=== PATIENT | female | born 1950 | race Caucasian/White ===

== ENCOUNTER 2019-08-20 01:13 | Emergency (ER) | payer BC, OTHER ==
--- OUTSIDE RECORDS SUMMARY | 2019-08-20 01:16 | XMS REPORT | Summary of Care ---
:1950 Author Organization [facility] [place] [address] Care Team Providers Name Role Phone Husam Taylor MD, ANTHONY Primary Care Provider Itzel Hancock MD Unavailable Chance Tabares MD Unavailable Filipe Huertas Unavailable Reason for Referral Radiology Services (Routine) Status Reason Specialty Diagnoses / Referred By Contact Referred To Contact Procedures Pending Radiology Diagnoses Cholangiocarcinoma Eliezer Long, Radiology Procedures CT CHEST ABDOMEN PELVIS W CONTRAST MD Steven [address] 1[address] Floor 7th Floor, [address] [place], [place] [id number] [place] [address] Reason for Visit Reason Comments Follow Up Encounter Details Date Type Department Care Team Description 01/08/2019 Office Visit [facility] Hematology Eliezer Long, Follow Up and Oncology [address] [place] [address] 7th Floor, [address] 7th Floor, [address] [place] [address] [place] [address] [phone] Allergies Active Allergy Reactions Severity Noted Date Comments Sulfa Antibiotics 12/10/2008 documented as of this encounter (statuses as of 01/08/2019) Medications Medication Sig Dispensed Refills Start Date End Date Status TYLENOL 325 MG TABS Take 650 mg by 0 Active mouth every 4 hours as needed for Pain. Cyanocobalamin (B-12) Take 2,500 mcg by 0 Active 2000 MCG TABS mouth daily. Cholecalciferol Take by mouth. 0 Active (VITAMIN D3) 2000 UNIT TABS Multiple Take by mouth. 0 Active Vitamins-Calcium (ONE-A-DAY WOMENS FORMULA OR) tramadol (ULTRAM) 50 Take 1 Tab by 30 Tab 1 10/18/2017 Active MG tabletIndications: mouth every 6 Cholangiocarcinoma, hours as needed Pain for Pain. ondansetron (ZOFRAN) 8 Take 1 Tab by 30 Tab 5 10/18/2017 Active mg tabletIndications: mouth every 8 Chemotherapy induced hours as needed. nausea and vomiting Take as needed for nausea Pancrelipase, Take 2 Caps by 240 Cap 6 11/01/2017 Active Vqg-Bnfj-Mvku, 37833 mouth 3 times units CPEPIndications: daily (with Cholangiocarcinoma, meals). And 1 cap Abdominal cramping, with snacks Bloating lidocaine-prilocaine Apply 1 30 g 5 11/15/2017 Active (EMLA) application creamIndications: topically every 7 Cholangiocarcinoma, days. Apply to Portacath in place port site with A Q tip 1 hour pre chemo Cover with elidia espana escitalopram (LEXAPRO) Take 1 Tab by 90 Tab 1 07/26/2018 Active 20 MG tablet mouth daily. lisinopril (PRINIVIL, TAKE 1 TABLET BY 90 Tab 1 08/09/2018 Active ZESTRIL) 10 MG MOUTH EVERY DAY tabletIndications: Essential hypertension documented as of this encounter (statuses as of 01/08/2019) Active Problems Problem Noted Date Neuropathy 10/11/2018 Thrombocytopenia 10/11/2018 Liver metastases 06/06/[address] 11/08/2017 Chemotherapy induced nausea and vomiting 10/18/2017 Hyperbilirubinemia 09/20/2017 Cholangiocarcinoma 09/20/2017 Cancer Staging: Clinical stage from 09/14/2017: Stage IV (cTX, cN0, pM1) - Signed by Eliezer Long MD on 12/12/2018 Liver mass 08/30/2017 Last Assessment & Plan: Most likely cholangiocarcinoma. Awaiting path results from Bx. - Recent reviewed results with patient. Discussed Colonoscopy findings. Answered all patients questions. - Doing well-post biopsy. - Letter written that ok to return to work, but should not lift >5 lbs for 2 weeks (per IR instructions) - Discussed possible etiologies, including fact that findings thus far are most consistent with a cholangiocarcinoma - Discussed continued work up of this, including waiting for biopsy results, visit with Onc, likely need for surgery and chemo. - Regarding mood, she is tolerating well at this point. - Recheck liver enzymes. Suspect bili elevated due to obstruction from mass. - Reports she was told that her gall bladder was prolapsed or inverted? I could not finding records to clarify this. Suspect abnormalities related to liver/biliary mass. Vision changes 08/28/2015 Last Assessment & Plan: BPs well within normal range. No bruits on exam. Recent echo without obvious cause. - Carotid ultrasound ordered. - Monitor BP - Increase water intake Muscle spasms of neck 08/28/2015 Last Assessment & Plan: Intermittent - Increase water intake - Stretching Hypertension 06/03/2015 Last Assessment & Plan: Now well-controlled. - Continue lisinopril 10 Ear itching 02/06/2015 Last Assessment & Plan: Mild. Intermittent. Only of left. Exam showed dry, flaking skin on entrance to ear canal. - Recommend either no intervention, or small amount of moisturizing cream on external ear. Advised not to put in ear. Cardiac murmur 2013 Last Assessment & Plan: Turbulent LVOT flow, and tri-leaflet, but normal aortic valve on echo. Goals of care, counseling/discussion 10/17/2013 Overview: Last Annual Physical: 08/2018 - Colonoscopy: completed 09/2017, 1 TA. Repeat 2022 - Breast Cancer Screening: - CBE: Normal 08/2018 - Mammogram: Normal 08/2017; discussed repeating. Ordered - Skin Cancer Prevention; - Pap Smear: Normal 05/2015 (normal) with Dr. Mcwilliams - Osteoporosis Screening: Bone Density ordered - Skin Cancer Prevention: Avoids sun. Declined TBSE. - Vaccines: - Flu: received 04/05/2018 - Pneumovax: discuss at age 66 - Prevnar: received 08/2017 - Tetanus: received 02/2016 - Zoster: received 10/2013 Chemotherapy management, encounter for 10/25/2007 Dysthymic disorder 03/03/2006 Last Assessment & Plan: Pt reports improvement with increase of Lexapro to 10 mg. Reports still a level of anxiety remaining that she would like to address. History of depression. - Discussed potentially increasing to 20mg. She will continue as is and follow up with Dr. Castaneda ([place], [place]; [phone]) Depression Last Assessment & Plan: - D/C lexapro - Advised to contact me if depression recurs documented as of this encounter (statuses as of 01/08/2019) Resolved Problems Problem Noted Date Resolved Date INGUINAL PAIN, RIGHT 03/27/2008 10/18/2013 SCREENING FOR MALIGNANT NEOPLASM, CERVIX 10/25/2007 08/22/2013 SCREENING MAMMOGRAM NEC 10/25/2007 08/22/2013 Neck pain 09/28/2007 10/18/2013 SYMPTOMS INVOLVING DIGESTIVE SYSTEM NEC 09/28/2007 10/18/2013 Headache(784.0) 02/16/2007 10/18/2013 Chest pain 09/22/2006 10/18/2013 Fatigue 09/22/2006 08/22/2013 Urinary frequency 09/22/2006 10/18/2013 Menopausal disorder 09/22/2006 10/18/2013 History of cerebral aneurysm repair after rupture 09/22/2006 04/11/2018 Hypothyroidism 03/03/2006 04/13/2015 Last Assessment & Plan: - D/C levothyroxine today - Check TSH today for baseline, and again in 6-8 weeks. If remains controlled, no need to restart. documented as of this encounter (statuses as of 01/08/2019) Immunizations Name Administration Dates Next Due PPD Test 02/16/2011 Pneumococcal 13-valent Conjugate Vaccine 08/09/2017 Pneumococcal Polysaccharide 08/22/2018 Tdap 02/17/2016 Zoster Live 10/18/2013 documented as of this encounter Social History Tobacco Use Types Packs/Day Years Used Date Never Smoker Smokeless Tobacco: Never Used Alcohol Use Drinks/Week oz/Week Comments No Alcoholic Drinks/day: Never Sex Assigned at Date Recorded Not on file Job Start Date Occupation Industry Not on file Not on file Not on file Travel History Travel Start Travel End No recent travel history available. documented as of this encounter Last Filed Vital Signs Vital Sign Reading Time Taken Comments Blood Pressure 150/83 01/08/2019 8:20 AM CDT Pulse 84 01/08/2019 8:20 AM CDT Temperature 36.9 C (98.4 F) 01/08/2019 8:20 AM CDT Respiratory Rate - - Oxygen Saturation - - Inhaled Oxygen Concentration - - Weight 80.4 kg (177 lb 3.2 oz) 01/08/2019 8:20 AM CDT Height 167.6 cm (5' 6") 01/08/2019 8:20 AM CDT Body Mass Index 28.6 01/08/2019 8:20 AM CDT documented in this encounter Patient Instructions Patient InstructionsEliezer Long MD - 01/08/2019 8:30 AM CDT [facility] SECTION OF ONCOLOGY/HEMATOLOGY [phone] FAX [phone] Please note that all labs and or imaging results will be discussed at the next office visit unless told otherwise. If a problem occurs after normal business hours, over the weekend, or on a holiday, please contact our office at [phone] and have the physician configuration consultant paged. Patient Instructions: (to be completed before next visit) - schedule CT scan for week of Feb 04 Please don't hesitate to call or to send a [employer] message if you have any questions or concerns before your next visit. [employer] messaging should only be used for non-urgent questions. MyChart is notchecked after normal business hours, nor on weekends or holidays. 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 This tumor was tested and found to be OLI phenotype. As a part of her workup she underwent completion staging scans, which revealed tumor as described, and some small, indeterminate lung nodules. Lab work up also was noted for elevated T-bilirubin. She underwent ERCP and developed pancreatitis, for which she was hospitalized. As an outpatient, she subsequently began chemotherapy with gemcitabine/ cisplatin. Stent was revised by Dr Arechiga during off week from therapy. CT imaging assessed 01/09/18 indicated partial response of hepatic metastases. Several regional nodes had developed however. The next assessment on 03/09/18 suggested effective therapy, butexcept thata liver lesion had discordantly grown.She continued with same therapy and next imaging was repeated on 04/23/18. This nowshowed control of hepatic disease, but that a node had grown. Unclear if this is due to cancer or reactive.She continued with same regimen but with modification for better subjective tolerance.Imaging repeated 07/02/18and was good for ongoing response.This was again true of scans from 10/05/18. Over the course of the latter six months of therapy, dose modifications were needed due to chemotherapy-associated cytopenias. Despite modifications, cytopenias, notably thrombocytopenia, persist as a toxicity.Treatment break was recommended. She had CT imaging 12/04/18 that revealed minimal progression of one lesion (less then 1/2 cm but in 3-directions all). Continued with hiatus. 01/08/19:Again she feels better off of therapy. Improving neuropathy. She has improvement with her cognition, energy. No pain. No itching, skin changes. Review of Systems: Gen: No fevers, chills, sweats, fatigue, weakness. HENT: No sore throat or mouth sores. No runny nose, sinus congestion, or earache. Eyes: No blurring of vision or visual changes. Neck: No new lumps or masses. Resp: No shortness of breath or wheezing. No cough or sputum. Cardio: No chest pain. No palpitations. No leg swelling. GI: See HPI : No dysuria or problems with urination. MS: No bone pain or joint stiffness. No arm swelling or edema. Skin: No new rashes, lumps or bumps. Neuro: See HPI Heme: No bleeding or easy bruisability. No adenopathy. Psych: No symptoms of depression or anxiety. All other systems reported as negative on ROS. Past Medical History: Past Medical History: Diagnosis Date Brain aneurysm 2005 s/p clipping Depression Disorder, dysthymic 03/03/2006 Hypertension 06/03/2015 Hypothyroidism 03/03/2006 Osteoporosis Past Surgical History: Past Surgical History: Procedure Laterality Date HX BRAIN SURGERY Jun 2005 aneurysm HX BREAST SURGERY 1974 HX CERVICAL CONIZATION HX FRACTURE REPAIR HX TONSILLECTOMY Social history: Social History Socioeconomic History Marital status: Spouse name: Not on file Number of children: Not on file Years of education: Not on file Highest education level: Not on file Occupational History Not on file Social Needs Financial resource strain: Not on file Food insecurity: Worry: Not on file Inability: Not on file Transportation needs: Medical: Not on file Non-medical: Not on file Tobacco Use Smoking status: Never Smoker Smokeless tobacco: Never Used Substance and Sexual Activity Alcohol use: No Comment: Alcoholic Drinks/day: Never Drug use: No Comment: Drug use: Never Sexual activity: Not Currently Partners: Male Lifestyle Physical activity: Days per week: Not on file Minutes per session: Not on file Stress: Not on file Relationships Social connections: Talks on phone: Not on file Gets together: Not on file Attends hindu service: Not on file Active member of club or organization: Not on file Attends meetings of clubs or organizations: Not on file Relationship status: Not on file Intimate partner violence: Fear of current or ex partner: Not on file Emotionally abused: Not on file Physically abused: Not on file Forced sexual activity: Not on file Other Topics Concerns: Do you wear a seatbelt: Yes Do you have a tattoo: No Have you ever had a blood transfusion: Yes Do you feel safe at home: Yes Social History Narrative Not on file Family history: Family History Problem Relation Name Age of Onset Diabetes Maternal Grandfather Nelson Piña Diabetes Maternal Aunt Corinna Becerril Other (Fibroids) Daughter Allergies Allergen Reactions Sulfa Antibiotics Current Outpatient Medications Medication Sig Dispense Refill Cholecalciferol (VITAMIN D3) 2000 UNIT TABS Take by mouth. Cyanocobalamin (B-12) 2000 MCG TABS Take 2,500 mcg by mouth daily. escitalopram (LEXAPRO) 20 MG tablet Take 1 Tab by mouth daily. 90 Tab 1 lidocaine-prilocaine (EMLA) cream Apply 1 application topically every 7 days. Apply to port sitewith A Q tip 1 hour pre chemo Cover with sarlam warp 30 g 5 lisinopril (PRINIVIL, ZESTRIL) 10 MG tablet TAKE 1 TABLET BY MOUTH EVERY DAY 90 Tab 1 Multiple Vitamins-Calcium (ONE-A-DAY WOMENS FORMULA OR) Take by mouth. ondansetron (ZOFRAN) 8 mg tablet Take 1 Tab by mouth every 8 hours as needed. Take as needed fornausea 30 Tab 5 Pancrelipase, Oyk-Avct-Kneq, 71988 units CPEP Take 2 Caps by mouth 3 times daily (with meals). And 1 cap with snacks (Patient not taking: Reported on 2018) 240 Cap 6 tramadol (ULTRAM) 50 MG tablet Take 1 Tab by mouth every 6 hours as needed for Pain. 30 Tab 1 TYLENOL 325 MG TABS Take 650 mg by mouth every 4 hours as needed for Pain. No current facility-administered medications for this visit. Physical Exam: Vital Signs Height: 5' 6" (167.6 cm) Weight - Scale: 177 lb 3.2 oz (80.4 kg) Temp: 98.4 F (36.9 C) Temp Source: Oral Pulse: 84 Resting Heart Rate: 84 BP: 150/83 Patient Position: Sitting Cuff Size: regular BP Location: left arm Oxygen Therapy O2 Sat: 99 % Height and Weight BSA (Calculated - sq m): 1.93 sq meters BMI (Calculated): 28.7 Predicted Body Weight: 130.73 Body surface area is 1.93 meters squared. Wt Readings from Last 3 Encounters: 01/08/19 177 lb 3.2 oz (80.4 kg) 12/12/18 172 lb 9.6 oz (78.3 kg) 11/07/18 169 lb 12.8 oz (77 kg) ECO General: Alert, well appearing, no acute distress. Head: alopecia that is improving Eyes: Conjunctivae and lids normal. The sclera is clear and anicteric ENT: No oral lesions. Oropharynx shows no mucositis, erythema or exudate Neck: Supple, no JVD. Thyroid not enlarged. No cervical adenopathy. Heart: Regular rate and rhythm, normal S1 and S2. No murmurs, gallops, rubs, or extra sounds. Lungs: Normal respiratory effort. There is normal air entry with normal breath sounds. No rales, rhonchi, rubs or wheezes. Nodes: No axillary, supraclavicular, or cervical lymphadenopathy. Abdomen: Hyperactive bowel sounds. Soft. Nontender. Some distension. There is no palpable hepatosplenomegaly. No hernias noted. Extremities: No varicosities or ulceration. No clubbing, cyanosis, or edema. Skin: Warm and dry No rashes, lesions or ulcerations. Port C/D/I Neurologic: The patient is oriented to time, place, and person. Muscle tone is normal.The gait was normal and there were no difficulty in coordination. Psych: Mood is stable Labs:All laboratory, radiology, and pathology studies have been reviewed. Assessment 68y.o.year old woman has been diagnosed with an upperGI trackcarcinoma with hepatic metastasis. Role for therapy to contain or control this cancer with systemic therapy has been offered. Because this is spread, surgery is not indicated but other local options such as radiation could be a consideration. For medical therapy, shehas proven to francia good candidate to benefit from chemotherapy. Specifically, a combination of gemcitabine/cisplatinused indicated in the first line, for nearly one year. She is not a candidate for immune therapy due to OLI phenotype of the tumor. Given controlled disease, but also emphasizing progressive toxicity ( thrombocytopenia and neuropathy), recommendedthat she maintain the treatment hiatus. She is clinically better for the break and counts are improved. Plan Carcinoma - First line chemotherapy with gemcitabine/cisplatin,now held on hiatus - Discussed in context of GOC - Plan to defer further therapy at this time but reassess after only interval of 2 months as ordered This diagnosis and rationale for treatment were discussed with the patient and her daughterto theirapparent understanding and agreement.[id number], encouraged to call with questions or concerns. Eliezer Long MD, FACP [facility] #[id number] Set Up Mechanic Heading Machinesquarter section ironer Leoncio Montero [facility] documented in this encounter Plan of Treatment Date Type Specialty Care Team Description 02/13/2019 Office Visit Hematology and Oncology Chema Reardon, TERRENCE [address] [facility] 7th Floor, [address] [place] [address] Name Type Priority Associated Diagnoses Order Schedule CT CHEST ABDOMEN PELVIS W Imaging Routine Cholangiocarcinoma 1 Occurrences starting CONTRAST 01/08/2019 until 01/09/2020 CBC W/AUTO DIFF WITH Lab STAT Cholangiocarcinoma Ordered: 01/08/2019 PLATELETS COMPREHENSIVE METABOLIC Lab STAT Cholangiocarcinoma Ordered: 01/08/2019 PANEL CANCER ANTIGEN 19-9 Lab Routine Cholangiocarcinoma Ordered: 01/08/2019 Health Maintenance Due Date Last Done Comments BMI FOLLOW UP PLAN 10[birth year]19/1968 FLU VACCINE > 6 MONTHS 01/03/2019 04/02/2018, 02/17/2016 (Declined), 02/06/2015 (Declined) FALL SCREEN 08/23/2019 08/22/2018 MAMMOGRAM ANNUAL 09/29/2019 09/28/2018, 08/24/2017, 08/19/2016, Additional history exists COLON CANCER SCREENIN09/05/2022 09/05/2017, 09/05/2017, COLONOSCOPY 06/05/2005 TETANUS SHOT (ADULT) 02/16/2026 02/17/2016, 06/05/2012 PREVNAR >=65 (PCV13) Completed 08/09/2017, 08/09/2017 HEPATITIS C SCREENING Completed 08/24/2017 OSTEOPOROSIS SCREENING Completed 08/24/2017, 10/18/2013, 10/18/2013, Additional history exists PNEUMOVAX >=65 (PPSV23) Completed 08/22/2018 documented as of this encounter Results Not on filedocumented in this encounter Visit Diagnoses Diagnosis Cholangiocarcinoma - Primary Malignant neoplasm of intrahepatic bile ducts documented in this encounter Insurance Payer Benefit Plan / Subscriber ID Effective Dates Phone Address Type Group [facility] xxxxxxxxx 2015-Present [address] PPO [facility] [phone] [facility] MATT Castano (Home) [phone] [place] [address] (Work) documented as of this encounter Advance Directives Type Date Recorded Patient Press Set Up Explanation Advance Directives and Living Will Power of Meat Selector
--- OUTSIDE RECORDS SUMMARY | 2019-08-20 01:16 | XMS REPORT | Summary of Care ---
:1950 Author Organization [facility] - Health Address [address] [place] [address] Care Team Providers Name Role Phone Pcp, Patient Does Not Have A Primary Care Provider Reason for Visit Reason Comments New Patient Ankle Pain right 06/14 x 5 days Encounter Details Date Type Department Care Team Description 02/13/2019 Office Visit [facility] Orthopaedic Bhanu Adkins Closed fracture of Surgery- Ellie Marinelli MD proximal lateral [address], [address] malleolus of right [address] fibula, [place] [address] [place], [place] encounter (Primary Dx) [phone] Allergies No Known Allergiesdocumented as of this encounter (statuses as of 02/13/2019) Medications No known medicationsdocumented as of this encounter (statuses as of 02/13/2019) Active Problems Not on filedocumented as of this encounter (statuses as of 02/13/2019) Social History Tobacco Use Types Packs/Day Years Used Date Never Assessed Sex Assigned at Date Recorded Not on file Job Start Date Occupation Industry Not on file Not on file Not on file Travel History Travel Start Travel End No recent travel history available. documented as of this encounter Last Filed Vital Signs Vital Sign Reading Time Taken Comments Blood Pressure 118/79 02/13/2019 3:05 PM CDT Pulse 93 02/13/2019 3:05 PM CDT Temperature - - Respiratory Rate 18 02/13/2019 3:05 PM CDT Oxygen Saturation 95% 02/13/2019 3:05 PM CDT Inhaled Oxygen Concentration - - Weight - - Height - - Body Mass Index - - documented in this encounter Progress Notes Bhanu Adkins MD - 02/13/2019 2:45 PM CDT Cc: Chief Complaint Patient presents with New Patient Ankle Pain right 06/14 x 5 days Danny Babcock is a 68 year old female. Ankle Pain The incident occurred 5 to 7 days ago. The incident occurred at home. The injury mechanism was a fall. The pain is present in the right ankle. The quality of the pain is described as aching, burning and stabbing. The pain is at a severity of 6/10. The pain is moderate. The pain has been worsening since onset. Associated symptoms include an inability to bear weight. The symptoms are aggravated by movement and weight bearing. She has tried NSAIDs, non-weight bearing and rest for the symptoms. The treatment provided mild relief. Allergies Danny has No Known Allergies. Medications No outpatient medications prior to visit. No facility-administered medications prior to visit. Histories No past medical history on file. No past surgical history on file. Social History Socioeconomic History Marital status: Spouse [...] Not on file Tobacco Use Smoking status: Not on file Substance and Sexual Activity Alcohol use: Not on file Drug use: Not on file Sexual activity: Not on file Lifestyle Physical activity: Days per week: Not on file Minutes per session: Not on file Stress: Not on file Relationships Social connections: Talks on phone: Not on file Gets together: Not on file Attends mandaen service: Not on file Active member of club or organization: Not on file Attends meetings of clubs or organizations: Not on file Relationship status: Not on file Intimate partner violence: Fear of current or ex partner: Not on file Emotionally abused: Not on file Physically abused: Not on file Forced sexual activity: Not on file Other Topics Concern Not on file Social History Narrative Not on file No family history on file. Review of Systems Constitutional: Negative. HENT: Negative. Eyes: Negative. Respiratory: Negative. Breasts: Negative. Cardiovascular: Negative. Gastrointestinal: Negative. Genitourinary: Negative. Musculoskeletal: Negative. Negative for myalgias. Skin: Negative. Neurological: Negative. Psychiatric/Behavioral: Negative. Endocrine: Endocrine negative Vital Signs BP 118/79 (BP Location: Left arm, Patient Position: Sitting, BP CUFF SIZE: Adult Large) | Pulse 93| Resp 18 | SpO2 95% Physical Exam Musculoskeletal: General: Well-developed well-nourished oriented to person place and time HEENT normocephalic atraumatic atraumatic pupils equal round reactive to light extraocular muscles intact Cervical thoracic and lumbar spine without focal deficit normal kyphosis and lordosis Chest clear to auscultation and percussion Cardiovascular regular rate and rhythm without gallop rub or murmur soft without organomegaly Normal bowel sounds Neurologic: Focal myotome or dermatomal deficits Vascular: Intact symmetrical bilateral upper and lower extremities Skin without stasis varicosities or breakdown Extremities without cyanosis clubbing or edema Lymphatics no peripheral lymphedema Psych normal mood and affect. Neurovascular function is intact. To include brisk capillary refill warm pink skin active motor function and sensory function intact. Nursing note and vitals reviewed. Assessment/Plan Right ankle nondisplaced lateral malleolus Patient placed into a cast book. Follow up 1 week for xray. documented in this encounter Plan of Treatment Date Type Specialty Care Team Description 03/15/2019 Office Visit Orthopedic Surgery Bhanu Adkins MD [address] [place] [phone] Health Maintenance Due Date Last Done Comments HEPATITIS C (HCV) SCREEN 1950 DTaP,Tdap,and Td Vaccines (1 - Tdap) 10/19/1970 MAMMOGRAM 1991 COLONOSCOPY 10/19/2001 Zoster Recombinant Vaccine (SHINGRIX) (1 of 2) 10/19/2001 Medicare Wellness Visit 10/19/2016 Osteoporosis Screening 10/19/2016 PNEUMOCOCCAL VACCINES 65+ (1 of 2 - PCV13) 10/19/2016 INFLUENZA VACCINE (#1) 2019 documented as of this encounter Results Not on filedocumented in this encounter Visit Diagnoses Diagnosis Closed fracture of proximal lateral malleolus of right fibula, initial encounter - Primary documented in this encounter Insurance Payer Benefit Plan Subscriber ID Effective Dates Phone Address Type / Group BCBS OF [employer] FED [id number] 2015-Zandra [phone] [address] PPO/POS [place] [address] t [id number] [place] [address] documented as of this encounter"
--- OUTSIDE RECORDS SUMMARY | 2019-08-20 01:16 | XMS REPORT | Summary of Care ---
:1950 Author Organization [facility] - Health Address [address] [place] [address] Care Team Providers Name Role Phone Pcp, Patient Does Not Have A Primary Care Provider Reason for Visit Reason Comments New Patient Ankle Pain right 06/14 x 5 days Encounter Details Date Type Department Care Team Description 02/13/2019 Office Visit [facility] Orthopaedic Bhanu Adkins Closed fracture of Surgery- Ellie Marinelli MD proximal lateral [address], [address] malleolus of right [address] fib[address], [place] [address] [place], [place] encounter (Primary Dx) [phone] Allergies No Known Allergiesdocumented as of [...] file Gets together: Not on file Attends restorationism service: Not on file Active member of [...] Office Visit Orthopedic Surgery Bhanu Adkins MD [address] [place] [phone] Health Maintenance Due Date Last Done [...] Type / Group BCBS OF BCBS FED [id number] 2015-Zandra [phone] [address] PPO/POS [place] [employer] t 7 [id number] [place] [address] documented as of this encounter"
--- OUTSIDE RECORDS SUMMARY | 2019-08-20 01:16 | XMS REPORT | Summary of Care ---
:1950 Author Organization [facility] [place] [address] Care Team Providers Name Role Phone Husam Taylor MD, ANTHONY Primary Care Provider Itzel Hancock MD Unavailable Chance Tabares MD Unavailable Filipe Huertas Unavailable Reason for Visit Reason Comments Follow Up 4 week f/u Encounter Details Date Type Department Care Team Description 02/06/2019 Office Visit [facility] Eliezer Oliveira Follow Up (4 week [facility] Leoncio Harris MD f/u) [facility] [address] [facility] 7th Floor, [address] [facility] [address] 7th Floor, [address] [place] [address] [place] [address] Allergies Active Allergy Reactions Severity Noted Date Comments Sulfa Antibiotics 12/10/2008 documented as of this encounter (statuses as of 02/06/2019) Medications Medication Sig Dispensed Refills Start Date [...] Caps by 240 Cap 6 11/01/2017 Active Ytm-Hbrz-Auml, 39153 mouth 3 times units CPEPIndications: daily (with Cholangiocarcinoma, meals). And 1 cap Abdominal cramping, with snacks Bloating lidocaine-prilocaine Apply 1 30 g 5 11/15/2017 Active (EMLA) application creamIndications: topically every 7 Cholangiocarcinoma, days. Apply to Portacath in place port site with A Q tip 1 hour pre chemo Cover with elidia espana escitalopram (LEXAPRO) TAKE 1 TABLET BY 90 Tab 1 01/18/2019 Active 20 MG tablet MOUTH EVERY DAY lisinopril (PRINIVIL, TAKE 1 TABLET BY 90 Tab 3 01/21/2019 Active ZESTRIL) 10 MG MOUTH EVERY DAY tabletIndications: Essential hypertension documented as of this encounter (statuses as of 02/06/2019) Active Problems Problem Noted Date Neuropathy 10/11/2018 [...] is and follow up with Dr. Castaneda ([place], [place]; [phone]) Depression Last Assessment & Plan: - D/C lexapro - Advised to contact me if depression recurs documented as of this encounter (statuses as of 02/06/2019) Resolved Problems Problem Noted Date Resolved Date [...] as of this encounter (statuses as of 02/06/2019) Immunizations Name Administration Dates Next Due PPD [...] Sign Reading Time Taken Comments Blood Pressure 118/78 02/06/2019 10:36 AM CDT Pulse 78 02/06/2019 10:36 AM CDT Temperature 36.9 C (98.5 F) 02/06/2019 10:36 AM CDT Respiratory Rate - - Oxygen Saturation - - Inhaled Oxygen Concentration - - Weight 82.1 kg (181 lb) 02/06/2019 10:36 AM CDT Height 167.6 cm (5' 6") 02/06/2019 10:36 AM CDT Body Mass Index 29.21 02/06/2019 10:36 AM CDT documented in this encounter Patient Instructions Patient InstructionsEliezer Logn MD - 02/06/2019 11:30 AM CDT [facility] SECTION OF ONCOLOGY/HEMATOLOGY [phone] FAX [phone] Please note that all labs and or imaging results will be discussed at the next office visit unless told otherwise. If a problem occurs after normal business hours, over the weekend, or on a holiday, please contact our office at [phone] and have the physician salesperson women's hats paged. Patient Instructions: (to be completed before next visit) - Will reassess in clinic in one month, with plans for scan in another 2months Please don't hesitate to call or to send a Get [employer] message if you have any questions or concerns before your next visit. [employer] messaging should only be used for non-urgent questions. MyChart is notchecked after normal business hours, nor on weekends or holidays. Thank you, Eliezer Long MD documented in this encounter Progress Notes Eliezer Long MD - 02/06/2019 11:30 AM CDT Oncology Consult Reason for Consultation:Management of a cancer of upper GI origin [...] but in 3-directions all). Continued with hiatus. Next imaging showed stable disease in that two monthinterval. 02/06/19:Imaging was reviewed in detail. She of course feels better off of therapy. Minimal residualneuropathy. She has improvement with hercognition, energy. No pain. No itching, skin changes. 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 escitalopram (LEXAPRO) 20 MG tablet TAKE 1 TABLET BY MOUTH EVERY DAY 90 Tab 1 lidocaine-prilocaine (EMLA) cream Apply 1 application topically every 7 days. Apply to port sitewith A Q tip 1 hour pre chemo Cover with elidia espana 30 g 5 lisinopril (PRINIVIL, ZESTRIL) 10 MG tablet TAKE 1 TABLET BY MOUTH EVERY DAY 90 Tab 3 Multiple Vitamins-Calcium (ONE-A-DAY WOMENS FORMULA OR) Take by mouth. ondansetron (ZOFRAN) 8 mg tablet Take 1 Tab by mouth every 8 hours as needed. Take as needed fornausea 30 Tab 5 Pancrelipase, Npj-Gqro-Lfdr, 30758 units CPEP Take 2 Caps by mouth 3 times daily (with meals). And 1 cap with snacks 240 Cap 6 tramadol (ULTRAM) 50 MG tablet Take 1 Tab by mouth every 6 hours as needed for Pain. 30 Tab 1 TYLENOL 325 MG TABS Take 650 mg by mouth every 4 hours as needed for Pain. No current facility-administered medications for this visit. Physical Exam: Vital Signs Height: 5' 6" (167.6 cm) Weight - Scale: 181 lb (82.1 kg) Temp: 98.5 F (36.9 C) Temp Source: Oral Pulse: 78 Resting Heart Rate: 78 BP: 118/78 Patient Position: Sitting Cuff Size: regular BP Location: left arm Oxygen Therapy O2 Sat: 100 % Height and Weight BSA (Calculated - sq m): 1.96 sq meters BMI (Calculated): 29.3 Predicted Body Weight: 130.73 Body surface area is 1.96 meters squared. Wt Readings from Last 3 Encounters: 02/06/19 181 lb (82.1 kg) 01/08/19 177 lb 3.2 oz (80.4 kg) 12/12/18 172 lb 9.6 oz (78.3 kg) ECO General: Alert, well appearing, no [...] emphasizing progressive toxicity ( thrombocytopenia and neuropathy), plan discussed is tomaintain thetreatment hiatus. She is clinically better for the break and counts are improved. Plan Carcinoma - First line chemotherapy with gemcitabine/cisplatin,now held on hiatus - Discussed in context of GOC - Plan to defer further therapy at this time but reassess her imaging after another interval of 2 months This diagnosis and rationale for treatment were discussed with the patient and her daughterto theirapparent understanding and agreement.[id number], encouraged to call with questions or concerns. Eliezer Long MD, FACP [facility] #[id number] Clipper Operatorjourneyman plumber Leoncio Montero [facility] documented in this encounter Plan of Treatment Date Type Specialty Care Team Description 03/06/2019 Office Visit Hematology and Oncology Eliezer Long MD [address] [facility] 7th Floor, [address] [place] [address] Health Maintenance Due Date Last Done Comments [...] Primary Malignant neoplasm of intrahepatic bile ducts Goals of care, counseling/discussion Other specified counseling documented in this encounter Insurance Payer Benefit Plan / Subscriber ID Effective Dates Phone Address Type Group [facility] OUT OF [facility] xxxxxxxxx 2015-Present [address] [facility] [id number] Counts include 234 beds at the [facility] MATT RANDHAWA [facility] (Home) [facility] [phone] [place] [address] (Work) documented as of this encounter Advance Directives Type Date Recorded Patient Director Mobile Explanation Advance Directives and Living Will Power of Kiln Feeder
--- OUTSIDE RECORDS SUMMARY | 2019-08-20 01:19 | XMS REPORT ---
:1950 [facility] [address] [place] [address] Care Team Providers Name Role Phone ROMAN LIN Unavailable Unavailable SUMA BUTCHER Unavailable Unavailable ROSE ARECHIGA Unavailable Unavailable GOPI VALDOVINOS Unavailable Unavailable Problems This patient has no known problems. Allergies, Adverse Reactions, Alerts This patient has no known allergies or adverse reactions. Medications This patient has no known medications. Results Test Description Test Time Test Comments Text Results Atomic Results Result Comments CT, CHEST, WITH IV 2019-07-05 16:53:[address] of the chest, abdomen and pelvis, with contrast Clinical History: Cholangiocarcinoma Technique: CT of the chest, abdomen and pelvis is performed with intravenous contrast administration. This exam was performed according to our departmental dose optimization program which includes automated exposure control, adjustment of the mA and/or kV according to patient's size and/or use of iterative reconstructive technique. Comparison Film: April 05, 2019 and January 31, 2019, October 05, 2018, March 09, 2018 Discussion: There is a right-sided Port-A-Cath. Visualized thyroid gland is normal. No supraclavicular, axillary, mediastinal or hilar adenopathy. Heart and pericardium are unremarkable. There is no mass or consolidation, no pleural effusion. Several small pulmonary nodules are unchanged. No new nodule is seen. Central airways are patent. Heterogeneously enhancing mass in the right hepatic lobe measures approximately 6.1 x 6.3 x 5 cm. While there is no significant change compared to the most recent prior exam, gradual enlargement is noted when compared to more remote studies. Additionally, an area of heterogeneous enhancement and infiltrative change in segment 4 of liver has also become gradually larger, measuring approximately 8 x 4.9 cm on the coronal plane. Mild ductal dilatation in the right lobe distal to the mass is unchanged. There are a few tiny stable hypodensities in liver, some are in the left lobe. Multiple small stones are seen in the gallbladder. Hepatic vasculature is patent. Spleen is mildly enlarged. Pancreas, and adrenal glands are also unremarkable. Kidneys demonstrate no hydronephrosis, radiopaque stone, or mass. There is a small cyst at the left upper pole. There is a small hiatal hernia. No evidence of bowel obstruction, or abnormal bowel wall thickening. There is colonic diverticulosis. Appendix is normal. In the pelvis, bladder, uterus and adnexa are unremarkable. There are enlarged herlinda hepatis lymph nodes, without interval change. A slightly prominent right common iliac lymph node is also unchanged. No new adenopathy is identified. No ascites. Osseous structures demonstrate degenerative changes. No suspicious bony lesion is identified. 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 Impression: Slowly enlarging right hepatic mass, and infiltrative appearance in segment 4 of liver. Grossly stable herlinda hepatis lymph nodes. No new disease identified in the thorax. Cholelithiasis. Colonic diverticulosis. Signed: Travis Robles Verified Date/Time: 07/05/2019 16:53:41 Reading Location: [facility] B1 C013X Ortho Consult Reading Room , ABDOMEN 2019-07-05 16:53:[address] of the chest, abdomen and pelvis, with contrast Clinical History: Cholangiocarcinoma Technique: CT of the chest, abdomen and pelvis is performed with intravenous contrast administration. This exam was performed according to our departmental dose optimization program which includes automated exposure control, adjustment of the mA and/or kV according to patient's size and/or use of iterative reconstructive technique. Comparison Film: April 05, 2019 and January 31, 2019, October 05, 2018, March 09, 2018 Discussion: There is a right-sided Port-A-Cath. Visualized thyroid gland is normal. No supraclavicular, axillary, mediastinal or hilar adenopathy. Heart and pericardium are unremarkable. There is no mass or consolidation, no pleural effusion. Several small pulmonary nodules are unchanged. No new nodule is seen. Central airways are patent. Heterogeneously enhancing mass in the right hepatic lobe measures approximately 6.1 x 6.3 x 5 cm. While there is no significant change compared to the most recent prior exam, gradual enlargement is noted when compared to more remote studies. Additionally, an area of heterogeneous enhancement and infiltrative change in segment 4 of liver has also become gradually larger, measuring approximately 8 x 4.9 cm on the coronal plane. Mild ductal dilatation in the right lobe distal to the mass is unchanged. There are a few tiny stable hypodensities in liver, some are in the left lobe. Multiple small stones are seen in the gallbladder. Hepatic vasculature is patent. Spleen is mildly enlarged. Pancreas, and adrenal glands are also unremarkable. Kidneys demonstrate no hydronephrosis, radiopaque stone, or mass. There is a small cyst at the left upper pole. There is a small hiatal hernia. No evidence of bowel obstruction, or abnormal bowel wall thickening. There is colonic diverticulosis. Appendix is normal. In the pelvis, bladder, uterus and adnexa are unremarkable. There are enlarged herlinda hepatis lymph nodes, without interval change. A slightly prominent right common iliac lymph node is also unchanged. No new adenopathy is identified. No ascites. Osseous structures demonstrate degenerative changes. No suspicious bony lesion is identified. 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 Impression: Slowly enlarging right hepatic mass, and infiltrative appearance in segment 4 of liver. Grossly stable herlinda hepatis lymph nodes. No new disease identified in the thorax. Cholelithiasis. Colonic diverticulosis. Signed: Travis Robles MDReport Verified Date/Time: 07/05/2019 16:53:41 Reading Location: [facility] C013X Ortho Consult Reading Room -CREATININE 2019-07-05 11:08:00 Test Item Value Reference Range Comments POC-CREATININE (BEAKER) (test 1.2 mg/dL 0.6-1.3 TESTED AT [facility] 7200 dstp=1889) [facility] [address] POC-EGFR (BEAKER) (test 45 mL/min/1.73M2 gqxl=5536) CT, [id number] 16:05:00Reassess cholangiocarcinomaReason for Exam:-> CholangiocarcinomaFINAL REPORT CT of the chest, abdomen and pelvis, with contrast Clinical History: Cholangiocarcinoma Technique: CT of the chest, abdomen and pelvis is performed with intravenous contrast administration. This exam was performed according to our departmental dose optimization program which includes automated exposure control, adjustment of the mA and/or kV according to patient's size and/or use of iterative reconstructive technique. Comparison Film: January 31, 2019 and October 05, 2018 Discussion: There is a right-sided Port-A-Cath. Visualized thyroid gland is normal. No supraclavicular, axillary, internal mammary, mediastinal or hilar lymphadenopathy. Heart and pericardium areunremarkable. A 3 mm subpleural nodule in the right upper lobe (image 58) is stable. A 4 mm nodule in the right middle lobe is also stable. No new nodules or mass. Central airways are patent, no bronchiectasis, or bronchial wall thickening. A few small cysts in liver are stable. In the right lobe, a lobulated and heterogeneously enhancing mass measuring 5.8 x 4.4 x 5.3 cm is grossly unchanged. There is mild ductal dilatation in the right lobe. Multiple stones are present in the gallbladder. Spleen, pancreas and adrenal glands are unremarkable. Kidneys demonstrate no hydronephrosis, radiopaque stone, or mass. There is a small cyst at the left upper pole. No evidence of bowel obstruction, or abnormal bowel wall thickening. In the pelvis, bladder, uterus and adnexa are unremarkable. A few mildly enlarged herlinda hepatis lymph nodes are without interval change. A 1 x 1.2 cm right common iliac chain node is also unchanged. No new adenopathy. No ascites. Osseous structures demonstrate degenerative changes. 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 No suspicious bony lesion is identified. Impression : Grossly stable mass in the right hepatic lobe. Stable prominent herlinda hepatis and right common iliac lymphnodes. No new disease identified in the chest, abdomen or pelvis. Cholelithiasis. Signed: Travis Robles MDReport Verified Date/Time : 04/05/2019 16:05:11 Reading Location: [place] 147[address]X [facility] Consult Reading Room CT, CHEST, WITH IV [id number] 16:05:00Reason for Exam:->c22.1, c78.7FINAL REPORT CT of the chest, abdomen and pelvis, with contrast Clinical History: Cholangiocarcinoma Technique: CT of the chest, abdomen and pelvis is performed with intravenous contrast administration. This exam was performed according to our departmental dose optimization program which includes automated exposure control, adjustment of the mA and/or kV according to patient's size and/or use of iterative reconstructive technique. Comparison Film: January 31, 2019 and October 05, 2018 Discussion: There is a right- sided Port-A-Cath. Visualized thyroid gland is normal. No supraclavicular, axillary, internal mammary, mediastinal or hilar lymphadenopathy. Heart and pericardium areunremarkable. A 3 mm subpleural nodule in the right upper lobe ( image 58) is stable. A 4 mm nodule in the right middle lobe is also stable. No new nodules or mass. Central airways are patent, no bronchiectasis, or bronchial wall thickening. A few small cysts in liver are stable. In the right lobe, a lobulated and heterogeneously enhancing mass measuring 5.8 x 4.4 x 5.3 cm is grossly unchanged. There is mild ductal dilatation in the right lobe. Multiple stones are present in the gallbladder. Spleen, pancreas and adrenal glands are unremarkable. Kidneys demonstrate no hydronephrosis, radiopaque stone , or mass. There is a small cyst at the left upper pole. No evidence of bowel obstruction, or abnormal bowel wall thickening. In the pelvis, bladder, uterus and adnexa are unremarkable. A few mildly enlarged herlinda hepatis lymph nodes are without interval change. A 1 x 1.2 cm right common iliac chain node is also unchanged. No new adenopathy. No ascites. Osseous structures demonstrate degenerative changes. 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 No suspicious bony lesion is identified. Impression: Grossly stable mass in the right hepatic lobe. Stable prominent herlinda hepatis and right common iliac lymphnodes. No new disease identified in the chest, abdomen or pelvis. Cholelithiasis. Signed: Travis Robles MDReport Verified Date/Time: 04/05/2019 16:05:11 Reading Location: [facility] C0X [facility] Consult Reading Room [id number] 11:08:00 Test Item Value Reference Range Comments POC-CREATININE (BEAKER) 1.0 mg/dL 0.6-1.3 TESTED AT [facility] 4256 (test mctp=8955) [facility] [address] POC-EGFR (SULMA) (test 55 mL/min/1.73M2 jotn=5486) CT, [id number] 13:55:00FINAL REPORT CT of the abdomen with and without contrast, CT of chest and pelvis with contrast Clinical History: cholangiocarcinoma Technique: CT of the abdomen is performed without IV contrast, followed by CT of chest, abdomen and pelvis performed with intravenous contrast administration and without oral contrast administration. This exam was performed according to our departmental dose optimization program which includes automated exposure control, adjustment of the mA and/or kV according to patient's size and/or use of iterative reconstructive technique. Comparison Film: December 04, 2018, October 05, 2018, July 02, 2018 Discussion: Visualized thyroid gland is unremarkable. There is a right-sided Port-A-Cath. No supraclavicular, axillary, mediastinal, or hilar lymphadenopathy. Heart is normal in size, no pericardial effusion. There is a small hiatal hernia. A few tiny pulmonary nodules are unchanged. No new mass or consolidation, no pleural effusion. Central airways are patent. In the inferior right lobe, again seen is a heterogeneously enhancing mass, that measures approximately 6 x 4.7 cm axially , without significant interval change. There is mild degree of biliary ductal dilatation in the peripheral right lung, as before. A few scattered hepatic hypodensities are also stable. No new mass lesion is seen. Gallbladder contains small stones. CBD is normal in caliber. Hepatic vasculature is patent. Spleen, pancreas, adrenal glands are unremarkable. Kidneys demonstrate no mass, hydronephrosis or radiopaque stone. There is a tiny cyst in the left kidney. No evidence of bowel obstruction, or abnormal bowel wall thickening. In the pelvis , bladder is unremarkable, uterus and adnexa are also unremarkable. There is no ascites. A right common iliac lymph node measuring 1.1 cm also unchanged. Osseous structures demonstrate degenerative changes. Impression: Stable appearanceof right hepatic mass in keeping with cholangiocarcinoma. Stable small hepatic hypodensities. Unchanged mildly enlarged right common iliac lymph node. No new disease identified in the chest abdomen or pelvis. Signed: Travis Robleseport Verified Date/Time: 01/31/2019 13:55:28 Reading Location: [address] Consult Reading Room CT, CHEST, WITH IV [id number] 13:55:00FINAL REPORT CT of the abdomen with and without contrast, CT of chest and pelvis with contrast Clinical History: cholangiocarcinoma Technique: CT of the abdomen is performed without IV contrast, followed by CT of chest, abdomen and pelvis performed with intravenous contrast administration and without oral contrast administration. This exam was performed according to our departmental dose optimization program which includes automated exposure control, adjustment of the mA and/or kV according to patient's size and/or use of iterative reconstructive technique. Comparison Film: December 04, 2018, October 05, 2018, July 02, 2018 Discussion: Visualized thyroid gland is unremarkable. There is a right-sided Port-A-Cath. No supraclavicular, axillary, mediastinal, or hilar lymphadenopathy. Heart is normal in size, no pericardial effusion. There is a small hiatal hernia. A few tiny pulmonary nodules are unchanged. No new mass or consolidation, no pleural effusion. Central airways are patent. In the inferior right lobe, again seen is a heterogeneously enhancing mass, that measures approximately 6 x 4.7 cm axially, without significant interval change. There is mild degree of biliary ductal dilatation in the peripheral right lung, as before. A few scattered hepatic hypodensities are also stable. No new mass lesion is seen. Gallbladder contains small stones. CBD is normal in caliber. Hepatic vasculature is patent. Spleen, pancreas, adrenal glands are unremarkable. Kidneys demonstrate no mass, hydronephrosis or radiopaque stone. There is a tiny cyst in the left kidney. No evidence of bowel obstruction, or abnormal bowel wall thickening. In the pelvis, bladder is unremarkable, uterus and adnexa are also unremarkable. There is no ascites. A right common iliac lymph node measuring 1.1 cm also unchanged. Osseous structures demonstrate degenerative changes. Impression: Stable appearanceof right hepatic mass in keeping with cholangiocarcinoma. Stable small hepatic hypodensities. Unchanged mildly enlarged right common iliac lymph node. No new disease identified in the chest abdomen or pelvis. Signed: Travis Robles MDReport Verified Date/Time: 2018 13:55:28 Reading Location: [facility] C0X [facility] Consult Reading Room POCT- [id number] 10:51:00 Test Item Value Reference Range Comments POC-CREATININE (SULMA) 1.1 mg/dL 0.6-1.3 TESTED AT [facility] 7200 (test fxzn=1757) [facility] [address] POC-EGFR (SULMA) (test 50 mL/min/1.73M2 elux=6274) CT, ABDOMEN, WITH IV [id number] 18:22:00Reason for Exam:-> cholangiocarcinomaFINAL REPORT EXAMINATION: CT of the chest, abdomen and pelvis with contrast. TECHNIQUE: Spiral CT images of the chest, abdomen and pelvis were performed from the lung apices to the lesser trochanters after the intravenous administration of 100 cc of Isovue 300 and the oral administration of water. Coronal and sagittal reformatted images were obtained. COMPARISON: CT chest, abdomen and pelvis October 05, 2018 and July 02, 2018 CLINICAL HISTORY: Cholangiocarcinoma DISCUSSION: CHEST: LINES/TUBES: Stable right upper chest Port-A-Cath, with distal tip in the distal SVC LUNGS AND AIRWAYS: Stable mild apical pleural parenchymal scarring.Stable subpleural rectangular densityin the anterior right upper lobe (lung image 54) likely representing focal atelectasis or scarring.Stable 3-4 mm nodular densities in the posteromedial left lower lobe (lung image 63).No new pulmonary nodules, masses or consolidation.Airways are clear, without endobronchial lesions. PLEURA : No effusion or pneumothorax. HEART AND MEDIASTINUM: The thyroid gland is normal. The heart and pericardium are within normal limits. Aorta is nonaneurysmal. Main pulmonary artery is normal in caliber, measuring 2.9 cm. LYMPH NODES: No mediastinal, hilar or axillary lymphadenopathy. BONES AND SOFT TISSUES: No aggressive lytic lesions. Soft tissues are grossly unremarkable. ABDOMEN/PELVIS: HEPATOBILIARY: Normal hepatic contour. *Stable 1.3 cm fluid density lesion in hepatic segment II (venous image 50), likely representing a simple cyst. There are stable additional subcentimeter hypodensities in the left hepatic lobe (venous images 48 and 49), which are too small to characterize but likely represent small cysts.*Stable 1.2 x 0.9 cm low attenuating lesion in hepatic segment IVB (venous image 65), which does not measure simple fluid density.*Stable ill-defined 1.2 cm hypodensity with associated capsular retraction in segment BERNARDA (venous image 55).*Slight interval increase in size of previously visualized heterogeneously enhancing solid partially exophytic mass in the inferior aspect of hepatic segment , which measures approximately 6.0 x 4.4 x 5.7 cm (venous image 73) and previously measured 5.8 x 4.0x 5.[address] dated October 05, 2018 and 5.7 x 3.9 x [address] dated July 02, 2018. Stable associated biliary ductal dilation superior to this mass in hepatic segment V.*No new focal lesions. Common bile duct is normal in caliber. GALLBLADDER: No radio-opaque stones or sludge. No wall thickening. SPLEEN: No splenomegaly. Interval decrease in size of 0.7 cm hypodense lesion in the anterior spleen (venous image 47), which measured approximately 1.[address] dated July 02, 2018 PANCREAS: No focalmasses or ductal dilatation. ADRENALS: No adrenal nodules. KIDNEYS/URETERS: No hydronephrosis, stones, or solid mass lesions. PELVIC ORGANS/BLADDER: Bladder is unremarkable. No focal lesions or wall thickening. PERITONEUM/RETROPERITONEUM : No free air or fluid. LYMPH NODES: Stable mildly enlarged rightcommon iliac artery lymph node which measures 1.2 cm in short axis (venous image 83). No intra-abdominal, retroperitoneal, other pelvic or inguinal adenopathy VESSELS: The celiac trunk,superior and inferior mesenteric and bilateral renal arteries are patent The portal, superior mesenteric and splenic veins are patent. Portal vein is dilated, measuring 1.6 cm in diameter. GI TRACT: No bowel dilationor evidence of obstruction. No pericolonic inflammatory changes. Stomach is unremarkable. BONES AND SOFT TISSUES: No aggressive lytic lesions. Degenerative disc changes in the lumbosacral spine, predominantly at L4-L5 with mild levoscoliosis. Soft tissues are unremarkable. IMPRESSION: 1. Slight interval increase in size of previously visualized cholangiocarcinoma in hepatic segment . No change in associated biliary ductal dilation or mass effect on the gallbladder. Other hypoattenuating lesions inthe liver suggestive of treated metastases are stable. No new focal lesions or evidence of distant metastatic disease. 2. Stable mildly enlarged right common iliac lymph node. No other adenopathy. 3. Stable pulmonary nodular densities, unlikely to represent metastatic disease. Signed: Raudel Calix MDReport Verified Date/Time: 2018 18:22:25 Reading Location: [facility] Reading Room [address] [place] [address] CT, PELVIS , WITH IV [id number] 18:22:00FINAL REPORT EXAMINATION: CT of the chest, abdomen and pelvis with contrast. TECHNIQUE: Spiral CT images of the chest, abdomen and pelvis were performed from the lung apices to the lesser trochanters after the intravenous administration of 100 cc of Isovue 300 and the oral administration of water. Coronal and sagittal reformatted images were obtained. COMPARISON: CT chest, abdomen and pelvis October 05, 2018 and July 02, 2018 CLINICAL HISTORY: Cholangiocarcinoma DISCUSSION : CHEST: LINES/TUBES: Stable right upper chest Port-A-Cath, with distal tip in the distal SVC LUNGS AND AIRWAYS: Stable mild apical pleural parenchymal scarring.Stable subpleural rectangular densityin the anterior right upper lobe ( lung image 54) likely representing focal atelectasis or scarring.Stable 3-4 mm nodular densities in the posteromedial left lower lobe (lung image 63).No new pulmonary nodules, masses or consolidation.Airways are clear, without endobronchial lesions. PLEURA: No effusion or pneumothorax. HEART AND MEDIASTINUM: The thyroid gland is normal. The heart and pericardium are within normal limits. Aorta is nonaneurysmal. Main pulmonary artery is normal in caliber, measuring 2.9 cm. LYMPH NODES: No mediastinal, hilar or axillary lymphadenopathy. BONES AND SOFT TISSUES: No aggressive lytic lesions. Soft tissues are grossly unremarkable. ABDOMEN/PELVIS: HEPATOBILIARY: Normal hepatic contour. *Stable 1.3 cm fluid density lesion in hepatic segment II ( venous image 50), likely representing a simple cyst. There are stable additional subcentimeter hypodensities in the left hepatic lobe (venous images 48 and 49), which are too small to characterize but likely represent small cysts.*Stable 1.2 x 0.9 cm low attenuating lesion in hepatic segment IVB ( venous image 65), which does not measure simple fluid density.*Stable ill- defined 1.2 cm hypodensity with associated capsular retraction in segment BERNARDA ( venous image 55).*Slight interval increase in size of previously visualized heterogeneously enhancing solid partially exophytic mass in the inferior aspect of hepatic segment , which measures approximately 6.0 x 4.4 x 5.7 cm (venous image 73) and previously measured 5.8 x 4.0x 5.[address] dated October 05, 2018 and 5.7 x 3.9 x 4.[address] dated July 02, 2018. Stable associated biliary ductal dilation superior to this mass in hepatic segment V.*No new focal lesions. Common bile duct is normal in caliber. GALLBLADDER: No radio-opaque stones or sludge. No wall thickening. SPLEEN: No splenomegaly. Interval decrease in size of 0.7 cm hypodense lesion in the anterior spleen (venous image 47), which measured approximately 1.[address] dated July 02, 2018 PANCREAS: No focalmasses or ductal dilatation. ADRENALS: No adrenal nodules. KIDNEYS/URETERS: No hydronephrosis, stones, or solid mass lesions. PELVIC ORGANS /BLADDER: Bladder is unremarkable. No focal lesions or wall thickening. PERITONEUM/RETROPERITONEUM: No free air or fluid. LYMPH NODES: Stable mildly enlarged rightcommon iliac artery lymph node which measures 1.2 cm in short axis (venous image 83). No intra-abdominal, retroperitoneal, other pelvic or inguinal adenopathy VESSELS: The celiac trunk,superior and inferior mesenteric and bilateral renal arteries are patent The portal, superior mesenteric and splenic veins are patent. Portal vein is dilated, measuring 1.6 cm in diameter. GI TRACT: No bowel dilationor evidence of obstruction. No pericolonic inflammatory changes. Stomach is unremarkable. BONES AND SOFT TISSUES: No aggressive lytic lesions. Degenerative disc changes in the lumbosacral spine, predominantly at L4-L5 with mild levoscoliosis. Soft tissues are unremarkable. IMPRESSION: 1. Slight interval increase in size of previously visualized cholangiocarcinoma in hepatic segment . No change in associated biliary ductal dilation or mass effect on the gallbladder. Other hypoattenuating lesions inthe liver suggestive of treated metastases are stable. No new focal lesions or evidence of distant metastatic disease. 2. Stable mildly enlarged right common iliac lymph node. No other adenopathy. 3. Stable pulmonary nodular densities, unlikely to represent metastatic disease. Signed: Raudel Calix MDReport Verified Date/Time: 12/04/2018 18:22:25 Reading Location: [facility] Reading Room 1 - B01.627 CT, CHEST, WITH IV [id number] 18:22:00FINAL REPORT EXAMINATION: CT of the chest, abdomen and pelvis with contrast. TECHNIQUE: Spiral CT images of the chest, abdomen and pelvis were performed from the lung apices to the lesser trochanters after the intravenous administration of 100 cc of Isovue 300 and the oral administration of water. Coronal and sagittal reformatted images were obtained. COMPARISON: CT chest, abdomen and pelvis October 05, 2018 and July 02, 2018 CLINICAL HISTORY: Cholangiocarcinoma DISCUSSION: CHEST: LINES/TUBES: Stable right upper chest Port-A-Cath, with distal tip in the distal SVC LUNGS AND AIRWAYS: Stable mild apical pleural parenchymal scarring.Stable subpleural rectangular densityin the anterior right upper lobe (lung image 54) likely representing focal atelectasis or scarring.Stable 3-4 mm nodular densities in the posteromedial left lower lobe (lung image 63).No new pulmonary nodules, masses or consolidation.Airways are clear, without endobronchial lesions. PLEURA: No effusion or pneumothorax. HEART AND MEDIASTINUM: The thyroid gland is normal. The heart and pericardium are within normal limits. Aorta is nonaneurysmal. Main pulmonary artery is normal in caliber, measuring 2.9 cm. LYMPH NODES: No mediastinal, hilar or axillary lymphadenopathy. BONES AND SOFT TISSUES: No aggressive lytic lesions. Soft tissues are grossly unremarkable. ABDOMEN/ PELVIS: HEPATOBILIARY: Normal hepatic contour. *Stable 1.3 cm fluid density lesion in hepatic segment II (venous image 50), likely representing a simple cyst. There are stable additional subcentimeter hypodensities in the left hepatic lobe (venous images 48 and 49), which are too small to characterize but likely represent small cysts.*Stable 1.2 x 0.9 cm low attenuating lesion in hepatic segment IVB (venous image 65), which does not measure simple fluid density.*Stable ill-defined 1.2 cm hypodensity with associated capsular retraction in segment BERNARDA (venous image 55).*Slight interval increase in size of previously visualized heterogeneously enhancing solid partially exophytic mass in the inferior aspect of hepatic segment , which measures approximately 6.0 x 4.4 x 5.7 cm (venous image 73) and previously measured 5.8 x 4.0x 5.[address] dated October 05, 2018 and 5.7 x 3.9 x [address] dated July 02, 2018. Stable associated biliary ductal dilation superior to this mass in hepatic segment V.*No new focal lesions. Common bile duct is normal in caliber. GALLBLADDER: No radio-opaque stones or sludge. No wall thickening. SPLEEN: No splenomegaly. Interval decrease in size of 0.7 cm hypodense lesion in the anterior spleen (venous image 47), which measured approximately 1.[address] dated July 02, 2018 PANCREAS: No focalmasses or ductal dilatation. ADRENALS: No adrenal nodules. KIDNEYS/URETERS: No hydronephrosis, stones, or solid mass lesions. PELVIC ORGANS/BLADDER: Bladder is unremarkable. No focal lesions or wall thickening. PERITONEUM/RETROPERITONEUM: No free air or fluid. LYMPH NODES: Stable mildly enlarged rightcommon iliac artery lymph node which measures 1.2 cm in short axis (venous image 83). No intra-abdominal, retroperitoneal, other pelvic or inguinal adenopathy VESSELS: The celiac trunk,superior and inferior mesenteric and bilateral renal arteries are patent The portal, superior mesenteric and splenic veins are patent. Portal vein is dilated, measuring 1.6 cm in diameter. GI TRACT: No bowel dilationor evidence of obstruction. No pericolonic inflammatory changes. Stomach is unremarkable. BONES AND SOFT TISSUES: No aggressive lytic lesions. Degenerative disc changes in the lumbosacral spine, predominantly at L4-L5 with mild levoscoliosis. Soft tissues are unremarkable. IMPRESSION: 1. Slight interval increase in size of previously visualized cholangiocarcinoma in hepatic segment . No change in associated biliary ductal dilation or mass effect on the gallbladder. Other hypoattenuating lesions inthe liver suggestive of treated metastases are stable. No new focal lesions or evidence of distant metastatic disease. 2. Stable mildly enlarged right common iliac lymph node. No other adenopathy. 3. Stable pulmonary nodular densities, unlikely to represent metastatic disease. Signed: Raudel Calix MDReport Verified Date/Time: 12/04/2018 18:22:25 Reading Location: [facility] Room [address] [place] [address] [id number] 12:59: 00 Test Item Value Reference Range Comments POC-CREATININE (SULMA) 1.3 mg/dL 0.6-1.3 TESTED AT [facility] 7200 (test qsgi=6647) [facility] [id number] POC-EGFR (SULMA) (test 41 mL/min/1.73M2 jhtv=0547) CT, [id number] 16:38:00FINAL REPORT CT chest, abdomen and pelvis with intravenous contrast Indication: Upper GI origin cancer c22.1 Technique: Thin collimation axial images obtained from the thoracic inlet to the level of the pubic symphysis following the uneventful administration of 100 cc of low osmolar, nonionic intravenous contrast. 15 minute delayed images of the abdomen were also obtained. RADIATION DOSE: Total DLP: 990.7 mGy* cm Estimated effective dose: (DLP x 0.015 x size factor) mSv CTDIvol has been reviewed. It is below the limits set by the Radiation Protocol Committee (RPC). Dose reduction techniques used: Automated exposure control, adjustment of the mAs and/or kVp according to patient size, standardized low- dose protocol, and/or iterative reconstruction technique. Comparison: CT chest, abdomen, pelvis 07/02/2018. CHEST FINDINGS: Lymph nodes: No enlarged axillary, supraclavicular, mediastinal, or hilar lymph nodes.. Thyroid: Visualized portions are normal. Mediastinum: MediPort catheter terminates in the SVC without surrounding filling defect. The heart is normal in size. Trace fluid in the superior pericardial recess. No filling defects in the great vessels. Small hiatal hernia is stable.. Lungs: Right Lung: Stable apical pleural-parenchymal thickening. A rectangle-shaped noncalcified nodule in the anterior upper lobe measures 3 mm and is stable. There is mild scarring in the posterior costophrenic angle. Left Lung: Stable apical pleural-parenchymal thickening. Pleural-based nodules in the lateral lower lobe are stable, measuring 3 mm. There is mild basilarscarring. Pleura: No pleural effusion or pleural based mass ABDOMEN FINDINGS: Liver: The low attenuating lesions in the left lobe measure up to 1.1 x 1.3 cm and are stable. Focal capsular retraction in segment IVb associated with a parenchymal nodule measures 7 x 10 mm (previously, 9 x 12 mm). The low attenuating lesion in the inferior most aspect of segment IVb middle falciform ligament measures 1.2 x 1.0 cm and is stable. Heterogeneously enhancing solid mass in the inferior aspect of segment 6 measures 4.0 x 5.8 x 5.8 cm (AP, transverse, craniocaudal) (previously, 4.0 x 5.8 x cm). Biliary ductal dilatation superior to this mass is stable. Delayed images show minimal enhancement similar to previous exam. Portal vein: Widely patent and measures 16.6 cm in diameter.Hepatic veins: Patent. Gallbladder: Present. The hepatic tumor deviates the wall of the gallbladder at the body, similar to previous exam. No gallstones. The common bile duct is normal in diameter. Pancreas: Normal attenuation without mass or ductal dilatation. Spleen: Normal in size without mass. Adrenal Glands: No evidence for mass. Kidneys: Right: Normal enhancement. No cortical mass. No hydronephrosis. Left: Normal enhancement. Upper pole cyst is stable. No hydronephrosis. Aorta: Normal in diameter. PELVIS FINDINGS: Bowel: Stomach: Normal in caliber with normal wall thickness. Small Bowel: The focal wall thickening in the jejunum on previous exam is no longer visualized. Small bowel loops are normal in diameter with normal wall thickness. Large Bowel: Normal in caliber with normal wall thickness. There are a few scattered diverticula.Appendix: Normal appendix. Bladder: Underdistended but otherwise normal.Prostate: Present and atrophic. No adnexal mass.. Lymph Nodes: Right common iliac artery lymph node measures1.2 x 1.8 cm ( series 1, image 84). Previously, this measured 1.3 x 1.8 cm. No enlarged lymph nodes in the pelvis. Peritoneum/retroperitoneum: No free fluid or fluid collection. Bones: Stable degenerative changes of the spine. Levoscoliosis of the lumbar spine is stable. No focal osseous lesions. Soft tissues: Unremarkable. IMPRESSION: 1. Intrahepatic cholangiocarcinoma in the right lobe is stable insize. No change in associated biliary ductal dilatation or mass effect on the gallbladder. The largest low attenuating lesions in segment IV are either stable or smaller. One lesion exhibits capsular retraction suggestive of treated metastasis. No new findings to suggest disease progression in the liver or elsewhere in the abdomen/pelvis. 2. Stable enlarged right common iliac artery lymph node. 3. Jejunal thickening is no longer visualized. 4. Stable pulmonary nodules. No new findings to suggest intrathoracic metastases. Signed: Quan Fontana MDReport Verified Date/Time: 10/10/2018 16:38:32 CT, CHEST, WITH IV [id number] 16:38: 00FINAL REPORT CT chest, abdomen and pelvis with intravenous contrast Indication: Upper GI origin cancer c22.1 Technique: Thin collimation axial images obtained from the thoracic inlet to the level of the pubic symphysis following the uneventful administration of 100 cc of low osmolar , nonionic intravenous contrast. 15 minute delayed images of the abdomen were also obtained. RADIATION DOSE: Total DLP: 990.7 mGy*cm Estimated effective dose: (DLP x 0.015 x size factor) mSv CTDIvol has been reviewed. It is below the limits set by the Radiation Protocol Committee (RPC). Dose reduction techniques used: Automated exposure control, adjustment of the mAs and /or kVp according to patient size, standardized low-dose protocol, and/or iterative reconstruction technique. Comparison: CT chest, abdomen, pelvis 2018. CHEST FINDINGS: Lymph nodes: No enlarged axillary, supraclavicular, mediastinal, or hilar lymph nodes.. Thyroid: Visualized portions are normal. Mediastinum: MediPort catheter terminates in the SVC without surrounding filling defect. The heart is normal in size. Trace fluid in the superior pericardial recess. No filling defects in the great vessels. Small hiatal hernia is stable.. Lungs: Right Lung: Stable apical pleural-parenchymal thickening. A rectangle-shaped noncalcified nodule in the anterior upper lobe measures 3 mm and is stable. There is mild scarring in the posterior costophrenic angle. Left Lung: Stable apical pleural-parenchymal thickening. Pleural-based nodules in the lateral lower lobe are stable, measuring 3 mm. There is mild basilarscarring. Pleura: No pleural effusion or pleural based mass ABDOMEN FINDINGS: Liver: The low attenuating lesions in the left lobe measure up to 1.1 x 1.3 cm and are stable. Focal capsular retraction in segment IVb associated with a parenchymal nodule measures 7 x 10 mm (previously, 9 x 12 mm). The low attenuating lesion in the inferior most aspect of segment IVb middle falciform ligament measures 1.2 x 1.0 cm and is stable. Heterogeneously enhancing solid mass in the inferior aspect of segment 6 measures 4.0 x 5.8 x 5.8 cm (AP, transverse, craniocaudal) (previously, 4.0 x 5.8 x cm). Biliary ductal dilatation superior to this mass is stable. Delayed images show minimal enhancement similar to previous exam. Portal vein: Widely patent and measures 16.6 cm in diameter.Hepatic veins: Patent. Gallbladder: Present. The hepatic tumor deviates the wall of the gallbladder at the body, similar to previous exam. No gallstones. The common bile duct is normal in diameter. Pancreas: Normal attenuation without mass or ductal dilatation. Spleen: Normal in size without mass. Adrenal Glands: No evidence for mass. Kidneys: Right: Normal enhancement. No cortical mass. No hydronephrosis. Left: Normal enhancement. Upper pole cyst is stable. No hydronephrosis. Aorta: Normal in diameter. PELVIS FINDINGS: Bowel: Stomach: Normal in caliber with normal wall thickness. Small Bowel: The focal wall thickening in the jejunum on previous exam is no longer visualized. Small bowel loops are normal in diameter with normal wall thickness. Large Bowel: Normal in caliber with normal wall thickness. There are a few scattered diverticula.Appendix: Normal appendix. Bladder: Underdistended but otherwise normal.Prostate: Present and atrophic. No adnexal mass.. Lymph Nodes: Right common iliac artery lymph node measures1.2 x 1.8 cm ( series 1, image 84). Previously, this measured 1.3 x 1.8 cm. No enlarged lymph nodes in the pelvis. Peritoneum/retroperitoneum: No free fluid or fluid collection. Bones: Stable degenerative changes of the spine. Levoscoliosis of the lumbar spine is stable. No focal osseous lesions. Soft tissues: Unremarkable. IMPRESSION: 1. Intrahepatic cholangiocarcinoma in the right lobe is stable insize. No change in associated biliary ductal dilatation or mass effect on the gallbladder. The largest low attenuating lesions in segment IV are either stable or smaller. One lesion exhibits capsular retraction suggestive of treated metastasis. No new findings to suggest disease progression in the liver or elsewhere in the abdomen/pelvis. 2. Stable enlarged right common iliac artery lymph node. 3. Jejunal thickening is no longer visualized. 4. Stable pulmonary nodules. No new findings to suggest intrathoracic metastases. Signed: Quan Fontana MDReport Verified Date/Time: 10/10/2018 16:38:32 [id number] 11:29:00 Test Item Value Reference Range Comments POC-CREATININE (SULMA) 1.2 mg/dL 0.6-1.3 TESTED AT [facility] 7200 (test avnr=7496) [facility] [id number] POC-EGFR (SULMA) (test 45 mL/min/1.73M2 usod=6057) CT, CHEST, WITH IV [id number] 18:26:00FINAL REPORT INDICATION:Cancer of upper GI origin, on treatment. COMPARISON: May 03, 2018 [facility] chest abdomen pelvis CT (report not available) .October 08, 2017 [facility] abdomen pelvis CT. TECHNIQUE: CT of the Chest WITH intravenous contrast.CT of the Abdomen WITHOUT and WITH intravenous contrast. CT of the Pelvis WITH intravenous contrast.Enteric contrast wasused. The exam was performed according to our department dose-optimization protocol, which includes automated exposure control, adjustments of mA and kV according to patient size. Iterative reconstructions are also sometimes employed. FINDINGS : THORAX: There is no supraclavicular, mediastinal, or hilar lymphadenopathy. Right middle lobe subpleural 3 mm nodule is again noted. Central airways are clear. No pleural effusion or suspicious pleural nodularity is demonstrated. Heart, pericardium, thyroid gland, and esophagus are unremarkable. Right chest port terminates in the low SVC. ABDOMEN and PELVIS:Again demonstrated at the tip of the liver is a partially exophytic mass with delayed central enhancement. The mass bulges the liver capsule and abuts the gallbladder and hepatic flexure but does not invade either organ. At the superior margin the mass extends fingerlike towards segment VII/VIII. The main part of the mass measures approximately 6 x 5 x 3.5 cm and is not significantly changed in size dating back to October 2017. Several liver cysts are noted. No evidence of intrahepatic metastasis. Rightcommon iliac lymph node measures 1.8 x 1.3 cm and has decreased in size from 2.0 x 1.7 cm. A few nonenlarged enhancing paraduodenal lymph nodes are again noted. No pelvic lymphadenopathy is demonstrated. No peritoneal free fluid or peritoneal nodularity is demonstrated. In the left upper quadrant there is a short segment of the jejunum that demonstrates focal wall thickening (axial image 126). Bowel loops otherwise are unremarkable. There is no peritoneal free fluid or suspicious peritoneal nodularity. Pancreas, spleen, adrenal glands, kidneys, bladder, uterus are unremarkable. BONES: No suspiciousosseous lesion is demonstrated. IMPRESSION: No significant change in size of right hepatic cholangiocarcinoma. Interval decrease in size of right common iliac lymph node suggesting response to treatment. Nonenlarged enhancing paraduodenal lymph nodes are unchanged. Suggestion of focal wall thickening of the jejunum, such a finding may represent drug reaction or possibly metastatic disease. No evidence of thoracic metastatic disease. Signed: Rashad Lo MDReport Verified Date/Time: 07/04 18:26:12 Reading Location: [facility] C013Y CT Body Reading Room CT , ABDOMEN, WITHOUT / WITH IV [id number] 18:26:00FINAL REPORT INDICATION:Cancer of upper GI origin, on treatment. COMPARISON: May 03, 2018 [facility] chest abdomen pelvis CT (report not available) .October 08, 2017 [facility] abdomen pelvis CT. TECHNIQUE: CT of the Chest WITH intravenous contrast.CT of the Abdomen WITHOUT and WITH intravenous contrast. CT of the Pelvis WITH intravenous contrast.Enteric contrast wasused. The exam was performed according to our department dose-optimization protocol, which includes automated exposure control, adjustments of mA and kV according to patient size. Iterative reconstructions are also sometimes employed. FINDINGS : THORAX: There is no supraclavicular, mediastinal, or hilar lymphadenopathy. Right middle lobe subpleural 3 mm nodule is again noted. Central airways are clear. No pleural effusion or suspicious pleural nodularity is demonstrated. Heart, pericardium, thyroid gland, and esophagus are unremarkable. Right chest port terminates in the low SVC. ABDOMEN and PELVIS:Again demonstrated at the tip of the liver is a partially exophytic mass with delayed central enhancement. The mass bulges the liver capsule and abuts the gallbladder and hepatic flexure but does not invade either organ. At the superior margin the mass extends fingerlike towards segment VII/VIII. The main part of the mass measures approximately 6 x 5 x 3.5 cm and is not significantly changed in size dating back to October 2017. Several liver cysts are noted. No evidence of intrahepatic metastasis. Rightcommon iliac lymph node measures 1.8 x 1.3 cm and has decreased in size from 2.0 x 1.7 cm. A few nonenlarged enhancing paraduodenal lymph nodes are again noted. No pelvic lymphadenopathy is demonstrated. No peritoneal free fluid or peritoneal nodularity is demonstrated. In the left upper quadrant there is a short segment of the jejunum that demonstrates focal wall thickening (axial image 126). Bowel loops otherwise are unremarkable. There is no peritoneal free fluid or suspicious peritoneal nodularity. Pancreas, spleen, adrenal glands, kidneys, bladder, uterus are unremarkable. BONES: No suspiciousosseous lesion is demonstrated. IMPRESSION: No significant change in size of right hepatic cholangiocarcinoma. Interval decrease in size of right common iliac lymph node suggesting response to treatment. Nonenlarged enhancing paraduodenal lymph nodes are unchanged. Suggestion of focal wall thickening of the jejunum, such a finding may represent drug reaction or possibly metastatic disease. No evidence of thoracic metastatic disease. Signed: Rashad Lo MDReport Verified Date/Time: 07/04 18:26:12 Reading Location: [address] CT Body Reading Room CT , PELVIS, WITH IV [id number] 18:26:00FINAL REPORT INDICATION:Cancer of upper GI origin, on treatment. COMPARISON: May 03, 2018 [facility] chest abdomen pelvis CT (report not available) .October 08, 2017 [facility] abdomen pelvis CT. TECHNIQUE: CT of the Chest WITH intravenous contrast.CT of the Abdomen WITHOUT and WITH intravenous contrast. CT of the Pelvis WITH intravenous contrast.Enteric contrast wasused. The exam was performed according to our department dose-optimization protocol, which includes automated exposure control, adjustments of mA and kV according to patient size. Iterative reconstructions are also sometimes employed. FINDINGS : THORAX: There is no supraclavicular, mediastinal, or hilar lymphadenopathy. Right middle lobe subpleural 3 mm nodule is again noted. Central airways are clear. No pleural effusion or suspicious pleural nodularity is demonstrated. Heart, pericardium, thyroid gland, and esophagus are unremarkable. Right chest port terminates in the low SVC. ABDOMEN and PELVIS:Again demonstrated at the tip of the liver is a partially exophytic mass with delayed central enhancement. The mass bulges the liver capsule and abuts the gallbladder and hepatic flexure but does not invade either organ. At the superior margin the mass extends fingerlike towards segment VII/VIII. The main part of the mass measures approximately 6 x 5 x 3.5 cm and is not significantly changed in size dating back to October 2017. Several liver cysts are noted. No evidence of intrahepatic metastasis. Rightcommon iliac lymph node measures 1.8 x 1.3 cm and has decreased in size from 2.0 x 1.7 cm. A few nonenlarged enhancing paraduodenal lymph nodes are again noted. No pelvic lymphadenopathy is demonstrated. No peritoneal free fluid or peritoneal nodularity is demonstrated. In the left upper quadrant there is a short segment of the jejunum that demonstrates focal wall thickening (axial image 126). Bowel loops otherwise are unremarkable. There is no peritoneal free fluid or suspicious peritoneal nodularity. Pancreas, spleen, adrenal glands, kidneys, bladder, uterus are unremarkable. BONES: No suspiciousosseous lesion is demonstrated. IMPRESSION: No significant change in size of right hepatic cholangiocarcinoma. Interval decrease in size of right common iliac lymph node suggesting response to treatment. Nonenlarged enhancing paraduodenal lymph nodes are unchanged. Suggestion of focal wall thickening of the jejunum, such a finding may represent drug reaction or possibly metastatic disease. No evidence of thoracic metastatic disease. Signed: Rahsad Lo MDReport Verified Date/Time: 07/04 18:26:12 Reading Location: [address] Body Reading Room [id number] 11:29:00 Test Item Value Reference Range Comments POC-CREATININE (BEAKER) 1.0 mg/dL 0.6-1.3 TESTED AT [facility] 7200 (test aknv=9159) [facility] [id number] POC-EGFR (BEAKER) (test 55 mL/min/1.73M2 vxnx=0775) SD, [id number] 15:09:00INTRA OP IMAGINGReason for exam:-> cholangiocarcinomaFINAL REPORT ERCP 24 views 12/18/2017 3: 09 PM CLINICAL HISTORY: Instrument localization COMPARISON: None available IMPRESSION: Please correlate imaging report findings with the procedure note prepared by Dr. Arechiga, as an intra-procedure imaging consultation was not requested. Reported fluoroscopy time: 4 minutes, 35 seconds. Signed: Kb Nina Verified Date/Time: 12/18/2017 15:09:38 Reading Location: [address] Neuro Reading Room ANG, CV ACCESS, [id number] 15:16:00Reason for Exam:- >c22.1FINAL REPORT Chest herlinda cath insertion: Pertinent clinical information: C 22.1 Modality: Sonography and fluoroscopy Conscious Sedation: Versed 2 mg and fentanyl 100 mcg intravenouslyDuring the procedure with conscious sedation, the patient was monitored continuously with pulseoximetry and electrocardiography by the attending physician and registered nurse. Patient Physicianface to face intraservice time: 40 minutes Antibiotics : Vancomycin 1 g intravenously Fluoro time in minutes and number of images: 0.3 minutes. Six images. 3.6 mGy Anesthesia: Two percent Lidocaine injected subcutaneously at the insertion site and tunnel. Approach: Right internal jugular veinFor maximum sterile barrier protection a mask, cap, sterile gloves, sterile drape, sterile gown, and a cutaneous antiseptic was utilized. Technique : After informed written consent was obtained, the patient was prepped and draped in the usual sterile manner. Access was obtained using sonographic guidance. Hardcopy images of the vein were submitted for interpretation. Ultrasound was used to document patency,compressibility and decrease unnecessary punctures. The jugular vein was catheterized. A guide wire was advanced centrally. A 20 cm 7 [place] [employer] catheter was advanced with its distal tip terminating at the cavoatrial junction. The catheter was flushed and aspirated easily following placement. A subcutaneous pocket was created in the right anterior chest wall by blunt dissection. The pocket was lavaged with an antimicrobial solution.The pocket was then closed using a running subcuticular 3.0 Vicryl suture. The port was then accessed following closure and flushed with a saline solution.Vital signs were monitored throughout the procedure by a nurse and the radiologist, and remained stable. The patient tolerated the procedure well and left the department in the same condition. Results: Spot radiographs of the chest and upper arm demonstrate the new chest port catheter to lie in the expected position with its tip overlying the cavoatrial junction. Impression:Successful, uncomplicated placement of a right chest herlinda cath. This catheter is a power port which is rated for power injections if needed. Signed: Mandy Rosales MDReport Verified Date/Time: 11/08 15:16:03 Reading Location: [place] [id number] [facility] Body Reading Room [id number] 06:55:00 Test Item Value Reference Range Comments PROTIME (BEAKER) (test ldgt=052) 13.7 seconds 11.7-14.7 INR (BEAKER) (test iozv=967) 1.1 <=5.9 PARTIAL THROMBOPLASTIN TIME (BEAKER) (test 26.3 seconds 22.5-36.0 rzva=494) RECOMMENDED COUMADIN/WARFARIN INR THERAPY RANGESSTANDARD DOSE: 2.0 - 3.0 Includes: PROPHYLAXIS forvenous thrombosis, systemic embolization; TREATMENT for venous thrombosis and/or pulmonary embolus.HIGH RISK: Target INR is 2.5-3.5 for patients with mechanical heart valves.PLATELET [id number] 06:49:00 Test Item Value Reference Range Comments PLATELET COUNT (BEAKER) (test bkmj=503) 149 K/CU MM 150-450 CBC W/PLT COUNT & AUTO [id number] 07:22:00 Test Item Value Reference Range Comments WHITE BLOOD CELL COUNT (BEAKER) (test fqhu=030) 21.2 K/ L 3.5-10.5 RED BLOOD CELL COUNT (BEAKER) (test qyew=958) 3.71 M/ L 3.93-5.22 HEMOGLOBIN (BEAKER) (test rtxr=532) 10.9 GM/DL 11.2-15.7 HEMATOCRIT (BEAKER) (test eymu=808) 33.2 % 34.1-44.9 MEAN CORPUSCULAR VOLUME (BEAKER) (test sbrs=242) 89.5 fL 79.4-94.8 MEAN CORPUSCULAR HEMOGLOBIN (BEAKER) (test 29.4 pg 25.6-32.2 kzrm=937) MEAN CORPUSCULAR HEMOGLOBIN CONC (BEAKER) (test 32.8 GM/DL 32.2-35.5 yrob=422) RED CELL DISTRIBUTION WIDTH (BEAKER) (test 14.4 % 11.7-14.4 rwbm=686) PLATELET COUNT (BEAKER) (test nlwp=787) 271 K/CU MM 150-450 MEAN PLATELET VOLUME (BEAKER) (test ymbu=903) 11.2 fL 9.4-12.3 NUCLEATED RED BLOOD CELLS (BEAKER) (test 0 /100 WBC 0-0 ctah=908) COMPREHENSIVE METABOLIC [id number] 06:35:00 Test Item Value Reference Range Comments TOTAL PROTEIN (BEAKER) 4.9 gm/dL 6.0-8.3 (test tvvw=503) ALBUMIN (BEAKER) (test 2.6 g/dL 3.5-5.0 evri=5634) ALKALINE PHOSPHATASE 207 U/L 40-150 (BEAKER) (test nmfj=683) BILIRUBIN TOTAL (BEAKER) 1.7 mg/dL 0.2-1.2 (test ojbj=716) SODIUM (BEAKER) (test 132 meq/L 136-145 noli=013) POTASSIUM (BEAKER) (test 3.4 meq/L 3.5-5.1 rebn=857) CHLORIDE (BEAKER) (test 96 meq/L 98-107 kgla=095) CO2 (BEAKER) (test 28 meq/L 22-29 yhvp=157) BLOOD UREA NITROGEN 8 mg/dL 7-21 (BEAKER) (test vrkf=409) CREATININE (BEAKER) (test 0.65 mg/dL 0.57-1.25 mtbl=991) GLUCOSE RANDOM (BEAKER) 239 mg/dL 70-105 (test pjfy=304) CALCIUM (BEAKER) (test 8.1 mg/dL 8.4-10.2 nxnj=775) AST (SGOT) (BEAKER) (test 40 U/L 5-34 zebj=072) ALT (SGPT) (BEAKER) (test 59 U/L 6-55 plki=426) EGFR (BEAKER) (test 91 mL/min/1.73 sq m ESTIMATED GFR IS NOT sdgu=5583) ACCURATE CREATININE CLEARANCE IN PREDICTING GLOMERULAR FILTRATION RATE. ESTIMATED GFR IS NOT APPLICABLE FOR DIALYSIS PATIENTS. BLOOD [id number] 18:00:00 Test Item Value Reference Range Comments CULTURE (BEAKER) (test vjwy=4333) No growth in 5 days CBC W/PLT COUNT & AUTO [id number] 13:50:00 Test Item Value Reference Range Comments WHITE BLOOD CELL COUNT (BEAKER) (test gcbb=912) 17.8 K/ L 3.5-10.5 RED BLOOD CELL COUNT (BEAKER) (test vegt=763) 3.87 M/ L 3.93-5.22 HEMOGLOBIN (BEAKER) (test jiqn=109) 11.1 GM/DL 11.2-15.7 HEMATOCRIT (BEAKER) (test xrnd=338) 34.6 % 34.1-44.9 MEAN CORPUSCULAR VOLUME (BEAKER) (test zunn=708) 89.4 fL 79.4-94.8 MEAN CORPUSCULAR HEMOGLOBIN (BEAKER) (test 28.7 pg 25.6-32.2 ralp=481) MEAN CORPUSCULAR HEMOGLOBIN CONC (BEAKER) (test 32.1 GM/DL 32.2-35.5 nknp=550) RED CELL DISTRIBUTION WIDTH (BEAKER) (test 14.3 % 11.7-14.4 pvbs=674) PLATELET COUNT (BEAKER) (test ebzg=117) 297 K/CU MM 150-450 MEAN PLATELET VOLUME (BEAKER) (test ftgd=269) 11.2 fL 9.4-12.3 NUCLEATED RED BLOOD CELLS (BEAKER) (test 0 /100 WBC 0-0 upsu=246) COMPREHENSIVE METABOLIC [id number] 13:07:00 Test Item Value Reference Range Comments TOTAL PROTEIN (BEAKER) 5.3 gm/dL 6.0-8.3 (test arwe=654) ALBUMIN (BEAKER) (test 2.7 g/dL 3.5-5.0 vtjf=5588) ALKALINE PHOSPHATASE 221 U/L 40-150 (BEAKER) (test jpnq=818) BILIRUBIN TOTAL (BEAKER) 2.0 mg/dL 0.2-1.2 (test gjcv=988) SODIUM (BEAKER) (test 130 meq/L 136-145 wcth=610) POTASSIUM (BEAKER) (test 3.3 meq/L 3.5-5.1 hirl=202) CHLORIDE (BEAKER) (test 94 meq/L 98-107 caju=587) CO2 (BEAKER) (test 27 meq/L 22-29 pupj=025) BLOOD UREA NITROGEN 8 mg/dL 7-21 (BEAKER) (test ivcm=548) CREATININE (BEAKER) (test 0.72 mg/dL 0.57-1.25 rece=296) GLUCOSE RANDOM (BEAKER) 292 mg/dL 70-105 (test fmlj=905) CALCIUM (BEAKER) (test 8.2 mg/dL 8.4-10.2 upel=039) AST (SGOT) (BEAKER) (test 45 U/L 5-34 jnlg=724) ALT (SGPT) (BEAKER) (test 62 U/L 6-55 qfwv=014) EGFR (BEAKER) (test 81 mL/min/1.73 sq m ESTIMATED GFR IS NOT arcq=6397) ACCURATE CREATININE CLEARANCE IN PREDICTING GLOMERULAR FILTRATION RATE. ESTIMATED GFR IS NOT APPLICABLE FOR DIALYSIS PATIENTS. COMPREHENSIVE METABOLIC [id number] 06:14:00 Test Item Value Reference Range Comments TOTAL PROTEIN (BEAKER) 5.3 gm/dL 6.0-8.3 (test fuvw=087) ALBUMIN (BEAKER) (test 2.7 g/dL 3.5-5.0 rees=1156) ALKALINE PHOSPHATASE 213 U/L 40-150 (BEAKER) (test xkql=093) BILIRUBIN TOTAL (BEAKER) 2.1 mg/dL 0.2-1.2 (test pfal=737) SODIUM (BEAKER) (test 134 meq/L 136-145 rlrx=901) POTASSIUM (BEAKER) (test 3.1 meq/L 3.5-5.1 yjvx=187) CHLORIDE (BEAKER) (test 94 meq/L 98-107 fljn=927) CO2 (BEAKER) (test 28 meq/L 22-29 admo=063) BLOOD UREA NITROGEN 7 mg/dL 7-21 (BEAKER) (test cwet=256) CREATININE (BEAKER) (test 0.58 mg/dL 0.57-1.25 tdvn=230) GLUCOSE RANDOM (BEAKER) 185 mg/dL 70-105 (test flvm=914) CALCIUM (BEAKER) (test 8.4 mg/dL 8.4-10.2 jcji=086) AST (SGOT) (BEAKER) (test 51 U/L 5-34 abmg=194) ALT (SGPT) (BEAKER) (test 70 U/L 6-55 zdte=429) EGFR (BEAKER) (test 104 mL/min/1.73 sq ESTIMATED GFR IS NOT fzhm=4766) m ACCURATE CREATININE CLEARANCE IN PREDICTING GLOMERULAR FILTRATION RATE. ESTIMATED GFR IS NOT APPLICABLE FOR DIALYSIS PATIENTS. CBC (HEMOGRAM ONLY)2017-10-09 05:57:00 Test Item Value Reference Range Comments WHITE BLOOD CELL COUNT (BEAKER) (test btqy=077) 19.3 K/ L 3.5-10.5 RED BLOOD CELL COUNT (BEAKER) (test rnmd=170) 4.03 M/ L 3.93-5.22 HEMOGLOBIN (BEAKER) (test jwds=376) 11.4 GM/DL 11.2-15.7 HEMATOCRIT (BEAKER) (test pygh=149) 35.8 % 34.1-44.9 MEAN CORPUSCULAR VOLUME (BEAKER) (test pwzx=037) 88.8 fL 79.4-94.8 MEAN CORPUSCULAR HEMOGLOBIN (BEAKER) (test 28.3 pg 25.6-32.2 dzmf=730) MEAN CORPUSCULAR HEMOGLOBIN CONC (BEAKER) (test 31.8 GM/DL 32.2-35.5 coyc=077) RED CELL DISTRIBUTION WIDTH (BEAKER) (test 14.1 % 11.7-14.4 ymoj=009) PLATELET COUNT (BEAKER) (test nxhx=033) 330 K/CU MM 150-450 MEAN PLATELET VOLUME (BEAKER) (test kifx=158) 11.7 fL 9.4-12.3 NUCLEATED RED BLOOD CELLS (BEAKER) (test 0 /100 WBC 0-0 fprl=384) CT, [id number] 15:26:00FINAL REPORT TECHNIQUE: CT of the abdomen and pelvis WITH intravenous contrast and WITHOUT oral contrast. Dose modulation, iterative reconstruction, and/or weight-based adjustment of the mA/kV was utilized to reduce the radiation dose to as low as reasonably achievable. INDICATION: 66-year-old woman with abdominal pain. COMPARISON: None. FINDINGS: LOWER THORAX: Small bilateralpleural effusions with atelectasis in the left lung base. HEPATOBILIARY: 5.5 x 3.4 cm hypodense lesion in segment V/ of the liver associated with overlying capsular retraction. Scattered hypodensities in the liver measuring up to 1.7 cm, most of which are consistent with cysts. 1.1 cm hypodensity insegment IVB with density greater than simple fluid (axial series image 32). Small stones in the gallbladder. No gallbladder wall thickening or pericholecystic inflammatory change. Moderate intrahepaticbiliary ductal dilatation in segment . Mild intrahepatic biliary ductal dilatation elsewhere throughout the liver. Plastic bile duct stent extends from the right intrahepatic bile ducts to the duodenum.SPLEEN: 2.4 x 2.3 cm benign cystic lesion in the anterior spleen.PANCREAS: No focal masses or ductal dilatation. No evidence of pancreatic necrosis. ADRENALS: No adrenal nodules.KIDNEYS/URETERS: No hydronephrosis, stones, or solid mass lesions.PELVIC ORGANS/BLADDER: Unremarkable. PERITONEUM/RETROPERITONEUM: 1.7 x 9.3 cm area of nonencapsulated fluid posterior to the pancreatic head. Small amount ofnonencapsulated fluid in the mesentery and along the mesenteric root. Small amount of fluid in the presacral soft tissues. Trace perihepatic ascites.LYMPH NODES: No lymphadenopathy.VESSELS: Unremarkable. GI TRACT: No distention or wall thickening. Colonic diverticula. BONES AND SOFT TISSUES: Degenerative changes of the visualized spine. Soft tissues are unremarkable. IMPRESSION:Sequela of acute interstitial edematous pancreatitis with nonencapsulated acute peripancreatic fluid in the abdomen and pelvis. Dominant right hepatic mass, consistent with known cholangiocarcinoma. Hypodense lesion in segment IVB is indeterminate; metastases cannot be excluded. Moderate intrahepatic biliary ductal dilatation in segment . Otherwise, mild intrahepatic biliary ductal dilatation elsewhere in the liver. Signed: Jarrod Bowling MDReport Verified Date/Time: 10/08/2017 15:26:34 Reading Location: [facility] [id number] Body Reading Room HEMOGLOBIN [id number] 14:08:00 Test Item Value Reference Range Comments HEMOGLOBIN A1C (BEAKER) (test pqpo=643) 5.1 % 4.3-6.1 COMPREHENSIVE METABOLIC [id number] 05:11:00 Test Item Value Reference Range Comments TOTAL PROTEIN (BEAKER) 5.2 gm/dL 6.0-8.3 (test vghj=180) ALBUMIN (BEAKER) (test 2.6 g/dL 3.5-5.0 hpos=6590) ALKALINE PHOSPHATASE 208 U/L 40-150 (BEAKER) (test xnlr=997) BILIRUBIN TOTAL (BEAKER) 2.4 mg/dL 0.2-1.2 (test qqel=836) SODIUM (BEAKER) (test 133 meq/L 136-145 pkrk=495) POTASSIUM (BEAKER) (test 3.6 meq/L 3.5-5.1 lgbi=723) CHLORIDE (BEAKER) (test 97 meq/L 98-107 rnwx=316) CO2 (BEAKER) (test 24 meq/L 22-29 ydkc=656) BLOOD UREA NITROGEN 7 mg/dL 7-21 (BEAKER) (test hedp=785) CREATININE (BEAKER) (test 0.62 mg/dL 0.57-1.25 zmsn=442) GLUCOSE RANDOM (BEAKER) 174 mg/dL 70-105 (test xkha=006) CALCIUM (BEAKER) (test 8.1 mg/dL 8.4-10.2 agog=946) AST (SGOT) (BEAKER) (test 37 U/L 5-34 ltlr=803) ALT (SGPT) (BEAKER) (test 66 U/L 6-55 lukw=304) EGFR (BEAKER) (test 97 mL/min/1.73 sq m ESTIMATED GFR IS NOT yggx=0612) ACCURATE CREATININE CLEARANCE IN PREDICTING GLOMERULAR FILTRATION RATE. ESTIMATED GFR IS NOT APPLICABLE FOR DIALYSIS PATIENTS. Specimen slightly [id number] 05:11:00 Test Item Value Reference Range Comments LIPASE (BEAKER) (test ffwn=181) 26 U/L 8-78 Specimen slightly ictericCBC (HEMOGRAM ONLY)2017-10-08 05:10:00 Test Item Value Reference Range Comments WHITE BLOOD CELL COUNT (BEAKER) (test ljmv=706) 17.3 K/ L 3.5-10.5 RED BLOOD CELL COUNT (BEAKER) (test eefx=136) 4.09 M/ L 3.93-5.22 HEMOGLOBIN (BEAKER) (test hhtq=905) 11.9 GM/DL 11.2-15.7 HEMATOCRIT (BEAKER) (test rqfp=976) 39.2 % 34.1-44.9 MEAN CORPUSCULAR VOLUME (BEAKER) (test rvow=217) 95.8 fL 79.4-94.8 MEAN CORPUSCULAR HEMOGLOBIN (BEAKER) (test 29.1 pg 25.6-32.2 uygv=629) MEAN CORPUSCULAR HEMOGLOBIN CONC (BEAKER) (test 30.4 GM/DL 32.2-35.5 yvam=399) RED CELL DISTRIBUTION WIDTH (BEAKER) (test 14.2 % 11.7-14.4 npcm=314) PLATELET COUNT (BEAKER) (test xvkv=531) 212 K/CU MM 150-450 MEAN PLATELET VOLUME (BEAKER) (test wfiu=540) 11.8 fL 9.4-12.3 NUCLEATED RED BLOOD CELLS (BEAKER) (test 0 /100 WBC 0-0 zyuz=042) COMPREHENSIVE METABOLIC [id number] 06:49:00 Test Item Value Reference Range Comments TOTAL PROTEIN (BEAKER) 5.2 gm/dL 6.0-8.3 (test wwxq=592) ALBUMIN (BEAKER) (test 2.6 g/dL 3.5-5.0 smkh=4807) ALKALINE PHOSPHATASE 236 U/L 40-150 (BEAKER) (test oure=481) BILIRUBIN TOTAL (BEAKER) 2.8 mg/dL 0.2-1.2 (test pmkn=686) SODIUM (BEAKER) (test 131 meq/L 136-145 dpvo=897) POTASSIUM (BEAKER) (test 3.3 meq/L 3.5-5.1 wejf=562) CHLORIDE (BEAKER) (test 95 meq/L 98-107 qbly=696) CO2 (BEAKER) (test 25 meq/L 22-29 rcma=960) BLOOD UREA NITROGEN 7 mg/dL 7-21 (BEAKER) (test bamg=102) CREATININE (BEAKER) (test 0.64 mg/dL 0.57-1.25 jeaf=400) GLUCOSE RANDOM (BEAKER) 177 mg/dL 70-105 (test imtl=043) CALCIUM (BEAKER) (test 8.1 mg/dL 8.4-10.2 eijo=311) AST (SGOT) (BEAKER) (test 34 U/L 5-34 vcxy=183) ALT (SGPT) (BEAKER) (test 77 U/L 6-55 mbeg=631) EGFR (BEAKER) (test 93 mL/min/1.73 sq m ESTIMATED GFR IS NOT eedt=6808) ACCURATE CREATININE CLEARANCE IN PREDICTING GLOMERULAR FILTRATION RATE. ESTIMATED GFR IS NOT APPLICABLE FOR DIALYSIS PATIENTS. Specimen slightly ictericCBC (HEMOGRAM ONLY)2017-10-07 06:16:00 Test Item Value Reference Range Comments WHITE BLOOD CELL COUNT (BEAKER) (test mibk=882) 17.9 K/ L 3.5-10.5 RED BLOOD CELL COUNT (BEAKER) (test qxnb=633) 4.16 M/ L 3.93-5.22 HEMOGLOBIN (BEAKER) (test vvlc=719) 11.9 GM/DL 11.2-15.7 HEMATOCRIT (BEAKER) (test dwya=984) 37.9 % 34.1-44.9 MEAN CORPUSCULAR VOLUME (BEAKER) (test ioky=356) 91.1 fL 79.4-94.8 MEAN CORPUSCULAR HEMOGLOBIN (BEAKER) (test 28.6 pg 25.6-32.2 nbvj=621) MEAN CORPUSCULAR HEMOGLOBIN CONC (BEAKER) (test 31.4 GM/DL 32.2-35.5 edgy=150) RED CELL DISTRIBUTION WIDTH (BEAKER) (test 14.4 % 11.7-14.4 prnr=406) PLATELET COUNT (BEAKER) (test azae=648) 271 K/CU MM 150-450 MEAN PLATELET VOLUME (BEAKER) (test ynaz=558) 12.4 fL 9.4-12.3 NUCLEATED RED BLOOD CELLS (BEAKER) (test 0 /100 WBC 0-0 kmyh=709) [id number] 07:13:00 Test Item Value Reference Range Comments LIPASE (BEAKER) (test msya=917) 104 U/L 8-78 Specimen slightly ictericCOMPREHENSIVE METABOLIC [id number] 07:13:00 Test Item Value Reference Range Comments TOTAL PROTEIN (BEAKER) 4.9 gm/dL 6.0-8.3 (test tncl=540) ALBUMIN (BEAKER) (test 2.5 g/dL 3.5-5.0 rguu=5070) ALKALINE PHOSPHATASE 257 U/L 40-150 (BEAKER) (test wxlq=607) BILIRUBIN TOTAL (BEAKER) 3.5 mg/dL 0.2-1.2 (test idsa=104) SODIUM (BEAKER) (test 131 meq/L 136-145 jbdz=911) POTASSIUM (BEAKER) (test 3.7 meq/L 3.5-5.1 nqwf=936) CHLORIDE (BEAKER) (test 98 meq/L 98-107 iohk=685) CO2 (BEAKER) (test 26 meq/L 22-29 jyfl=878) BLOOD UREA NITROGEN 8 mg/dL 7-21 (BEAKER) (test ubme=605) CREATININE (BEAKER) (test 0.56 mg/dL 0.57-1.25 ndfl=911) GLUCOSE RANDOM (BEAKER) 182 mg/dL 70-105 (test qeoq=630) CALCIUM (BEAKER) (test 7.8 mg/dL 8.4-10.2 heok=472) AST (SGOT) (BEAKER) (test 44 U/L 5-34 cbwr=892) ALT (SGPT) (BEAKER) (test 99 U/L 6-55 kvjq=972) EGFR (BEAKER) (test 109 mL/min/1.73 sq ESTIMATED GFR IS NOT ifsn=9457) m ACCURATE CREATININE CLEARANCE IN PREDICTING GLOMERULAR FILTRATION RATE. ESTIMATED GFR IS NOT APPLICABLE FOR DIALYSIS PATIENTS. Specimen slightly ictericCBC (HEMOGRAM ONLY)2017-10-06 05:25:00 Test Item Value Reference Range Comments WHITE BLOOD CELL COUNT (BEAKER) (test ymsl=208) 15.6 K/ L 3.5-10.5 RED BLOOD CELL COUNT (BEAKER) (test tkah=503) 3.95 M/ L 3.93-5.22 HEMOGLOBIN (BEAKER) (test rjvm=598) 11.5 GM/DL 11.2-15.7 HEMATOCRIT (BEAKER) (test dbts=516) 36.0 % 34.1-44.9 MEAN CORPUSCULAR VOLUME (BEAKER) (test hrvs=645) 91.1 fL 79.4-94.8 MEAN CORPUSCULAR HEMOGLOBIN (BEAKER) (test 29.1 pg 25.6-32.2 vtrz=785) MEAN CORPUSCULAR HEMOGLOBIN CONC (BEAKER) (test 31.9 GM/DL 32.2-35.5 lfby=224) RED CELL DISTRIBUTION WIDTH (BEAKER) (test 14.5 % 11.7-14.4 ndbd=190) PLATELET COUNT (BEAKER) (test lphj=204) 204 K/CU MM 150-450 MEAN PLATELET VOLUME (BEAKER) (test apkl=834) 13.2 fL 9.4-12.3 NUCLEATED RED BLOOD CELLS (BEAKER) (test 0 /100 WBC 0-0 alja=624) URINALYSIS W/ [id number] 14:03:00 Test Item Value Reference Range Comments COLOR (BEAKER) (test sdeg=435) Dark Yellow CLARITY (BEAKER) (test nkzf=315) Clear SPECIFIC GRAVITY UA (BEAKER) (test iujh=126) 1.019 1.001-1.035 PH UA (BEAKER) (test dywf=346) 6.0 5.0-8.0 PROTEIN UA (BEAKER) (test ecow=441) 70 mg/dL Negative GLUCOSE UA (BEAKER) (test syho=369) 300 mg/dL Negative KETONES UA (BEAKER) (test bdew=582) Negative Negative BILIRUBIN UA (BEAKER) (test iybo=763) Positive Negative BLOOD UA (BEAKER) (test rrtr=526) Small Negative NITRITE UA (BEAKER) (test qddq=959) Negative Negative LEUKOCYTE ESTERASE UA (BEAKER) (test ydtm=760) Negative Negative UROBILINOGEN UA (BEAKER) (test zrvr=566) > mg/dL 0.2-1.0 RBC UA (BEAKER) (test jmcl=786) 4 /HPF WBC UA (BEAKER) (test zvxo=839) 3 /HPF MUCUS (BEAKER) (test gbcn=9617) Occasional SQUAMOUS EPITHELIAL (BEAKER) (test nykz=004) < /HPF HYALINE CASTS (BEAKER) (test ehhq=271) 2 /LPF SOURCE(BEAKER) (test iuqk=6060) Urine, Voided COMPREHENSIVE METABOLIC [id number] 06:46:00 Test Item Value Reference Range Comments TOTAL PROTEIN (BEAKER) 5.0 gm/dL 6.0-8.3 (test bmew=200) ALBUMIN (BEAKER) (test 2.6 g/dL 3.5-5.0 cnln=7094) ALKALINE PHOSPHATASE 319 U/L 40-150 (BEAKER) (test jxlk=494) BILIRUBIN TOTAL (BEAKER) 4.6 mg/dL 0.2-1.2 (test puez=459) SODIUM (BEAKER) (test 134 meq/L 136-145 tkpt=840) POTASSIUM (BEAKER) (test 3.6 meq/L 3.5-5.1 fhtz=473) CHLORIDE (BEAKER) (test 99 meq/L 98-107 cfwa=955) CO2 (BEAKER) (test 27 meq/L 22-29 jxbp=074) BLOOD UREA NITROGEN 9 mg/dL 7-21 (BEAKER) (test jowk=969) CREATININE (BEAKER) (test 0.59 mg/dL 0.57-1.25 ogzu=294) GLUCOSE RANDOM (BEAKER) 147 mg/dL 70-105 (test srcz=816) CALCIUM (BEAKER) (test 7.8 mg/dL 8.4-10.2 zdtf=585) AST (SGOT) (BEAKER) (test 54 U/L 5-34 ujgh=901) ALT (SGPT) (BEAKER) (test 140 U/L 6-55 gnic=527) EGFR (BEAKER) (test 102 mL/min/1.73 sq ESTIMATED GFR IS NOT ejbh=0426) m ACCURATE CREATININE CLEARANCE IN PREDICTING GLOMERULAR FILTRATION RATE. ESTIMATED GFR IS NOT APPLICABLE FOR DIALYSIS PATIENTS. Specimen slightly [id number] 06:41:00 Test Item Value Reference Range Comments LIPASE (BEAKER) (test qjjg=682) 657 U/L 8-78 Specimen slightly ictericCBC (HEMOGRAM ONLY)2017-10-05 06:20:00 Test Item Value Reference Range Comments WHITE BLOOD CELL COUNT (BEAKER) (test vxmi=028) 16.6 K/ L 3.5-10.5 RED BLOOD CELL COUNT (BEAKER) (test bogz=057) 4.07 M/ L 3.93-5.22 HEMOGLOBIN (BEAKER) (test gdjh=917) 12.1 GM/DL 11.2-15.7 HEMATOCRIT (BEAKER) (test yrcz=688) 37.2 % 34.1-44.9 MEAN CORPUSCULAR VOLUME (BEAKER) (test qiaz=777) 91.4 fL 79.4-94.8 MEAN CORPUSCULAR HEMOGLOBIN (BEAKER) (test 29.7 pg 25.6-32.2 zxts=171) MEAN CORPUSCULAR HEMOGLOBIN CONC (BEAKER) (test 32.5 GM/DL 32.2-35.5 qdsj=041) RED CELL DISTRIBUTION WIDTH (BEAKER) (test 14.7 % 11.7-14.4 jnot=082) PLATELET COUNT (BEAKER) (test clpy=282) 201 K/CU MM 150-450 MEAN PLATELET VOLUME (BEAKER) (test ljfa=289) 13.1 fL 9.4-12.3 NUCLEATED RED BLOOD CELLS (BEAKER) (test 0 /100 WBC 0-0 vuaz=383) [id number] 07:26:00 Test Item Value Reference Range Comments LIPASE (BEAKER) (test xcxt=770) > U/L 8-78 Specimen moderately ictericCOMPREHENSIVE METABOLIC [id number] 06:34:00 Test Item Value Reference Range Comments TOTAL PROTEIN (BEAKER) 5.3 gm/dL 6.0-8.3 (test ztmf=330) ALBUMIN (BEAKER) (test 2.9 g/dL 3.5-5.0 gnvd=9819) ALKALINE PHOSPHATASE 422 U/L 40-150 (BEAKER) (test kgve=262) BILIRUBIN TOTAL (BEAKER) 5.2 mg/dL 0.2-1.2 (test mnfa=028) SODIUM (BEAKER) (test 134 meq/L 136-145 kagf=111) POTASSIUM (BEAKER) (test 3.9 meq/L 3.5-5.1 kcxk=282) CHLORIDE (BEAKER) (test 98 meq/L 98-107 evcd=219) CO2 (BEAKER) (test 26 meq/L 22-29 gyge=092) BLOOD UREA NITROGEN 9 mg/dL 7-21 (BEAKER) (test deiu=241) CREATININE (BEAKER) (test 0.60 mg/dL 0.57-1.25 lnga=576) GLUCOSE RANDOM (BEAKER) 161 mg/dL 70-105 (test jgds=395) CALCIUM (BEAKER) (test 8.4 mg/dL 8.4-10.2 ldyj=220) AST (SGOT) (BEAKER) (test 110 U/L 5-34 vhii=851) ALT (SGPT) (BEAKER) (test 231 U/L 6-55 jenp=095) EGFR (BEAKER) (test 100 mL/min/1.73 sq ESTIMATED GFR IS NOT bewm=8942) m ACCURATE CREATININE CLEARANCE IN PREDICTING GLOMERULAR FILTRATION RATE. ESTIMATED GFR IS NOT APPLICABLE FOR DIALYSIS PATIENTS. Specimen moderately ictericCBC (HEMOGRAM ONLY)2017-10-04 06:04:00 Test Item Value Reference Range Comments WHITE BLOOD CELL COUNT (BEAKER) (test ydbl=655) 13.3 K/ L 3.5-10.5 RED BLOOD CELL COUNT (BEAKER) (test zhki=359) 4.15 M/ L 3.93-5.22 HEMOGLOBIN (BEAKER) (test pgsa=090) 12.2 GM/DL 11.2-15.7 HEMATOCRIT (BEAKER) (test qkog=437) 37.9 % 34.1-44.9 MEAN CORPUSCULAR VOLUME (BEAKER) (test yaxp=338) 91.3 fL 79.4-94.8 MEAN CORPUSCULAR HEMOGLOBIN (BEAKER) (test 29.4 pg 25.6-32.2 djhu=429) MEAN CORPUSCULAR HEMOGLOBIN CONC (BEAKER) (test 32.2 GM/DL 32.2-35.5 vrpy=155) RED CELL DISTRIBUTION WIDTH (BEAKER) (test 14.8 % 11.7-14.4 nlrl=531) PLATELET COUNT (BEAKER) (test ssmx=415) 203 K/CU MM 150-450 MEAN PLATELET VOLUME (BEAKER) (test njev=002) 13.0 fL 9.4-12.3 NUCLEATED RED BLOOD CELLS (BEAKER) (test 0 /100 WBC 0-0 syot=817) COMPREHENSIVE METABOLIC [id number] 12:54:00 Test Item Value Reference Range Comments TOTAL PROTEIN (BEAKER) 6.0 gm/dL 6.0-8.3 (test lmzb=242) ALBUMIN (BEAKER) (test 3.3 g/dL 3.5-5.0 zuom=8413) ALKALINE PHOSPHATASE 529 U/L 40-150 (BEAKER) (test ezwf=327) BILIRUBIN TOTAL (BEAKER) 6.4 mg/dL 0.2-1.2 (test idda=791) SODIUM (BEAKER) (test 134 meq/L 136-145 hayl=067) POTASSIUM (BEAKER) (test 4.3 meq/L 3.5-5.1 nnvy=610) CHLORIDE (BEAKER) (test 100 meq/L 98-107 sfwh=660) CO2 (BEAKER) (test 25 meq/L 22-29 tdqu=937) BLOOD UREA NITROGEN 16 mg/dL 7-21 (BEAKER) (test qdrc=169) CREATININE (BEAKER) (test 0.78 mg/dL 0.57-1.25 thsk=961) GLUCOSE RANDOM (BEAKER) 262 mg/dL 70-105 (test uaat=743) CALCIUM (BEAKER) (test 9.3 mg/dL 8.4-10.2 rhft=640) AST (SGOT) (BEAKER) (test 162 U/L 5-34 ncgm=170) ALT (SGPT) (BEAKER) (test 302 U/L 6-55 idua=375) EGFR (BEAKER) (test 74 mL/min/1.73 sq m ESTIMATED GFR IS NOT uxpy=2046) ACCURATE CREATININE CLEARANCE IN PREDICTING GLOMERULAR FILTRATION RATE. ESTIMATED GFR IS NOT APPLICABLE FOR DIALYSIS PATIENTS. Specimen moderately ictericFL, [id number] 16:19:00INTRA OP IMAGINGReason for exam:->CHOLANGIOCARCINOMAFINAL REPORT History: Cholangiocarcinoma. FINDINGS: Intraprocedural fluoroscopy was provided for a total of 11 minutes and 52 seconds during an ERCP. No radiologist was present. A total of 10 and intraprocedural images are submitted showing selective cannulization and injection of contrast the common bile duct. Both left and right intrahepatic ducts are identified. Absence of contrast in the central left and right hepatic ducts suggest strictures consistent with patient's history of cholangiocarcinoma. Endoscopic stent is seen on the final image extending into the intrahepatic ducts. Signed: Jaron Cary Verified Date/Time: 10/02/2017 16:19:35 Reading Location: [address] Radiology Reading Room TISSUE [id number] 18:58:00Surgical Pathology Report Case: [id number] Authorizing Provider: Soha Blank MD Collected: 09/14/20175 Ordering Location: [facility] 6 OP Received: 2017 Pathologist: Evan Ho MD Specimen: Biopsy, Liver, Mass The addendum is being issued to report the results of immunohistochemistry (IHC) testing for Mismatch Repair (MMR) Proteins. The diagnosis remains unchanged. IHC testing for all four MMR proteins was performed with appropriate controls. 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)48451, 03643 x3 Addendum electronically signed by Evan Ho MD on 09/22/2017 at 6:58 PMThe addendum is being issued to report the results of immunostains for ER, mammoglobin and WT 1 The diagnosis is unchanged.RESULTSImmunostains for ER, mammoglobin and WT 1 are negative in [id number] electronically signed by Evan Ho MD on 09/20/2017 at 7:12 PMLIVER, ULTRASOUND GUIDED NEEDLE CORE BIOPSY:- ADENOCARCINOMA, MODERATELY DIFFERENTIATED- BACKGROUND LIVER WITH MINIMAL STEATOSIS AND FEATURES OF MASS EFFECT- SEE COMMENT Signing Pathologist Direct Phone Line: [phone] signed by Evan Ho MD on 09/18/2017 at 2:01 PMThe liver biopsy shows a moderately differentiated adenocarcinoma with an immunoprofile of CK7+/CK19+. The immunoprofile is nonspecific. The possibilities include intrahepatic cholangiocarcinoma, pancreato-biliary primary or upper gastrointestinal primary. Clinical correlation is suggested. 77435, 13540, 70654 q2Clrqq liver massLiver lesionReceived in formalin labeled with patient's name and MRN are three tissue cores measuring 1.4 to 1.5 cm in length respectively with an average diameter of 0.1 cm. Entirely submitted in A1.Section shows three cores of tumor tissue composed of atypical epithelial cells disposed in glands forming complex cribriform architecture and associated desmoplastic stromal response. Multiple foci of tumor necrosis is present. Focal presence of luminal mucin is noted. Small amount of peritumoral liver parenchyma is sampled and shows minimal steatosis and features of mass effect. Immunostains were performed with appropriate controls. The tumor is positive for CK7 and CK19. The tumor is negative for CK20, CDX2, TTF1, and GATA3. (Appropriate controls were used).U/S, BIOPSY, [id number] 16:51:00Reason for Exam:->LIVER MASS [R16.0][facility]EDURE: Ultrasound-guided core biopsy of right liver mass. INDICATION: 66-year-old woman with liver mass. COMPARISON: None. SEDATION: Intravenous moderate sedation was administered by radiology nursing and monitored under the direction of the undersigned radiologist. The patient's vital signs were monitored throughout the procedure and recorded in the patient' s medical record by radiology nursing. Total intraservice time of sedation was 15 minutes. MEDICATIONS:1 mg Versed, 50 mcg fentanyl FINDINGS:After obtaining informed written consent, the patient was placed in the supine position, and ultrasound scan of the right upper quadrant identified an accessible window to the 3.9 x 3.2 x 3.7 cm isoechoic mass in the right hepatic lobe adjacent to the gallbladder.The overlying skin was prepped and draped in the usual, sterile fashion and local 1% lidocaine anesthesia was administered. Three core biopsies of the liver were obtained using 18-gauge Biopince biopsyneedle under ultrasound guidance. Post procedure scans revealed no immediate complications. IMPRESSION: Uncomplicated ultrasound-guided biopsy of right liver mass. Signed: Jarrod Bowling MDReport Verified Date/Time: 09/14/2017 16:51:22 Reading Location: [address] Ultrasound Reading Room COMPREHENSIVE METABOLIC [id number] 13:24:00 Test Item Value Reference Range Comments TOTAL PROTEIN (BEAKER) 7.5 gm/dL 6.0-8.3 (test gesh=531) ALBUMIN (BEAKER) (test 4.2 g/dL 3.5-5.0 ktmw=9494) ALKALINE PHOSPHATASE 556 U/L 40-150 (BEAKER) (test ndgm=438) BILIRUBIN TOTAL (BEAKER) 3.7 mg/dL 0.2-1.2 (test tdpz=578) SODIUM (BEAKER) (test 138 meq/L 136-145 xbtw=250) POTASSIUM (BEAKER) (test 4.4 meq/L 3.5-5.1 qkse=248) CHLORIDE (BEAKER) (test 102 meq/L 98-107 toxx=697) CO2 (BEAKER) (test 25 meq/L 22-29 ykiq=563) BLOOD UREA NITROGEN 19 mg/dL 7-21 (BEAKER) (test yaik=904) CREATININE (BEAKER) (test 0.81 mg/dL 0.57-1.25 fmqi=010) GLUCOSE RANDOM (BEAKER) 125 mg/dL 70-105 (test tlpa=412) CALCIUM (BEAKER) (test 10.0 mg/dL 8.4-10.2 rxti=430) AST (SGOT) (BEAKER) (test 393 U/L 5-34 anym=352) ALT (SGPT) (BEAKER) (test 632 U/L 6-55 sqyg=289) EGFR (BEAKER) (test 71 mL/min/1.73 sq m ESTIMATED GFR IS NOT jhnp=6548) ACCURATE CREATININE CLEARANCE IN PREDICTING GLOMERULAR FILTRATION RATE. ESTIMATED GFR IS NOT APPLICABLE FOR DIALYSIS PATIENTS. Specimen slightly ictericPROTHROMBIN [id number] 13:03:00 Test Item Value Reference Range Comments PROTIME (BEAKER) (test zszx=022) 13.0 seconds 11.7-14.7 INR (BEAKER) (test tagy=984) 1.0 <=5.9 RECOMMENDED COUMADIN/WARFARIN INR THERAPY RANGESSTANDARD DOSE: 2.0 - 3.0 Includes: PROPHYLAXIS forvenous thrombosis, systemic embolization; TREATMENT for venous thrombosis and/or pulmonary embolus.HIGH RISK: Target INR is 2.5-3.5 for patients with mechanical heart valves.CBC W/PLT COUNT & AUTO [id number] 12:57:00 Test Item Value Reference Range Comments WHITE BLOOD CELL COUNT (BEAKER) (test jxec=742) 6.9 K/ L 3.5-10.5 RED BLOOD CELL COUNT (BEAKER) (test hpln=701) 4.60 M/ L 3.93-5.22 HEMOGLOBIN (BEAKER) (test zqvr=785) 12.9 GM/DL 11.2-15.7 HEMATOCRIT (BEAKER) (test kqsy=416) 41.7 % 34.1-44.9 MEAN CORPUSCULAR VOLUME (BEAKER) (test thmy=743) 90.7 fL 79.4-94.8 MEAN CORPUSCULAR HEMOGLOBIN (BEAKER) (test 28.0 pg 25.6-32.2 lhoz=564) MEAN CORPUSCULAR HEMOGLOBIN CONC (BEAKER) (test 30.9 GM/DL 32.2-35.5 esgw=055) RED CELL DISTRIBUTION WIDTH (BEAKER) (test 13.8 % 11.7-14.4 spux=467) PLATELET COUNT (BEAKER) (test muox=884) 258 K/CU MM 150-450 MEAN PLATELET VOLUME (BEAKER) (test sggb=554) 11.8 fL 9.4-12.3 NUCLEATED RED BLOOD CELLS (BEAKER) (test 0 /100 WBC 0-0 bvxh=130) NEUTROPHILS RELATIVE PERCENT (BEAKER) (test 67 % hllf=461) LYMPHOCYTES RELATIVE PERCENT (BEAKER) (test 20 % rzuc=918) MONOCYTES RELATIVE PERCENT (BEAKER) (test 9 % gedi=141) EOSINOPHILS RELATIVE PERCENT (BEAKER) (test 3 % rore=858) BASOPHILS RELATIVE PERCENT (BEAKER) (test 1 % ojfg=461) NEUTROPHILS ABSOLUTE COUNT (BEAKER) (test 4.57 K/ L 1.56-6.13 cqnz=940) LYMPHOCYTES ABSOLUTE COUNT (BEAKER) (test 1.37 K/ L 1.18-3.74 okkc=776) MONOCYTES ABSOLUTE COUNT (BEAKER) (test 0.60 K/ L 0.24-0.36 knhn=945) EOSINOPHILS ABSOLUTE COUNT (BEAKER) (test 0.22 K/ L 0.04-0.36 znmz=214) BASOPHILS ABSOLUTE COUNT (BEAKER) (test 0.06 K/ L 0.01-0.08 bcem=173) IMMATURE GRANULOCYTES-RELATIVE PERCENT (BEAKER) 0 % 0-1 (test urid=2661)
--- OUTSIDE RECORDS SUMMARY | 2019-08-20 01:20 | XMS REPORT | Summary of Care ---
:1950 Author Organization [facility] [place] [address] Care Team Providers Name Role Phone Husam Taylor MD, ANTHONY Primary Care Provider Itzel Hancock MD Unavailable Chance Tabares MD Unavailable Filipe Huertas Unavailable Reason for Referral Radiology Services (Routine) Status Reason Specialty Diagnoses / Referred By Contact Referred To Contact Procedures Pending Radiology Diagnoses Cholangiocarcinoma (HCCode) Liver metastases (HCCode) Eliezer Long, Radiology Procedures CT CHEST ABDOMEN PELVIS W CONTRAST MD Steven [facility] [address] [facility] 1st Floor 7th Floor, [address] [place], [place] [id number] [place] [address] Reason for Visit Reason Comments Follow Up Encounter Details Date Type Department Care Team Description 03/06/2019 Office Visit [facility] Eliezer Long [facility] Leoncio Harris MD [facility] [address] [facility] 7th Floor, [address] [place] [address] 7th Floor, [address] [phone] [place] [address] [phone] Allergies Active Allergy Reactions Severity Noted Date Comments Sulfa Antibiotics 12/10/2008 documented as of this encounter (statuses as of 03/07/2019) Medications Medication Sig Dispensed Refills Start Date End Date Status TYLENOL 325 MG TABS Take 650 mg by 0 Active mouth every 4 hours as needed for Pain. Cyanocobalamin (B-12) Take 2,500 mcg by 0 Active 2000 MCG TABS mouth daily. Cholecalciferol (VITAMIN Take by mouth. 0 Active D3) 2000 UNIT TABS Multiple Take by mouth. 0 Active Vitamins-Calcium (ONE-A-DAY WOMENS FORMULA OR) tramadol (ULTRAM) 50 MG Take 1 Tab by 30 Tab 1 10/18/2017 Active tabletIndications: mouth every 6 Cholangiocarcinoma hours as needed (HCCode), Pain for Pain. ondansetron (ZOFRAN) 8 Take 1 Tab by 30 Tab 5 10/18/2017 Active mg tabletIndications: mouth every 8 Chemotherapy induced hours as needed. nausea and vomiting Take as needed for nausea Pancrelipase, Take 2 Caps by 240 Cap 6 11/01/2017 Active Qka-Nxyx-Ldyt, 08381 mouth 3 times units CPEPIndications: daily (with Cholangiocarcinoma meals). And 1 cap (HCCode), Abdominal with snacks cramping, Bloating lidocaine-prilocaine Apply 1 30 g 5 11/15/2017 Active (EMLA) creamIndications: application Cholangiocarcinoma topically every 7 (HCCode), Portacath in days. Apply to place port site with A Q tip 1 hour pre chemo Cover with elidia espana escitalopram (LEXAPRO) TAKE 1 TABLET BY 90 Tab 1 01/18/2019 Active 20 MG tablet MOUTH EVERY DAY lisinopril (PRINIVIL, TAKE 1 TABLET BY 90 Tab 3 01/21/2019 Active ZESTRIL) 10 MG MOUTH EVERY DAY tabletIndications: Essential hypertension documented as of this encounter (statuses as of 03/07/2019) Active Problems Problem Noted Date Neuropathy 10/11/2018 Thrombocytopenia (HCCode) 10/11/2018 Liver metastases (HCCode) 06/06/[address] 11/08/2017 Chemotherapy induced nausea and vomiting 10/18/2017 Hyperbilirubinemia 09/20/2017 Cholangiocarcinoma (HCCode) 09/20/2017 Cancer Staging: Clinical stage from 09/14/2017: [...] is and follow up with Dr. Castaneda ([place], [place]; [phone]) Depression Last Assessment & Plan: - D/C lexapro - Advised to contact me if depression recurs documented as of this encounter (statuses as of 03/07/2019) Resolved Problems Problem Noted Date Resolved Date [...] as of this encounter (statuses as of 03/07/2019) Immunizations Name Administration Dates Next Due PPD [...] Sign Reading Time Taken Comments Blood Pressure 125/73 03/06/2019 1:45 PM CDT Pulse 85 03/06/2019 1:45 PM CDT Temperature 36.7 C (98.1 F) 03/06/2019 1:45 PM CDT Respiratory Rate - - Oxygen Saturation - - Inhaled Oxygen Concentration - - Weight 83 kg (183 lb) 03/06/2019 1:45 PM CDT Height 167.6 cm (5' 6") 03/06/2019 1:45 PM CDT Body Mass Index 29.54 03/06/2019 1:45 PM CDT documented in this encounter Patient Instructions Patient InstructionsEliezer Long MD - 03/06/2019 2:00 PM CDT [facility] SECTION OF ONCOLOGY/HEMATOLOGY [phone] FAX [phone] Please note that all labs and or imaging results will be discussed at the next office visit unless told otherwise. If a problem occurs after normal business hours, over the weekend, or on a holiday, please contact our office at [phone] and have the physician position classifier paged. Patient Instructions: (to be completed before next visit) - Please schedule CT before next visit - computer help desk representative will schedule the appt Please don't hesitate to call or to send a V[employer] Central message if you have any questions or concerns before your next visit. Teaboxhart messaging should only be used for non-urgent questions. MyChart is notchecked after normal business hours, nor on weekends or holidays. Thank you, Eliezer Long MD documented in this encounter Progress Notes Eliezer Long MD - 03/06/2019 2:00 PM CDT Oncology Consult Reason for Consultation:Management of [...] (less then 1/2 cm but in 3-directions all).Continued with hiatus. Next imaging showed stable disease in that two month interval. 03/07/19:No relevant changes. She feels fine off of therapy. Minimal residual neuropathy. No pain. No itching, skin changes. Review [...] No dysuria or problems with urination. MS: Recent hairline fracture Skin: No new rashes, lumps or bumps. [...] file Gets together: Not on file Attends yarsani service: Not on file Active member of [...] as needed fornausea 30 Tab 5 Pancrelipase, Tcj-Naga-Yhyu, 13605 units CPEP Take 2 Caps by mouth [...] 5' 6" (167.6 cm) Weight - Scale: 183 lb (83 kg) Temp: 98.1 F (36.7 C) Temp Source: Oral Pulse: 85 Resting Heart Rate: 85 BP: 125/73 Patient Position: Sitting Cuff Size: regular BP Location: left arm Oxygen Therapy O2 Sat: 99 % O2 Flow Rate: Room Air Height and Weight BSA (Calculated - sq m): 1.97 sq meters BMI (Calculated): 29.6 Predicted Body Weight: 130.73 Pain Assessment Pain Scale: 0 Body surface area is 1.97 meters squared. Wt Readings from Last 3 Encounters: 03/06/19 183 lb (83 kg) 02/06/19 181 lb (82.1 kg) 01/08/19 177 lb 3.2 oz (80.4 kg) ECO General: Alert, well appearing, no [...] and neuropathy), plan discussed is tomaintain thetreatment hiatus until or unless there is tumor progression re-demonstrated. She is clinically better for the break and counts are improved. Plan Carcinoma - First line chemotherapy with gemcitabine/cisplatin,now held on hiatus - Discussed in context of GOC - Plan to defer further therapy at this time but reassess her imagingafter another interval of2 months. Discussed increasing to 3 months in subsequent interval. This diagnosis and rationale for treatment were discussed with the patient and her friend to theirapparent understanding and agreement.[email or web address], encouraged to call with questions or concerns. Eliezer Long MD, FACP [facility] #[id number] Gutter Hangerheater operator Leoncio Marinelli [facility] documented in this encounter Plan of Treatment Date Type Specialty Care Team Description 04/10/2019 Office Visit Hematology and Oncology Eliezer Long MD [address] [facility] 7th Floor, [address] [place] [address] Name Type Priority Associated Diagnoses Order Schedule CT CHEST ABDOMEN Imaging Routine Cholangiocarcinoma (HCCode) 1 Occurrences PELVIS W CONTRAST Liver metastases (HCCode) starting 03/06/2019 until 03/06/2020 Health Maintenance Due Date Last Done Comments [...] in this encounter Visit Diagnoses Diagnosis Cholangiocarcinoma (HCCode) - Primary Malignant neoplasm of intrahepatic bile ducts Liver metastases (HCCode) Secondary malignant neoplasm of liver documented in this encounter Insurance Payer Benefit Plan / Subscriber ID Effective Dates Phone Address Type Group [facility] xxxxxxxxx 2015-Present [address] [facility] [phone] (Work) documented as of this encounter Advance Directives Type Date Recorded 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
--- OUTSIDE RECORDS SUMMARY | 2019-08-20 01:20 | XMS REPORT | Summary of Care ---
:1950 Author Organization [facility] [place] [address] Care Team Providers Name Role Phone Husam Taylor MD, ANTHONY Primary Care Provider Itzel Hancock MD Unavailable Chance Tabares MD Unavailable Filipe Huertas Unavailable Reason for Visit Reason Comments Cancer Encounter Details Date Type Department Care Team Description 04/10/[address] [facility] Leoncio Harris MD [facility] [address] [facility] [address] [place] [address] 7th Floor, [address] [phone] [place] [address] [phone] Allergies Active Allergy Reactions Severity Noted Date Comments Sulfa Antibiotics 12/10/2008 documented as of this encounter (statuses as of 04/10/2019) Medications Medication Sig Dispensed Refills Start Date [...] Caps by 240 Cap 6 11/01/2017 Active Jtl-Oeih-Wyup, 54017 mouth 3 times units CPEPIndications: daily (with [...] as of this encounter (statuses as of 04/10/2019) Active Problems Problem Noted Date Neuropathy 10/11/2018 [...] is and follow up with Dr. Castaneda ([place], [place]; [phone]) Depression Last Assessment & Plan: - D/C lexapro - Advised to contact me if depression recurs documented as of this encounter (statuses as of 04/10/2019) Resolved Problems Problem Noted Date Resolved Date [...] as of this encounter (statuses as of 04/10/2019) Immunizations Name Administration Dates Next Due PPD [...] Sign Reading Time Taken Comments Blood Pressure 132/81 04/10/2019 12:55 PM ANESTHESIOLOGY PHYSICIAN Pulse 93 04/10/2019 12:55 PM ANESTHESIOLOGY PHYSICIAN Temperature 36.8 C (98.3 F) 04/10/2019 12:55 PM ANESTHESIOLOGY PHYSICIAN Respiratory Rate - - Oxygen Saturation - - Inhaled Oxygen Concentration - - Weight 86.2 kg (190 lb) 04/10/2019 12:55 PM ANESTHESIOLOGY PHYSICIAN Height 167.6 cm (5' 6") 04/10/2019 12:55 PM ANESTHESIOLOGY PHYSICIAN Body Mass Index 30.67 04/10/2019 12:55 PM ANESTHESIOLOGY PHYSICIAN documented in this encounter Patient Instructions Patient InstructionsEliezer Long MD - 04/10/2019 1:30 PM ANESTHESIOLOGY PHYSICIAN [facility] SECTION OF ONCOLOGY/HEMATOLOGY [phone] FAX [phone] Please note that all labs and or imaging results will be discussed at the next office visit unless told otherwise. If a problem occurs after normal business hours, over the weekend, or on a holiday, please contact our office at [phone] and have the physician bell person paged. Patient Instructions: (to be completed before next visit) - will plan for imaging in another 3 months Please don't hesitate to call or to send a Ippieshart message if you have any questions or concerns before your next visit. Ippieshart messaging should only be used for non-urgent questions. MyChart is notchecked after normal business hours, nor on weekends or holidays. Thank you, Eliezer Long MD THESIOLOGY PHYSICIAN documented in this encounter Progress Notes Eliezer Long MD - 04/10/2019 1:30 PM CST Oncology Consult Reason for Consultation:Management of a [...] 1/2 cm but in 3-directions all).Continued with hiatus.Next imaging 01/31 showed stable disease in that two month interval. Same thing again, CT on , still stable. 04/10/19:No relevant changes. She feels fine off of therapy.Minimal residual neuropathy. No pain.No itching, skin changes. Notes ongoing but stable peripheral edema. Review of Systems: Gen: No fevers, chills, sweats, fatigue, weakness. HENT: No sore throat or mouth sores. No runny nose, sinus congestion, or earache. Eyes: No blurring of vision or visual changes. Neck: No new lumps or masses. Resp: No shortness of breath or wheezing. No cough or sputum. Cardio: See HPI GI: See HPI : No dysuria or [...] file Gets together: Not on file Attends hoahaoism service: Not on file Active member of [...] tip 1 hour pre chemo Cover with saran warp 30 g 5 lisinopril (PRINIVIL, ZESTRIL) 10 MG tablet TAKE 1 TABLET BY MOUTH EVERY DAY 90 Tab 3 Multiple Vitamins-Calcium (ONE-A-DAY WOMENS FORMULA OR) Take by mouth. ondansetron (ZOFRAN) 8 mg tablet Take 1 Tab by mouth every 8 hours as needed. Take as needed fornausea 30 Tab 5 Pancrelipase, Pux-Skff-Ftur, 70285 units CPEP Take 2 Caps by mouth [...] 5' 6" (167.6 cm) Weight - Scale: 190 lb (86.2 kg) Temp: 98.3 F (36.8 C) Temp Source: Oral Pulse: 93 Resting Heart Rate: 93 BP: 132/81 Patient Position: Sitting Cuff Size: large BP Location: left arm Oxygen Therapy O2 Sat: 100 % O2 Flow Rate: Room Air Height and Weight BSA (Calculated - sq m): 2 sq meters BMI (Calculated): 30.7 Predicted Body Weight: 130.73 Body surface area is 2 meters squared. Wt Readings from Last 3 Encounters: 04/10/19 190 lb (86.2 kg) 03/06/19 183 lb (83 kg) 02/06/19 181 lb (82.1 kg) ECO General: Alert, well appearing, no [...] could be a consideration. For medical therapy, pedro proven to francia good candidate to benefit from chemotherapy. Specifically, a combination of gemcitabine/cisplatinused indicated in the first line, for nearly one year. She is not a candidate for immune therapy due to OLI phenotype of the tumor. Given controlled disease, but also emphasizing progressive toxicity ( thrombocytopenia and neuropathy),plan discussed is tomaintain the treatment hiatus until or unless there is tumor progression re-demonstrated. She is clinically better for the break and counts are improved. Plan Carcinoma - First line chemotherapy with gemcitabine/cisplatin,now held on hiatus - Discussed in context of GOC - Plan to defer further therapy at this time but reassessher imagingafter anotherinterval of3 months. This diagnosis and rationale for treatment were discussed with the patient and her friend to theirapparent understanding and agreement.[id number], encouraged to call with questions or concerns. Eliezer Long MD, FACP [facility] #[id number] Supervisor Frontsenior it auditor Leoncio Marinelli [facility] documented in this encounter Plan of Treatment Date Type Specialty Care Team Description 05/15/2019 Office Visit Hematology and Oncology Eliezer Long MD [address] [place] [address] [phone] Health Maintenance Due Date Last Done Comments [...] metastases (HCCode) Secondary malignant neoplasm of liver Goals of care, counseling/discussion Other specified counseling documented in this encounter Insurance Payer Benefit Plan / Subscriber ID Effective Dates Phone Address Type Group [facility] xxxxxxxxx 2015-Present [address] [facility] [id number] (Home) [facility] [phone] [place] [address] (Work) documented as of this encounter Advance Directives Type Date Recorded Patient Fingerprint Technician Explanation Advance Directives and Living Will Power of Saw Straightener
--- OUTSIDE RECORDS SUMMARY | 2019-08-20 01:21 | XMS REPORT | Summary of Care ---
:[address] [facility] [place] [address] Care Team Providers Name Role Phone Husam Taylor MD, ANTHONY Primary Care Provider Itzel Hancock MD Unavailable Chance Tabares MD Unavailable Filipe Huertas Unavailable Reason for Visit Reason Comments Follow Up Encounter Details Date Type Department Care Team Description 07/10/2019 Office Visit [facility] Eliezer Long [facility] Leoncio Harris MD [id number] [place] [address] 7th Floor, [address] [phone] [place] [address] [phone] Allergies Active Allergy Reactions Severity Noted Date Comments Sulfa Antibiotics 12/10/2008 documented as of this encounter (statuses as of 07/10/2019) Medications Medication Sig Dispensed Refills Start Date [...] Caps by 240 Cap 6 11/01/2017 Active Seo-Ytqs-Pbvg, [id number] mouth 3 times units CPEPIndications: daily (with [...] as of this encounter (statuses as of 07/10/2019) Active Problems Problem Noted Date Port-A-Cath in place 06/12/2019 Neuropathy 10/11/2018 Thrombocytopenia (HCCode) 10/11/2018 Liver metastases [...] is and follow up with Dr. Castaneda ([place], [place]; [phone]) Depression Last Assessment & Plan: - D/C lexapro - Advised to contact me if depression recurs documented as of this encounter (statuses as of 07/10/2019) Resolved Problems Problem Noted Date Resolved Date [...] as of this encounter (statuses as of 07/10/2019) Immunizations Name Administration Dates Next Due PPD [...] Sign Reading Time Taken Comments Blood Pressure 115/73 07/10/2019 1:16 PM COMPUTERIZED TABLE CUTTER Pulse 88 07/10/2019 1:16 PM COMPUTERIZED TABLE CUTTER Temperature 36.9 C (98.5 F) 07/10/2019 1:16 PM COMPUTERIZED TABLE CUTTER Respiratory Rate - - Oxygen Saturation - - Inhaled Oxygen Concentration - - Weight 87.5 kg (193 lb) 07/10/2019 1:16 PM COMPUTERIZED TABLE CUTTER Height 167.6 cm (5' 6") 07/10/2019 1:16 PM COMPUTERIZED TABLE CUTTER Body Mass Index 31.15 07/10/2019 1:16 PM COMPUTERIZED TABLE CUTTER documented in this encounter Patient Instructions Patient InstructionsEliezer Long MD - 07/10/2019 1:30 PM COMPUTERIZED TABLE CUTTER [facility] SECTION OF ONCOLOGY/HEMATOLOGY [phone] FAX [phone] Please note that all labs and or imaging results will be discussed at the next office visit unless told otherwise. If a problem occurs after normal business hours, over the weekend, or on a holiday, please contact our office at [phone] and have the physician acetone recovery worker paged. Patient Instructions: (to be completed before next visit) - Please reach out to Dr Emanuel or Chema Reardon if you need anything at [facility] after July Please don't hesitate to call or to send a [employer] message if you have any questions or concerns before your next visit. Jump Ramp Gamest messaging should only be used for non-urgent questions. MyChart is notchecked after normal business hours, nor on weekends or holidays. Thank you, Eliezer Long MD UTERIZED TABLE CUTTER documented in this encounter Progress Notes Eliezer Long MD - 07/10/2019 1:30 PM CST Oncology Consult Reason for [...] showed stable disease in that two month interval.Same thing again, CT on 04/05/19, still stable. Most recently on 07/05/2019, same good result was noted; however on this CT, comparison was done back over several and while mainly the same, there has been slow but sure mild progression. 07/10/2019: Physically fine. She feels fine off of therapy.Minimal residual neuropathy but it is worse when she is exposed to cold. No pain. No itching, skin changes.Notes ongoing but stable peripheral edema. 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 Hypertension 06/03/2015 Hypothyroidism 03/03/2006 Osteoporosis Port-A-Cath in place 06/12/2019 Past Surgical History: Past Surgical History: Procedure [...] file Gets together: Not on file Attends scientology service: Not on file Active member of [...] as needed fornausea 30 Tab 5 Pancrelipase, Vkx-Ogoy-Ddbm, 73757 units CPEP Take 2 Caps by mouth [...] 5' 6" (167.6 cm) Weight - Scale: 193 lb (87.5 kg) Temp: 98.5 F (36.9 C) Temp Source: Oral Pulse: 88 Resting Heart Rate: 88 BP: 115/73 Patient Position: Sitting Cuff Size: large BP Location: left arm Oxygen Therapy O2 Sat: 98 % O2 Flow Rate: Room Air Height and Weight BSA (Calculated - sq m): 2.02 sq meters BMI (Calculated): 31.2 Predicted Body Weight: 130.73 Body surface area is 2.02 meters squared. Wt Readings from Last 3 Encounters: 07/10/19 193 lb (87.5 kg) 06/12/19 191 lb 3.2 oz (86.7 kg) 05/15/19 191 lb 12.8 oz (87 kg) ECO General: Alert, well appearing, no [...] and neuropathy),plan discussed is tomaintain the treatment hiatusuntil or unless there is tumor progression re-demonstrated. She is clinically better for the break and counts are improved. No evidence of progressive disease that would warrant resumption of therapy at this time. Plan Carcinoma - First line chemotherapy with gemcitabine/cisplatin,now held on hiatus - Discussed in context of GOC - Plan to defer further therapy at this time but reassessher imagingafter anotherinterval [id number]. This diagnosis and rationale for treatment were discussed with the patient to her apparent understanding and agreement.RTC4-6 weeks, encouraged to call with questions or concerns. Eliezer Long MD, FACP [facility] #[id number] Enterprise Mobility Architectmedical assistant Leoncio Montero [facility] documented in this encounter Plan of Treatment Date Type Specialty Care Team Description 08/28/2019 Appointment Infusion Center 5, [facility] Chair [address]th [address], [address] [place] [address] Health Maintenance Due Date Last Done Comments BMI FOLLOW UP PLAN 10/19/1969 FLU VACCINE > 6 MONTHS 01/03/2019 04/02/2018, 02/17/2016 (Declined), 02/06/2015 (Declined) FALL SCREEN 08/23/2019 08/22/2018 MAMMOGRAM ANNUAL 09/29/2019 09/28/2018, 08/24/2017, 08/19/2016, Additional history exists COLON CANCER SCREENIN09/05/2022 09/05/2017, 06/05/2005 COLONOSCOPY TETANUS SHOT (ADULT) 02/16/2026 02/17/2016, 06/05/2012 PREVNAR [...] ID Effective Dates Phone Address Type Group [facility] OUT OF [facility] xxxxxxxxx 2015-Present [address] [facility] [id number] (Home) [facility] [phone] [place] [address] (Work) documented as of this encounter Advance Directives For more information, please contact: [phone] Type Date Recorded 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
[2019-08-20] MEDS ORDERED: NA CHLORIDE 0.9% 1,000 ML ONE (01:48)
[2019-08-20 02:10] LABS: Absolute Lymphocytes (CBC) 0.2 K/uL (0.7-4.9); Basophils % 0.2 % (0-1.3); Hematocrit 34.2 % (36.0-45.0); Lymphocytes % 3.1 % (15.3-44.8); MPV 8.3 fL (7.6-11.3); RBC Red Blood Cell Count 3.94 M/uL (3.86-4.86)
[2019-08-20 02:22] LABS: Albumin 3.2 g/dL (3.4-5.0); Bilirubin Direct 0.2 mg/dL (0-0.2); Bilirubin Total 0.7 mg/dL (0.2-1.0); Potassium 4.3 mmol/L (3.5-5.1); Protein, Total 7.2 g/dL (6.4-8.2)
[2019-08-20 03:13] LABS: Urine Blood 2+ (NEG); Urine Glucose TRACE (NEG); Urine Protein 2+ (NEG); Urine Specific Gravity 1.015 (1.005-1.030); Urine pH 5.5 (5.0-7.0)
[2019-08-20 03:45] LABS: Blood Morphology Comment NOT SEEN (NOT SEEN); Platelet Estimate ADEQ
[2019-08-20 04:31] LABS: Urine Bacteria <20 /HPF (<20)
--- NOTE | 2019-08-20 04:43 | ER ---
Nurse's Notes [facility] Name: Danny Babcock Age: 68 yrs Sex: Female : 1950 Arrival Date: 08/20/2019 Time: 01:16 Bed 20 Private MD: Diagnosis: RIGORS;Weakness;Myalgia Presentation: 08/19 01:25 Chief complaint: Patient states: she has had chills, dizziness, and weakness off and on ah for a few days. Coronavirus screen: The patient has NOT traveled to a country currently being monitored by the [facility][NOTE 3] within the last 14 days. The patient has NOT had contact with any known and/or suspected case of coronavirus. Ebola Screen: No symptoms or risks identified at this time. Initial Sepsis Screen: Does the patient meet any 2 criteria?. Risk Assessment: Do you want to hurt yourself or someone else? Patient reports no desire to harm self or others. 01:25 Method Of Arrival: Ambulatory 01:25 Acuity: MARISSA 3 02:17 Initial Sepsis Screen: Does the patient have a suspected source of infection? No. Patient's initial sepsis screen is negative. 03:00 Onset of symptoms is unknown. Triage Assessment: 01:35 General: Appears uncomfortable, Behavior is calm, cooperative. Pain: Denies pain. Respiratory: Airway is patent Respiratory effort is even, unlabored, Respiratory pattern is regular, symmetrical, Breath sounds are clear bilaterally. Historical: - Allergies: 01:33 Sulfa (Sulfonamide Antibiotics); - Home Meds: 01:33 multivitamin oral oral [Active]; Vitamin D Oral [Active]; lisinopril 10 mg oral tab [Active]; Vitamin B-12 Oral [Active]; Lexapro 20 mg Oral tab [Active]; - PMHx: 01:33 Cancer; Hypertension; - PSHx: 01:33 None; - Immunization history:: Adult Immunizations up to date, Flu vaccine is not up to date. - Social history:: Smoking status: Patient denies any tobacco usage or history of. Patient/guardian denies using alcohol. Screenin:16 Abuse screen: Denies threats or abuse. Nutritional screening: No deficits noted. Tuberculosis screening: No symptoms or risk factors identified. Fall Risk None identified. Assessment: 01:45 General: Appears uncomfortable, ill, Behavior is cooperative. Pain: Denies pain. Neuro: Level of Consciousness is awake, alert, Oriented to person, place, time, situation, Automobile Service Station Mechanic are equal bilaterally Reports that she just "feels weak". Cardiovascular: Heart tones S1 S2 present Capillary refill < 3 seconds Patient's skin is warm and dry. Pulses are palpable in right radial artery and left radial artery Rhythm is sinus tachycardia. Respiratory: Airway is patent Respiratory effort is even, unlabored, Respiratory pattern is regular, symmetrical, Breath sounds are clear bilaterally. GI: Abdomen is non-distended, Bowel sounds present X 4 quads. Reports nausea. : Reports unable to give urine specimen at this time. EENT: No signs and/or symptoms were reported regarding the EENT system. 02:45 Reassessment: Patient appears in no apparent distress at this time. Patient and/or 5 family updated on plan of care and expected duration. Pain level reassessed. Patient is alert, oriented x 3, equal unlabored respirations, skin warm/dry/pink. Urine collected and sent to lab at this time. Awaiting results. 03:45 Reassessment: Patient appears in no apparent distress at this time. Patient and/or family updated on plan of care and expected duration. Pain level reassessed. Patient is alert, oriented x 3, equal unlabored respirations, skin warm/dry/pink. 05:00 Reassessment: Patient appears in no apparent distress at this time. No changes from previously documented assessment. Patient and/or family updated on plan of care and expected duration. Pain level reassessed. Patient is alert, oriented x 3, equal unlabored respirations, skin warm/dry/pink. Vital Signs: 01:25 BP 140 / 90; Pulse 119; Resp 19; Temp 100.7; Pulse Ox 95% on R/A; Weight 86.18 kg; Height 5 ft. 6 in. (167.64 cm); Pain 0/10; 02:00 BP 135 / 68; Pulse 101; Resp 14; Pulse Ox 98% ; 03:03 BP 119 / 66; Pulse 106; Resp 19; Temp 99.0; Pulse Ox 98% ; rr5 03:45 BP 116 / 67; Pulse 97; Resp 18; Pulse Ox 98% on R/A; 04:45 BP 105 / 62; Pulse 89; Resp 18; Pulse Ox 94% on R/A; 01:25 Body Mass Index 30.67 (86.18 kg, 167.64 cm) ED Course: 01:16 Patient arrived in ED. 3 01:22 Bennett Grossman MD is Attending Physician. tw4 01:30 Triage completed. 01:35 Arm band placed on right wrist. 01:54 Gail Cooper, RN is Primary Nurse. 02:16 Patient has correct armband on for positive identification. Placed in gown. Bed in low ah position. Call light in reach. Side rails up X 1. Adult w/ patient. 02:16 Inserted saline lock: 20 gauge in left antecubital area, using aseptic technique. 05:02 No provider procedures requiring assistance completed. IV discontinued, intact, bleeding controlled, No redness/swelling at site. Administered Medications: 01:55 Drug: NS 0.9% 1000 ml Route: IV; Rate: 1 bolus; Site: left antecubital; 05:03 Follow up: Response: No adverse reaction; IV Status: Completed infusion Outcome: 04:42 Discharge ordered by . [facility] 05:02 Discharged to home ambulatory, with family. 05:02 Condition: stable 05:02 Discharge instructions given to patient, family, Instructed on discharge instructions, follow up and referral plans. POC Demonstrated understanding of instructions, follow-up care, POC 05:04 Patient left the ED. Signatures: Chalo Lew Bennett Grossman MD MD 4 Esperanza Orellana [facility] Elroy Lopez RN RN 5 Gail Cooper, RN RN
--- NOTE | 2019-08-20 04:43 | EDPHYS ---
Physician Documentation [facility] Name: Danny Babcock Age: 68 yrs Sex: Female : 1950 Arrival Date: 08/20/2019 Time: 01:16 Bed 20 Private MD: ED Physician Bennett Grossman HPI: 08/19 06:48 This 68 yrs old Female presents to ER via Ambulatory with complaints of tw4 CHILLS, WEAKNESS. 06:48 Onset: The symptoms/episode began/occurred just prior to arrival. Severity of symptoms: tw4 At their worst the symptoms were mild, in the emergency department the symptoms are unchanged. Modifying factors: The symptoms are alleviated by nothing, the symptoms are aggravated by nothing. Associated signs and symptoms: Pertinent positives: CHILLS WEAKNESS. Historical: - Allergies: 01:33 Sulfa (Sulfonamide Antibiotics); - Home Meds: 01:33 multivitamin oral oral [Active]; Vitamin D Oral [Active]; lisinopril 10 mg oral tab [Active]; Vitamin B-12 Oral [Active]; Lexapro 20 mg Oral tab [Active]; - PMHx: 01:33 Cancer; Hypertension; - PSHx: 01:33 None; - Immunization history:: Adult Immunizations up to date, Flu vaccine is not up to date. - Social history:: Smoking status: Patient denies any tobacco usage or history of. Patient/guardian denies using alcohol. Vital Signs: 01:25 BP 140 / 90; Pulse 119; Resp 19; Temp 100.7; Pulse Ox 95% on R/A; Weight 86.18 kg; Height 5 ft. 6 in. (167.64 cm); Pain 0/10; 02:00 BP 135 / 68; Pulse 101; Resp 14; Pulse Ox 98% ; 03:03 BP 119 / 66; Pulse 106; Resp 19; Temp 99.0; Pulse Ox 98% ; rr5 03:45 BP 116 / 67; Pulse 97; Resp 18; Pulse Ox 98% on R/A; wh 04:45 BP 105 / 62; Pulse 89; Resp 18; Pulse Ox 94% on R/A; wh 01:25 Body Mass Index 30.67 (86.18 kg, 167.64 cm) MDM: 01:23 Patient medically screened. tw4 08/19 01:23 Order name: Flu; Complete Time: 02:46 08/19 01:32 Order name: Basic Metabolic Panel; Complete Time: 02:46 08/19 02:46 Interpretation: Normal except: NA 131; GLUC 249; BUN 24; GFR 48. 08/19 01:32 Order name: CBC with Diff; Complete Time: 03:47 08/19 03:47 Interpretation: Normal except: HGB 11.4; HCT 34.2; PLT 142; RDW 15.3; TANIA% 90.6; LYM% tw4 3.1; LYMA 0.2. 08/19 01:32 Order name: Creatinine for Radiology; Complete Time: 02:46 08/19 02:47 Interpretation: Normal except: GFR 49. 08/19 01:32 Order name: Hepatic Function; Complete Time: 02:46 08/19 02:47 Interpretation: Normal except: ALK 143; ALB 3.2; GLOB 4.0; A/G 0.8. 08/19 01:32 Order name: Lipase; Complete Time: 02:46 08/19 01:23 Order name: Urine Dipstick-Ancillary (obtain specimen); Complete Time: 03:05 08/19 01:32 Order name: IV Saline Lock; Complete Time: 01:55 08/19 01:32 Order name: Labs collected and sent; Complete Time: 01:55 08/19 02:11 Order name: Manual Differential; Complete Time: 03:47 EDMS 08/19 03:48 Interpretation: Normal except: BANDS [F] 7; SEGS 82; LYM 6. 08/19 02:59 Order name: Urine Dipstick--Ancillary (enter results); Complete Time: 03:47 2 08/19 04:40 Interpretation: UPROT 2+; UBLD 2+; UKET 1+. 08/19 04:12 Order name: Urine Microscopic Only; Complete Time: 04:39 wh Administered Medications: 01:55 Drug: NS 0.9% 1000 ml Route: IV; Rate: 1 bolus; Site: left antecubital; 05:03 Follow up: Response: No adverse reaction; IV Status: Completed infusion Disposition: 08/20/19 04:42 Discharged to Home. Impression: RIGORS, Weakness, Myalgia. - Condition is Stable. - Discharge Instructions: Weakness, Fatigue. - Medication Reconciliation Form, Thank You Letter, Antibiotic Education, Prescription Opioid Use form. - Follow up: Private Physician; When: Upon discharge from the Emergency Department; Reason: Recheck today's complaints, Continuance of care, Re-evaluation by your physician. - Problem is new. - Symptoms have improved. Addendum: 09/10/2019 06:30 Addendum: HPI: Pt IS A 68 YEAR OLD FEMALE THAT COMES TO THE ED WITH A COMPLAINT OF t w4 WEAKNESS AND CHILLS. PT DENIES OTHER COMPLAINTS. PT DENIES CP, SOB, ABDOMINAL OR DYSURIA. PT STATES THAT HER SYMPTOMS STARTED TODAY. PT COMPLAINS OF GENERALIZED WEAKNESS. Addendum: ROS: CONSTITIONAL: POSITIVE FOR CHILLS,MALAISE NEGATIVE FOR FEVER HEENT:NEGATIVE SORE THROAT, DYSPHAGIA RESP: NEGATIVE FO SOB,RAMOS, COUGH CV: NEGATIVE FOR CP, PALPITATIONS. ABDOMEN; NEGATIVE FOR ABDOMINAL PAIN, NAUSEA, VOMITING, OR DIARRHEA EXTREMETIES: NEGATIVE FOR INJURY DEFORMITY EDEMA SWELLING ALL OTHER SYSTEMS NEGATIVE MARKED. Addendum: PHYSICAL EXAM: GENERAL: WELL DEVELOPED WELL NOURISHED FEMALE IN NAD HEENT: PERRLA EOMI INTACT, OROPHARYNX NORMAL RESP: CLEAR TO AUSCULTATION NORMAL BREATH SOUND NO REP DISTRESS CARDIO: RRR, NL S1 S2 ABDOMEN SOFT , NONDISTENDED NORMAL BOWEL SOUNDS . Addendum: ED COURSE: PT WORKUP IN THE ED WAS NEGATIVE PT STATES SHE FELT BETTER AFTER IVF HYDRATION. Signatures: Dispatcher [employer] EDMS Chalo Lew Bennett Grossman MD MD [facility] Gail Cooper RN RN Corrections: (The following items were deleted from the chart) 08/19 04:40 04:40 UPROT 2+. tw4 04:43 04:42 08/20/2019 04:42 Discharged to Home. Impression: RIGORS. Condition is Stable. tw4 Forms are Medication Reconciliation Form, Thank You Letter, Antibiotic Education, Prescription Opioid Use. Follow up: Private Physician; When: Upon discharge from the Emergency Department; Reason: Recheck today's complaints, Continuance of care, Re-evaluation by your physician. Problem is new. Symptoms have improved. tw4 05:04 04:43 08/20/2019 04:42 Discharged to Home. Impression: RIGORS; Weakness; Myalgia. wh Condition is Stable. Discharge Instructions: Weakness. Forms are Medication Reconciliation Form, Thank You Letter, Antibiotic Education, Prescription Opioid Use. Follow up: Private Physician; When: Upon discharge from the Emergency Department; Reason: Recheck today's complaints, Continuance of care, Re-evaluation by your physician. Problem is new. Symptoms have improved. tw4
[2019-08-20 05:14] VITALS: TEMP 99
[2019-08-20 05:17] VITALS: BP 105/62; O2SAT 94
== END 2019-08-20 05:04 | disposition home or self-care (01) ==
LOC: ER 01:13
DX: M79.10 Myalgia, unspecified site (principal); R68.89 Other general symptoms and signs; I10 Essential (primary) hypertension; Z88.2 Allergy status to sulfonamides; Z85.9 Personal history of malignant neoplasm, unspecified
CPT/HCPCS: 96361; 85025; 80048; 36415; 80076; 83690; 87804 ×2; 96360; 99284; J7030; 81003; 81015

== ENCOUNTER 2020-06-18 17:23 | Emergency (ER) | payer BC, OTHER ==
--- OUTSIDE RECORDS SUMMARY | 2020-06-18 17:25 | XMS REPORT | Clinical Summary ---
:1950 Author Organization [facility] Address [address] [place] [address] Care Team Providers Name Role Phone Eitan Taylor Primary Care Provider Allergies Active Allergy Reactions Severity Noted Date Comments Sulfa (Sulfonamide Antibiotics) Rash Low 8 Medications Medication Sig Dispensed Refills Start Date End Date Status lisinopril Take 10 mg by 0 Activ e (PRINIVIL,ZESTRIL) 10 MG mouth daily. tablet escitalopram oxalate Take 10 mg by 0 Active (LEXAPRO) 10 MG tablet mouth daily. cyanocobalamin (VITAMIN Take 2,500 mcg 0 Active B-12) 1000 MCG tablet by mouth daily . cholecalciferol, vitamin Take 2,000 Units 0 Active D3, 1,000 unit capsule by mouth daily . multivitamin per tablet Take 1 tablet by 0 Active mouth daily. CREON 36,000-114,000- . 0 11/01/2017 Active 180,000 unit CpDR capsule lactulose (CHRONULAC) 10 Take 20 g by 0 10/27/2017 Active gram/15 mL solution mouth 3 (three) times daily . STOOL SOFTENER 100 mg Take by mouth 0 10/11/2017 Active capsule daily . traMADol (ULTRAM) 50 mg . 0 10/18/2017 Active tablet ondansetron (ZOFRAN) 8 Take by mouth 0 10/18/2017 Active MG tablet every 8 (eight) hours as needed for Nausea . Active Problems Problem Noted Date Abdominal pain, unspecified abdominal location 018 Abdominal pain 10/02/2017 Encounters Date Type Specialty Care Team Description 07/05/2019 [facility], Cholangiocarcin marga (HCC) [facility]2019 [facility], Cholangiocarcin marga (HCC) Encounter Tomography Eliezer Jameson MD 1, [facility] Room after 06/18/2019 Social History Tobacco Use Types Packs/Day Years Used Date Never Smoker Smokeless Tobacco: Never Used Alcohol Use Drinks/Week oz/Week Comments No Sex Assigned at Date Recorded Not on file Last Filed Vital Signs Not on file Plan of Treatment Health Maintenance Due Date Last Done Comments DEPRESSION SCREENING (12+) 06/05/2019 INFLUENZA VACCINE (#1) 2020 BREAST CANCER SCREENING 09/28/2020 09/28/2018 COLON CANCER SCREENING COLONOSCOPY 09/06/2027 09/05/2017 PNEUMOCOCCAL 65+ YRS Completed 08/22/2018, 08/09/2017 Procedures Procedure Name Priority Date/Time Associated Diagnosis Comme nts CT ABDOMEN/PELVIS Routine 07/05/2019 12:15 Cholangiocarcinoma (HCC) Results for this WITH IV CONTRAST PM PRINCIPAL DATA ARCHITECT procedure a re in the results section. CT CHEST WITH IV Routine 07/05/2019 12:15 Cholangiocarcinoma ( HCC) Results for this CONTRAST PM [employer]IPAL DATA ARCHITECT procedure are i n the results section. POCT-CREATININE Routine 07/05/2019 11:02 Results for this AM PRINCIPAL DATA ARCHITECT procedure are i n the results section. after 06/18/[address] Abdomen/Pelvis with IV Contrast (07/05/2019 12:15 PM PRINCIPAL DATA ARCHITECT) Specimen Narrative Performed At FINAL REPORT [employer] [facility] CT of the chest, abdomen and pelvis, wit h contrast Clinical History: Cholangiocarcinoma Technique: CT of the chest, abdomen and pelvis is performed with intravenous contrast administration. T his exam was performed according to our departmental dose optim ization program which includes automated exposure control, adj ustment of the mA and/or kV according to patient's size and/or use o f iterative reconstructive technique. Comparison Film: April 05, 2019 and January 31, 2019, October 05, 2018, March 09, 2018 Discussion: There is a right-sided Port-A-Cath. Visu alized thyroid gland is normal. No supraclavicular, axillary, me diastinal or hilar adenopathy. Heart and pericardium are un remarkable. There is no mass or consolidation, no pl eural effusion. Several small pulmonary nodules are unchanged. No new nodule is seen. Central airways are patent. Heterogeneously enhancing mass in the ri ght hepatic lobe measures approximately 6.1 x 6.3 x 5 cm. While th ere is no significant change compared to the most recent prior exam, gradual enlargement is noted when compared to more remote studies. Ad ditionally, an area of heterogeneous enhancement and infiltrati ve change in segment 4 of liver has also become gradually larger, measuring approximately 8 x 4.9 cm on the coronal plane. Mild ductal dilatation in the right lobe distal to the mass is unchanged. There a re a few tiny stable hypodensities in liver, some are in the left lobe. Multiple small stones are seen in the gallbladder. Hepa tic vasculature is patent. Spleen is mildly enlarged. Pancreas, and adrenal glands are also unremarkable. Kidneys demonstrate no hydronephrosis, r adiopaque stone, or mass. There is a small cyst at the left upper pole. There is a small hiatal hernia. No evide nce of bowel obstruction, or abnormal bowel wall thickening. There is colonic diverticulosis. Appendix is normal. In the pelvis, bladder, uterus and adnex a are unremarkable. There are enlarged herlinda hepatis lymph n odes, without interval change. A slightly prominent right commo n iliac lymph node is also unchanged. No new adenopathy is identifi ed. No ascites. Osseous structures demonstrate degenerat erik changes. No suspicious bony lesion is identified. 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 Impression: Slowly enlarging right hepatic mass, and infiltrative appearance in segment 4 of liver. Grossly stable herlinda hepatis lymph nodes. No new disease identified in the thorax. Cholelithiasis. Colonic diverticulosis. Signed: Travis Robles MD Report Verified Date/Time: 07/05/2019 16:53:41 Reading Location: [facility] B1 C013X [facility] Reading Room Procedure Note Interface, External Ris In - 07/05/2019 4:55 PM PRINCIPAL DATA ARCHITECT FINAL REPORT CT of the chest, abdomen and pelvis, wit h contrast Clinical History: Cholangiocarcinoma Technique: CT of the chest, abdomen and pelvis is performed with intravenous contrast administration. Th is exam was performed according to our departmental dose optim ization program which includes automated exposure control, adj ustment of the mA and/or kV according to patient's size and/or use o f iterative reconstructive technique. Comparison Film: April 05, 2019 and A ugust 2018, October 05, 2018, March 09, 2018 Discussion: There is a right-sided Port-A-Cath. Visu alized thyroid gland is normal. No supraclavicular, axillary, me diastinal or hilar adenopathy. Heart and pericardium are un remarkable. There is no mass or consolidation, no pl eural effusion. Several small pulmonary nodules are unchanged. No new nodule is seen. Central airways are patent. Heterogeneously enhancing mass in the ri ght hepatic lobe measures approximately 6.1 x 6.3 x 5 cm. While th ere is no significant change compared to the most recent prior exam, gradual enlargement is noted when compared to more remote studies. Ad ditionally, an area of heterogeneous enhancement and infiltrati ve change in segment 4 of liver has also become gradually larger, measuring approximately 8 x 4.9 cm on the coronal plane. Mild ductal dilatation in the right lobe distal to the mass is unchanged. There a re a few tiny stable hypodensities in liver, some are in the left lobe. Multiple small stones are seen in the gallbladder. Hepa tic vasculature is patent. Spleen is mildly enlarged. Pancreas, and adrenal glands are also unremarkable. Kidneys demonstrate no hydronephrosis, r adiopaque stone, or mass. There is a small cyst at the left upper pole. There is a small hiatal hernia. No evide nce of bowel obstruction, or abnormal bowel wall thickening. There is colonic diverticulosis. Appendix is normal. In the pelvis, bladder, uterus and adnex a are unremarkable. There are enlarged herlinda hepatis lymph n odes, without interval change. A slightly prominent right commo n iliac lymph node is also unchanged. No new adenopathy is identifi ed. No ascites. Osseous structures demonstrate degenerat erik changes. No suspicious bony lesion is identified. 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 Impression: Slowly enlarging right hepatic mass, and infiltrative appearance in segment 4 of liver. Grossly stable herlinda hepatis lymph nodes. No new disease identified in the thorax. Cholelithiasis. Colonic diverticulosis. Signed: Travis Robles MD Report Verified Date/Time: 07/05/2019 1 6:53:41 Reading Location: [facility] C013X [facility] Reading Room Performing Organization Address City/State/Zipcode Phone Number [facility] CT Chest with IV Contrast (07/05/2019 12:15 PM PRINCIPAL DATA ARCHITECT) Specimen Narrative Performed At FINAL REPORT [facility] CT of the chest, abdomen and pelvis, wit h contrast Clinical History: Cholangiocarcinoma Technique: CT of the chest, abdomen and pelvis is performed with intravenous contrast administration. T his exam was performed according to our departmental dose optim ization program which includes automated exposure control, adj ustment of the mA and/or kV according to patient's size and/or use o f iterative reconstructive technique. Comparison Film: April 05, 2019 and January 31, 2019, October 05, 2018, March 09, 2018 Discussion: There is a right-sided Port-A-Cath. Visu alized thyroid gland is normal. No supraclavicular, axillary, me diastinal or hilar adenopathy. Heart and pericardium are un remarkable. There is no mass or consolidation, no pl eural effusion. Several small pulmonary nodules are unchanged. No new nodule is seen. Central airways are patent. Heterogeneously enhancing mass in the ri ght hepatic lobe measures approximately 6.1 x 6.3 x 5 cm. While th ere is no significant change compared to the most recent prior exam, gradual enlargement is noted when compared to more remote studies. Ad ditionally, an area of heterogeneous enhancement and infiltrati ve change in segment 4 of liver has also become gradually larger, measuring approximately 8 x 4.9 cm on the coronal plane. Mild ductal dilatation in the right lobe distal to the mass is unchanged. There a re a few tiny stable hypodensities in liver, some are in the left lobe. Multiple small stones are seen in the gallbladder. Hepa tic vasculature is patent. Spleen is mildly enlarged. Pancreas, and adrenal glands are also unremarkable. Kidneys demonstrate no hydronephrosis, r adiopaque stone, or mass. There is a small cyst at the left upper pole. There is a small hiatal hernia. No evide nce of bowel obstruction, or abnormal bowel wall thickening. There is colonic diverticulosis. Appendix is normal. In the pelvis, bladder, uterus and adnex a are unremarkable. There are enlarged herlinda hepatis lymph n odes, without interval change. A slightly prominent right commo n iliac lymph node is also unchanged. No new adenopathy is identifi ed. No ascites. Osseous structures demonstrate degenerat eirk changes. No suspicious bony lesion is identified. 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 Impression: Slowly enlarging right hepatic mass, and infiltrative appearance in segment 4 of liver. Grossly stable herlinda hepatis lymph nodes. No new disease identified in the thorax. Cholelithiasis. Colonic diverticulosis. Signed: Travis Robles MD Report Verified Date/Time: 07/05/2019 16:53:41 Reading Location: [facility] B1 C013X [facility] Reading Room Procedure Note Interface, External Ris In - 07/05/2019 4:55 PM PRINCIPAL DATA ARCHITECT FINAL REPORT CT of the chest, abdomen and pelvis, wit h contrast Clinical History: Cholangiocarcinoma Technique: CT of the chest, abdomen and pelvis is performed with intravenous contrast administration. Th is exam was performed according to our departmental dose optim ization program which includes automated exposure control, adj ustment of the mA and/or kV according to patient's size and/or use o f iterative reconstructive technique. Comparison Film: April 05, 2019 and A ugust 2018, October 05, 2018, March 09, 2018 Discussion: There is a right-sided Port-A-Cath. Visu alized thyroid gland is normal. No supraclavicular, axillary, me diastinal or hilar adenopathy. Heart and pericardium are un remarkable. There is no mass or consolidation, no pl eural effusion. Several small pulmonary nodules are unchanged. No new nodule is seen. Central airways are patent. Heterogeneously enhancing mass in the ri ght hepatic lobe measures approximately 6.1 x 6.3 x 5 cm. While th ere is no significant change compared to the most recent prior exam, gradual enlargement is noted when compared to more remote studies. Ad ditionally, an area of heterogeneous enhancement and infiltrati ve change in segment 4 of liver has also become gradually larger, measuring approximately 8 x 4.9 cm on the coronal plane. Mild ductal dilatation in the right lobe distal to the mass is unchanged. There a re a few tiny stable hypodensities in liver, some are in the left lobe. Multiple small stones are seen in the gallbladder. Hepa tic vasculature is patent. Spleen is mildly enlarged. Pancreas, and adrenal glands are also unremarkable. Kidneys demonstrate no hydronephrosis, r adiopaque stone, or mass. There is a small cyst at the left upper pole. There is a small hiatal hernia. No evide nce of bowel obstruction, or abnormal bowel wall thickening. There is colonic diverticulosis. Appendix is normal. In the pelvis, bladder, uterus and adnex a are unremarkable. There are enlarged herlinda hepatis lymph n odes, without interval change. A slightly prominent right commo n iliac lymph node is also unchanged. No new adenopathy is identifi ed. No ascites. Osseous structures demonstrate degenerat erik changes. No suspicious bony lesion is identified. 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 Impression: Slowly enlarging right hepatic mass, and infiltrative appearance in segment 4 of liver. Grossly stable herlinda hepatis lymph nodes. No new disease identified in the thorax. Cholelithiasis. Colonic diverticulosis. Signed: Travis Robles MD Report Verified Date/Time: 07/05/2019 1 6:53:41 Reading Location: [facility] C013X [facility] Reading Room Performing Organization Address City/[facility]/Zipcode Phone Number GE RIS POC-Creatinine (07/05/2019 11:02 AM PRINCIPAL DATA ARCHITECT) POC-Creatinine 1.2Comment: TESTED 0.6 - 1.3 [facility] 7200 mg/dL [facility] [id number] POC-EGFR 45 mL/min/1.73M2 [facility] Specimen Blood Performing Organization Address City/State/Zipcode Phone Number [facility] [address] [place] [address] CENTER after 06/18/2019 Insurance Payer Benefit Plan / Subscriber ID Effective Dates Phone Addre ss Type Group BLUE BCBS FED [id number] 2015-Presen [phone] [address] [address] PPO CROSS/BLUE t 2 [facility] [id number] Guarantor Name Account Type Relation to Date of Phone Billing Patient Address Danny Babcock Personal/Family Self 1950 [address] (Home) [place] [phone] (Work) Advance Directives For more information, please contact: [phone] Code Status Date Activated Date Inactivated Comments Full Code 09/14/2017 4:36 PM 09/15/2017 1:04 AM This code status was determined by: Patient
--- OUTSIDE RECORDS SUMMARY | 2020-06-18 17:28 | XMS REPORT | Continuity of Care Document ---
:1950 Author Organization [facility] t Address [address] [place] [address] Care Team Providers Name Role Phone ROBERT LONG Primary Care Physician Unavailable NEIDA Attending Clinician Unavailable ROBERT LONG Attending Clinician Unavailable Robert Long MD Attending Clinician Yeimi CAIN Attending Clinician HELD Attending Clinician Unavailable Meera Lilian Attending Clinician Unavailable Haroon RODRIGUEZ Attending Clinician Husam BENSON Attending Clinician Unavailable Adis Chu, M Attending Clinician Unavailable Caro Centert [facility] Attending Clinician JYOTI TURPIN Attending Clinician Unavailable Jyoti Turpin MD Attending Clinician Damir BURGESS Attending Clinician Unavailable Shun BENSON Attending Clinician Unavailable Lurdes BENSON, R Attending Clinician Unavailable Tom CrisostomoD Attending Clinician Radha CAIN Attending Clinician Rusty Chu, Brooke Attending Clinician Unavailable Brandon BURGESS, ANTHONY, Perry Attending Clinician Jesús Whaley RPH Attending Clinician Michael BURGESS Attending Clinician Willy RODRIGUEZ, S Attending Clinician KEVIN Attending Clinician Unavailable Kervin BURGESS Attending Clinician Oren BURGESS Attending Clinician Kevin BURGESS Attending Clinician Godwin BURGESS Attending Clinician GODWIN Attending Clinician Unavailable Antonio RN Attending Clinician Unavailable Duncan BENSON, Brooke Attending Clinician Unavailable Ab BENSON Attending Clinician Chelsea WARPING MACHINE OPERATOR, O Attending Clinician Yemi [facility] Attending Clinician Unavailable Veronica OCAMPO, Kailash Attending Clinician Delia BURGESS, Gisell Attending Clinician [address] Room Attending Clinician Unavailable Gisell LONG Attending Clinician Unavailable Jed BURGESS, L Attending Clinician LISA BUTCHER Attending Clinician Unavailable DEEP ARECHIGA Attending Clinician Unavailable PERRY TAYLOR Attending Clinician Unavailable JYOTI TURPIN Admitting Clinician Unavailable OREN Admitting Clinician Unavailable DELIA Admitting Clinician Unavailable DEEP ARECHIGA Admitting Clinician Unavailable MJ BOWLING Admitting Clinician Unavailable Payers Payer Name Policy Type Policy Effective Date Expiration Date Sour ce Number MEDICARE PART A [id number] 2016 00:00:00 [place] POS [id number] 2015 00:00:00 BLUE CROSS/BLUE [id number] [facility] [facility] 00:00:00 - Medical [id number] [place] [id number] [facility] [id number], [place] [id number] Problems Condition Condition Condition Status Onset Resolution Last Treating Co mments Source Name Details Category Date Date Treatment Clinician Date Hyponatrem Hyponatrem Disease Active 2020-0 M D ia ia 11-27 Anderso 00:00: n 00 Abdominal Abdominal Disease Active 2019-0 MD pain pain 11-27 Anderso 00:00: n 00 Hypertensi Hypertensi Disease Active 2020-0 M D on on 11-27 Anderso 00:00: n 00 Cholangioc Cholangioc Disease Active 2020-0 M D arcinoma arcinoma 09-12 Darius o 00:00: n 00 Abdominal Abdominal Disease Active [facility] un[facility]ie un[facility]ifie [facility]: Me dical d d 00 Center abdominal abdominal location location Abdominal Abdominal Disease Active [facility] Center Allergies, Adverse Reactions, Alerts Allergy Allergy Status Severity Reaction(s) Onset Inactive Treating Comm ents Source Name Type Date Date Clinician Sulfa Propensi Active Rash [facility] (Sulf[facility] 3-30 [facility] mide adverse 00:00: Medical Antibiot reaction 00 Center ics) s Social History Social Habit Start Date Stop Date Quantity Comments Source Sex Assigned At MD Mccoy on Exposure to Not sure MD Farah SARS-CoV-2 (event) Tobacco use and 2020-06-15 2020-06-15 Never used MD Mccoy on exposure 00:00:00 00:00:00 Alcohol intake 2020-06-15 2020-06-15 Lifetime MD Jeanmarie sierra 00:00:00 00:00:00 non-drinker (finding) Smoking Status Start Date Stop Date Source Never smoker MD Farah Medications Ordered Filled Start Stop Current Ordering Indication Dosage Frequency Signature Comments Components Source Medication Medication Date Date Medication? Clinician (SIG) Name Name multivitami Yes 1{tbl} Take 1 MD n 1-12 tablet by Andershaleigh (THERAGRAN) 20:58: mouth n tablet 07 daily. cyanocobala Yes 2500ug Take 2,500 MD min 1-12 mcg by Andershaleigh (VITAMIN 20:58: mouth n B-12) 2,000 07 daily. mcg tablet cholecalcif Yes 2000U Take 2,000 MD landon, 1-12 Units by Anderso vitamin D3, 20:58: mouth n 25 mcg 07 daily. (1,000 unit) capsule UNABLE TO Yes 1{packe Take 1 MD FIND 1-12 t} packet by Anderso 20:58: mouth as n 07 needed. Med Name: Immune Defense acetaminoph Yes 1{tbl} Take 1 MD en/chlorphe 1-12 tablet by And erso niramine 20:58: mouth as n (CORICIDIN 07 needed. HBP COLD AND FLU ORAL) levoFLOXaci 2019-06 2020- No Cholangioca 500mg Take 1 MD n 2-09 12-13 rcinoma tablet Anderso (Levaquin) 00:00: 05:59 (500 mg) n 500 mg 00 :00 by mouth tablet daily for 3 days. levoFLOXaci 2019-06- No Cholangioca 500mg Take 1 MD n 2- 12-13 rcinoma tablet Anderso (Levaquin) 00:00: 05:59 (500 mg) n 500 mg 00 :00 by mouth tablet daily for 3 days. levoFLOXaci 2019-06 2020- No Hyperbiliru 500mg Take 1 MD n 2-03 12-08 binemia tablet Anderso (Levaquin) 00:00: 00:00 (500 mg) n 500 mg 00 :00 by mouth tablet daily. levoFLOXaci 2019-06- No Cholangioca 500mg Take 1 MD n 1-17 12- rcinoma tablet Anderso (Levaquin) 00:00: 00:00 (500 mg) n 500 mg 00 :00 by mouth tablet daily. levoFLOXaci 2019-06- No Cholangioca 500mg Take 1 MD n 1-17 -17 rcinoma tablet Anderso (Levaquin) 00:00: 00:00 (500 mg) n 500 mg 00 :00 by mouth tablet every 12 (twelve) hours. Contour 2020-1 Yes MD Next Test 0-04 Anderso Strips strp 00:00: n 00 Microlet 2020-1 Yes Lancet misc 0-02 Anderso 00:00: n 00 ondansetron 2020-0 Yes Cholangioca 8mg Take 1 MD (Zofran) 8 9-04 rcinoma tablet (8 A nderso mg tablet 00:00: mg) by n 00 mouth every 8 (eight) hours as needed for nausea or vomiting. (First Choice) prochlorper 2020-0 Yes Cholangioca 10mg Take 1 MD azine 9-04 rcinoma tablet (10 Phong so (Compazine) 00:00: mg) by n 10 mg 00 mouth tablet every 6 (six) hours as needed for nausea or vomiting. (Second Choice) polyethylen 2020-0 Yes Slow Stir and MD e glycol 6-28 transit dissolve Ammon rso (Miralax) 00:00: constipatio one packet n 17 g packet 00 n of powder (17 g) in any 4 to 8 ounces of beverage (cold, hot or room temperatur e) then drink once a day. traMADol 2020- No 50mg Take 50 mg MD (ULTRAM) 50 6-27 06-27 by mouth And erso mg tablet 17:05: 00:00 every 4 n 53 :00 (four) hours as needed. metFORMIN 2019- Yes Type 2 500mg Take 1 MD (Glucophage 6-27 diabetes tablet An derso ) 500 mg 00:00: mellitus, (500 mg) n tablet 00 not by mouth 2 otherwise (two) specified times a day with meals. senna 2019- Yes Slow 1{tbl} Take 1 MD (SENOKOT) 6-27 transit tablet by An derso 8.6 mg 00:00: constipatio mouth n tablet 00 n twice daily. traMADol 2019- Yes Abdominal 50mg Take 1 MD (ULTRAM) 50 6-27 pain tablet (50 An derso mg tablet 00:00: mg) by n 00 mouth every 4 (four) hours as needed for moderate pain. levoFLOXaci 2019- No Pneumonia, 500mg Take 1 MD n 6-27 09-04 organism tablet Anderso (Levaquin) 00:00: 00:00 unspecified (500 mg) n 500 mg 00 :00 by mouth tablet daily. escitalopra Yes TAKE 1 MD m (LEXAPRO) 2-12 TABLET BY And erso 20 mg 00:00: MOUTH n tablet 00 EVERY DAY lisinopril Yes TAKE 1 MD (PRINIVIL,Z 8-19 TABLET BY And erso ESTRIL) 10 00:00: MOUTH n mg tablet 00 EVERY DAY lisinopril Yes 10mg QD Take [address] (PRINIVIL,Z 7-16 by mouth [facility] - ESTRIL) 10 15:59: daily. Medic al MG tablet 53 Center escitalopra Yes 10mg QD Take [address] [facility] m oxalate 7-16 by mouth [facility] - (LEXAPRO) 15:59: daily. Medica l 10 MG 53 Center tablet cyanocobala Yes 2500ug QD Take 2,[address] [facility] min 7-16 mcg by [facility] - (VITAMIN 15:59: mouth Medical B-12) 1000 53 daily . Center MCG tablet cholecalcif 2018-0 Yes 2000U QD Take 2,[address] [facility] landon, 7-16 Units by [facility] - vitamin D3, 15:59: mouth Medic al 1,000 unit 53 daily . Center capsule multivitami Yes 1{tbl} QD Take [address] n per 7-16 tablet by [facility] - tablet 15:59: mouth Medical 53 daily. Center CREON 2018-[address] [facility] 36,000-114, 5-30 [facility] - 000- 00:00: Medical 180,000 00 Center unit CpDR capsule pancrelipas Yes 2{capsu Take 2 M D e (CREON) 5-30 le} capsules Darius o 36,000-114, 00:00: by mouth n 000-180,000 00 as needed. units cpDR capsule lactulose Yes 20g [id number] Take [address] [facility] (CHRONULAC) 5-25 [id number] by mouth 3 [facility] - 10 gram/15 00:00: 3D (three) Medi twyla mL solution 00 times Center daily . traMADol Yes . [facility] (ULTRAM) 50 5-16 [facility] - mg tablet 00:00: Medical 00 Center ondansetron Yes Take by [facility] (ZOFRAN) 8 5-16 mouth [facility] - MG tablet 00:00: every 8 Medic al 00 (eight) Center hours as needed for Nausea . ondansetron 2020- No 8mg Take 8 mg MD (ZOFRAN) 8 5-16 09-04 by mouth Ammon rso mg tablet 00:00: 00:00 every 8 n 00 :00 (eight) hours as needed for nausea or vomiting. STOOL Yes QD Take by [facility] SOFTENER 5-09 mouth [facility] - 100 mg 00:00: daily . Medical capsule 00 Center Vital Signs Vital Name Observation Time Observation Value Comments Source WEIGHT 2020-06-16 14:48:00 68.4 kg WEIGHT 2020-06-16 14:48:00 68.4 kg WEIGHT 2020-06-10 08:36:14 67.3 kg WEIGHT 2020-06-10 08:36:14 67.3 kg WEIGHT 2020-05-27 12:51:20 66.5 kg WEIGHT 2020-05-27 12:51:20 66.5 kg WEIGHT 2020-05-26 14:38:00 67 kg WEIGHT 2020-05-26 14:38:00 67 kg WEIGHT 2020-05-14 08:41:35 68.9 kg WEIGHT 2020-05-14 08:41:35 68.9 kg WEIGHT 2020-05-12 12:53:00 67.7 kg WEIGHT 2020-05-12 12:53:00 67.7 kg WEIGHT 2020-05-05 14:57:00 68.765 kg WEIGHT 2020-05-05 14:57:00 68.765 kg WEIGHT 2020-04-22 08:12:00 68.8 kg WEIGHT 2020-04-22 08:12:00 68.8 kg WEIGHT 2020-04-21 09:21:00 69 kg WEIGHT 2020-04-21 09:21:00 69 kg WEIGHT 2020-04-08 08:18:45 71.4 kg WEIGHT 2020-04-08 08:18:45 71.4 kg WEIGHT 2020-03-11 08:08:00 73.3 kg WEIGHT 2020-03-11 08:08:00 73.3 kg WEIGHT 2020-03-10 14:03:55 73.392 kg WEIGHT 2020-03-10 14:03:55 73.392 kg WEIGHT 2020-02-26 08:30:00 72.8 kg WEIGHT 2020-02-26 08:30:00 72.8 kg WEIGHT 2020-02-25 12:58:00 73.619 kg WEIGHT 2020-02-25 12:58:00 73.619 kg HEIGHT 2020-02-12 07:49:00 163.7 cm WEIGHT 2020-02-12 07:49:00 73.9 kg HEIGHT 2020-02-12 07:49:00 163.7 cm WEIGHT 2020-02-12 07:49:00 73.9 kg WEIGHT 2020-02-07 13:36:00 75.8 kg WEIGHT 2020-02-07 13:36:00 75.8 kg WEIGHT 2020-01-24 12:30:00 76.3 kg WEIGHT 2020-01-24 12:30:00 76.3 kg WEIGHT 2019-12-27 12:54:00 82 kg WEIGHT 2019-12-27 12:54:00 82 kg HEIGHT 2019-11-28 00:00:00 167.6 cm WEIGHT 2019-11-28 00:00:00 82.8 kg HEIGHT 2019-11-28 00:00:00 167.6 cm WEIGHT 2019-11-28 00:00:00 82.8 kg Body weight 2020-06-16 20:48:00 68.4 kg MD Phong prieto BMI 2020-06-16 20:48:00 25.52 kg/m2 MD Phong prieto Systolic blood pressure 2020-06-16 20:43:22 120 mm[Hg] MD Farah Diastolic blood pressure 2020-06-16 20:43:22 81 mm[Hg] MD Farah Heart rate 2020-06-16 20:43:22 116 /min MD Phong prieto Body temperature 2020-06-16 20:43:22 36.39 Rina MD Joseph smith Respiratory rate 2020-06-16 20:43:22 18 /min MD Joseph smith Oxygen saturation in 2020-06-16 20:43:22 99 /min MD Farah Arterial blood by Pulse oximetry Body height 2020-02-12 12:49:00 163.7 cm MD Phong prieto Procedures Procedure Date / Time Performing Source Performed Clinician CT CHEST ABDOMEN PELVIS W WO 2020-06-15 Held, Shiela Farah CONTRAST LIVER 21:18:15 COMPLETE BLOOD COUNT W/ 2020-06-15 Held, Shiela prieto DIFFERENTIAL 17:46:00 COMPREHENSIVE METABOLIC PANEL 2020-06-15 Held, Shiela Farah 17:46:00 MAGNESIUM LEVEL 2020-06-15 Held, Shiela Farah 17:46:00 PHOSPHORUS LEVEL 2020-06-15 Held, Shiela Farah 17:46:00 LACTATE DEHYDROGENASE 2020-06-15 Held, Shiela Murry n 17:46:00 CANCER ANTIGEN 19-9 2020-06-15 Held, Shiela Farah 17:46:00 Results CBC 2020-06-15 Held, Shiela Farah 17:46:00 MANUAL DIFFERENTIAL 2020-06-15 Held, Shiela Farah 17:46:00 GLUCOSE LEVEL 2020-06-15 Held, Shiela Farah 17:46:00 BLOOD UREA NITROGEN 2020-06-15 Held, Shiela Farah 17:46:00 ELECTROLYTE PANEL 2020-06-15 Held, Shiela Farah 17:46:00 SERUM CREATININE 2020-06-15 Held, Shiela Farah 17:46:00 .GLOMERULAR FILTRATION RATE 2020-06-15 Held, Shiela smith 17:46:00 CALCIUM LEVEL TOTAL 2020-06-15 Held, Shiela Farah 17:46:00 ALBUMIN LEVEL 2020-06-15 Held, Shiela Farah 17:46:00 ALKALINE PHOSPHATASE 2020-06-15 Held, Shiela Farah 17:46:00 ALANINE AMINOTRANSFERASE 2020-06-15 Held, Shiela betancur 17:46:00 ASPARTATE AMINOTRANSFERASE 2020-06-15 Held, Shiela morseson 17:46:00 TOTAL PROTEIN 2020-06-15 Held, Shiela Farah 17:46:00 FRACTIONATED BILIRUBIN 2020-06-15 Held, Shiela Mccoy on 17:46:00 COMPREHENSIVE METABOLIC PANEL 2020-06-10 Roman Long MD 13:21:00 Robert COMPLETE BLOOD COUNT W/ 2020-06-10 Roman Long MD Phong son DIFFERENTIAL 13:21:00 Robert CANCER ANTIGEN 19-9 2020-06-10 Roman Long MD 13:21:00 Robert MAGNESIUM LEVEL 2020-06-10 Roman Long MD 13:21:00 Robert GLUCOSE LEVEL 2020-06-10 Roman Long MD 13:21:00 Robert BLOOD UREA NITROGEN 2020-06-10 Roman Long MD 13:21:00 Robert ELECTROLYTE PANEL 2020-06-10 Roman Long MD 13:21:00 Robert SERUM CREATININE 2020-06-10 Roman Long MD 13:21:00 Robert .GLOMERULAR FILTRATION RATE 2020-06-10 Roman Long MD 13:21:00 Robert CALCIUM LEVEL TOTAL 2020-06-10 Roman Long MD 13:21:00 Robert ALBUMIN LEVEL 2020-06-10 Roman Long MD 13:21:00 Robert ALKALINE PHOSPHATASE 2020-06-10 Roman Long MD 13:21:00 Robert ALANINE AMINOTRANSFERASE 2020-06-10 Roman Long MD 13:21:00 Robert ASPARTATE AMINOTRANSFERASE 2020-06-10 Roman Long MDson 13:21:00 Robert TOTAL PROTEIN 2020-06-10 Roman Long MD 13:21:00 Robert FRACTIONATED BILIRUBIN 2020-06-10 Roman Long MD on 13:21:00 Robert Results CBC 2020-06-10 Roman Long MD 13:21:00 Robert MANUAL DIFFERENTIAL 2020-06-10 Roman Long MD 13:21:00 Robert COMPLETE BLOOD COUNT W/ 2020-05-26 Held, Shiela BURGESS Phong son DIFFERENTIAL 20:22:00 COMPREHENSIVE METABOLIC PANEL 2020-05-26 Held, Shiela Farah 20:22:00 CANCER ANTIGEN 19-9 2020-05-26 Held, Shiela Farah 20:22:00 Results CBC 2020-05-26 Held, Shiela Farah 20:22:00 MANUAL DIFFERENTIAL 2020-05-26 Held, Shiela Farah 20:22:00 GLUCOSE LEVEL 2020-05-26 Held, Shiela Farah 20:22:00 BLOOD UREA NITROGEN 2020-05-26 Held, Shiela Farah 20:22:00 ELECTROLYTE PANEL 2020-05-26 Held, Shiela Farah 20:22:00 SERUM CREATININE 2020-05-26 Held, Shiela Farah 20:22:00 .GLOMERULAR FILTRATION RATE 2020-05-26 Held, Shiela smith 20:22:00 CALCIUM LEVEL TOTAL 2020-05-26 Held, Shiela Farah 20:22:00 ALBUMIN LEVEL 2020-05-26 Held, Shiela Farah 20:22:00 ALKALINE PHOSPHATASE 2020-05-26 Held, Shiela Farah 20:22:00 ALANINE AMINOTRANSFERASE 2020-05-26 Held, Shiela Verde rson 20:22:00 ASPARTATE AMINOTRANSFERASE 2020-05-26 Held, Shiela Martinez derson 20:22:00 TOTAL PROTEIN 2020-05-26 Held, Shiela Farah 20:22:00 FRACTIONATED BILIRUBIN 2020-05-26 Held, Shiela Mccoy on 20:22:00 ENDOSCOPIC RETROGRADE 2020-05-12 MD Darius Baker on CHOLANGIOPANCREATOGRAPHY WITH 20:37:00 Jas PLACEMENT OF STENT OF BILE DUCT ENDOSCOPIC RETROGRADE 2020-05-12 MD Darius Baker on CHOLANGIOPANCREATOGRAPHY WITH 20:37:00 Jas ENDOSCOPIC RETROGRADE REMOVAL OF CALCULUS FROM BILIARY AND PANCREATIC DUCTS RADIOLOGIC SUPERVISION AND 2020-05-12 MD Joseph Baker INTERPRETATION FOR ENDOSCOPIC 20:37:00 Jas CATHETERIZATION OF THE BILIARY DUCTAL SYSTEM ENDOSCOPY NOTE RESULTS 2020-05-12 Jyoti Turpin MD Phong son 20:29:22 Jas POC GLUCOSE SCREEN 2020-05-12 MD Gagan Baker 19:33:00 Jas FL ENDOSCOPY FLUOROSCOPY 2020-05-12 Schuyler Garcia MD Ammon rson 18:36:07 COMPREHENSIVE METABOLIC PANEL 2020-05-12 Held, Shiela Farah 17:35:00 COMPLETE BLOOD COUNT W/ 2020-05-12 Held, Shiela BURGESS Phong son DIFFERENTIAL 17:35:00 GLUCOSE LEVEL 2020-05-12 Held, Shiela Farah 17:35:00 BLOOD UREA NITROGEN 2020-05-12 Held, Shiela Farah 17:35:00 ELECTROLYTE PANEL 2020-05-12, Shiela Farah 17:35:00 SERUM CREATININE 2020-05-12 Held, Shiela Farah 17:35:00 .GLOMERULAR FILTRATION RATE 2020-05-12 Held, Shiela smith 17:35:00 CALCIUM LEVEL TOTAL 2020-05-12, Shiela Farah 17:35:00 ALBUMIN LEVEL 2020-05-12 Held, Shiela Farah 17:35:00 ALKALINE PHOSPHATASE 2020-05-12 Held, Shiela Farah 17:35:00 ALANINE AMINOTRANSFERASE 2020-05-12 Held, Shiela Verde rson 17:35:00 ASPARTATE AMINOTRANSFERASE 2020-05-12 Held, Shiela Martinez derson 17:35:00 TOTAL PROTEIN 2020-05-12 Held, Shiela Farah 17:35:00 FRACTIONATED BILIRUBIN 2020-05-12 Held, Shiela Mccoy on 17:35:00 Results CBC 2020-05-12 Held, Shiela Farah 17:35:00 MANUAL DIFFERENTIAL 2020-05-12 Held, Shiela Farah 17:35:00 HC 2019-NCOV COVID-19 2020-05-08 MD Darius Baker on 20:36:00 Jas COMPLETE BLOOD COUNT W/ 2020-05-05 Roman Long MD Phong son DIFFERENTIAL 20:03:00 Robert COMPREHENSIVE METABOLIC PANEL 2020-05-05 Roman Long MD 20:03:00 Robert MAGNESIUM LEVEL 2020-05-05 Roman Long MD 20:03:00 Robert PHOSPHORUS LEVEL 2020-05-05 Roman Long MD 20:03:00 Robert LACTATE DEHYDROGENASE 2020-05-05 Roman Long MD Andchevyo n 20:03:00 Robert CANCER ANTIGEN 19-9 2020-05-05 Roman Long MD 20:03:00 Robert Results CBC 2020-05-05 Roman Long MD 20:03:00 Robert MANUAL DIFFERENTIAL 2020-05-05 Roman Long MD 20:03:00 Robert GLUCOSE LEVEL 2020-05-05 Roman Long MD 20:03:00 Robert BLOOD UREA NITROGEN 2020-05-05 Roman Long MD 20:03:00 Robert ELECTROLYTE PANEL 2020-05-05 Roman Long MD 20:03:00 Robert SERUM CREATININE 2020-05-05 Roman Long MD 20:03:00 Robert .GLOMERULAR FILTRATION RATE 2020-05-05 oRman Long MD nderson 20:03:00 Robert CALCIUM LEVEL TOTAL 2020-05-05 Roman Long MD 20:03:00 Robert ALBUMIN LEVEL 2020-05-05 Roman Long MD 20:03:00 Robert ALKALINE PHOSPHATASE 2020-05-05 Roman Long MD 20:03:00 Robert ALANINE AMINOTRANSFERASE 2020-05-05 Roman Long MD rson 20:03:00 Robert ASPARTATE AMINOTRANSFERASE 2020-05-05 Roman Long MD derson 20:03:00 Robert TOTAL PROTEIN 2020-05-05 Roman Long MD 20:03:00 Robert FRACTIONATED BILIRUBIN 2020-05-05 Roman Long MD Darius on 20:03:00 Robert COMPLETE BLOOD COUNT W/ 2020-04-21 Roman Long MD Phong son DIFFERENTIAL 15:02:00 Robert COMPREHENSIVE METABOLIC PANEL 2020-04-21 Roman Long MD 15:02:00 Robert MAGNESIUM LEVEL 2020-04-21 Roman Long MD 15:02:00 Robert PHOSPHORUS LEVEL 2020-04-21 Roman Long MD 15:02:00 Robert LACTATE DEHYDROGENASE 2020-04-21 Roman Long MDo n 15:02:00 Robert CANCER ANTIGEN 19-9 2020-04-21 Roman Long MD 15:02:00 Robert Results CBC 2020-04-21 Roman Long MD 15:02:00 Robert MANUAL DIFFERENTIAL 2020-04-21 Roman Long MD 15:02:00 Robert GLUCOSE LEVEL 2020-04-21 Roman Long MD 15:02:00 Robert BLOOD UREA NITROGEN 2020-04-21 Roman Long MD 15:02:00 Robert ELECTROLYTE PANEL 2020-04-21 Roman Long MD 15:02:00 Robert SERUM CREATININE 2020-04-21 Roman Long MD 15:02:00 Robert .GLOMERULAR FILTRATION RATE 2020-04-21 Roman Long MDrson 15:02:00 Robert CALCIUM LEVEL TOTAL 2020-04-21 Roman Long MD 15:02:00 Robert ALBUMIN LEVEL 2020-04-21 Roman Long MD 15:02:00 Robert ALKALINE PHOSPHATASE 2020-04-21 Roman Long MD 15:02:00 Robert ALANINE AMINOTRANSFERASE 2020-04-21 Roman Long MD rson 15:02:00 Robert ASPARTATE AMINOTRANSFERASE 2020-04-21 Roman Long MD derson 15:02:00 Robert TOTAL PROTEIN 2020-04-21 Roman Long MD 15:02:00 Robert FRACTIONATED BILIRUBIN 2020-04-21 Roman Long MD on 15:02:[address] CHEST ABDOMEN PELVIS W WO 2020-04-06 Randolph Rodriguez MD CONTRAST LIVER 20:10:22 COMPLETE BLOOD COUNT W/ 2020-04-06 Randolph Rodriguez MD Phong son DIFFERENTIAL 17:22:00 COMPREHENSIVE METABOLIC PANEL 2020-04-06 Randolph Rodriguez MD 17:22:00 CANCER ANTIGEN 19-9 2020-04-06 Randolph Rodriguez MD 17:22:00 Results CBC 2020-04-06 Roman Long MD 17:22:00 Robert MANUAL DIFFERENTIAL 2020-04-06 Roman Long MD 17:22:00 Robert GLUCOSE LEVEL 2020-04-06 Roman Long MD 17:22:00 Robert BLOOD UREA NITROGEN 2020-04-06 Roman Long MD 17:22:00 Robert ELECTROLYTE PANEL 2020-04-06 Roman Long MD 17:22:00 Robert SERUM CREATININE 2020-04-06 Roman Long MD 17:22:00 Robert .GLOMERULAR FILTRATION RATE 2020-04-06 Roman Long MDrson 17:22:00 Robert CALCIUM LEVEL TOTAL 2020-04-06 Roman Long MD 17:22:00 Robert ALBUMIN LEVEL 2020-04-06 Roman Long MD 17:22:00 Robert ALKALINE PHOSPHATASE 2020-04-06 Roman Long MD 17:22:00 Robert ALANINE AMINOTRANSFERASE 2020-04-06 Roman Long MD rson 17:22:00 Robert ASPARTATE AMINOTRANSFERASE 2020-04-06 Roman Long MDson 17:22:00 Robert TOTAL PROTEIN 2020-04-06 Roman Long MD 17:22:00 Robert FRACTIONATED BILIRUBIN 2020-04-06 Roman Long MD on 17:22:00 Robert MAGNESIUM LEVEL 2020-03-25 Roman Long MD 11:37:00 Robert COMPREHENSIVE METABOLIC PANEL 2020-03-25 Roman Long MD 11:37:00 Robert COMPLETE BLOOD COUNT W/ 2020-03-25 Roman Long MD Phong son DIFFERENTIAL 11:37:00 Robert GLUCOSE LEVEL 2020-03-25 Roman Long MD 11:37:00 Robert BLOOD UREA NITROGEN 2020-03-25 Roman Long MD 11:37:00 Robert ELECTROLYTE PANEL 2020-03-25 Roman Long MD 11:37:00 Robert SERUM CREATININE 2020-03-25 Roman Long MD 11:37:00 Robert .GLOMERULAR FILTRATION RATE 2020-03-25 Roman Long MD nderson 11:37:00 Robert CALCIUM LEVEL TOTAL 2020-03-25 Roman Long MD 11:37:00 Robert ALBUMIN LEVEL 2020-03-25 Roman Long MD 11:37:00 Robert ALKALINE PHOSPHATASE 2020-03-25 Roman Long MD 11:37:00 Robert ALANINE AMINOTRANSFERASE 2020-03-25 Roman Long MD rson 11:37:00 Robert ASPARTATE AMINOTRANSFERASE 2020-03-25 Roman Long MDson 11:37:00 Robert TOTAL PROTEIN 2020-03-25 Roman Long MD 11:37:00 Robert FRACTIONATED BILIRUBIN 2020-03-25 Delia, Roman Mccoy on 11:37:00 Robert Results CBC 2020-03-25 Delia, Roman Farah 11:37:00 Robert MANUAL DIFFERENTIAL 2020-03-25 Roman Long MD 11:37:00 Orbert COMPLETE BLOOD COUNT W/ 2020-03-10 Held, Shiela BURGESS Phong son DIFFERENTIAL 18:51:00 COMPREHENSIVE METABOLIC PANEL 2020-03-10 Held, Shiela Farah 18:51:00 CANCER ANTIGEN 19-9 2020-03-10 Held, Shiela Farah 18:51:00 Results CBC 2020-03-10 Held, Shiela Farah 18:51:00 MANUAL DIFFERENTIAL 2020-03-10 Held, Shiela Farah 18:51:00 GLUCOSE LEVEL 2020-03-10 Held, Shiela Farah 18:51:00 BLOOD UREA NITROGEN 2020-03-10, Shiela Farah 18:51:00 ELECTROLYTE PANEL 2020-03-10, Shiela Farah 18:51:00 SERUM CREATININE 2020-03-10 Held, Shiela Farah 18:51:00 .GLOMERULAR FILTRATION RATE 2020-03-10 Held, Shiela smith 18:51:00 CALCIUM LEVEL TOTAL 2020-03-10, Shiela Farah 18:51:00 ALBUMIN LEVEL 2020-03-10 Held, Shiela Farah 18:51:00 ALKALINE PHOSPHATASE 2020-03-10 Held, Shiela Farah 18:51:00 ALANINE AMINOTRANSFERASE 2020-03-10 Held, Shiela Verde rson 18:51:00 ASPARTATE AMINOTRANSFERASE 2020-03-10 Held, Shiela Martinez derson 18:51:00 TOTAL PROTEIN 2020-03-10 Held, Shiela Farah 18:51:00 FRACTIONATED BILIRUBIN 2020-03-10 Held, Shiela Mccoy on 18:51:00 COMPLETE BLOOD COUNT W/ 2020-02-25 Roman Long MD Phong son DIFFERENTIAL 17:44:00 Robert COMPREHENSIVE METABOLIC PANEL 2020-02-25 Roman Long MD 17:44:00 Robert MAGNESIUM LEVEL 2020-02-25 Roman Long MD 17:44:00 Robert PHOSPHORUS LEVEL 2020-02-25 Roman Long MD 17:44:00 Robert LACTATE DEHYDROGENASE 2020-02-25 Roman Long MDo n 17:44:00 Robert CANCER ANTIGEN 19-9 2020-02-25 Roman Long MD 17:44:00 Robert Results CBC 2020-02-25 Roman Long MD 17:44:00 Robert MANUAL DIFFERENTIAL 2020-02-25 Roman Long MD 17:44:00 Robert GLUCOSE LEVEL 2020-02-25 Roman Long MD 17:44:00 Robert BLOOD UREA NITROGEN 2020-02-25 Roman Long MD 17:44:00 Robert ELECTROLYTE PANEL 2020-02-25 Roman Long MD 17:44:00 Robert SERUM CREATININE 2020-02-25 Roman Long MD 17:44:00 Robert .GLOMERULAR FILTRATION RATE 2020-02-25 Roman Long MD nderson 17:44:00 Robert CALCIUM LEVEL TOTAL 2020-02-25 Roman Long MD 17:44:00 Robert ALBUMIN LEVEL 2020-02-25 Roman Long MD 17:44:00 Robert ALKALINE PHOSPHATASE 2020-02-25 Roman Long MD 17:44:00 Robert ALANINE AMINOTRANSFERASE 2020-02-25 Roman Longe rson 17:44:00 Robert ASPARTATE AMINOTRANSFERASE 2020-02-25 Roman Long MD derson 17:44:00 Robert TOTAL PROTEIN 2020-02-25 Roman Long MD 17:44:00 Robert FRACTIONATED BILIRUBIN 2020-02-25 Roman Long MD Darius on 17:44:00 Robert COMPLETE BLOOD COUNT W/ 2020-02-12 Roman Long MD Phong son DIFFERENTIAL 12:32:00 Robert COMPREHENSIVE METABOLIC PANEL 2020-02-12 Roman Long MD 12:32:00 Robert LACTATE DEHYDROGENASE 2020-02-12 Roman Long MDo n 12:32:00 Robert MAGNESIUM LEVEL 2020-02-12 Roman Long MD 12:32:00 Robert PHOSPHORUS LEVEL 2020-02-12 Roman Long MD 12:32:00 Robert CARCINOEMBRYONIC ANTIGEN 2020-02-12 Roman Long MD Ammon rson 12:32:00 Robert CANCER ANTIGEN 19-9 2020-02-12 gloRoman MD 12:32:00 Robert CANCER ANTIGEN 125 2020-02-12 gloRoman MD 12:32:00 Robert Results CBC 2020-02-12 TiooRoman MD 12:32:00 Robert MANUAL DIFFERENTIAL 2020-02-12 Roman Long MD 12:32:00 Robert GLUCOSE LEVEL 2020-02-12 Smaglo, Roman Farah 12:32:00 Robert BLOOD UREA NITROGEN 2020-02-12 TiooRoman MD 12:32:00 Robert ELECTROLYTE PANEL 2020-02-12 Roman Long MD 12:32:00 Robert SERUM CREATININE 2020-02-12 oRoman MD 12:32:00 Robert .GLOMERULAR FILTRATION RATE 2020-02-12 Roman Long MD nderson 12:32:00 Robert CALCIUM LEVEL TOTAL 2020-02-12 Roman Long MD 12:32:00 Robert ALBUMIN LEVEL 2020-02-12 Roman Long MD 12:32:00 Robert ALKALINE PHOSPHATASE 2020-02-12 Roman Long MD 12:32:00 Robert ALANINE AMINOTRANSFERASE 2020-02-12 Roman Long MD rson 12:32:00 Robert ASPARTATE AMINOTRANSFERASE 2020-02-12 Roman Long MD derson 12:32:00 Robert TOTAL PROTEIN 2020-02-12 Roman Long MD 12:32:00 Robert FRACTIONATED BILIRUBIN 2020-02-12 Roman Long MD Darius on 12:32:[address] CHEST ABDOMEN PELVIS W 2020-02-05 Held, Shiela BURGESS And erson CONTRAST 19:13:00 COMPLETE BLOOD COUNT W/ 2020-02-05 Held, Shiela BURGESS Phong son DIFFERENTIAL 16:38:00 COMPREHENSIVE METABOLIC PANEL 2020-02-05 Held, Shiela Farah 16:38:00 MAGNESIUM LEVEL 2020-02-05 Held, Shiela Farah 16:38:00 PHOSPHORUS LEVEL 2020-02-05 Held, Shiela Farah 16:38:00 LACTATE DEHYDROGENASE 2020-02-05 Held, Shiela Murry n 16:38:00 CANCER ANTIGEN 19-9 2020-02-05 Held, Shiela Farah 16:38:00 Results CBC 2020-02-05 Held, Shiela Farah 16:38:00 MANUAL DIFFERENTIAL 2020-02-05 Held, Shiela Farah 16:38:00 GLUCOSE LEVEL 2020-02-05 Held, Shiela Farah 16:38:00 BLOOD UREA NITROGEN 2020-02-05 Held, Shiela Farah 16:38:00 ELECTROLYTE PANEL 2020-02-05 Held, Shiela Farah 16:38:00 SERUM CREATININE 2020-02-05 Held, Shiela Farah 16:38:00 .GLOMERULAR FILTRATION RATE 2020-02-05 Held, Shiela smith 16:38:00 CALCIUM LEVEL TOTAL 2020-02-05 Held, Shiela Farah 16:38:00 ALBUMIN LEVEL 2020-02-05 Held, Shiela Farah 16:38:00 ALKALINE PHOSPHATASE 2020-02-05 Held, Shiela Farah 16:38:00 ALANINE AMINOTRANSFERASE 2020-02-05 Held, Shiela Verde rson 16:38:00 ASPARTATE AMINOTRANSFERASE 2020-02-05 Held, Shiela Martinez derson 16:38:00 TOTAL PROTEIN 2020-02-05 Held, Shiela Farah 16:38:00 FRACTIONATED BILIRUBIN 2020-02-05 Held, Shiela Mccoy on 16:38:00 COMPLETE BLOOD COUNT W/ 2020-01-24 Roman Long MD Phong son DIFFERENTIAL 16:39:00 Robert COMPREHENSIVE METABOLIC PANEL 2020-01-24 Roman Long MD 16:39:00 Robert MAGNESIUM LEVEL 2020-01-24 Roman Long MD 16:39:00 Robert PHOSPHORUS LEVEL 2020-01-24 Roman Long MD 16:39:00 Robert LACTATE DEHYDROGENASE 2020-01-24 Roman Long MDo n 16:39:00 Robert CANCER ANTIGEN 19-9 2020-01-24 Roman Long MD 16:39:00 Robert Results CBC 2020-01-24 Roman Long MD 16:39:00 Robert MANUAL DIFFERENTIAL 2020-01-24 Roman Long MD 16:39:00 Robert GLUCOSE LEVEL 2020-01-24 Roman Long MD 16:39:00 Robert BLOOD UREA NITROGEN 2020-01-24 Roman Long MD 16:39:00 Robert ELECTROLYTE PANEL 2020-01-24 Roman Long MD 16:39:00 Robert SERUM CREATININE 2020-01-24 Roman Long MD 16:39:00 Robert .GLOMERULAR FILTRATION RATE 2020-01-24 Roman Long MDon 16:39:00 Robert CALCIUM LEVEL TOTAL 2020-01-24 Roman Long MD 16:39:00 Robert ALBUMIN LEVEL 2020-01-24 Roman Long MD 16:39:00 Robert ALKALINE PHOSPHATASE 2020-01-24 Roman Long MD 16:39:00 Robert ALANINE AMINOTRANSFERASE 2020-01-24 Roman Longe rson 16:39:00 Robert ASPARTATE AMINOTRANSFERASE 2020-01-24 Roman Long MD derson 16:39:00 Robert TOTAL PROTEIN 2020-01-24 Roman Long MD 16:39:00 Robert FRACTIONATED BILIRUBIN 2020-01-24 Roman Long MD on 16:39:00 Robert COMPLETE BLOOD COUNT W/ 2019-12-27 Roman Long MD Phong son DIFFERENTIAL 17:04:00 Robert COMPREHENSIVE METABOLIC PANEL 2019-12-27 Roman Long MD 17:04:00 Robert MAGNESIUM LEVEL 2019-12-27 Roman Long MD 17:04:00 Robert PHOSPHORUS LEVEL 2019-12-27 Roman Long MD 17:04:00 Robert LACTATE DEHYDROGENASE 2019-12-27 Roman Long MD Anderso n 17:04:00 Robert CANCER ANTIGEN 19-9 2019-12-27 Roman Long MD 17:04:00 Robert Results CBC 2019-12-27 Roman Long MD 17:04:00 Robert MANUAL DIFFERENTIAL 2019-12-27 Roman Long MD 17:04:00 Robert GLUCOSE LEVEL 2019-12-27 Roman Long MD 17:04:00 Robert ELECTROLYTE PANEL 2019-12-27 Roman Long MD 17:04:00 Robert SERUM CREATININE 2019-12-27 Roman Long MD 17:04:00 Robert .GLOMERULAR FILTRATION RATE 2019-12-27 Roman Long MD 17:04:00 Robert CALCIUM LEVEL TOTAL 2019-12-27 Roman Long MD 17:04:00 Robert ALBUMIN LEVEL 2019-12-27 Roman Long MD 17:04:00 Robert ALKALINE PHOSPHATASE 2019-12-27 Roman Long MD 17:04:00 Robert ALANINE AMINOTRANSFERASE 2019-12-27 Roman Long MD rson 17:04:00 Robert ASPARTATE AMINOTRANSFERASE 2019-12-27 Roman Long MD derson 17:04:00 Robert TOTAL PROTEIN 2019-12-27 Roman Long MD 17:04:00 Robert FRACTIONATED BILIRUBIN 2019-12-27 Roman Long MD on 17:04:00 Robert BLOOD UREA NITROGEN 2019-12-27 Roman Long MD 17:04:00 Robert POC GLUCOSE SCREEN 2019-11-30 Hayden Brown MD 16:11:00 HEMOGLOBIN 2019-11-30 Radha Fontana MD 14:24:00 POC GLUCOSE SCREEN 2019-11-30 Hayden Brown MD 12:16:00 BASIC METABOLIC PANEL, CALCIUM 2019-11-30 Thoppil, Ammy Farah IONIZED 08:29:00 CALCIUM LEVEL TOTAL 2019-11-30 Thoppil, Ammy Farah 08:29:00 COMPLETE BLOOD COUNT W/ 2019-11-30 ThoppiAmmy gaffney MD rsquintin DIFFERENTIAL 08:29:00 MAGNESIUM LEVEL 2019-11-30 Thoppil, Ammy Farah 08:29:00 PHOSPHORUS LEVEL 2019-11-30 Thoppil, Ammy Farah 08:29:00 LACTIC ACID, VENOUS 2019-11-30 Thoppil, Ammy Farah 08:29:00 GLUCOSE LEVEL 2019-11-30 Thoppil, Ammy Farah 08:29:00 BLOOD UREA NITROGEN 2019-11-30 Thoppil, Ammy Farah 08:29:00 ELECTROLYTE PANEL 2019-11-30 Thoppil, Ammy Farah 08:29:00 SERUM CREATININE 2019-11-30 Thoppil, Ammy Farah 08:29:00 .GLOMERULAR FILTRATION RATE 2019-11-30 Ammy Bejarano MD 08:29:00 CALCIUM IONIZED, VENOUS 2019-11-30 Ammy Bejarano MD Ammon rson 08:29:00 Results CBC 2019-11-30 Ammy Bejarano MD 08:29:00 MANUAL DIFFERENTIAL 2019-11-30 Ammy Bejarano MD 08:29:00 POC GLUCOSE SCREEN 2019-11-30 Hayden Brown MD 04:32:00 XR CHEST 1 VW PORTABLE 2019-11-30 Kayce Pierce MD on 01:36:35 BLOODCULTURE 2019-11-30 Kayce Pierce MD 01:23:00 HEMOGLOBIN 2019-11-30 Radha Fontana MD 01:23:00 POC GLUCOSE SCREEN 2019-11-29 Hayden Brown MD 22:56:00 HEMOGLOBIN 2019-11-29 Radha Fontana MD 20:36:00 POC GLUCOSE SCREEN 2019-11-29 Kishor Connelly MD 16:10:00 POC GLUCOSE SCREEN 2019-11-29 Kishor Connelly MD 12:18:00 POC GLUCOSE SCREEN 2019-11-29 Kishor Connelly MD 10:25:00 GENERAL LABORATORY ADD ON TEST 2019-11-29 Meng Leo MD 09:09:00 Justo BASIC METABOLIC PANEL, CALCIUM 2019-11-29 Radha Fontana IONIZED 07:36:00 MAGNESIUM LEVEL 2019-11-29 Radha Fontana MD 07:36:00 CALCIUM LEVEL TOTAL 2019-11-29 Radha Fontana MD 07:36:00 PHOSPHORUS LEVEL 2019-11-29 Radha Fontana MD 07:36:00 COMPLETE BLOOD COUNT W/ 2019-11-29 Radha Fontana MD Phong son DIFFERENTIAL 07:36:00 GLUCOSE LEVEL 2019-11-29 Radha Fontana MD 07:36:00 BLOOD UREA NITROGEN 2019-11-29 Radha Fontana MD 07:36:00 ELECTROLYTE PANEL 2019-11-29 Radha oFntana MD 07:36:00 SERUM CREATININE 2019-11-29 Radha Fontana MD 07:36:00 .GLOMERULAR FILTRATION RATE 2019-11-29 Radha Fontana MD nderson 07:36:00 CALCIUM IONIZED, VENOUS 2019-11-29 Radha Fontana MD Phong son 07:36:00 Results CBC 2019-11-29 Radha Fontana MD 07:36:00 MANUAL DIFFERENTIAL 2019-11-29 Radha Fontana MD 07:36:00 HEMOGLOBIN A1C 2019-11-29 Meng Leo MD 07:36:00 Justo OSMOLALITY 2019-11-29 Radha Fontana MD 02:07:00 HEMOGLOBIN 2019-11-29 Radha Fontana MD 02:07:00 COVID-19 (SARS-COV-2) 2019-11-29 Radha Fontana MD PCR-ASYMPTOMATIC MC 00:04:00 URINE CULTURE 2019-11-28 Alyssa Galeana MD 23:42:00 URINALYSIS WITH MICROSCOPIC IF 2019-11-28 Alyssa Galeana INDICATED 23:42:00 SODIUM URINE 2019-11-28 Alyssa Galeana MD 23:42:00 THYROID STIMULATING HORMONE 2019-11-28 Alyssa Galeana MDon 23:42:00 FREE THYROXINE 2019-11-28 Alyssa Galeana MD 23:42:00 CREATININE URINE, RANDOM 2019-11-28 Alyssa Galeana MD Ammon rson 23:42:00 OSMOLALITY URINE 2019-11-28 Alyssa Galeana MD 23:42:00 OSMOLALITY 2019-11-28 Alyssa Galeana MD 23:42:00 CHLORIDE LEVEL URINE 2019-11-28 Alyssa Galeana MD 23:42:00 POTASSIUM LEVEL URINE 2019-11-28 Alyssa Galeana MD n 23:42:00 UREA NITROGEN URINE 2019-11-28 Alyssa Galeana MD 23:42:00 URINALYSIS MICROSCOPIC 2019-11-28 Alyssa Galeana MD on 23:42:00 CT ABDOMEN PELVIS W CONTRAST 2019-11-28 Alyssa Galeana MD 21:27:59 CT CHEST PULMONARY EMBOLISM W 2019-11-28 Alyssa Galeana MD CONTRAST 21:27:59 COMPLETE BLOOD COUNT W/ 2019-11-28 Roman Long MD Phong son DIFFERENTIAL 18:21:00 Robert COMPREHENSIVE METABOLIC PANEL 2019-11-28 Roman Long MD 18:21:00 Robert MAGNESIUM LEVEL 2019-11-28 glRoman ricardo MD 18:21:00 Robert PHOSPHORUS LEVEL 2019-11-28 TiooRoman MD 18:21:00 Robert CANCER ANTIGEN 19-9 2019-11-28 glRoman ricardo MD 18:21:00 Robert LACTATE DEHYDROGENASE 2019-11-28 Tioo, Roman BURGESS Anderso n 18:21:00 Robert Results CBC 2019-11-28 Roman Long MD 18:21:00 Robert MANUAL DIFFERENTIAL 2019-11-28 Roman Long MD 18:21:00 Robert GLUCOSE LEVEL 2019-11-28 gloRoman MD 18:21:00 Robert BLOOD UREA NITROGEN 2019-11-28 Roman Long MD 18:21:00 Robert ELECTROLYTE PANEL 2019-11-28 Roman Long MD 18:21:00 Robert SERUM CREATININE 2019-11-28 Roman Long MD 18:21:00 Robert .GLOMERULAR FILTRATION RATE 2019-11-28 Roman Long MD nderson 18:21:00 Robert CALCIUM LEVEL TOTAL 2019-11-28 Roman Long MD 18:21:00 Robert ALBUMIN LEVEL 2019-11-28 Roman Long MD 18:21:00 Robert ALKALINE PHOSPHATASE 2019-11-28 Roman Long MD 18:21:00 Robert ALANINE AMINOTRANSFERASE 2019-11-28 Roman Long MD rson 18:21:00 Robert ASPARTATE AMINOTRANSFERASE 2019-11-28 Roman Long MD derson 18:21:00 Robert TOTAL PROTEIN 2019-11-28 Roman Long MD 18:21:00 Robert FRACTIONATED BILIRUBIN 2019-11-28 Roman Long MD on 18:21:00 Robert COMPLETE BLOOD COUNT W/ 2019-10-31 Held, Shiela Darling son DIFFERENTIAL 14:30:00 COMPREHENSIVE METABOLIC PANEL 2019-10-31 Held, Shiela Farah 14:30:00 MAGNESIUM LEVEL 2019-10-31 Held, Shiela Farah 14:30:00 PHOSPHORUS LEVEL 2019-10-31 Held, Shiela Farah 14:30:00 LACTATE DEHYDROGENASE 2019-10-31 Held, Shiela BURGESS Andchevyo n 14:30:00 CANCER ANTIGEN 19-9 2019-10-31 Held, Shiela Farah 14:30:00 Results CBC 2019-10-31 Held, Shiela Farah 14:30:00 MANUAL DIFFERENTIAL 2019-10-31 Held, Shiela Farah 14:30:00 GLUCOSE LEVEL 2019-10-31 Held, Shiela Farah 14:30:00 BLOOD UREA NITROGEN 2019-10-31 Held, Shiela Farah 14:30:00 ELECTROLYTE PANEL 2019-10-31 Held, Shiela Farah 14:30:00 SERUM CREATININE 2019-10-31 Held, Shiela Farah 14:30:00 .GLOMERULAR FILTRATION RATE 2019-10-31 Held, Shiela smith 14:30:00 CALCIUM LEVEL TOTAL 2019-10-31 Held, Shiela Farah 14:30:00 ALBUMIN LEVEL 2019-10-31 Held, Shiela Farah 14:30:00 ALKALINE PHOSPHATASE 2019-10-31 Held, Shiela Farah 14:30:00 ALANINE AMINOTRANSFERASE 2019-10-31 Held, Shiela Verde rson 14:30:00 ASPARTATE AMINOTRANSFERASE 2019-10-31 Held, Shiela Martinez derson 14:30:00 TOTAL PROTEIN 2019-10-31 Held, Shiela Farah 14:30:00 FRACTIONATED BILIRUBIN 2019-10-31 Held, Shiela Mccoy on 14:30:00 CT CHEST ABDOMEN PELVIS W WO 2019-10-02 Roman Long MD CONTRAST 20:42:29 Robert COMPLETE BLOOD COUNT W/ 2019-10-02 Roman Long MD Phong son DIFFERENTIAL 17:17:00 Robert COMPREHENSIVE METABOLIC PANEL 2019-10-02 Roman Long MD 17:17:00 Robert MAGNESIUM LEVEL 2019-10-02 Roman Long MD 17:17:00 Robert PHOSPHORUS LEVEL 2019-10-02 Roman Long MD 17:17:00 Robert LACTATE DEHYDROGENASE 2019-10-02 Roman Long MDo n 17:17:00 Robert CANCER ANTIGEN 19-9 2019-10-02 Roman Long MD 17:17:00 Robert Results CBC 2019-10-02 Roman Long MD 17:17:00 Robert MANUAL DIFFERENTIAL 2019-10-02 Roman Long MD 17:17:00 Robert GLUCOSE LEVEL 2019-10-02 Roman Long MD 17:17:00 Robert BLOOD UREA NITROGEN 2019-10-02 Roman Long MD 17:17:00 Robert ELECTROLYTE PANEL 2019-10-02 Roman Long MD 17:17:00 Robert SERUM CREATININE 2019-10-02 Roman Long MD 17:17:00 Robert .GLOMERULAR FILTRATION RATE 2019-10-02 Roman Long MDon 17:17:00 Robert CALCIUM LEVEL TOTAL 2019-10-02 Roman Long MD 17:17:00 Robert ALBUMIN LEVEL 2019-10-02 Roman Long MD 17:17:00 Robert ALKALINE PHOSPHATASE 2019-10-02 Roman Long MD 17:17:00 Robert ALANINE AMINOTRANSFERASE 2019-10-02 Roman Long MD rson 17:17:00 Robert ASPARTATE AMINOTRANSFERASE 2019-10-02 Roman Long MD derson 17:17:00 Robert TOTAL PROTEIN 2019-10-02 Roman Long MD 17:17:00 Robert FRACTIONATED BILIRUBIN 2019-10-02 Roman Long MD on 17:17:[address] CHEST ABDOMEN PELVIS 2019-07-05 Husam Taylor MDrson 16:19:[address] [place] [address] CHEST WITH IV CONTRAST 2019-07-[address] [facility] - 12:15:[address] [facility] [address] ABDOMEN/PELVIS WITH IV 2019-07-[address] [facility] - CONTRAST 12:15:00 [facility] POCT-CREATININE 2019-07-[address] [facility] - 11:02:00 [facility] Plan of Care Planned Activity Planned Date Details Comments Source Future Scheduled Test 2027-09-06 Screening for [facility] - 00:00:00 malignant neoplasm Medical C enter of colon (procedure) [code = 941318510] Future Scheduled Test 2020-09-28 Screening for [facility] - 00:00:00 malignant neoplasm Medical C enter of breast (procedure) [code = 922565527] Future Scheduled Test 2020-02-04 INFLUENZA VACCINE [facility] - 00:00:00 (#1) [code = [facility] INFLU[facility]ACCINE (#1)] Future Scheduled Test 2019-06-05 DEPRESSION SCREENING [facility] - 00:00:00 (12+) [code = [facility] DEPRESSION SCREENING (12+)] Future Appointment 2020-08-11 Jas bates 08:35:00 Clarence BURGESS, [address] [place] [id number] Future Appointment 2020-08-11 Jas bates 08:35:00 Clarence BURGESS, [address] [place] [id number] Encounters Start End Encounter Admission Attending Care Care Encounter Source Date/Time Date/Time Type Type Clinicians Facility Department ID 2019-12-04 Outpatient NEIDA, MDA MDA [id number] 11:54:03 ARLENE sierra 2019-11-29 Outpatient MDA MDA [id number] 22:33:50 Jeanmarie sierra 2020-06-16 2020-06-16 Outpatient EL SMAGLO, MDA MDA [id number] 14:34:39 15:23:11 ROMAN sierra 2020-06-15 2020-06-15 Outpatient EL HELD SHIELA MDA MDA [id number] 11:46:40 11:46:40 Darius sierra 2020-06-15 2020-06-15 Outpatient EL YEIMI SHIELA MDA MDA [id number] 11:12:01 11:40:30 Darius sierra 2020-06-10 2020-06-10 Outpatient EL HELD SHIELA MDA MDA [id number] 07:53:16 15:34:23 Darius sierra 2020-06-10 2020-06-10 Outpatient EL SMAGLO, MDA MDA [id number] MD 07:21:27 07:41:49 ROMAN sierra 2020-06-08 2020-06-08 Outpatient SMAGLO, MDA MDA [id number] MD 11:26:27 11:26:27 ROMAN sierra 2020-05-27 2020-05-27 Outpatient EL SMAGLO, MDA MDA [id number] MD 11:37:15 23:59:00 ROMAN sierra 2020-05-26 2020-05-26 Outpatient EL HELD SHIELA MDA MDA [id number] 14:00:00 23:59:00 Darius sierra 2020-05-26 2020-05-26 Outpatient EL SMAGLO, MDA MDA [id number] MD 14:31:04 16:07:42 ROMAN sierra 2020-05-14 2020-05-14 Outpatient EL SMAGLO, MDA MDA [id number] MD 08:14:33 16:09:52 ROMAN sierra 2020-05-14 2020-05-14 Outpatient EL SMAGLO, MDA MDA [id number] MD 08:09:18 08:09:18 ROMAN sierra 2020-05-12 2020-05-12 Outpatient EL MONTES MDA Loretta/Hep/Nu [id number] MD 11:42:00 17:28:00 dani TURPIN 2020-05-12 2020-05-12 Outpatient EL YEIMI, SHIELA MDA MDA [id number] MD 11:24:05 11:41:00 Darius sierra 2020-05-11 2020-05-11 Outpatient EL SMAGLO, MDA MDA [id number] 07:03:28 07:03:28 ROMAN sierra 2020-05-08 2020-05-08 Outpatient EL SMAGLO, MDA MDA [id number] MD 14:16:11 14:37:04 ROMAN sierra 2020-05-05 2020-05-05 Outpatient EL SMAGLO, MDA MDA [id number] MD 13:46:00 23:59:00 ROMAN sierra 2020-05-05 2020-05-05 Outpatient EL SMAGLO, MDA MDA [id number] MD 14:41:39 16:45:33 ROMAN sierra 2020-04-22 2020-04-22 Outpatient EL SMAGLO, MDA MDA [id number] MD 07:50:37 16:16:01 ROMAN sierra 2020-04-21 2020-04-21 Outpatient EL SMAGLO, MDA MDA [id number] MD 08:41:49 23:59:00 ROMAN sierra 2020-04-21 2020-04-21 Outpatient EL SMAGLO, MDA MDA [id number] MD 09:10:17 10:08:50 ROMAN sierra 2020-04-08 2020-04-08 Outpatient EL SMAGLO, MDA MDA [id number] 07:56:27 16:24:53 ROMAN sierra 2020-04-07 2020-04-07 Outpatient EL SMAGLO, MDA MDA [id number] MD 10:37:07 10:37:07 ROMAN sierra 2020-04-06 2020-04-06 Outpatient EL SMAGLO, MDA MDA [id number] MD 11:00:00 23:59:00 ROMAN sierra 2020-04-06 2020-04-06 Outpatient EL SMAGLO, MDA MDA [id number] MD 11:30:22 11:30:22 ROMAN sierra 2020-03-25 2020-03-25 Outpatient EL SMAGLO, MDA MDA [id number] MD 06:39:41 06:39:41 ROMAN sierra 2020-03-25 2020-03-25 Outpatient EL SMAGLO, MDA MDA [id number] 06:26:07 06:32:42 ROMAN sierra 2020-03-20 2020-03-20 Office ULI Taylor [id number] 10:16:44 16:23:50 Visit Husam AMBULATOR [id number] Perry Y [id number] [id number] 2020-03-11 2020-03-11 Outpatient EL SMAGLO, MDA MDA [id number] 07:38:07 16:02:44 ROMAN sierra 2020-03-10 2020-03-10 Outpatient EL YEIMI, SHIELA MDA MDA [id number] 13:30:00 23:59:00 Darius sierra 2020-03-10 2020-03-10 Outpatient EL SMAGLO, MDA MDA [id number] MD 13:56:34 15:08:47 ROMAN sierra 2020-02-26 2020-02-26 Outpatient EL SMAGLO, MDA MDA [id number] MD 08:17:34 15:44:19 ROMAN sierra 2020-02-25 2020-02-25 Outpatient EL SMAGLO, MDA MDA [id number] 12:22:03 23:59:00 ROMAN sierra 2020-02-25 2020-02-25 Outpatient EL SMAGLO, MDA MDA [id number] 12:50:47 14:09:09 ROMAN sierra 2020-02-25 2020-02-25 Outpatient SMAGLO, MDA MDA [id number] MD 12:48:13 12:48:13 ROMAN sierra 2020-02-13 2020-02-13 Outpatient EL SMAGLO, MDA MDA [id number] MD 09:58:28 10:22:59 ROMAN sierra 2020-02-12 2020-02-12 Outpatient EL SMAGLO, MDA MDA [id number] MD 07:35:48 15:45:53 ROMAN sierra 2020-02-12 2020-02-12 Outpatient EL SMAGLO, MDA MDA [id number] MD 07:06:51 07:27:19 ROMAN sierra 2020-02-07 2020-02-07 Outpatient EL SMAGLO, MDA MDA [id number] 13:14:48 14:23:48 ROMAN sierra 2020-02-05 2020-02-05 Outpatient SHIELA LACEY MDA MDA [id number] 11:42:34 23:59:00 Darius sierra 2020-02-05 2020-02-05 Outpatient SHIELA LACEY MDA MDA [id number] 11:00:00 11:41:00 Darius sierra 2020-01-30 2020-01-30 Outpatient SMAGLO, MDA MDA [id number] 11:36:34 11:36:53 ROMAN sierra 2020-01-24 2020-01-24 Outpatient EL SMAGLO, MDA MDA [id number] 11:30:00 23:59:00 ROMAN sierra 2020-01-24 2020-01-24 Outpatient EL SMAGLO, MDA MDA [id number] 12:10:26 13:34:17 ROMAN sierra 2019-12-27 2019-12-27 Outpatient EL SMAGLO, MDA MDA [id number] MD 11:53:54 23:59:00 ROMAN sierra 2019-12-27 2019-12-27 Outpatient EL SMAGLO, MDA MDA [id number] MD 12:12:20 13:28:13 ROMAN sierra 2019-12-05 2019-12-05 Outpatient EL SMAGLO, MDA MDA [id number] MD 10:22:22 10:39:54 ROMAN sierra 2019-12-05 2019-12-05 Outpatient EL SMAGLO, MDA MDA [id number] MD 00:00:00 00:00:00 ROMAN sierra 2019-11-28 2019-11-30 Outpatient ER ELSAYEM, MDA Emergency [id number] MD 15:11:26 13:44:00 HAYDEN sierra 2019-11-29 2019-11-29 Outpatient MDA MDA [id number] MD 19:48:30 19:48:30 Darius sierra 2019-11-29 2019-11-29 Outpatient GODWIN, MDA MDA [id number] MD 14:00:55 14:03:56 KISHOR sierra 2019-11-29 2019-11-29 Outpatient SMAGLO, MDA MDA [id number] MD 00:00:00 00:00:00 ROMAN sierra 2019-11-28 2019-11-28 Emergency MDA MDA [id number] MD 15:42:39 15:42:39 Darius sierra 2019-11-28 2019-11-28 Outpatient EL SMAGLO, MDA MDA [id number] MD 13:08:56 15:10:00 ROMAN sierra 2019-11-28 2019-11-28 Outpatient EL SMAGLO, MDA MDA [id number] MD 00:00:00 00:00:00 ROMAN sierra 2019-09-12 2019-09-12 Outpatient EL SMAGLO, MDA MDA [id number] 12:33:29 13:25:52 ROMAN sierra 2019-09-12 2019-09-12 Outpatient EL MDA MDA [id number] MD 12:29:49 12:29:59 Darius sierra 2019-07-10 2019-07-10 Office Delia, [facility] [id number] 12:35:52 14:00:05 Visit Roman German [id number] Robert [id number] 2019-04-10 2019-04-10 Office Delia, [facility] [id number] 12:31:31 13:01:31 Visit Roman German [id number] Robert [id number] 2019-03-06 2019-03-[address] [facility] [id number] 13:07:53 14:48:22 Visit Roman German [id number] Robert [id number] [id number] 2019-02-13 2019-02-13 Office Jed [facility] [id number] 15:00:47 15:31:20 Visit Bhanu L [facility] [id number] [facility] [id number] [facility] [id number] [address] [place] 2019-02-06 2019-02-[address] [facility] [id number] 10:23:28 10:53:28 Visit Roman German [id number] Robert [id number] [id number] 2019-01-08 2019-01-08 Office NAINA Long [id number] 07:30:59 09:17:39 Visit Roman AMBULATOR [id number] Robert Y 0.2.7.2.686 [id number] Results Test Test Test Results Result Source Description Time Comments Comments CT Chest 2020-06- 1. Stable appearance of MD Farah Abdomen Pelvis 13 intrahepatic with and 12:50:37 cholangiocarcinoma and without metastatic liver lesions. Contrast Liver 2. Interval placement of a common bile duct stent extending into the left hepatic ducts with interval improvement of biliary ductal dilatation. I personally reviewed these image(s) along with the resident's/fellow's interpretations, certify that if a procedure was performed I was physically present, and agree with the final report.Interface, Radiology Results In - 06/17/2020 6:52 AM CSTFULL RESULT:Examination: CT CHEST ABDOMEN PELVIS W WO CONTRAST LIVER, 06/15/2020 3:18 PMClinical History: CholangiocarcinomaIndicatio n: cholangiocaricnoma restagingComparison: 04/06/2020Technique: CT of the abdomen was performed without intravenous contrast followed by CT of the chest, abdomen, and pelvis with intravenous contrast.Findings: Chest:Mediastinum: No supraclavicular, mediastinal or hilar lymphadenopathy.Heart and vessels: Right chest central venous catheter with tip in the distal SVC. No thoracic aortic aneurysm. No central pulmonary arterial filling defects. Normal cardiac size. No pericardial effusion.Lungs and pleura: Scattered subcentimeter subpleural pulmonary nodules are unchanged. No suspicious nodularity. No focal airspace consolidation.Chest wall and axilla: No axillary adenopathy.Abdomen and pelvis:Hepatobiliary: Central hepatic tumor extending to the liver hilum with invasion of the right hepatic ducts and common duct. Overall the primary tumor appears stable to slightly decreased in size measures 6.9 x 6.0 cm (series 7 image #264), previously 6.9 x 6.4 cm. There is been interval placement of a plastic bile duct stent extending into the left hepatic ducts. There is been interval decrease in ductal dilatation of the segments II, III, and IV bile ducts.Stable to slightly decreased size of metastatic lesions for example a segment V lesion measures 0.9 cm (series 17 image #241), previously 1.0 cm. A lesion in segment VIII measures 0.5 cm (series 17 image #228), previously 1.7 cm. Multiple cysts in the left hepatic lobe are unchanged. Cholelithiasis.Lymph nodes: Stable appearance of lymphadenopathy in the herlinda hepatis. For example, a portacaval lymph node measures 1.0 x 2.2 cm (series 17 image #263), previously 1.0 cm. A peripancreatic lymph node measures 1.0 x 2.2 cm (series 17 image #270), previously 1.0 cm. No new adenopathy in the abdomen, retroperitoneum or pelvis.Vessels: Patent IVC and splanchnic veins. No abdominal aortic aneurysm. Subcentimeter splenic cysts, unchanged. The pancreas and adrenal glands are normal. Symmetric contrast enhancement of the kidneys. Stable bilateral renal cortical cysts. No hydronephrosis.No bowel wall thickening or obstruction. No ascites. Physiologic appearance of the uterus and ovaries for age. No bladder wall thickening.No destructive osseous lesions.IMPRESSION:1. Stable appearance of intrahepatic cholangiocarcinoma and metastatic liver lesions. 2. Interval placement of a common bile duct stent extending into the left hepatic ducts with interval improvement of biliary ductal dilatation.I personally reviewed these image(s) along with the resident's/fellow's interpretations, certify that if a procedure was performed I was physically present, and agree with the final report. ENDOSCOPY NOTE 2020-05- Jas Baker MD [facility]agan RESULTS 08 MD - 05/12/2020 2:29 PM 20:29:22 CSTPatient Name: Mirian SinghGender: ManjinderMRN: [id number]: [id number] Date No Time: 05/12/2020Instrument Name: [id number] - [id number](s): JAS TURPIN MD, JF BETTENCOURT MD (Fellow)Procedure Name: ERCPScope In: 2:59:32 PMScope Out: 4:05:25 PMTotal Procedure Duration Time 1 hour 5 minutes 53 seconds Patient Profile: This is a 69 year old female with cholangiocarcinoma, history of biliary stents, now without any indwelling stents but recent history of intermittently elevated bilirubin.Indications: Abnormal liver function test, CholangiocarcinomaMedicatio ns: Total IV Anesthesia (TIVA), Indomethacin 100 mg NC, Levaquin 500 mg IV, CO2, 2L Lactated Ringers solution IVProcedure Description: Pre-Anesthesia Assessment: - Prior to the procedure, a History and Physical was performed, and patient medications and allergies were reviewed. The patient's tolerance of previous anesthesia was also reviewed. The risks and benefits of the procedure and the sedation options and risks were discussed with the patient. All questions were answered, and informed consent was obtained. Prior Anticoagulants: The patient has taken no previous anticoagulant or antiplatelet agents. ASA Grade Assessment: II - A patient with mild systemic disease. After reviewing the risks and benefits, the patient was deemed in satisfactory condition to undergo the procedure. - The patient was placed in the prone position on the fluoroscopy table. Informed consent was obtained. Throughout the procedure, the patient's blood pressure, pulse, and oxygen saturations were monitored continuously. The Olympus TJF-Q180V ([id number]) sideviewing duodenoscope was introduced through the mouth, and advanced to the duodenum and used to inject contrast into the bile duct. The ERCP was accomplished without difficulty. The patient tolerated the procedure well.Findings: The retail manager in training film was normal. A biliary sphincterotomy had been performed. The sphincterotomy appeared open. A 0.025 inch x 270 cm angled Visiglide wire was passed into the biliary tree. The 8.5 mm balloon was passed over the guidewire and the bile duct was then deeply cannulated. Contrast was injected. I personally interpreted the bile duct images. Ductal flow of contrast was adequate. Image quality was adequate. Contrast extended to the hepatic ducts. The common bile duct, common hepatic duct and left main hepatic duct contained filling defect(s) thought to be a stone and sludge. The biliary tree was swept numerous times with an 8.5 mm balloon starting at the bifurcation. Clots, sludge, mucus and small stones were removed. Numerous sweeps were made. There was no stricture noted. One 10 Fr by 7 cm Cook Solus double pigtail plastic stent was placed into the left hepatic duct. Bile flowed through the stent. The stent was in good position.Complications: No immediate complications.Estimated Blood Loss: Estimated blood loss was minimal.Post Procedure Diagnosis: - Prior biliary sphincterotomy appeared open. - Numerous balloon sweeps made to remove clots, mucus, sludge, and small stones - One 10 Fr by 7 cm Cook Solus double pigtail plastic stent was placed into the left hepatic duct.Recommendation: - Discharge patient to home. - Clear liquid diet today then advance as tolerated. - Continue present medications. - Observe patient's clinical course. - Repeat ERCP in 2-3 months to exchange stent. - Levaquin (levofloxacin) 500 mg PO daily for 3 days starting tomorrow, 05/13/2020. (Do not take ondansetron at the same time as levofloxacin). - Primary team (Dr. Long) to check CBC later this weekAttending Participation: I was present and participated during the entire procedure, including non-taylor portions.JAS TURPIN MD05/12/2020 4:32:10 PMThis report has been signed electronically.Number of Addenda: 0 POC Glucose Screen 2020-05-12 19:40:49 Test Item Value Reference Range Interpretation Comme nts POC Glucose (test code = 90 mg/dL 70-99 Cap illary blood samples, e.g. obtained 25857-6) by fingerstick, may have inaccurate results in max ents with decreased peripheral bloo d flow. Method description: Al l results are measured using Electroch emistry test methodology. Th e glucose in the sample mixes with the reagents on the test strip. The reac tion produces an electric curren t. The amount of current produce d is proportional to the glucose con centration in the blood. PO Sample Type (test code = Venous 9554) MD FarahFL ENDOSCOPY [id number] 18:36:07This procedure requires no interpretation from the radiologist.MD FarahMD COVID-19 (FAIZA-CoV-2) PCR [id number] 15:39:04 Test Item Value Reference Interpretation Comments Range COVID19 SARS Pre-Out of [place] Procedure Indication (test code = 73003) COVID19 SARS Result Not Detected Not Detected (test code = 19697-9) COVID19 SARS SARS-CoV-2 NOT Detected. Interpretation (test Reference Range: Not code = 71557) Detected Methodology: The [employer] RealTime SARS-CoV-2 assay is a qualitative real-time reverse relish blender polymerase chain reaction (manager investment banking-PCR) test to detect RNA from SARS-CoV-2 in nasal, nasopharyngeal and oropharyngeal swabs from patients with signs and symptoms of infection who are suspected of COVID-19 by their health care provider. The [employer] RealTime SARS-CoV-2 performed on the Babelverse000 System is a dual target assay with primers and probes for the RdRp and N genes. Results must be interpreted within the context of all relevant clinical and laboratory findings, and epidemiological risk factors. Positive results are indicative of the presence of SARS-CoV-2 RNA; clinical correlation with patient history and other diagnostic information is necessary to determine patient infection status. Positive results do not rule out bacterial infection or co-infection with other viruses. Negative results do not preclude SARS-CoV-2 infection and should not be used as the sole basis for patient management decisions. The [employer] RealTime SARS-CoV-2 assay is for in vitro diagnostic use under FDA Emergency Use Authorization only. Testing is limited to laboratories certified under the Clinical Laboratory Improvement Amendments of 1988 (CLIA), 42U.S.C. 263a, to perform high complexity tests. The Test was performed by the CLIA-certified, high-complexity Molecular Diagnostics Laboratory (MDL) at [facility] under the Food and Drug Administration (FDA) s Emergency Use Authorization. Factsheet for patients: https://www.[facility].org/ AbbottFactSheetPatientsFact sheet for healthcare providers: https://www.[facility].org/ AbbottFactSheetHCP Test performed by:[facility] [id number] [place] [address] MD FarahCT CAP W [id number] 16:12:23 Progression in the primary tumor centered over segment 4 and 5 extending to the hilum of the liver.New nodules in segment 8 may represent early metastases. Intrahepatic biliary dilation with exclusion of all segmental ducts and evidence of an intraductal component in the right hepatic duct and the common hepatic duct. Bile duct to segment 3 and 2 merge to form the left hepatic duct. The degree of dilation in the left liver is decreased when compared to November. I personally reviewed these image(s) along with the resident's/fellow's interpretations, certify that if a procedure was performed I was physically present, and agree with the final report.Interface, Radiology Results In - 02/06/2020 11:14 AM CDTFULL RESULT:Examination: CT CHEST ABDOMEN PELVIS W CONTRAST, 02/05/2020 2:13 PMClinical History: 69-year-old female with history of choriocarcinoma diagnosed on 09/13/2019CEA 19-9 of 44 on 02/05/2020, 877 on 01/24/2020, 134 on 12/27/2019Indication: restagingComparison: CT of the chest, abdomen, and pelvis, 11/28/2019, 10/02/2019, 01/31/2019,Technique: CT of the chest, abdomen, pelvis was performed with intravenous contrast.Findings: CT CHEST:A subpleural nodule measuring 0.5 cm in the right upper lobe, series 16 image 74 is stable from previous exams, indeterminate but likely benign. A subpleural nodule in the left lower lobe measuring 0.4 cm, series 16 image 100 is stable. There are scattered areas of atelectasis. There is biapical scarring. No suspicious lung nodule or mass. No pleural effusions.No significant mediastinal, axillary, or hilar lymphadenopathy. The tip of the right internal jugular chest port projects in the distal SVC.CT ABDOMEN/PELVIS:When compared to November 27 there is progression inthe primary tumor involving segment 4 and segment 5. The AP diameter of the tumor in segment 5 is 5.4 cm compared to 4.5 cm. Thyroid nodule bridging segment 4 and segment 5 measures 3.1 cm compared to 2.1 cm, image 65 series 9This tumor is infiltrating the hilum of the liver with obstruction of the hilar bifurcation. The obstruction affects segmental ducts with exclusion of anterior and posterior sector of the right liver. Segment 4 is replaced by tumor. Segment 2 and segment 3 bile ducts are withinnormal range. Surprisingly the degree of biliary dilation in the lateral liver is decreased when compared to November.There is also an intraductal component there is tumor within the right hepatic duct probably an extension from tumor in the bile duct to segment 5. This tumor thrombus fills in the common hepatic duct. It is best seen on the coronal images, the tumor thrombus is marked on series 5 and on the delayed images. This is similar to what was seen on the prior CTs dating back to September.There are cyst in the lateral left liver. There is a satellite nodule in segment 5, image 8 7 series 9 which appears to be new when compared to November there may be a small hemangioma also in segment 5, image 92 series 9. A couple of small nodule in segment 8, image 30 series 9 is not seen previously and could be early metastases.Hepatic, portal, and splenic veins are patent.Periportal, portacaval, celiac axis lymph nodes are stable. A portacaval lymph node measures 3 x 1.2 cm, series 9 image 63 which is relatively unchanged when measured in a similar manner previously. Some stranding surrounding the celiac axisis again noted. There are subcentimeter periaortic and pericaval lymph nodes which are stable.The previous stranding adjacent to the liver has decreased. Previous pelvic free fluid has decreased.Gallbladder is packed with stones. No CT findings of cholecystitis. No significant extrahepatic bile duct dilatation.A subcentimeter hypodensity in the spleen, series 14 image 361 is stable. Pancreas appears unremarkable. Bilateral adrenal gland nodularity/hyperplasia is stable. Kidneys are normal.There is colonic diverticulosis without findings of diverticulitis. Otherwise small bowel and colon appear unremarkable.No significant ascites in the abdomen and pelvis. Aorta and IVC are normal in caliber.Uterusappears unremarkable. No suspicious adnexal masses. Bladder is unremarkable. No suspicious osseous lytic or blastic lesions.IMPRESSION:Progression in the primary tumor centered over segment 4 and 5 extending to the hilum of the liver. New nodules in segment 8 may represent early metastases.Intrahepatic biliary dilation with exclusion of all segmental ducts and evidence of an intraductal component in the right hepatic duct and the common hepatic duct. Bile duct to segment 3 and 2 merge to form the left hepatic duct. The degree of dilation in the left liver is decreased when compared to November.I personally reviewed these image(s) along with the resident's/fellow's interpretations, certify that if a procedure was performed I was physically present, and agree with the final report.MD FarahBlood [id number] 00:09:55 Test Item Value Reference Range Interpretation Comments Final Report (test No growth code = 8488) Path Review - Immunity and antibiotic Bottle/Isolator use may render culture (test code = 8499) negative. Ongoing infection requires repeat culture.The results have been reviewed and electronically signed by Pathologist:EVONNE LEDESMA MD #[id number] MD FarahUrine [id number] 21:42:55 Test Item Value Reference Range Interpretation Comments Final Report (test code <10,000 cfu/ml Gram A = 8488) Negative Rods...<10,000 cfu/ml Normal site kathya present. Path Review - Urine The results have been A (test code = 8483) reviewed and electronically signed by Pathologist:Holly Leiva MD, PhD #[id number] Lab Interpretation Abnormal (test code = 79815-2) MD FarahMjfmwthrAldrjxvvzt8372-72-42 14:47:57 Test Item Value Reference Range Interpretation Comments Hgb (test code = 718-7) 10.5 12.0- 16.0 gm/dL L Lab Interpretation (test code = Abnormal 56410-1) MD FarahLactic Acid, [id number] 08:36:00 Test Item Value Reference Range Interpretation Comments V Lactate (test code = 2519-7) 0.8 mmol/L 0.5-1.6 MD FarahCalcium Ionized, [id number] 08:35:37 Test Item Value Reference Range Interpretation Comments V Ion Ca (test code = 07987-7) 1.20 mmol/L 1.15-1.29 MD FarahXR Chest 1 View [id number] 01:44:17New right lower lobe airspace disease is suspicious for pneumonia or aspiration. Interface, Radiolog y Results In - 11/29/2019 8:46 PM CDTFULL RESULT:Examination: Portable Chest, 1 view, 11/29/2019 8:36 PMClinical History: CholangiocarcinomaIndication: FeverComparison: 11/28/2019Technique: Single portable anteroposterior radiograph of the chest.Findings:The right central line terminates in the SVC. No pneumothorax. New right lower lobe airspace disease is suspicious for pneumonia or aspiration. The heart size is normal. IMPRESSION:New right lower lobe airspace disease is suspicious for pneumonia or aspiration.MD FarahCOVID-19 (SARS-CoV-2) PCR-Asymptomatic [id number] 16:53:12 Test Item Value Reference Range Interpretation Comments COVID19 (SARS Not Detected Not Detected This test is a CoV-2) Result qualitative (test code = reverse-transcr iptase 17275) polymerase claudia n reaction (RT-PC R) developed for t he [employer] 0 system and inte nded for the detecti on of SARS CoV-2 RNA in human nasophary ngeal specimens from patients who me et COVID-19 clinic al and/or epidemiological criteria. This assay has been approv ed by the FDA for use only under Emergency Use Authorization ( EUA) in laboratories that have been CLIA-certified to perform moderate-comple xity and high-comple xity tests. The performance characteristics of this assay were verified by the Microbiology Laboratory at [facility] [place]. Results must be interpreted within the context of all relevant clinic al and laboratory find ings and should not form the sole basis for a diagnosis or treatment decision.Ballroom Dancer al controls are in cluded to assess for possible amplification inhibitors. If inhibition is detected, testi ng is repeated and if inhibition is confirmed the specimen is res ulted as "Invalid". "Inconclusive" results are due to partial amplifi cation of SARS-CoV-2 targets. When t his occurs, results are confirmed by re peat testing before issuing an "Inconclusive" result. When a n "Invalid" or "Inconclusive" results occur, it is recommended to wait a minimum of 3 da ys before submitti ng a new specimen fo r testing if clin ically indicated. COVID19 SARS WARPING MACHINE OPERATOR Swab Source (test code = 79869) COVID19 SARS Inpatient Indication (test Admission code = 93124) MD FarahHemoglobin [id number] 09:44:53 Test Item Value Reference Range Interpretation Comments A1C (test code = 4632) 7.2 % 4.3-5.6 H HbA1c values >=6.5% are diagnostic of diabetes mellitus.Diagno sis should be confi rmed by repeat testing.Therape utic Action suggeste d: >8.0% HbA1c; Go al oftherapy: <7.0 % HbA1c Lab Interpretation (test Abnormal code = 10443-6) MD FarahGeneral Laboratory Add-On [id number] 09:23:47 Test Item Value Reference Range Interpretation Comments Ordered (test code = 6568) Test Added Test Needed (test code = 7604) HA1c MD FarahTwztytpnUbaeegivkq1953-25-93 02:46:42 Test Item Value Reference Range Interpretation Comments Osmolality (test code = 283 289- 308 mOsm/kg L Units in mOsm per 2692-2) kg of water. Lab Interpretation (test Abnormal code = 74713-3) MD FarahOsmolality [id number] 00:57:50 Test Item Value Reference Range Interpretation Comments U Osmolality (test code 422 500- 850 mOsm/kg L Units in mOsm per = 2695-5) H2O Kg of water. Lab Interpretation (test Abnormal code = 45203-4) MD FarahFree [id number] 00:56:54 Test Item Value Reference Range Interpretation Comments T4 Free (test code = 7502) 1.10 ng/dL 0.93-1.7 MD FarahMrsaiompJVP6714-64-46 00:56:53 Test Item Value Reference Range Interpretation Comments TSH (test code = 7578) 1.73 0.27- 4.20 mcunit/mL MD FarahUrea Nitrogen [id number] 00:37:07 Test Item Value Reference Range Interpretation Comments U Urea (test code = 298 mg/dL Normal r song not 7820) available for c ollections less than 24 ho urs in duration. MD FarahChloride [id number] 00:37:06 Test Item Value Reference Range Interpretation Comments U Chloride (test code = 85 mEq/L Norm al range not 7709) available for c ollections less than 24 ho urs in duration. MD FarahCreatinine [id number] 00:37:05 Test Item Value Reference Range Interpretation Comments U Creatinine (test code 27.6 mg/dL 29-226 L The reference range = 7725) listed is for f irst morning urine collection. Lab Interpretation (test Abnormal code = 63390-4) MD FarahPotassium [id number] 00:37:04 Test Item Value Reference Range Interpretation Comments U Potassium (test code 24 mEq/L Chrissy l range not = 7802) available for c ollections less than 24 ho urs in duration. MD FarahSodium [id number] 00:37:03 Test Item Value Reference Range Interpretation Comments U Sodium (test code = 85 mEq/L Normal range not available 7809) for collections less than 24 hours in [facility]. MD FarahUrinalysis with [id number] 00:18:25 Test Item Value Reference Range Interpretation Comments UA WBC (test code = NOT SEEN 0- 2 /HPF 7904) UA RBC (test code = 12 0- 2 /HPF H 7891) UA Mucous (test code = NOT SEEN TRACE /HPF 7887) UA Bacteria (test code NOT SEEN NOT SEEN /HPF = 7870) UA Squam Epi (test NOT SEEN OCC /HPF code = 7896) HERMILO (test code = HERMILO) Some reporting parameters within the Urinalysis test have changed due to the implementation of new instrumentation in the [facility], allowing greater sensitivity of measurement. Urinalysis results reported by the [facility] using existing instrumentation, as well as Urinalysis testing performed manually or by backup methodology at the [facility] will remain relatively unchanged. New reporting parameters and units will now be reported for all campuses. Lab Interpretation Abnormal (test code = 84218-2) MD FarahUrinalysis w/Microscopic if [id number] 00:15:44 Test Item Value Reference Range Interpretation Comments UA Color (test code = 7877) Straw Yellow UA Appear (test code = 7868) Clear Clear UA Glucose (test code = 7881) 150 mg/dL NEG A UA Bili (test code = 7871) NEG NEG UA Ketones (test code = 7884) NEG NEG mg/dL UA Spec Grav (test code = 7894) 1.041 1.002-1.035 H UA Blood (test code = 7872) Moderate NEG A UA pH (test code = 7909) 6.0 4.5-8.0 UA Protein (test code = 7890) 30 mg/dL NEG A UA Urobilinogen (test code = 7903) NEG NEG UA Nitrite (test code = 7888) NEG NEG UA Leuk Est (test code = 7886) NEG NEG Lab Interpretation (test code = Abnormal 33029-0) MD FarahCT Abdomen Pelvis with IV [id number] 21:52:52Addendum by Chip Arambula MD on 12/04/2019 7:22 AMTechnique: CT axial images of the abdomen and pelvis with IV contrast.1. No significant change in large central hepatic mass causing bilateral intrahepatic biliary obstruction.2. Nonobstructing gallstones.3. New small fat stranding adjacent to the liver and free fluid in the pelvis may be related to hepatic capsular rupture from the tumor.Interface, Radiology Results In - 11/28/2019 4:54 PM CDTFULL RESULT:Examination: CT ABDOMEN PELVIS W CONTRAST,11/28/2019 4:27 PMClinical History: CholangiocarcinomaIndication: right sided abdominal painComparison: CT from 10/02/2019, CT from 07/05/2019, .Technique: Axial images with IV contrast.Findings: Hepatobiliary: Large hepatic mass involving the common bile duct measuring 5.2 x 7.3 cm image 77 series 3 is not significantly changed. Bilateral intrahepatic biliary dilation is seen again. Nonobstructingstones in the gallbladder seen again image 69 series 3. No significant gallbladder wall thickening.Small free fluid in the pelvis is new image 142 series 3. There is also some new mild fat stranding adjacent to the liver image 52 series 3.Gastrointestinal: Small hiatal hernia. Appendix not visualized. No evidence of bowel obstruction.Genitourinary: Small left renal cyst image 48 series 3. Adrenals are unremarkable. Uterus, ovaries, urinary bladder are unremarkable. No hydronephrosis. Lymphatics: There is a portacaval node measuring 1.3 x 2.4 cm image 71 series 3.Vascular: Unremarkable.MSK: Degenerative changes in the lower lumbar spine.. IMPRESSION:1. No significant change in large central hepatic mass causing bilateral intrahepatic biliary obstruction.2. Nonobstructing gallstones.3. New small fat stranding adjacent to the liver and free fluid in the pelvis may be related to hepatic capsularrupture from the tumor.MD Farah CT Chest Pulmonary Embolism with [id number] 21:46:18 1. No evidence of pulmonary embolism. No definitive pulmonary metastatic disease. 2. Lower paraesophageal lymph nodes in the retrosternal nodule/node appear progressive. Limited upper abdominal visualization also suggests progressive hepatic/peritoneal metastatic disease. A dedicated dedicated CT of the abdomen and pelvis has been performed and will be separately reported. Interface, Radiology Results In - 11/28/2019 4:48 PM CDTFULL RESULT:Examination: CT CHEST PULMONARY EMBOLISM W CONTRAST, 11/28/2019 4:27 PMClinical History: CholangiocarcinomaIndication: Chest pain, pleuritic, Active cancer treatment or palliation, Pulmonary embolism is leading diagnosis, COVID-19 Not Suspected, pleuritic chest painComparison: 10/02/2019Technique: Spiral CT of the chest is performed using intravenous contrast.Findings: Satisfactory opacification the pulmonary arterial vasculature. No evidence of pulmonary embolism. Normal cardiac size. No evidence of cardiac strain. No effusions. Central venous access catheter terminates in superior vena cava.Mildly expiratory imaging. No central endobronchial obstruction.Stable bilateral apical scarring changes. Bibasilar subpleural atelectatic changes with new plate atelectasis in the anterior basilar segment of the left lower lobe (images 77-83). Subpleural 4-5 mm middle lobe nodule (image 73) unchanged from 10/05/2018 earliest available study remains indeterminate but is favored inflammatory.No supraclavicular or axillary adenopathy. There is a progressive retrosternal nodule (11 x 5 mm, previously 9 x 3 mm) and progressive distal left periesophageal lymph nodes just superior to moderate hiatus hernia are present, currently maximally measuring 14 mm in short axis, previously 10 mm. Persistent subcentimeter distal left para-aortic and retrocrural lymph nodes.Limited upper abdominal images are too early in phase to evaluate the liver although metastatic disease is appreciated with apparent progressive stranding of the anterior perihepatic peritoneum which may indicate peritoneal disease. Stable left renal cyst and adrenal nodules. No aggressive osseous lesion.IMPRESSION:1. No evidence of pulmonary embolism. No definitive pulmonary metastatic disease.2. Lower paraesophageal lymph nodes in the retrosternal nodule/node appear progressive. Limited upper abdominal visualization also suggests progressive hepatic/peritoneal metastatic disease. A dedicated dedicatedCT of the abdomen and pelvis has been performed and will be separately reported.MD [facility]ST[facility] [id number] 15:19:35For comparison only. No interpretation requested.MD AndersonCT Chest Abdomen Pelvis with and without [id number] 22:36:47Addendum by Marsha Cash MD on 10/03/2019 7:14 PMAddendum: Comparison is made to outside study of 07/05/2019. The prominent paraesophageal lymph node is slightly increased and remains indeterminant. Subcentimeter lung nodules are not significantly changed. Dominant mass or confluent mass lesionsin the right and left liver around the gallbladder fossa are less well seen on the prior examination, likely due to differences in contrast timing. Allowing for differences in techniques, there is probably not significant change in most of the disease. Several areas are possibly increased. Example on image 167 of series 5 measures 2.3 x 2.1 cm and previously measured approximately 1.4 x 1.2 cm. The innumerable enhancing hepatic foci were not well seen on the prior study. This could be differences in contrast timing or interval development of lesions. These are too small to characterize and they should be followed. Other subcentimeter hepatic hypodensities are too small to characterize. These were not definitely identified on the prior examination. This could be due to differences in technique or interval development of lesions. They should be followed to exclude metastatic disease. Disease in the common hepatic duct and a right hepatic duct is increased. The moderate biliary ductal dilatation distal to this is increased and new. Thickening along the lateral aspect of the gallbladder wall is stable. Periportal lymphadenopathy is not much changed. Subcentimeter but prominent retroperitoneal lymph nodes are not much changed, allowing for technical differences. 1. Dominant mass or confluent masses in the right and left liver could be primary or metastatic disease. 2. Disease involving the common hepatic and a right hepatic duct could be metastatic or primary disease and causes moderate biliary dilatation. 3. Slight wall thickening along the gallbladder wall raises the possibility of primary lesion or contiguous spread of disease. 4. Subcentimeter hepatic lesions are too small to characterize but at least some raise concern for tiny metastases. 5. Periportal lymphadenopathy. Some other small indeterminant lymph nodes can be followed. 6. Subcentimeter lung nodules are too small to characterize and can be followed. Interface, Radiology Results In - 10/02/2019 5:38 PM CDTFULL RESULT:Examination: CT CHEST ABDOMEN PELVIS W WO CONTRAST, 10/02/2019 3:42 PMClinical History: CholangiocarcinomaIndication: assess status of cholangio, metastatic to liver. Patient will provide outside CD with priorimaging for comparisonComparison: NoneTechnique: CT of the abdomen was performed without intravenouscontrast followed by CT of the chest, abdomen, and pelvis with intravenous contrast.Findings: Slightly prominent paraesophageal lymph node measures 1.3 x 0.8 cm and is indeterminant. No enlarged thoracic lymph nodes are noted. There are no pleural effusions. Right central venous catheter tip is at thesuperior vena cava.Subcentimeter lung nodules are too small to characterize and can be followed. Example in the right upper lobe measures 0.4 cm on image 59 of series 11. Densities posteriorly are likely atelectasis but can be correlated clinically for infection or inflammation. Calcified granuloma isnoted on the left.Degenerative bony changes are noted.Dominant mass or confluent mass lesions in theright and left liver surrounding the gallbladder fossa could be primary or metastatic disease. Conflu ent area on image 181 of series 5 measures 8.5 x 5.3 cm. Innumerable punctate subcentimeter enhancing hepatic foci are too small to characterize. Many are possibly vascular. Others should be followed to exclude metastases. Example is on image 11 of series 5. Additional subcentimeter hepatic hypodensities are too small to characterize but are of concern for small metastases. Example in the right livermeasures 0.7 cm on image 131 of series 5. Disease in the common hepatic duct and involving a right hepatic duct could be primary or metastatic. There is moderate biliary dilatation distal to this disease. Mild thickening along the lateral aspect of the gallbladder wall also raises the possibility of primary or contiguous spread of disease. There is cholelithiasis.Spleen is not enlarged. Subcentimetersplenic hypodensity is too small to characterize. Adrenals are nodular, prominent and nonspecific. Pancreas shows no focal lesion. Left renal cyst is noted. Other subcentimeter renal hypodensities are too small to characterize but are possibly cysts.Hiatal hernia is noted. There is periportal lymphadenopathy. Lymph node on image 162 of series 5 measures 1.7 x 1.6 cm. Subcentimeter retroperitoneal lymph nodes are nonspecific by size criteria. A few are slightly prominent and indeterminant. Left para-aortic lymph node on image 175 of series 5 measures 0.8 x 0.6 cm. There are no enlarged pelvic lymph nodes.Intraperitoneal fluid is small. Uterus and ovaries are identified. Umbilical hernia contains fat.IMPRESSION:1. Dominant mass or confluent masses in the right and left liver could be primary or metastatic disease.2. Disease involving the common hepatic and a right hepatic duct could be metastatic or primary disease and causes moderate biliary dilatation.3. Slight wall thickening along the gallbladder wall raises the possibility of primary lesion or contiguous spread of disease.4. Subcentimeter hepatic lesions are too small to characterize but at least some raise concern for tiny metastases.5. Periportal lymphadenopathy. Some other small indeterminant lymph nodes can be followed.6. Subcentimeter lung nodules are too small to characterize and can be followed.MD FarahCT, CHEST, WITH IV CONTRAST 2019-07-05 16:53:00FINAL REPORT CT of the chest, abdomen and [...] 2018 Discussion: There is a right-sided Port-A-Cath. Visualizedthyroid gland is normal. No supraclavicular, axillary, mediastinal [...] Grossly stable herlinda hepatis lymph nodes. No newdisease identified in the thorax. Cholelithiasis. Colonic diverticulosis. Signed: Travis Roblesort Verified Date/Time: 07/05/2019 16:53:41 Reading Location: [facility] C013X Ortho Consult Reading Room CT, ABDOMEN 2019-07-05 16:53:00FINAL REPORT CT of the chest, abdomen and [...] 2018 Discussion: There is a right-sided Port-A-Cath. Visualizedthyroid gland is normal. No supraclavicular, axillary, mediastinal [...] Grossly stable herlinda hepatis lymph nodes. No newdisease identified in the thorax. Cholelithiasis. Colonic diverticulosis. Signed: Travis Robleseport Verified Date/Time: 07/05/2019 16:53:41 Reading Location: [address] Ortho Consult Reading Room CT Chest with IV [id number] 16:53:00Interface, External Ris In - 07/05/2019 4:[address] of the chest, abdomen and pelvis, with contrast Clinical History: Cholangiocarcinoma Technique: CT of the chest, abdomen and pelvis is performed with intravenous contrast administration. This exam was performed according to our departmental dose optimization program which includes automated exposure control,adjustment of the mA and/or kV according to [...] 4 of liver has also become gradually larger,measuring approximately 8 x 4.9 cm on the [...] bladder, uterus and adnexa are unremarkable. There areenlarged herlinda hepatis lymph nodes, without interval change. A slightly prominent right common iliaclymph node is also unchanged. No new adenopathy [...] MDReport Verified Date/Time: 07/05/2019 16:53:41 Reading Location: [place] [id number] Ortho Consult Reading Room Electronically signed by: TRAVIS ROBLES M.D. on07/05/2019 04:53 [facility] [id number] 16:53:00Interface, External Ris In - 07/05/2019 4:[address] of the chest, abdomen and pelvis, with contrast Clinical History: Cholangiocarcinoma Technique: CT of the chest, abdomen and pelvis is performed with intravenous contrast administration. This exam was performed according to our departmental dose optimization program which includes automated exposure control,adjustment of the mA and/or kV according to [...] 4 of liver has also become gradually larger,measuring approximately 8 x 4.9 cm on the [...] bladder, uterus and adnexa are unremarkable. There areenlarged herlinda hepatis lymph nodes, without interval change. A slightly prominent right common iliaclymph node is also unchanged. No new adenopathy [...] Robles Verified Date/Time: 07/05/2019 16:53:41 Reading Location: [facility] C013X [facility] Consult Reading Room Electronically signed by: TRAVIS ROBLES M.D. 07/05/2019 04:53 [facility]-[id number] 11:08:00 Test Item Value Reference Range Interpretation Comments POC-Creatinine (test 1.2 mg/dL 0.6-1.[address] [facility] 7200 code = 1859) [place] BLDG A [facility] 7703 0 POC-EGFR (test code 45 mL/min/1.73M2 = 1860) [id number] 11:08:00 Test Item Value Reference Range Interpretation Comments POC-CREATININE 1.2 mg/dL 0.6-1.3 TESTED AT [facility] 7200 (BEAKER) ([facility] 7703 0 POC-EGFR 45 mL/min/1.73M2 (BEAKER) (test code = 1860) CT, [id number] 16:05:00Reassess cholangiocarcinomaReason for Exam:->CholangiocarcinomaFINAL REPORT CT of the chest, abdomen and [...] and adnexa are unremarkable. A few mildly enla rged herlinda hepatis lymph nodes are without interval [...] MDReport Verified Date/Time: 04/05/2019 16:05:11 Reading Location: [facility] C0X Ortho Consult Reading Room CT, CHEST, WITH IV [id number] 16:05:00Reason for Exam:->c22.1, c78.7FINAL REPORT CT of the chest, abdomen and pelvis, with contrast Clinical History: Cholangiocarcinoma Technique: CT of the chest, abdomen and pelvis is performed with intravenous contrast administration. This exam was performed according to our departmental dose optimization program which includes automated exposure control, adjustment of the mA and/or kV according to patient' s size and/or use of iterative reconstructive technique. Comparison Film: January 31, 2019 and October 05, 2018 Discussion: There is a right-sided Port-A-Cath. Visualized thyroid gland is normal. No supraclavicular, axillary, internal mammary, mediastinal or hilar lymphadenopathy. Heart and pericardium are unremarkable. A 3 mm subpleural nodule in the right upper lobe (image 58) is stable. A 4 mm nodule in the right middle lobe is also stable. No new nodules or mass. Central airways are patent, no bronchiectasis, or bronchial wall thickening. A few small cysts in liver are stable. In the right lobe, a lo bulated and heterogeneously enhancing mass measuring 5.8 x [...] adenopathy. No ascites. Osseous structures demonstrate degenerative rodriguez es. 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 No suspicious bony lesion is identified. Impression: Grossly stable mass in the right hepatic lobe. Stable prominent herlinda hepatis and right common iliac lymphnodes. No new disease identified in the chest, abdomen or pelvis. Cholelithiasis. Signed: Travis Robles Verified Date/Time: 04/05/2019 16:05:11 Reading Location: [place] [id number] Ortho Consult Reading Room [id number] 11:08:00 Test Item Value Reference Range Interpretation Comments POC-CREATININE 1.0 mg/dL 0.6-1.3 TESTED AT [facility] 7200 ([facility]) (test EM[facility] BLD G A code = 1859) [facility] 7703 0 POC-EGFR 55 mL/min/1.73M2 ([facility]) (test code = 1860) CT, [id number] 13:55:00FINAL REPORT CT of the abdomen with [...] Robleseport Verified Date/Time: 01/31/2019 13:55:28 Reading Location: [place] [id number] Ortho Consult Reading Room CT, CHEST, WITH IV [id number] 13:55:00FINAL REPORT CT of the abdomen with [...] thyroid gland is unremarkable. There is a right- sided Port-A-Cath. No supraclavicular, axillary, mediastinal, or hilar lymphadenopathy. Heart is normal in size, no pericardial effusion. There is a small hiatal hernia. A few tiny pulmonary nodules are unchanged. No new mass or consolidation, no pleural effusion. Central airways are patent. In the inferior right lobe, again seen is a heterogeneously enhancing mass, that measures appro ximately 6 x 4.7 cm axially, without significant [...] pelvis. Signed: Travis Robles MDReport Verified Date/Time: 01/31/2019 13:55:28 Reading Location: [address] Ortho Consult Reading Room POCT-CREATININE 2019-01-31 10:51:00 Test Item Value Reference Range Interpretation Comments POC-CREATININE 1.1 mg/dL 0.6-1.3 TESTED AT [facility] 7200 ([facility]) (test MEMA D G A code = 1859) [facility] 7703 0 POC-EGFR 50 mL/min/1.73M2 ([facility]) (test code = 1860) CT, ABDOMEN, WITH IV [id number] 18:22:00Reason for Exam:->cholangiocarcinomaFINAL REPORT EXAMINATION: CT of the chest, abdomen [...] ill-defined 1.2 cm hypodensity with associated capsular ret raction in segment BERNARDA (venous image 55).*Slight interval [...] cm hypodense lesion in the anterior spleen (v enous image 47), which measured approximately 1.[address] dated July 02, 2018 PANCREAS: No focalmasses or ductal dilatation. ADRENALS: No adrenal nodules. KIDNEYS/URETERS: No hydronephrosis, stones, or solid mass lesions. PELVIC ORGANS/BLADDER: Bladder is unremarkable. No focal lesions or wall thi ckening. PERITONEUM/RETROPERITONEUM: No free air or fluid. LYMPH [...] to represent metastatic disease. Signed: Raudel Calix Verified Date/Time: 12/04/2018 18:22:25 Reading Location: [facility] Room [address] [place] [address] CT, PELVIS, WITH IV [id number] 18:22:00FINAL REPORT EXAMINATION: CT of the chest, abdomen and pelvis with contrast. TECHNIQUE: Spiral CT images of the chest, abdomen and pelvis were performed from the lung apices to the lesser trochanters after the intravenous administration of 100 cc of Isovue 300 and the oral administration of water. Coronal and sagittal reformatted images were obtained. COMPARISON: CT chest, a bdomen and pelvis October 05, 2018 and July [...] is normal. The heart and pericardium are w ithin normal limits. Aorta is nonaneurysmal. Main pulmonary [...] small to characterize but likely represent small c ysts.*Stable 1.2 x 0.9 cm low attenuating lesion [...] MDReport Verified Date/Time: 12/04/2018 18:22:25 Reading Location: [facility] Room [address] [place] [address] CT, CHEST, WITH IV [id number] 18:22:00FINAL REPORT EXAMINATION: CT of the chest, [...] and July 02, 2018 CLINICAL HISTORY: Cholangiocarcinoma DISCUSSIO N: CHEST: LINES/TUBES: Stable right upper chest Port-A-Cath, [...] small to characterize but likely represent small c ysts.*Stable 1.2 x 0.9 cm low attenuating lesion [...] MDReport Verified Date/Time: 12/04/2018 18:22:25 Reading Location: [facility] Reading Room [address] [place] [address] -[id number] 12:59:00 Test Item Value Reference Range Interpretation Comments POC-CREATININE 1.3 mg/dL 0.6-1.3 TESTED AT [facility] 7200 ([facility]) (test [facility] BLD G A code = 1859) [facility] 7703 0 POC-EGFR 41 mL/min/1.73M2 ([facility]) (test code = 1860) CT, [id number] 16:38:00FINAL REPORT CT chest, abdomen and pelvis [...] limits set by the Radiation Protocol Committee ( RPC). Dose reduction techniques used: Automated exposure control, adjustment of the mAs and/or kVp according to patient size, standardized low-dose [...] Right Lung: Stable apical pleural-parenchymal thickening. A rectangle- shaped noncalcified nodule in the anterior upper lobe [...] artery lymph node measures1.2 x 1.8 cm (series 1, image 84). Previously, this measured 1.3 [...] right common iliac artery lymph node. 3. Je junal thickening is no longer visualized. 4. Stable pulmonary nodules. No new findings to suggest intrathoracic metastases. Signed: Josh Fontana MDReport Verified Date/Time: 10/10/2018 16:38:32 CT, CHEST, WITH IV CONTRAST 2018-10-10 16:38:00FINAL REPORT CT chest, abdomen and pelvis [...] and/or kVp according to patient size, standardized low-dose [...] Right Lung: Stable apical pleural-parenchymal thickening. A rectangle- shaped noncalcified nodule in the anterior upper lobe [...] artery lymph node measures1.2 x 1.8 cm (series 1, image 84). Previously, this measured 1.3 [...] right common iliac artery lymph node. 3. Je junal thickening is no longer visualized. 4. Stable pulmonary nodules. No new findings to suggest intrathoracic metastases. Signed: Josh Fontana MDReport Verified Date/Time: 10/10/2018 16:38:32 [id number] 11:29:00 Test Item Value Reference Range Interpretation Comments POC-CREATININE 1.2 mg/dL 0.6-1.3 TESTED AT [facility] 7200 ([facility]) (test [facility] G A code = 1859) [facility] 7703 0 POC-EGFR 45 mL/min/1.73M2 ([facility]) (test code = 1860) CT, CHEST, WITH IV [id number] 18:26:00FINAL REPORT INDICATION:Cancer of upper GI origin, on treatment. COMPARISON: N ov2017 [facility] chest abdomen pelvis CT (report not available).October 08, 2017 [facility] abdomen pelvis CT. TECHNIQUE: CT of the Chest WITH intravenous contrast.CT of the Abdomen WITHOUT and WITH intravenous contrast. CT of the Pelvis WITH intravenous contrast.Enteric contrast wasused. The exam was performed according to our department dose- optimization protocol, which includes automated exposure control, adjustments of mA and kV according to patient size. Iterative reconstructions are also sometimes employed. FINDINGS: THORAX: There is no supraclavicular, mediastinal, or hilar lymphadenopathy. Right middle lobe subpleural 3 mm nodule is again noted. Central airways are clear. No pleural effusion or suspicious pleural nodularity is demonstrated. Heart, pericardium, thyroid gland, and esophagus are unremarkable. Right chest port terminates in the low SVC. ABDOMEN and PELVIS: Again demonstrated at the tip of the liver [...] No evidence of thoracic metastatic disease. Signed: Oanh Lo MDReport Verified Date/Time: 07/04/2018 18 :26:12 Reading Location: [facility] C0[facility] CT Body Reading Room CT, ABDOMEN, WITHOUT / WITH IV [id number] 18:26:00FINAL REPORT INDICATION:Cancer of upper GI origin, on treatment. COMPARISON: May 03, 2018 [facility] chest abdomen pelvis CT (report not available).October 08, 2017 [facility] abdomen pelvis CT. TECHNIQUE: CT of the Chest WITH intravenous contrast.CT of the Abdomen WITHOUT and WITH intravenous contrast. CT of the Pelvis WITH intravenous contrast.Enteric contrast wasused. The exam was performed according to our department dose-optimization protocol, which includes automated exposure control, adjustments of mA and kV according to patient size. Iterative reconstructions are also sometimes employed. FINDINGS: THORAX: There is no supraclavicular, mediastinal, or [...] from 2.0 x 1.7 cm. A few none nlarged enhancing paraduodenal lymph nodes are again noted. [...] No evidence of thoracic metastatic disease. Signed: Wally Oanh MDReport Verified Date/Time: 07/04/2018 18:26:12 Reading Location: [facility] B1 C013Y CT Body Reading Room CT, PELVIS, WITH IV [id number] 18:26:00FINAL REPORT INDICATION:Cancer of upper GI origin, on treatment. COMPARISON: N ov2017 [facility] chest abdomen pelvis CT (report not available).October 08, 2017 [facility] abdomen pelvis CT. TECHNIQUE: CT of the Chest WITH intravenous contrast.CT of the Abdomen WITHOUT and WITH intravenous contrast. CT of the Pelvis WITH intravenous contrast.Enteric contrast wasused. The exam was performed according to our department dose- optimization protocol, which includes automated exposure control, adjustments of mA and kV according to patient size. Iterative reconstructions are also sometimes employed. FINDINGS: THORAX: There is no supraclavicular, mediastinal, or hilar lymphadenopathy. Right middle lobe subpleural 3 mm nodule is again noted. Central airways are clear. No pleural effusion or suspicious pleural nodularity is demonstrated. Heart, pericardium, thyroid gland, and esophagus are unremarkable. Right chest port terminates in the low SVC. ABDOMEN and PELVIS: Again demonstrated at the tip of the liver [...] No evidence of thoracic metastatic disease. Signed: Oanh Lo Verified Date/Time: 07/04/2018 18 :26:12 Reading Location: [facility] C013Y CT Body Reading Room [id number] 11:29:00 Test Item Value Reference Range Interpretation Comments POC-CREATININE 1.0 mg/dL 0.6-1.3 TESTED AT [facility] 7200 ([facility]) (test EMMA D G A code = 1859) [facility] 7703 0 POC-EGFR 55 mL/min/1.73M2 ([facility]) (test code = 1860) AL, [id number] 15:09:00INTRA OP IMAGINGReason for exam:->cholangiocarcinomaFINAL REPORT ERCP 24 views 12/18/2017 3:09 PM CLINICAL HISTORY: Instrument localization COMPARISON: None available IMPRESSION: Please correlate imaging report findings with the pro cedure note prepared by Dr. Arechiga, as an intra-procedure imaging consultation was not requested. Reported fluoroscopy time: 4 minutes, 35 seconds. Signed: Alberta Nina Verified Date/Time: 12/18/2017 15:09:38 Reading Location: [facility] C013V Neuro Reading Room [facility], CV [facility], [id number] 15:16:00 Reason for Exam:->c22.1FINAL REPORT Chest herlinda cath insertion: Pertinent clinical information: C 22.1 Modality: Sonography and fluoroscopy Conscious Sedation: Versed 2 mg and fentanyl 100 mcg intraven ouslyDuring the procedure with conscious sedation, the patient was monitored continuously with pulseoximetry and electrocardiography by the attending physician and registered nurse. Patient Physicianface to face intraservice time: 40 minutes Antibiotics: Vancomycin 1 g intravenously Fluoro time in m inutes and number of images: 0.3 minutes. Six images. 3.6 mGy Anesthesia: Two percent Lidocaine injected subcutaneously at the insertion site and tunnel. Approach: Right internal jugular veinFor maximum sterile barrier protection a mask, cap, sterile gloves, sterile drape, sterile gown, and a cutaneous antiseptic was utilized. Technique: After informed written consent was obtained, the patient was prepped and draped in the usual sterile manner. Access was obtained using sonographic guidance. Hardcopy images of the vein were submitted for interpretation. Ultrasound was used to document patency, compressibility and decrease unnecessary punctures. The jugular vein was catheterized. A guide wire was advanced centrally. A 20 cm 7 [employer] catheter was advanced with its distal [...] needed. Signed: Mandy Rosales MDReport Verified Date/Time: 11/08/2017 15:16:03 Reading Location: [place] [address] Angio Body Reading Room [id number] 06:55:00 Test Item Value Reference Range Interpretation Comments PROTIME (BEAKER) (test code = 13.7 seconds 11.7-14.7 759) INR (BEAKER) (test code = 370) 1.1 <=5.9 PARTIAL THROMBOPLASTIN TIME 26.3 seconds 22.5-36.0 (BEAKER) (test code = 760) RECOMMENDED COUMADIN/WARFARIN INR THERAPY RANGESSTANDARD DOSE: 2.0 - 3.0 Includes: PROPHYLAXIS forvenous thrombosis, systemic embolization; TREATMENT for venous thrombosis and/or pulmonary embolus.HIGH RISK: Target INR is 2.5-3.5 for patients with mechanical heart valves.PLATELET [id number] 06:49:00 Test Item Value Reference Range Interpretation Comments PLATELET COUNT (BEAKER) (test 149 K/CU MM 150-450 L code = 756) CBC W/PLT COUNT & AUTO [id number] 07:22:00 Test Item Value Reference Range Interpretation Comments WHITE BLOOD CELL COUNT (BEAKER) 21.2 K/ L 3.5-10.5 H (test code = 775) RED BLOOD CELL COUNT (BEAKER) 3.71 M/ L 3.93-5.22 L (test code = 761) HEMOGLOBIN (BEAKER) (test code = 10.9 GM/DL 11.2-15.7 L 410) HEMATOCRIT (BEAKER) (test code = 33.2 % 34.1-44.9 L 411) MEAN CORPUSCULAR VOLUME (BEAKER) 89.5 fL 79.4-94.8 (test code = 753) MEAN CORPUSCULAR HEMOGLOBIN 29.4 pg 25.6-32.2 (BEAKER) (test code = 751) MEAN CORPUSCULAR HEMOGLOBIN CONC 32.8 GM/DL 32.2-35.5 (BEAKER) (test code = 752) RED CELL DISTRIBUTION WIDTH 14.4 % 11.7-14.4 (BEAKER) (test code = 412) PLATELET COUNT (BEAKER) (test 271 K/CU MM 150-450 code = 756) MEAN PLATELET VOLUME (BEAKER) 11.2 fL 9.4-12.3 (test code = 754) NUCLEATED RED BLOOD CELLS 0 /100 WBC 0-0 (BEAKER) (test code = 413) COMPREHENSIVE METABOLIC [id number] 06:35:00 Test Item Value Reference Range Interpretation Comments TOTAL PROTEIN 4.9 gm/dL 6.0-8.3 L (BEAKER) (test code = 770) ALBUMIN (BEAKER) 2.6 g/dL 3.5-5.0 L (test code = 1145) ALKALINE PHOSPHATASE 207 U/L 40-150 H (BEAKER) (test code = 346) BILIRUBIN TOTAL 1.7 mg/dL 0.2-1.2 H (BEAKER) (test code = 377) SODIUM (BEAKER) (test 132 meq/L 136-145 L code = 381) POTASSIUM (BEAKER) 3.4 meq/L 3.5-5.1 L (test code = 379) CHLORIDE (BEAKER) 96 meq/L 98-107 L (test code = 382) CO2 (BEAKER) (test 28 meq/L 22-29 code = 355) BLOOD UREA NITROGEN 8 mg/dL 7-21 (BEAKER) (test code = 354) CREATININE (BEAKER) 0.65 mg/dL 0.57-1.25 (test code = 358) GLUCOSE RANDOM 239 mg/dL 70-105 H (BEAKER) (test code = 652) CALCIUM (BEAKER) 8.1 mg/dL 8.4-10.2 L (test code = 697) AST (SGOT) (BEAKER) 40 U/L 5-34 H (test code = 353) ALT (SGPT) (BEAKER) 59 U/L 6-55 H (test code = 347) EGFR (BEAKER) (test 91 mL/min/1.73 ESTIMA KRISTY GFR IS code = 1092) sq m NOT ACCURATE CREATININE CLEARANCE IN PREDICTING GLOMERULAR FILTRATION RATE . ESTIMATED GFR I S NOT APPLICABLE FOR DIALYSIS PATIEN TS. BLOOD [id number] 18:00:00 Test Item Value Reference Range Interpretation Comments CULTURE (BEAKER) (test No growth in 5 days code = 1095) CBC W/PLT COUNT & AUTO [id number] 13:50:00 Test Item Value Reference Range Interpretation Comments WHITE BLOOD CELL COUNT (BEAKER) 17.8 K/ L 3.5-10.5 H (test code = 775) RED BLOOD CELL COUNT (BEAKER) 3.87 M/ L 3.93-5.22 L (test code = 761) HEMOGLOBIN (BEAKER) (test code = 11.1 GM/DL 11.2-15.7 L 410) HEMATOCRIT (BEAKER) (test code = 34.6 % 34.1-44.9 411) MEAN CORPUSCULAR VOLUME (BEAKER) 89.4 fL 79.4-94.8 (test code = 753) MEAN CORPUSCULAR HEMOGLOBIN 28.7 pg 25.6-32.2 (BEAKER) (test code = 751) MEAN CORPUSCULAR HEMOGLOBIN CONC 32.1 GM/DL 32.2-35.5 L (BEAKER) (test code = 752) RED CELL DISTRIBUTION WIDTH 14.3 % 11.7-14.4 (BEAKER) (test code = 412) PLATELET COUNT (BEAKER) (test 297 K/CU MM 150-450 code = 756) MEAN PLATELET VOLUME (BEAKER) 11.2 fL 9.4-12.3 (test code = 754) NUCLEATED RED BLOOD CELLS 0 /100 WBC 0-0 (BEAKER) (test code = 413) COMPREHENSIVE METABOLIC [id number] 13:07:00 Test Item Value Reference Range Interpretation Comments TOTAL PROTEIN 5.3 gm/dL 6.0-8.3 L (BEAKER) (test code = 770) ALBUMIN (BEAKER) 2.7 g/dL 3.5-5.0 L (test code = 1145) ALKALINE PHOSPHATASE 221 U/L 40-150 H (BEAKER) (test code = 346) BILIRUBIN TOTAL 2.0 mg/dL 0.2-1.2 H (BEAKER) (test code = 377) SODIUM (BEAKER) (test 130 meq/L 136-145 L code = 381) POTASSIUM (BEAKER) 3.3 meq/L 3.5-5.1 L (test code = 379) CHLORIDE (BEAKER) 94 meq/L 98-107 L (test code = 382) CO2 (BEAKER) (test 27 meq/L 22-29 code = 355) BLOOD UREA NITROGEN 8 mg/dL 7-21 (BEAKER) (test code = 354) CREATININE (BEAKER) 0.72 mg/dL 0.57-1.25 (test code = 358) GLUCOSE RANDOM 292 mg/dL 70-105 H (BEAKER) (test code = 652) CALCIUM (BEAKER) 8.2 mg/dL 8.4-10.2 L (test code = 697) AST (SGOT) (BEAKER) 45 U/L 5-34 H (test code = 353) ALT (SGPT) (BEAKER) 62 U/L 6-55 H (test code = 347) EGFR (BEAKER) (test 81 mL/min/1.73 ESTIMA KRISTY GFR IS code = 1092) sq m NOT ACCURATE CREATININE CLEARANCE IN PREDICTING GLOMERULAR FILTRATION RATE . ESTIMATED GFR I S NOT APPLICABLE FOR DIALYSIS PATIEN TS. COMPREHENSIVE METABOLIC [id number] 06:14:00 Test Item Value Reference Range Interpretation Comments TOTAL PROTEIN 5.3 gm/dL 6.0-8.3 L (BEAKER) (test code = 770) ALBUMIN (BEAKER) 2.7 g/dL 3.5-5.0 L (test code = 1145) ALKALINE PHOSPHATASE 213 U/L 40-150 H (BEAKER) (test code = 346) BILIRUBIN TOTAL 2.1 mg/dL 0.2-1.2 H (BEAKER) (test code = 377) SODIUM (BEAKER) (test 134 meq/L 136-145 L code = 381) POTASSIUM (BEAKER) 3.1 meq/L 3.5-5.1 L (test code = 379) CHLORIDE (BEAKER) 94 meq/L 98-107 L (test code = 382) CO2 (BEAKER) (test 28 meq/L 22-29 code = 355) BLOOD UREA NITROGEN 7 mg/dL 7-21 (BEAKER) (test code = 354) CREATININE (BEAKER) 0.58 mg/dL 0.57-1.25 (test code = 358) GLUCOSE RANDOM 185 mg/dL 70-105 H (BEAKER) (test code = 652) CALCIUM (BEAKER) 8.4 mg/dL 8.4-10.2 (test code = 697) AST (SGOT) (BEAKER) 51 U/L 5-34 H (test code = 353) ALT (SGPT) (BEAKER) 70 U/L 6-55 H (test code = 347) EGFR (BEAKER) (test 104 ESTIMATE D GFR IS code = 1092) mL/min/1.73 sq NOT ACCURA TE m CREATININE CLEARANCE IN PREDICTING GLOMERULAR FILTRATION RATE . ESTIMATED GFR I S NOT APPLICABLE FOR DIALYSIS PATIEN TS. CBC (HEMOGRAM ONLY)2017-10-09 05:57:00 Test Item Value Reference Range Interpretation Comments WHITE BLOOD CELL COUNT (BEAKER) 19.3 K/ L 3.5-10.5 H (test code = 775) RED BLOOD CELL COUNT (BEAKER) 4.03 M/ L 3.93-5.22 (test code = 761) HEMOGLOBIN (BEAKER) (test code = 11.4 GM/DL 11.2-15.7 410) HEMATOCRIT (BEAKER) (test code = 35.8 % 34.1-44.9 411) MEAN CORPUSCULAR VOLUME (BEAKER) 88.8 fL 79.4-94.8 (test code = 753) MEAN CORPUSCULAR HEMOGLOBIN 28.3 pg 25.6-32.2 (BEAKER) (test code = 751) MEAN CORPUSCULAR HEMOGLOBIN CONC 31.8 GM/DL 32.2-35.5 L (BEAKER) (test code = 752) RED CELL DISTRIBUTION WIDTH 14.1 % 11.7-14.4 (BEAKER) (test code = 412) PLATELET COUNT (BEAKER) (test 330 K/CU MM 150-450 code = 756) MEAN PLATELET VOLUME (BEAKER) 11.7 fL 9.4-12.3 (test code = 754) NUCLEATED RED BLOOD CELLS 0 /100 WBC 0-0 (BEAKER) (test code = 413) CT, [id number] 15:26:00FINAL REPORT TECHNIQUE: CT of the abdomen [...] wall thickening or pericholecystic inflammatory change. Moderate intrahepatic biliary ductal dilatation in segment . Mild intrahepatic [...] posterior to the pancreatic head. Small amount of nonencapsulated fluid in the mesentery and along the [...] MDReport Verified Date/Time: 10/08/2017 15:26:34 Reading Location: [address] Body Reading Room HEMOGLOBIN [id number] 14:08:00 Test Item Value Reference Range Interpretation Comments HEMOGLOBIN A1C (BEAKER) (test code = 5.1 % 4.3-6.1 368) COMPREHENSIVE METABOLIC [id number] 05:11:00 Test Item Value Reference Range Interpretation Comments TOTAL PROTEIN 5.2 gm/dL 6.0-8.3 L (BEAKER) (test code = 770) ALBUMIN (BEAKER) 2.6 g/dL 3.5-5.0 L (test code = 1145) ALKALINE PHOSPHATASE 208 U/L 40-150 H (BEAKER) (test code = 346) BILIRUBIN TOTAL 2.4 mg/dL 0.2-1.2 H (BEAKER) (test code = 377) SODIUM (BEAKER) (test 133 meq/L 136-145 L code = 381) POTASSIUM (BEAKER) 3.6 meq/L 3.5-5.1 (test code = 379) CHLORIDE (BEAKER) 97 meq/L 98-107 L (test code = 382) CO2 (BEAKER) (test 24 meq/L 22-29 code = 355) BLOOD UREA NITROGEN 7 mg/dL 7-21 (BEAKER) (test code = 354) CREATININE (BEAKER) 0.62 mg/dL 0.57-1.25 (test code = 358) GLUCOSE RANDOM 174 mg/dL 70-105 H (BEAKER) (test code = 652) CALCIUM (BEAKER) 8.1 mg/dL 8.4-10.2 L (test code = 697) AST (SGOT) (BEAKER) 37 U/L 5-34 H (test code = 353) ALT (SGPT) (BEAKER) 66 U/L 6-55 H (test code = 347) EGFR (BEAKER) (test 97 mL/min/1.73 ESTIMA KRISTY GFR IS code = 1092) sq m NOT ACCURATE CREATININE CLEARANCE IN PREDICTING GLOMERULAR FILTRATION RATE . ESTIMATED GFR I S NOT APPLICABLE FOR DIALYSIS PATIEN TS. Specimen slightly [id number] 05:11:00 Test Item Value Reference Range Interpretation Comments LIPASE (BEAKER) (test code = 749) 26 U/L 8-78 Specimen slightly ictericCBC (HEMOGRAM ONLY)2017-10-08 05:10:00 Test Item Value Reference Range Interpretation Comments WHITE BLOOD CELL COUNT (BEAKER) 17.3 K/ L 3.5-10.5 H (test code = 775) RED BLOOD CELL COUNT (BEAKER) 4.09 M/ L 3.93-5.22 (test code = 761) HEMOGLOBIN (BEAKER) (test code = 11.9 GM/DL 11.2-15.7 410) HEMATOCRIT (BEAKER) (test code = 39.2 % 34.1-44.9 411) MEAN CORPUSCULAR VOLUME (BEAKER) 95.8 fL 79.4-94.8 H (test code = 753) MEAN CORPUSCULAR HEMOGLOBIN 29.1 pg 25.6-32.2 (BEAKER) (test code = 751) MEAN CORPUSCULAR HEMOGLOBIN CONC 30.4 GM/DL 32.2-35.5 L (BEAKER) (test code = 752) RED CELL DISTRIBUTION WIDTH 14.2 % 11.7-14.4 (BEAKER) (test code = 412) PLATELET COUNT (BEAKER) (test 212 K/CU MM 150-450 code = 756) MEAN PLATELET VOLUME (BEAKER) 11.8 fL 9.4-12.3 (test code = 754) NUCLEATED RED BLOOD CELLS 0 /100 WBC 0-0 (BEAKER) (test code = 413) COMPREHENSIVE METABOLIC [id number] 06:49:00 Test Item Value Reference Range Interpretation Comments TOTAL PROTEIN 5.2 gm/dL 6.0-8.3 L (BEAKER) (test code = 770) ALBUMIN (BEAKER) 2.6 g/dL 3.5-5.0 L (test code = 1145) ALKALINE PHOSPHATASE 236 U/L 40-150 H (BEAKER) (test code = 346) BILIRUBIN TOTAL 2.8 mg/dL 0.2-1.2 H (BEAKER) (test code = 377) SODIUM (BEAKER) (test 131 meq/L 136-145 L code = 381) POTASSIUM (BEAKER) 3.3 meq/L 3.5-5.1 L (test code = 379) CHLORIDE (BEAKER) 95 meq/L 98-107 L (test code = 382) CO2 (BEAKER) (test 25 meq/L 22-29 code = 355) BLOOD UREA NITROGEN 7 mg/dL 7-21 (BEAKER) (test code = 354) CREATININE (BEAKER) 0.64 mg/dL 0.57-1.25 (test code = 358) GLUCOSE RANDOM 177 mg/dL 70-105 H (BEAKER) (test code = 652) CALCIUM (BEAKER) 8.1 mg/dL 8.4-10.2 L (test code = 697) AST (SGOT) (BEAKER) 34 U/L 5-34 (test code = 353) ALT (SGPT) (BEAKER) 77 U/L 6-55 H (test code = 347) EGFR (BEAKER) (test 93 mL/min/1.73 ESTIMA KRISTY GFR IS code = 1092) sq m NOT ACCURATE CREATININE CLEARANCE IN PREDICTING GLOMERULAR FILTRATION RATE . ESTIMATED GFR I S NOT APPLICABLE FOR DIALYSIS PATIEN TS. Specimen slightly ictericCBC (HEMOGRAM ONLY)2017-10-07 06:16:00 Test Item Value Reference Range Interpretation Comments WHITE BLOOD CELL COUNT (BEAKER) 17.9 K/ L 3.5-10.5 H (test code = 775) RED BLOOD CELL COUNT (BEAKER) 4.16 M/ L 3.93-5.22 (test code = 761) HEMOGLOBIN (BEAKER) (test code = 11.9 GM/DL 11.2-15.7 410) HEMATOCRIT (BEAKER) (test code = 37.9 % 34.1-44.9 411) MEAN CORPUSCULAR VOLUME (BEAKER) 91.1 fL 79.4-94.8 (test code = 753) MEAN CORPUSCULAR HEMOGLOBIN 28.6 pg 25.6-32.2 (BEAKER) (test code = 751) MEAN CORPUSCULAR HEMOGLOBIN CONC 31.4 GM/DL 32.2-35.5 L (BEAKER) (test code = 752) RED CELL DISTRIBUTION WIDTH 14.4 % 11.7-14.4 (BEAKER) (test code = 412) PLATELET COUNT (BEAKER) (test 271 K/CU MM 150-450 code = 756) MEAN PLATELET VOLUME (BEAKER) 12.4 fL 9.4-12.3 H (test code = 754) NUCLEATED RED BLOOD CELLS 0 /100 WBC 0-0 (BEAKER) (test code = 413) [id number] 07:13:00 Test Item Value Reference Range Interpretation Comments LIPASE (BEAKER) (test code = 749) 104 U/L 8-78 H Specimen slightly ictericCOMPREHENSIVE METABOLIC [id number] 07:13:00 Test Item Value Reference Range Interpretation Comments TOTAL PROTEIN 4.9 gm/dL 6.0-8.3 L (BEAKER) (test code = 770) ALBUMIN (BEAKER) 2.5 g/dL 3.5-5.0 L (test code = 1145) ALKALINE PHOSPHATASE 257 U/L 40-150 H (BEAKER) (test code = 346) BILIRUBIN TOTAL 3.5 mg/dL 0.2-1.2 H (BEAKER) (test code = 377) SODIUM (BEAKER) (test 131 meq/L 136-145 L code = 381) POTASSIUM (BEAKER) 3.7 meq/L 3.5-5.1 (test code = 379) CHLORIDE (BEAKER) 98 meq/L 98-107 (test code = 382) CO2 (BEAKER) (test 26 meq/L 22-29 code = 355) BLOOD UREA NITROGEN 8 mg/dL 7-21 (BEAKER) (test code = 354) CREATININE (BEAKER) 0.56 mg/dL 0.57-1.25 L (test code = 358) GLUCOSE RANDOM 182 mg/dL 70-105 H (BEAKER) (test code = 652) CALCIUM (BEAKER) 7.8 mg/dL 8.4-10.2 L (test code = 697) AST (SGOT) (BEAKER) 44 U/L 5-34 H (test code = 353) ALT (SGPT) (BEAKER) 99 U/L 6-55 H (test code = 347) EGFR (BEAKER) (test 109 ESTIMATE D GFR IS code = 1092) mL/min/1.73 sq NOT ACCURA TE m CREATININE CLEARANCE IN PREDICTING GLOMERULAR FILTRATION RATE . ESTIMATED GFR I S NOT APPLICABLE FOR DIALYSIS PATIEN TS. Specimen slightly ictericCBC (HEMOGRAM ONLY)2017-10-06 05:25:00 Test Item Value Reference Range Interpretation Comments WHITE BLOOD CELL COUNT (BEAKER) 15.6 K/ L 3.5-10.5 H (test code = 775) RED BLOOD CELL COUNT (BEAKER) 3.95 M/ L 3.93-5.22 (test code = 761) HEMOGLOBIN (BEAKER) (test code = 11.5 GM/DL 11.2-15.7 410) HEMATOCRIT (BEAKER) (test code = 36.0 % 34.1-44.9 411) MEAN CORPUSCULAR VOLUME (BEAKER) 91.1 fL 79.4-94.8 (test code = 753) MEAN CORPUSCULAR HEMOGLOBIN 29.1 pg 25.6-32.2 (BEAKER) (test code = 751) MEAN CORPUSCULAR HEMOGLOBIN CONC 31.9 GM/DL 32.2-35.5 L (BEAKER) (test code = 752) RED CELL DISTRIBUTION WIDTH 14.5 % 11.7-14.4 H (BEAKER) (test code = 412) PLATELET COUNT (BEAKER) (test 204 K/CU MM 150-450 code = 756) MEAN PLATELET VOLUME (BEAKER) 13.2 fL 9.4-12.3 H (test code = 754) NUCLEATED RED BLOOD CELLS 0 /100 WBC 0-0 (BEAKER) (test code = 413) URINALYSIS W/ [id number] 14:03:00 Test Item Value Reference Range Interpretation Comments COLOR (BEAKER) (test code = Dark Yellow 470) CLARITY (BEAKER) (test code = Clear 469) SPECIFIC GRAVITY UA (BEAKER) 1.019 1.001-1.035 (test code = 468) PH UA (BEAKER) (test code = 6.0 5.0-8.0 467) PROTEIN UA (BEAKER) (test code 70 mg/dL Negative A = 464) GLUCOSE UA (BEAKER) (test code 300 mg/dL Negative A = 365) KETONES UA (BEAKER) (test code Negative Negative = 371) BILIRUBIN UA (BEAKER) (test Positive Negative A code = 462) BLOOD UA (BEAKER) (test code = Small Negative A 461) NITRITE UA (BEAKER) (test code Negative Negative = 465) LEUKOCYTE ESTERASE UA (BEAKER) Negative Negative (test code = 466) UROBILINOGEN UA (BEAKER) (test > mg/dL 0.2-1.0 H code = 463) RBC UA (BEAKER) (test code = 4 /HPF 519) WBC UA (BEAKER) (test code = 3 /HPF 520) MUCUS (BEAKER) (test code = Occasional 1574) SQUAMOUS EPITHELIAL (BEAKER) < /HPF (test code = 516) HYALINE CASTS (BEAKER) (test 2 /LPF code = 514) SOURCE(BEAKER) (test code = Urine, Voided 5159) COMPREHENSIVE METABOLIC [id number] 06:46:00 Test Item Value Reference Range Interpretation Comments TOTAL PROTEIN 5.0 gm/dL 6.0-8.3 L (BEAKER) (test code = 770) ALBUMIN (BEAKER) 2.6 g/dL 3.5-5.0 L (test code = 1145) ALKALINE PHOSPHATASE 319 U/L 40-150 H (BEAKER) (test code = 346) BILIRUBIN TOTAL 4.6 mg/dL 0.2-1.2 H (BEAKER) (test code = 377) SODIUM (BEAKER) (test 134 meq/L 136-145 L code = 381) POTASSIUM (BEAKER) 3.6 meq/L 3.5-5.1 (test code = 379) CHLORIDE (BEAKER) 99 meq/L 98-107 (test code = 382) CO2 (BEAKER) (test 27 meq/L 22-29 code = 355) BLOOD UREA NITROGEN 9 mg/dL 7-21 (BEAKER) (test code = 354) CREATININE (BEAKER) 0.59 mg/dL 0.57-1.25 (test code = 358) GLUCOSE RANDOM 147 mg/dL 70-105 H (BEAKER) (test code = 652) CALCIUM (BEAKER) 7.8 mg/dL 8.4-10.2 L (test code = 697) AST (SGOT) (BEAKER) 54 U/L 5-34 H (test code = 353) ALT (SGPT) (BEAKER) 140 U/L 6-55 H (test code = 347) EGFR (BEAKER) (test 102 ESTIMATE D GFR IS code = 1092) mL/min/1.73 sq NOT ACCURA TE m CREATININE CLEARANCE IN PREDICTING GLOMERULAR FILTRATION RATE . ESTIMATED GFR I S NOT APPLICABLE FOR DIALYSIS PATIEN TS. Specimen slightly [id number] 06:41:00 Test Item Value Reference Range Interpretation Comments LIPASE (BEAKER) (test code = 749) 657 U/L 8-78 H Specimen slightly ictericCBC (HEMOGRAM ONLY)2017-10-05 06:20:00 Test Item Value Reference Range Interpretation Comments WHITE BLOOD CELL COUNT (BEAKER) 16.6 K/ L 3.5-10.5 H (test code = 775) RED BLOOD CELL COUNT (BEAKER) 4.07 M/ L 3.93-5.22 (test code = 761) HEMOGLOBIN (BEAKER) (test code = 12.1 GM/DL 11.2-15.7 410) HEMATOCRIT (BEAKER) (test code = 37.2 % 34.1-44.9 411) MEAN CORPUSCULAR VOLUME (BEAKER) 91.4 fL 79.4-94.8 (test code = 753) MEAN CORPUSCULAR HEMOGLOBIN 29.7 pg 25.6-32.2 (BEAKER) (test code = 751) MEAN CORPUSCULAR HEMOGLOBIN CONC 32.5 GM/DL 32.2-35.5 (BEAKER) (test code = 752) RED CELL DISTRIBUTION WIDTH 14.7 % 11.7-14.4 H (BEAKER) (test code = 412) PLATELET COUNT (BEAKER) (test 201 K/CU MM 150-450 code = 756) MEAN PLATELET VOLUME (BEAKER) 13.1 fL 9.4-12.3 H (test code = 754) NUCLEATED RED BLOOD CELLS 0 /100 WBC 0-0 (BEAKER) (test code = 413) [id number] 07:26:00 Test Item Value Reference Range Interpretation Comments LIPASE (BEAKER) (test code = 749) > U/L 8-78 H Specimen moderately ictericCOMPREHENSIVE METABOLIC [id number] 06:34:00 Test Item Value Reference Range Interpretation Comments TOTAL PROTEIN 5.3 gm/dL 6.0-8.3 L (BEAKER) (test code = 770) ALBUMIN (BEAKER) 2.9 g/dL 3.5-5.0 L (test code = 1145) ALKALINE PHOSPHATASE 422 U/L 40-150 H (BEAKER) (test code = 346) BILIRUBIN TOTAL 5.2 mg/dL 0.2-1.2 H (BEAKER) (test code = 377) SODIUM (BEAKER) (test 134 meq/L 136-145 L code = 381) POTASSIUM (BEAKER) 3.9 meq/L 3.5-5.1 (test code = 379) CHLORIDE (BEAKER) 98 meq/L 98-107 (test code = 382) CO2 (BEAKER) (test 26 meq/L 22-29 code = 355) BLOOD UREA NITROGEN 9 mg/dL 7-21 (BEAKER) (test code = 354) CREATININE (BEAKER) 0.60 mg/dL 0.57-1.25 (test code = 358) GLUCOSE RANDOM 161 mg/dL 70-105 H (BEAKER) (test code = 652) CALCIUM (BEAKER) 8.4 mg/dL 8.4-10.2 (test code = 697) AST (SGOT) (BEAKER) 110 U/L 5-34 H (test code = 353) ALT (SGPT) (BEAKER) 231 U/L 6-55 H (test code = 347) EGFR (BEAKER) (test 100 ESTIMATE D GFR IS code = 1092) mL/min/1.73 sq NOT ACCURA TE m CREATININE CLEARANCE IN PREDICTING GLOMERULAR FILTRATION RATE . ESTIMATED GFR I S NOT APPLICABLE FOR DIALYSIS PATIEN TS. Specimen moderately ictericCBC (HEMOGRAM ONLY)2017-10-04 06:04:00 Test Item Value Reference Range Interpretation Comments WHITE BLOOD CELL COUNT (BEAKER) 13.3 K/ L 3.5-10.5 H (test code = 775) RED BLOOD CELL COUNT (BEAKER) 4.15 M/ L 3.93-5.22 (test code = 761) HEMOGLOBIN (BEAKER) (test code = 12.2 GM/DL 11.2-15.7 410) HEMATOCRIT (BEAKER) (test code = 37.9 % 34.1-44.9 411) MEAN CORPUSCULAR VOLUME (BEAKER) 91.3 fL 79.4-94.8 (test code = 753) MEAN CORPUSCULAR HEMOGLOBIN 29.4 pg 25.6-32.2 (BEAKER) (test code = 751) MEAN CORPUSCULAR HEMOGLOBIN CONC 32.2 GM/DL 32.2-35.5 (BEAKER) (test code = 752) RED CELL DISTRIBUTION WIDTH 14.8 % 11.7-14.4 H (BEAKER) (test code = 412) PLATELET COUNT (BEAKER) (test 203 K/CU MM 150-450 code = 756) MEAN PLATELET VOLUME (BEAKER) 13.0 fL 9.4-12.3 H (test code = 754) NUCLEATED RED BLOOD CELLS 0 /100 WBC 0-0 (BEAKER) (test code = 413) COMPREHENSIVE METABOLIC [id number] 12:54:00 Test Item Value Reference Range Interpretation Comments TOTAL PROTEIN 6.0 gm/dL 6.0-8.3 (BEAKER) (test code = 770) ALBUMIN (BEAKER) 3.3 g/dL 3.5-5.0 L (test code = 1145) ALKALINE PHOSPHATASE 529 U/L 40-150 H (BEAKER) (test code = 346) BILIRUBIN TOTAL 6.4 mg/dL 0.2-1.2 H (BEAKER) (test code = 377) SODIUM (BEAKER) (test 134 meq/L 136-145 L code = 381) POTASSIUM (BEAKER) 4.3 meq/L 3.5-5.1 (test code = 379) CHLORIDE (BEAKER) 100 meq/L 98-107 (test code = 382) CO2 (BEAKER) (test 25 meq/L 22-29 code = 355) BLOOD UREA NITROGEN 16 mg/dL 7-21 (BEAKER) (test code = 354) CREATININE (BEAKER) 0.78 mg/dL 0.57-1.25 (test code = 358) GLUCOSE RANDOM 262 mg/dL 70-105 H (BEAKER) (test code = 652) CALCIUM (BEAKER) 9.3 mg/dL 8.4-10.2 (test code = 697) AST (SGOT) (BEAKER) 162 U/L 5-34 H (test code = 353) ALT (SGPT) (BEAKER) 302 U/L 6-55 H (test code = 347) EGFR (BEAKER) (test 74 mL/min/1.73 ESTIMA KRISTY GFR IS code = 1092) sq m NOT ACCURATE CREATININE CLEARANCE IN PREDICTING GLOMERULAR FILTRATION RATE . ESTIMATED GFR I S NOT APPLICABLE FOR DIALYSIS PATIEN TS. Specimen moderately ictericFL, [id number] 16:19:00INTRA OP IMAGINGReason for exam:->CHOLANGIOCARCINOMAFINAL REPORT History: [...] into the intrahepatic ducts. Signed: Jaron Cary MDReport Verified Date/Time: 10/02/2017 16:19:35 Reading Location: [address] Radiology Reading Room TISSUE EXAM 2017-09-22 18:58:00Surgical Pathology Report Case: [id number] Authorizing Provider: Soha Blank MD Collected: 09/14/2017 2225 Ordering Location: [facility] 6 OP Received: 09/14/2017 2231 Pathologist: Evan Ho MD Specimen: Biopsy, Liver, Mass The addendum is being issued to report the results of immunohistochemistry (IHC) testing for Mismatch Repair (MMR) P roteins. The diagnosis remains unchanged. IHC testing for all four MMR proteins was performed with appropriate controls. 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)56722, 41325 x3 Addendum electronically signed by Evan Ho MD on 09/22/2017 at 6:58 PMThe addendum is being issued to report the results of immunostains for ER, mammoglobin and WT 1 The diagnosis is unchanged.RESULTSImmunostains for ER, mammoglobin and WT 1 are negative in [id number] electronically signed by Evan Ho MD on 09/20/2017 at 7:12 PMLIVER, ULTRASOUND GUIDED NEEDLE CORE BIOPSY:- ADENOCARCINOMA, MODERATELY DIFFERENTIATED- BACKGROUND LIVER WITH MINIMAL STEATOSIS AND FEATURES OF MASS EFFECT- SEE COMMENT Signing Pathologist Direct Phone Line: [phone] signed by Evan Ho MD on 09/18/2017 at 2:01 PMThe liver biopsy shows a moderately differentiated adenocarcinoma with an immunoprofile of CK7+/CK19+. The immunoprofile is nonspecific. The possibilities include intrahepatic cholangiocarcinoma, pancreato-biliary primary or upper gastrointestinal primary. Clinical correlation is suggested. 74086, 43059, 80679 l2Rajyn liver massLiver lesionReceived in formalin labeled with [...] and GATA3. (Appropriate controls were used).U/S, BIOPSY, [id number] 16:51:00Reason for Exam:->LIVER MASS [R16.0][facility]EDURE: Ultrasound-guided core biopsy of right liver mass. INDICATION: 66-year-old woman with liver mass. COMPARISON: None. SEDATION: Intravenous moderate sedation was administered by radiology nursing and monitored under the direction of the undersigned radiologist. The patient's vital signs were monitored throughout the procedure and recorded in the patient's medical record by radiology nursing. Total intraservice [...] of right liver mass. Signed: Jarrod Bowling Verified Date/Time: 09/14/2017 16:51:22 Reading Location: [address] Ultrasound Reading Room REHENSIVE METABOLIC [id number] 13:24:00 Test Item Value Reference Range Interpretation Comments TOTAL PROTEIN 7.5 gm/dL 6.0-8.3 (BEAKER) (test code = 770) ALBUMIN (BEAKER) 4.2 g/dL 3.5-5.0 (test code = 1145) ALKALINE PHOSPHATASE 556 U/L 40-150 H (BEAKER) (test code = 346) BILIRUBIN TOTAL 3.7 mg/dL 0.2-1.2 H (BEAKER) (test code = 377) SODIUM (BEAKER) (test 138 meq/L 136-145 code = 381) POTASSIUM (BEAKER) 4.4 meq/L 3.5-5.1 (test code = 379) CHLORIDE (BEAKER) 102 meq/L 98-107 (test code = 382) CO2 (BEAKER) (test 25 meq/L 22-29 code = 355) BLOOD UREA NITROGEN 19 mg/dL 7-21 (BEAKER) (test code = 354) CREATININE (BEAKER) 0.81 mg/dL 0.57-1.25 (test code = 358) GLUCOSE RANDOM 125 mg/dL 70-105 H (BEAKER) (test code = 652) CALCIUM (BEAKER) 10.0 mg/dL 8.4-10.2 (test code = 697) AST (SGOT) (BEAKER) 393 U/L 5-34 H (test code = 353) ALT (SGPT) (BEAKER) 632 U/L 6-55 H (test code = 347) EGFR (BEAKER) (test 71 mL/min/1.73 ESTIMA KRISTY GFR IS code = 1092) sq m NOT ACCURATE CREATININE CLEARANCE IN PREDICTING GLOMERULAR FILTRATION RATE . ESTIMATED GFR I S NOT APPLICABLE FOR DIALYSIS PATIEN TS. Specimen slightly ictericPROTHROMBIN TIME/[id number] 13:03:00 Test Item Value Reference Range Interpretation Comments PROTIME (BEAKER) (test code = 13.0 seconds 11.7-14.7 759) INR (BEAKER) (test code = 370) 1.0 <=5.9 RECOMMENDED COUMADIN/WARFARIN INR THERAPY RANGESSTANDARD DOSE: 2.0 - 3.0 Includes: PROPHYLAXIS forvenous thrombosis, systemic embolization; TREATMENT for venous thrombosis and/or pulmonary embolus.HIGH RISK: Target INR is 2.5-3.5 for patients with mechanical heart valves.CBC W/PLT COUNT & AUTO DIFFERENTIAL 2017-09-14 12:57:00 Test Item Value Reference Range Interpretation Comments WHITE BLOOD CELL COUNT (BEAKER) 6.9 K/ L 3.5-10.5 (test code = 775) RED BLOOD CELL COUNT (BEAKER) 4.60 M/ L 3.93-5.22 (test code = 761) HEMOGLOBIN (BEAKER) (test code = 12.9 GM/DL 11.2-15.7 410) HEMATOCRIT (BEAKER) (test code = 41.7 % 34.1-44.9 411) MEAN CORPUSCULAR VOLUME (BEAKER) 90.7 fL 79.4-94.8 (test code = 753) MEAN CORPUSCULAR HEMOGLOBIN 28.0 pg 25.6-32.2 (BEAKER) (test code = 751) MEAN CORPUSCULAR HEMOGLOBIN CONC 30.9 GM/DL 32.2-35.5 L (BEAKER) (test code = 752) RED CELL DISTRIBUTION WIDTH 13.8 % 11.7-14.4 (BEAKER) (test code = 412) PLATELET COUNT (BEAKER) (test 258 K/CU MM 150-450 code = 756) MEAN PLATELET VOLUME (BEAKER) 11.8 fL 9.4-12.3 (test code = 754) NUCLEATED RED BLOOD CELLS 0 /100 WBC 0-0 (BEAKER) (test code = 413) NEUTROPHILS RELATIVE PERCENT 67 % (BEAKER) (test code = 429) LYMPHOCYTES RELATIVE PERCENT 20 % (BEAKER) (test code = 430) MONOCYTES RELATIVE PERCENT 9 % (BEAKER) (test code = 431) EOSINOPHILS RELATIVE PERCENT 3 % (BEAKER) (test code = 432) BASOPHILS RELATIVE PERCENT 1 % (BEAKER) (test code = 437) NEUTROPHILS ABSOLUTE COUNT 4.57 K/ L 1.56-6.13 (BEAKER) (test code = 670) LYMPHOCYTES ABSOLUTE COUNT 1.37 K/ L 1.18-3.74 (BEAKER) (test code = 414) MONOCYTES ABSOLUTE COUNT (BEAKER) 0.60 K/ L 0.24-0.36 H (test code = 415) EOSINOPHILS ABSOLUTE COUNT 0.22 K/ L 0.04-0.36 (BEAKER) (test code = 416) BASOPHILS ABSOLUTE COUNT (BEAKER) 0.06 K/ L 0.01-0.08 (test code = 417) IMMATURE GRANULOCYTES-RELATIVE 0 % 0-1 PERCENT (BEAKER) (test code = 5523)
[2020-06-18] MEDS ORDERED: ONDANSETRON 4 MG (ODT) TAB ONE (18:10)
[2020-06-18] MEDS ORDERED: MORPHINE 2 MG/ML SYR ONE ×2 (20:13→21:17)
[2020-06-18] MEDS ORDERED: NA CHLORIDE 0.9% 500 ML ONE (20:13)
[2020-06-18] MEDS ORDERED: ONDANSETRON 4 MG/2 ML VIAL ONE (20:13)
[2020-06-18 20:24] LABS: Absolute Lymphocytes (CBC) 0.3 K/uL (0.7-4.9); Basophils % 0.3 % (0-1.3); Hematocrit 27.1 % (36.0-45.0); Lymphocytes % 7.5 % (15.3-44.8); MPV 8.5 fL (7.6-11.3); RBC Red Blood Cell Count 2.95 M/uL (3.86-4.86); Urine Bacteria <20 /HPF (<20); Urine Mucus 1+ /HPF (NONE SEEN)
[2020-06-18 20:25] LABS: Urine Blood TRACE (NEG); Urine Glucose NEGATIVE (NEG); Urine Protein TRACE (NEG); Urine Specific Gravity >1.030 (1.005-1.030); Urine pH 5.5 (5.0-7.0)
[2020-06-18 20:35] LABS: Albumin 3.6 g/dL (3.4-5.0); Bilirubin Direct 0.3 mg/dL (0-0.2); Bilirubin Total 0.6 mg/dL (0.2-1.0); Potassium 4.2 mmol/L (3.5-5.1); Protein, Total 7.6 g/dL (6.4-8.2)
--- NOTE | 2020-06-18 20:39 | RAD REPORT ---
EXAM DESCRIPTION: CT - Abdomen Pelvis W Contrast - 06/18/2020 8:19 pm CLINICAL HISTORY: Abdominal pain COMPARISON: none. TECHNIQUE: Computed axial tomography of the abdomen pelvis was obtained. 100 cc Isovue-300 was admin istered intravenously. Oral contrast was not requested which limits evaluation of bowel. All CT scans are performed using dose optimization technique as appropriate and may include automated exposure control or mA/KV adjustment according to patient size. FINDINGS: A stent is present within the left intrahepatic bile ducts extending into the left common bile duct and duodenum. An approximately 10 centimeter mass is present within the right lobe of the liver extending into the medial segment of the left lobe. Mild to moderate dilatation of the intrahepatic biliary tree. The po rtal vein is patent and distended. Small hepatic cysts are present. Left upper quadrant varices The gallbladder is distended containing many stones. The spleen, pancreas, adrenals and kidneys unremarkable Small amount of ascites. Mild anterior subluxation L5 on S1. Spondylolysis L5 Moderate thickening of the wall of a loop of jejunum. No evidence of diverticulitis IMPRESSION: Approximately 10 centimeter hepatic mass consistent with the clinical history of cholan giocarcinoma. A biliary stent is present. Mild to moderate dilatation of the intrahepatic biliary tree The gallbladder is distended and contains many gallstones. Moderate thickening of the wall of a loop of jejunum could indicate inflammation
[2020-06-18 21:00] LABS: Platelet Estimate DECR
[2020-06-18 21:01] LABS: Blood Morphology Comment NOT SEEN (NOT SEEN)
[2020-06-18] MEDS ORDERED: MORPHINE 4 MG/ML SYR ONE (21:17)
--- NOTE | 2020-06-18 21:31 | ER ---
Nurse's Notes [facility] Name: Danny Babcock Age: 69 yrs Sex: Female : 1950 Arrival Date: 06/18/2020 Time: 17:27 Bed 13 Private MD: Diagnosis: Acute cholecystitis;Cholangiocarcinoma Presentation: 06/18 17:46 Chief complaint: Patient's son or daughter states: daughter: She said she has been ca1 hurting on her R side and goes to the back. That is where her cancer is at, she has cholangeocarcinoma. She is describing the pain as the same as the pain she had in the summer where there was a cyst in the liver that ruptured. Tramadol taken at 1300, no relief. Nausea just now. She is undergoing chemo, last treatment was last Monday06/10/2020. Diarrhea x 1 episode at noon after taking Miralax. Coronavirus screen: Client denies travel out of the [place] in the last 14 days. nausea, Client presents with at least one sign or symptom that may indicate coronavirus-19. Standard/surgical mask placed on the client. Provider contacted for isolation considerations. Ebola Screen: Patient negative for fever greater than or equal to 101.5 degrees Fahrenheit, and additional compatible Ebola Virus Disease symptoms Patient denies exposure to infectious person. Patient denies travel to an Ebola-affected area in the 21 days before illness onset. No symptoms or risks identified at this time. Initial Sepsis Screen: Does the patient meet any 2 criteria? No. Patient's initial sepsis screen is negative. Does the patient have a suspected source of infection? No. Patient's initial sepsis screen is negative. Risk Assessment: Do you want to hurt yourself or someone else? Patient reports no desire to harm self or others. Onset of symptoms was June 18, 2020. 17:46 Method Of Arrival: Wheelchair ca1 17:46 Acuity: MARISSA 2 ca1 Historical: - Allergies: 17:52 Sulfa (Sulfonamide Antibiotics); ca1 - PMHx: 17:52 Cancer; Hypertension; Aneurysm; ca1 - Immunization history:: Pneumococcal vaccine is up to date, Flu vaccine is up to date. - Social history:: Smoking status: Patient denies any tobacco usage or history of. Screenin:09 Abuse screen: Denies threats or abuse. Denies injuries from another. Nutritional mg2 screening: No deficits noted. Tuberculosis screening: No symptoms or risk factors identified. Fall Risk IV access (20 points). Assessment: 20:30 General: Appears in no apparent distress. comfortable, Behavior is calm, cooperative. mg2 Pain: Complains of pain in right upper quadrant. Neuro: Level of Consciousness is awake, alert, obeys commands, Oriented to person, place, time, situation. Cardiovascular: Capillary refill < 3 seconds Patient's skin is warm and dry. Respiratory: Airway is patent Respiratory effort is even, unlabored, Respiratory pattern is regular, symmetrical. GI: No signs and/or symptoms were reported involving the gastrointestinal system. : No signs and/or symptoms were reported regarding the genitourinary system. EENT: No signs and/or symptoms were reported regarding the EENT system. Derm: Skin is intact, is healthy with good turgor, Skin is pink, warm \T\ dry. normal. Musculoskeletal: Circulation, motion, and sensation intact. Capillary refill < 3 seconds. 22:10 Reassessment: Patient appears in no apparent distress at this time. Patient and/or mg2 family updated on plan of care and expected duration. Pain level reassessed. Patient is alert, oriented x 3, equal unlabored respirations, skin warm/dry/pink. 23:30 Reassessment: Patient appears in no apparent distress at this time. patient agreed mg2 about the transfer, [place] Kevan farah[place] [facility] [place] Vital Signs: 17:46 BP 166 / 98; Pulse 94; Resp 17 S; Temp 97(TE); Pulse Ox 100% on R/A; Weight 68.04 kg ca1 (R); Height 5 ft. 6 in. (167.64 cm) (R); Pain 7/10; 21:10 BP 160 / 95; Pulse 82; Resp 18; Pulse Ox 100% on R/A; mg2 22:20 BP 158 / 90; Pulse 80; Resp 18; Temp 98; Pulse Ox 100% on R/A; mg2 23:30 BP 155 / 70; Pulse 81; Resp 18; Temp 98; Pulse Ox 100% on R/A; mg2 17:46 Body Mass Index 24.21 (68.04 kg, 167.64 cm) ca1 ED Course: 17:27 Patient arrived in ED. ag5 17:51 Triage completed. ca1 17:52 Arm band placed on right wrist. ca1 19:36 Asael Estrada PA is PHCP. cp 19:36 Asael Farah MD is Attending Physician. cp 19:43 Jarrod North, MARCELINO is Primary Nurse. mg2 20:06 Urine Microscopic Only Sent. ds4 20:12 No provider procedures requiring assistance completed. Inserted saline lock: 20 gauge mg2 in right antecubital area, using aseptic technique. Blood collected. 20:19 CT Abd/Pelvis - IV Contrast Only In Process Unspecified. EDMS 21:10 Patient has correct armband on for positive identification. mg2 22:20 COVID swab sent to lab. Yanna (lab) orders for in house, stated understanding. sg 06/19 00:03 Patient transferred, IV remains in place. mg2 Administered Medications: 06/18 17:58 Drug: Ondansetron (Zofran) 4 mg Route: PO; ca1 20:11 Drug: morphine 2 mg Route: IVP; Site: right antecubital; mg2 20:11 Drug: NS 0.9% 500 ml Route: IV; Rate: bolus; Site: right antecubital; mg2 06/19 00:01 Follow up: Response: No adverse reaction; IV Status: Completed infusion; IV Intake: mg2 500ml 06/18 20:12 Drug: Zofran (Ondansetron) 4 mg Route: IVP; Site: right antecubital; mg2 06/19 00:02 Follow up: Response: No adverse reaction mg2 06/18 21:05 Drug: morphine 2 mg Route: IVP; Site: right antecubital; mg2 06/19 00:01 Follow up: Response: No adverse reaction mg2 06/18 22:16 Drug: morphine 4 mg Route: IVP; Site: right antecubital; mg2 23:58 Follow up: Response: No adverse reaction mg2 22:26 Drug: Zosyn 3.375 grams Route: IVPB; Infused Over: 60 mins; Site: right antecubital; mg2 23:58 Follow up: Response: No adverse reaction; IV Status: Completed infusion mg2 23:56 Drug: Zofran (Ondansetron) 4 mg Route: IVP; Site: right antecubital; mg2 23:57 Follow up: Response: No adverse reaction; given prior to transfer mg2 23:57 Drug: Dilaudid 0.5 mg Route: IVP; Site: right antecubital; mg2 23:57 Follow up: Response: No adverse reaction; given prior to transfer mg2 Intake: 06/19 00:01 IV: 500ml; Total: 500ml. mg2 Outcome: 06/18 21:31 ER care complete, transfer ordered by MD. chu 06/19 00:03 Transferred by ground EMS to [facility], Transfer form completed. mg2 Condition: stable Instructed on the need for transfer, Demonstrated understanding of instructions. 00:04 Patient left the ED. mg2 Signatures: Dispatcher [employer] EDMS Jeovany Alanis RN RN Gm Mcdowell ds4 Asael Estrada PA PA cp Gardose, Michele, RN RN mg2 Shasta Elder RN RN ca1 Fartun Maier ag5 Corrections: (The following items were deleted from the chart) 06/18 17:59 17:46 Chief complaint: Patient's son or daughter states: daughter: She said she has ca1 been hurting on her R side and goes to the back. That is where her cancer is at, she has cholangeocarcinoma. She is describing the pain as the same as the pain she had in the summer where there was a cyst in the liver that ruptured. Tramadol taken at 1300, no relief. Nausea just now. She is undergoing chemo, last treatment was last Monday06/10/2020. ca1
--- NOTE | 2020-06-18 21:32 | EDPHYS ---
Physician Documentation [facility] Name: Danny Babcock Age: 69 yrs Sex: Female : 1950 Arrival Date: 06/18/2020 Time: 17:27 Bed 13 Private MD: ASHLEY Physician Asael Farah HPI: 06/18 19:45 This 69 yrs old Female presents to ER via Wheelchair with complaints of cp Diarrhea, Side Pain. 19:45 The patient presents to the emergency department with nausea, that is moderate, cp diarrhea, that is intermittent, 4 times today, abdominal pain, of the right upper quadrant, described as achy, and radiates to the right mid back. Onset: The symptoms/episode began/occurred today. Possible causes: History of liver cancer and liver cyst rupture. Associated signs and symptoms: Pertinent negatives: constipation, dysuria, fever, GI bleeding, vomiting. Historical: - Allergies: 17:52 Sulfa (Sulfonamide Antibiotics); ca1 - PMHx: 17:52 Cancer; Hypertension; Aneurysm; ca1 - Immunization history:: Pneumococcal vaccine is up to date, Flu vaccine is up to date. - Social history:: Smoking status: Patient denies any tobacco usage or history of. ROS: 19:50 Constitutional: Negative for body aches, chills, fever. cp 19:50 Eyes: Negative for injury, pain, redness, and discharge. cp 19:50 ENT: Negative for ear pain, sore throat, difficulty swallowing, difficulty handling secretions. 19:50 Cardiovascular: Negative for chest pain, palpitations. 19:50 Respiratory: Negative for cough, shortness of breath, wheezing. 19:50 Abdomen/GI: Positive for abdominal pain, nausea, diarrhea, Negative for constipation, black/tarry stool, rectal bleeding, active vomiting. 19:50 Back: Positive for radiated pain, of the mid back. 19:50 Neuro: Negative for altered mental status, headache, weakness. 19:50 All other systems are negative. Exam: 20:00 Constitutional: The patient appears in no acute distress, alert, awake, non-toxic, well cp developed, well nourished, uncomfortable. 20:00 Head/Face: Normocephalic, atraumatic. cp 20:00 Eyes: Periorbital structures: appear normal, Conjunctiva: normal, no exudate, no injection, Sclera: no appreciated abnormality, Lids and lashes: appear normal, bilaterally. 20:00 ENT: External ear(s): are unremarkable, Nose: is normal, Posterior pharynx: Airway: no evidence of obstruction, patent. 20:00 Chest/axilla: Inspection: normal, Palpation: is normal, no crepitus, no tenderness. 20:00 Cardiovascular: Rate: normal, Rhythm: regular. 20:00 Respiratory: the patient does not display signs of respiratory distress, Respirations: normal, no use of accessory muscles, no retractions, labored breathing, is not present, Breath sounds: are clear throughout, no decreased breath sounds, no stridor, no wheezing. 20:00 Abdomen/GI: Inspection: abdomen appears normal, Bowel sounds: active, all quadrants, Palpation: soft, in all quadrants, moderate abdominal tenderness, in the right upper quadrant, rebound tenderness, is not appreciated, voluntary guarding, is elicited in the right upper quadrant. 20:00 Back: pain, that is mild, mid back, ROM is normal. Vital Signs: 17:46 BP 166 / 98; Pulse 94; Resp 17 S; Temp 97(TE); Pulse Ox 100% on R/A; Weight 68.04 kg ca1 (R); Height 5 ft. 6 in. (167.64 cm) (R); Pain 7/10; 21:10 BP 160 / 95; Pulse 82; Resp 18; Pulse Ox 100% on R/A; mg2 22:20 BP 158 / 90; Pulse 80; Resp 18; Temp 98; Pulse Ox 100% on R/A; mg2 23:30 BP 155 / 70; Pulse 81; Resp 18; Temp 98; Pulse Ox 100% on R/A; mg2 17:46 Body Mass Index 24.21 (68.04 kg, 167.64 cm) ca1 MDM: 19:36 Patient medically screened. [facility] 21:30 Data reviewed: vital signs, nurses notes, lab test result(s), radiologic studies, CT cp scan, I have discussed the patient's presentation/case with the attending Emergency Department Physician; and as a result, I will administer antibiotics Zosyn, transfer patient. 22:14 ED course: transfer complete to MD Farah [facility] \[id number] with accepting cp physician, DR Maikel Ho, without doc to doc consult. 06/18 19:41 Order name: Basic Metabolic Panel; Complete Time: 20:41 cp 06/18 20:41 Interpretation: Normal except: NA 135; GLUC 187; GFR 58. cp 06/18 19:41 Order name: CBC with Diff; Complete Time: 21:06 06/18 20:44 Interpretation: Normal except: WBC 3.8; RBC 2.95; HGB 9.2; HCT 27.1; MCV 91.8; PLT 60; cp RDW 19.9; TANIA% 80.8; LYM% 7.5; LYMA 0.3. 06/18 19:41 Order name: Hepatic Function; Complete Time: 20:41 cp 06/18 20:42 Interpretation: Normal except: AST 40; ALK 189; BILID 0.3; GLOB 4.0; A/G 0.9. 06/18 19:41 Order name: Lipase; Complete Time: 20:41 06/18 19:41 Order name: Lactate; Complete Time: 20:41 06/18 19:41 Order name: Urine Microscopic Only; Complete Time: 20:41 06/18 19:45 Order name: CT Abd/Pelvis - IV Contrast Only; Complete Time: 20:41 06/18 21:17 Interpretation: Report reviewed. 06/18 20:07 Order name: Urine Dipstick--Ancillary (enter results); Complete Time: 20:41 ds4 06/18 20:30 Order name: Manual Differential; Complete Time: 21:06 EDMS 06/18 21:07 Interpretation: Normal except: BANDS [F] 4; LYM 5; MONO 12. 06/18 20:34 Order name: CREATININE WHOLE BLOOD; Complete Time: 20:41 EDNH 06/18 23:39 Order name: SARS-COV-2 RT PCR; Complete Time: 23:47 EDMS 06/18 19:41 Order name: IV Saline Lock; Complete Time: 20:12 06/18 19:41 Order name: Labs collected and sent; Complete Time: 20:12 06/18 19:41 Order name: Urine Dipstick-Ancillary (obtain specimen); Complete Time: 20:05 cp Administered Medications: 17:58 Drug: Ondansetron (Zofran) 4 mg Route: PO; ca1 20:11 Drug: morphine 2 mg Route: IVP; Site: right antecubital; mg2 20:11 Drug: NS 0.9% 500 ml Route: IV; Rate: bolus; Site: right antecubital; mg2 06/19 00:01 Follow up: Response: No adverse reaction; IV Status: Completed infusion; IV Intake: mg2 500ml 06/18 20:12 Drug: Zofran (Ondansetron) 4 mg Route: IVP; Site: right antecubital; mg2 06/19 00:02 Follow up: Response: No adverse reaction mg2 06/18 21:05 Drug: morphine 2 mg Route: IVP; Site: right antecubital; mg2 06/19 00:01 Follow up: Response: No adverse reaction mg2 06/18 22:16 Drug: morphine 4 mg Route: IVP; Site: right antecubital; mg2 23:58 Follow up: Response: No adverse reaction mg2 22:26 Drug: Zosyn 3.375 grams Route: IVPB; Infused Over: 60 mins; Site: right antecubital; mg2 23:58 Follow up: Response: No adverse reaction; IV Status: Completed infusion mg2 23:56 Drug: Zofran (Ondansetron) 4 mg Route: IVP; Site: right antecubital; mg2 23:57 Follow up: Response: No adverse reaction; given prior to transfer mg2 23:57 Drug: Dilaudid 0.5 mg Route: IVP; Site: right antecubital; mg2 23:57 Follow up: Response: No adverse reaction; given prior to transfer mg2 Disposition: 06/19 05:43 Co-signature as Attending Physician, Asael Farah MD I agree with the assessment and [facility] plan of care. Disposition: 06/18/20 21:31 Transfer ordered to Other Acute Care Facility. Diagnosis are Acute cholecystitis, Cholangiocarcinoma . - Reason for transfer: Higher level of care. - Accepting physician is DR Maikel Ho. - Condition is Stable. - Problem is new. - Symptoms have improved. Signatures: Dispatcher [employer] Asael Rangel MD MD cha Page, Corey, PA PA cp Gardose, Michele, RN RN mg2 Shasta Elder RN RN ca1 Corrections: (The following items were deleted from the chart) 06/18 22:08 21:31 06/18/2020 21:31 Transfer ordered to Other Acute Care Facility. Diagnosis is cp Acute cholecystitis. Reason for transfer: Higher level of care. Accepting physician is Doctor. Condition is Stable. Problem is new. Symptoms have improved. cp 22:19 22:08 06/18/2020 21:31 Transfer ordered to Other Acute Care Facility. Diagnosis is cp Acute cholecystitis. Reason for transfer: Higher level of care. Accepting physician is DR Maikel Ho. Condition is Stable. Problem is new. Symptoms have improved. cp 22:21 22:19 06/18/2020 21:31 Transfer ordered to Other Acute Care Facility. Diagnosis is cp Acute cholecystitis; Cholangiacarcinoma . Reason for transfer: Higher level of care. Accepting physician is DR Maikel Ho. Condition is Stable. Problem is new. Symptoms have improved. cp 22:22 21:09 CORONAVIRUS+MR.LAB.BRZ ordered. EDMS EDMS 06/19 00:04 06/18 22:21 06/18/2020 21:31 Transfer ordered to Other Acute Care Facility. Diagnosis mg2 is Acute cholecystitis; Cholangiocarcinoma . Reason for transfer: Higher level of care. Accepting physician is DR Maikel Ho. Condition is Stable. Problem is new. Symptoms have improved. cp
[2020-06-18] MEDS ORDERED: PIPER/TAZO/NS 3.375gm 3.375 GM/100 ML BAG ONE (22:37)
[2020-06-19] MEDS ORDERED: ONDANSETRON 4 MG/2 ML VIAL ONE (00:06)
[2020-06-19] MEDS ORDERED: HYDROMORPHONE HCL 0.5 MG/0.5 ML INJ ONE (00:06)
[2020-06-19 00:47] VITALS: O2SAT 100
[2020-06-19 00:50] VITALS: TEMP 98
[2020-06-19 00:51] VITALS: BP 155/70
== END 2020-06-19 00:04 ==
LOC: ER 17:23
DX: C22.1 Intrahepatic bile duct carcinoma (principal); K81.9 Cholecystitis, unspecified; Z20.822 Contact with and (suspected) exposure to COVID-19; I10 Essential (primary) hypertension; Z88.2 Allergy status to sulfonamides
CPT/HCPCS: 96365; 96361; 85025; 80048; 36415; 82565; 80076; 83605; 83690; 74177; 96375; 99285; 96366; U0003; Q9967; J2543; J2270 ×2; J1170; J7040; J2405 ×2; 81003; 81015

== ENCOUNTER 2020-11-29 21:06 | Observation (INO) | payer BC, OTHER ==
--- OUTSIDE RECORDS SUMMARY | 2020-11-29 21:16 | XMS REPORT | Continuity of Care Document ---
:1950 Author Organization [facility] t Address [address] [place] [address] Care Team Providers Name Role Phone ROBERT LIN Primary Care Physician Unavailable SYSTEM, NOT IN Attending Clinician Unavailable NEIDA Attending Clinician Unavailable Jerrod HANCOCK Attending Clinician Macario BENSON C Attending Clinician Unavailable Delvis Eason APN Attending Clinician Jyoti Turpin MD Attending Clinician JYOTI TURPIN Attending Clinician Unavailable Rohit BURGESS Attending Clinician Jessika BENSON Attending Clinician Robert Lin MD Attending Clinician ROBERT LIN Attending Clinician Unavailable Ian SAMSON Attending Clinician Unavailable Haroon RODRIGUEZ Attending Clinician Geetha CAIN Attending Clinician Rosy Yuen MD Attending Clinician Rosy YUEN Attending Clinician Unavailable Wil BENSON Attending Clinician Unavailable Duncan BENSON K Attending Clinician Unavailable Antonio BENSON Attending Clinician Unavailable Rusty Chu K Attending Clinician Unavailable HELD Attending Clinician Unavailable Meeta SHEN Attending Clinician Unavailable Meeta Shen MD Attending Clinician Noelle BURGESS Attending Clinician Criss BENSON, H Attending Clinician Unavailable Mery Gonzalez MA Attending Clinician Unavailable Chance OCAMPO Attending Clinician Ac Garcia PT Attending Clinician CELSO Attending Clinician Unavailable SAMUEL Attending Clinician Unavailable Rhett BENSON, F Attending Clinician Unavailable Mary BURGESS Attending Clinician Jhoana BENSON C Attending Clinician Unavailable Jed BENSON, M Attending Clinician Unavailable OPAL Attending Clinician Unavailable Opal BURGESS Attending Clinician ANUPAMA BROWN Attending Clinician Unavailable Doug BURGESS Attending Clinician Surya BURGESS Attending Clinician Yusuf Martinez MD Attending Clinician Anupama Brown MD Attending Clinician Yusuf MARTINEZ Attending Clinician Unavailable Meera [facility] Attending Clinician Unavailable Husam BENSON Attending Clinician Unavailable Adis Chu, M Attending Clinician Unavailable [facility] Attending Clinician Damir BURGESS Attending Clinician Unavailable Shun BENSON Attending Clinician Unavailable Lurdes BENSON, R Attending Clinician Unavailable Tom Rondon Attending Clinician Radha CAIN Attending Clinician Brandon BURGESS MBA, Robert Attending Clinician Wilfrid [facility] Attending Clinician Michael BURGESS Attending Clinician Willy RODRIGUEZ, S Attending Clinician KEVIN Attending Clinician Unavailable Kervin BURGESS Attending Clinician Ophelia BURGESS Attending Clinician Kevin BURGESS Attending Clinician Godwin BURGESS Attending Clinician GODWIN Attending Clinician Unavailable Gisell LIN Attending Clinician Unavailable Isis Adkins MD Attending Clinician LISA BUTCHER Attending Clinician Unavailable DEEP ROMAN Attending Clinician Unavailable PERRY TAYLOR Attending Clinician Unavailable JYOTI TURPIN Admitting Clinician Unavailable Meeta SHEN Admitting Clinician Unavailable DELBECQ Admitting Clinician Unavailable WATMARILU Admitting Clinician Unavailable SMAGLO Admitting Clinician Unavailable DEEP ROMAN Admitting Clinician Unavailable MJ BOWLING Admitting Clinician Unavailable Payers Payer Name Policy Type Policy Number Effective Date Expiration Date George strange MEDICARE PART A [id number] 2016 00:00:00 [place] [id number] 2015 00:00:00 Problems Condition Condition Condition Status Onset Resolution Last Treating Co mments Source Name Details Category Date Date Treatment Clinician Date Dehydratio Dehydratio Disease Active M D n n 5-18 Anderso 00:00: n 00 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 Added automatic ally from request for surgery [id number] Obstructio Obstructio Disease Active Overview : n of n of 21 Formattin Anderso biliary biliary 00:00: g of this n tree tree 00 note might be different from the original. 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 1-15 An derso aime aime 00:00: n malnutriti malnutriti 00 on on Hyponatrem Hyponatrem Disease Active 2019-0 M D ia ia 11-27 Anderso 00:00: n 00 Abdominal Abdominal Disease Active MD pain pain 11-27 Anderso 00:00: n 00 Hypertensi Hypertensi Disease Active 2020-0 M D on on 11-27 Anderso 00:00: n 00 Cholangioc Cholangioc Disease Active 2020-0 M D arcinoma arcinoma 4-10 Darius o 00:00: n 00 Abdominal Abdominal Disease Active [facility] unspecifie unspecifie 00:00: Me dical [...] Start Date Stop Date Quantity Comments Source Exposure to Not sure MD Farah SARS-CoV-2 (event) Tobacco use and 2020-11-18 2020-11-18 Never used MD Mccoy on exposure 00:00:00 00:00:00 Alcohol intake 2020-11-18 2020-11-18 Lifetime MD Jeanmarie sierra 00:00:00 00:00:00 non-drinker (finding) History SDOH 2020-08-12 2020-08-12 17 MD Farah Education 00:00:00 00:00:00 [birth year] MD Mccoy on 00:00:00 00:00:00 Smoking Status Start Date Stop Date Source Never smoker MD Farah Medications Ordered Filled Start Stop Current Ordering Indication Dosage Frequency Signature Comments Components Source Medication Medication Date Date Medication? Clinician (SIG) Name Name oxyCODONE Yes Cholangioca 10mg Take 1 MD (ROXICODONE 6-15 rcinoma tablet (10 Anderso ) 10 mg 00:00: mg) by n immediate 00 mouth release every 4 tablet (four) hours as needed (pain). multivitami Yes 1{tbl} Take 1 MD n 6-08 tablet by Jeanmarie (THERAGRAN) 17:43: mouth n tablet 54 daily. cyanocobala Yes 2500ug Take 2,500 MD min 6-08 mcg by Andkj (VITAMIN 17:43: mouth n B-12) 2,000 54 daily. mcg tablet cholecalcif Yes 2000U Take 2,000 MD landon, 6-08 Units by Andkj vitamin D3, 17:43: mouth n 25 mcg 54 daily. (1,000 unit) capsule UNABLE TO Yes 1{packe Take 1 MD FIND 6-08 t} packet by Anderso 17:43: mouth as n 54 needed. Med Name: Immune Defense acetaminoph Yes 1{tbl} Take 1 MD en/chlorphe 6-08 tablet by And kj niramine 17:43: mouth as n (CORICIDIN 54 needed. HBP COLD AND FLU ORAL) acetaminoph Yes 500mg Take 500 M D en 6-08 mg by Anderso (TYLENOL) 17:43: mouth as n 500 mg 54 needed for tablet mild pain. Taking 2 tabs 2-3 times daily levoFLOXaci Yes Obstruction 500mg Take 1 MD n 6-08 of biliary tablet Anderso (Levaquin) 00:00: tree (500 mg) n 500 mg 00 by mouth tablet daily. metFORMIN Yes Type 2 2000mg Take 4 MD (Glucophage 5-28 diabetes tablets A nderso XR) 500 mg 00:00: mellitus, (2,000 mg) n 24 hr 00 not by mouth tablet otherwise daily with specified breakfast. FERROUS 2020- No Take by MD SULFATE 5-26 05-26 mouth Anderso ORAL 15:13: 00:00 daily. n 45 :00 Unknown dose senna Yes Other 2{tbl} Take 2 MD (Senna Lax) 5-26 constipatio tablets by Anderso 8.6 mg 00:00: n mouth n tablet 00 daily. oxyCODONE 2020- No Cholangioca 10mg Take 1 MD (ROXICODONE 5-26 06-15 rcinoma tablet (10 Anderso ) 10 mg 00:00: 00:00 mg) by n immediate 00 :00 mouth release every 4 tablet (four) hours as needed (pain). metFORMIN 2020- No Type 2 1000mg Take 2 M D (Glucophage 5-26 05-28 diabetes tablets Anderso XR) 500 mg 00:00: 00:00 mellitus, (1,000 mg) n 24 hr 00 :00 not by mouth tablet otherwise daily with specified breakfast. oxyCODONE 2020- No Cholangioca 10mg Take 1 MD (ROXICODONE 5-18 -26 rcinoma tablet (10 Anderso ) 10 mg 00:00: 00:00 mg) by n immediate 00 :00 mouth release every 4 tablet (four) hours as needed (pain). oxyCODONE 2020- No Cholangioca 10mg Take 1 MD (ROXICODONE 5-18 05-18 rcinoma tablet (10 Anderso ) 10 mg 00:00: 00:00 mg) by n immediate 00 :00 mouth release every 4 tablet (four) hours as needed (pain). morphine 2020- No Cholangioca 15mg Take 1 MD (MSIR) 15 09-29-26 rcinoma tablet (15 Anderso mg IR 00:00: 00:00 mg) by n tablet 00 :00 mouth every 4 (four) hours as needed for pain. levoFLOXaci 2020- No Cholangioca 500mg Take 1 MD n - 05-04 rcinoma tablet Anderso (Levaquin) 00:00: 00:00 (500 mg) n 500 mg 00 :00 by mouth tablet daily. levoFLOXaci 2020- No Cholangioca 500mg Take 1 MD n 3-10 03-14 rcinoma tablet Anderso (Levaquin) 00:00: 05:59 (500 mg) n 500 mg 00 :00 by mouth tablet daily for 3 days. ferrous 2020- No Anemia in 325mg Take 1 M D sulfate 325 06-26- malignant tablet Anderso mg (65 mg 00:00: 05:59 neoplastic (325 mg) n elemental 00 :00 disease by mouth iron per daily for tablet) 30 days. tablet simethicone Yes Abdominal 80mg Chew 1 MD (MYLICON) 06-25 pain tablet (80 Ammno rso 80 mg 00:00: mg) 2 n chewable 00 (two) tablet times a day as needed for flatulence (Assess 30 min-1hr after meals and give if needed). metFORMIN 2020- No Type 2 500mg Take 1 MD (Glucophage 06-25- diabetes tablet A nderso ) 500 mg 00:00: 00:00 mellitus, (500 mg) n tablet 00 :00 not by mouth 2 otherwise (two) specified times a day with meals. senna No Slow 1{tbl} Take 1 MD (SENOKOT) 06-25 transit tablet by A nderso 8.6 mg 00:00: 05:59 constipatio mouth as n tablet 00 :00 n needed for constipati on for up to 30 days. morphine Neoplasm 7.5mg Take half MD (MSIR) 15 06-23- related of a Darius o mg IR 00:00: 00:00 pain tablet n tablet 00 :00 (acute) (7.5 mg) (chronic) by mouth every 4 (four) hours as needed for pain. levoFLOXaci 2019-06 No Cholangioca 500mg Take 1 MD n 2-02 14- rcinoma tablet Anderso (Levaquin) 00:00: 05:59 (500 mg) n 500 mg 00 :00 by mouth tablet daily for 3 days. levoFLOXaci 2019-06 No Cholangioca 500mg Take 1 MD n 2-02 14- rcinoma tablet Anderso (Levaquin) 00:00: 05:59 (500 mg) n 500 mg 00 :00 by mouth tablet daily for 3 days. levoFLOXaci 2019-06 No Hyperbiliru 500mg Take 1 MD n 2-03 12-08 binemia tablet Anderso (Levaquin) 00:00: 00:00 (500 mg) n 500 mg 00 :00 by mouth tablet daily. levoFLOXaci 2019-06- No Cholangioca 500mg Take 1 MD n -17 12- rcinoma tablet Anderso (Levaquin) 00:00: 00:00 (500 mg) n 500 mg 00 :00 by mouth tablet daily. levoFLOXaci 2019-06- No Cholangioca 500mg Take 1 MD n -21 04- rcinoma tablet Anderso (Levaquin) 00:00: 00:00 (500 mg) n 500 mg 00 :00 by mouth tablet every 12 (twelve) hours. Contour 2019-06 Yes 1 test MD Next Test 0-04 strip per Phong so Strips strp 00:00: day for n 00 checking blood glucose. Microlet 2019- Yes 1 lancet MD Lancet misc 0-02 per day Phong so 00:00: for n 00 checking blood glucose. ondansetron Yes Cholangioca 8mg Take 1 MD (Zofran) 8 9-04 rcinoma tablet (8 A nderso mg tablet 00:00: mg) by n 00 mouth every 8 (eight) hours as needed for nausea or vomiting. (First Choice) prochlorper 2019- Yes Cholangioca 10mg Take 1 MD azine 9-04 rcinoma tablet (10 Phong so (Compazine) 00:00: mg) by n 10 mg 00 mouth tablet every 6 (six) hours as needed for nausea or vomiting. (Second Choice) polyethylen 2019- Yes Slow Stir and MD e glycol 11-30 transit dissolve Ammon rso (Miralax) 00:00: constipatio one packet n 17 g packet 00 n of powder (17 g) in any 4 to 8 ounces of beverage (cold, hot or room temperatur e) then drink once a day. traMADol 2019- No 50mg Take 50 mg MD (ULTRAM) 50 11-29 by mouth And erso mg tablet 17:05: 00:00 every 4 n 53 :00 (four) hours as needed. metFORMIN 2020- No Type 2 500mg Take 1 MD (Glucophage 11-29 diabetes tablet A nderso ) 500 mg 00:00: 00:00 mellitus, (500 mg) n tablet 00 :00 not by mouth 2 otherwise (two) specified times a day with meals. senna 2020- No Slow 1{tbl} Take 1 MD (SENOKOT) 11-29 transit tablet by A nderso 8.6 mg 00:00: 00:00 constipatio mouth n tablet 00 :00 n twice daily. traMADol 2020- No Abdominal 50mg Take 1 M D (ULTRAM) 50 11-29 pain tablet (50 A nderso mg tablet 00:00: 00:00 mg) by n 00 :00 mouth every 4 (four) hours as needed for moderate pain. levoFLOXaci 2019- No Pneumonia, 500mg Take 1 MD n 11-29-04 organism tablet Anderso (Levaquin) 00:00: 00:00 unspecified (500 mg) n 500 mg 00 :00 by mouth tablet daily. escitalopra Yes TAKE 1 MD m (LEXAPRO) 2-12 TABLET BY And erso 20 mg 00:00: MOUTH n tablet 00 EVERY DAY lisinopril 2020- No TAKE 1 MD (PRINIVIL,Z 8-19 05-26 TABLET BY An derso ESTRIL) 10 00:00: 00:00 MOUTH n mg tablet 00 :00 EVERY DAY lisinopril Yes 10mg QD Take [...] 53 daily . Center MCG tablet cholecalcif Yes 2000U QD Take 2,[address] [facility] landon, 7-16 Units by [facility] - vitamin D3, 15:59: mouth Medic al 1,000 unit 53 daily . Center capsule multivitami Yes 1{tbl} QD Take [address] n per 7-16 tablet by [facility] - tablet 15:59: mouth Medical 53 daily. Center CREON Yes . [facility] 36,000-114, 5-30 [facility] - 000- 00:00: Medical 180,000 00 Center unit CpDR capsule pancrelipas 2020- No 2{capsu Take 2 MD e (CREON) 5-30 06-25 le} capsules Phong so 36,000-114, 00:00: 00:00 by mouth n 000-180,000 00 :00 as needed. units cpDR capsule lactulose Yes 20g [id number] Take [address] [facility] (CHRONULAC) 5-25 [id number] by mouth 3 [facility] - 10 gram/15 [...] 8mg Take 8 mg MD (ZOFRAN) 8 516 04 by mouth Ammon rso mg tablet 00:00: 00:00 every 8 n 00 :00 (eight) hours as needed for nausea or vomiting. STOOL Yes QD Take by [facility] SOFTENER 09 mouth [facility] - 100 mg 00:00: daily . Medical capsule 00 Center Immunizations Ordered Immunization Filled Immunization Date Status Commen ts Source Name Name doForms SARS-CoV-2 2020-08-01 Completed Ammon rson Vaccination 00:00:00 Pfizer SARS-CoV-2 2020-07-11 Completed Ammon rson Vaccination 00:00:00 Vital Signs Vital Name Observation Time Observation Value Comments Source WEIGHT 2020-11-10 09:42:00 61.7 kg WEIGHT 2020-11-10 09:42:00 61.7 kg WEIGHT 2020-11-03 11:51:00 61.7 kg WEIGHT 2020-11-03 11:51:00 61.7 kg WEIGHT 2020-10-21 09:58:00 62.2 kg WEIGHT 2020-10-21 09:58:00 62.2 kg WEIGHT 2020 14:20:20 64.91 kg WEIGHT 2020 14:20:20 64.91 kg WEIGHT 2020-10-07 08:55:00 63.3 kg WEIGHT 2020-10-07 08:55:00 63.3 kg WEIGHT 2020-10-06 12:27:00 63.504 kg WEIGHT 2020-10-06 12:27:00 63.504 kg WEIGHT 2020-09-29 14:06:00 64.456 kg WEIGHT 2020-09-29 14:06:00 64.456 kg WEIGHT 2020-09-29 09:46:00 64 kg WEIGHT 2020-09-29 09:46:00 64 kg WEIGHT 2020-09-23 09:25:29 63.9 kg WEIGHT 2020-09-23 09:25:29 63.9 kg WEIGHT 2020-09-17 13:03:00 63.413 kg WEIGHT 2020-09-17 13:03:00 63.413 kg WEIGHT 2020-08-14 13:49:34 65.5 kg WEIGHT 2020-08-14 13:49:34 65.5 kg HEIGHT 2020-08-12 10:56:00 160 cm WEIGHT 2020-08-12 10:56:00 65.7 kg HEIGHT 2020-08-12 10:56:00 160 cm WEIGHT 2020-08-12 10:56:00 65.7 kg WEIGHT 2020-08-11 07:53:00 65.3 kg WEIGHT 2020-08-11 07:53:00 65.3 kg WEIGHT 2020-07-17 12:54:08 66 kg WEIGHT 2020-07-17 12:54:08 66 kg WEIGHT 2020-06-25 06:00:00 69.2 kg HEIGHT 2020-06-19 07:23:00 160 cm WEIGHT 2020-06-25 06:00:00 69.2 kg HEIGHT 2020-06-19 07:23:00 160 cm WEIGHT 2020-06-16 14:48:00 68.4 kg WEIGHT 2020-06-16 [...] 167.6 cm WEIGHT 2019-11-28 00:00:00 82.8 kg Systolic blood pressure 2020-11-10 17:25:00 102 mm[Hg] MD Farah Diastolic blood pressure 2020-11-10 17:25:00 64 mm[Hg] MD Farah Heart rate 2020-11-10 17:25:00 75 /min MD Phong prieto Respiratory rate 2020-11-10 17:25:00 19 /min MD Joseph smith Oxygen saturation in 2020-11-10 17:25:00 100 /min MD Farah Arterial blood by Pulse oximetry Body temperature 2020-11-10 16:40:00 36.11 Rina MD Joseph smith Body weight 2020-11-10 14:42:00 61.7 kg MD Phong prieto BMI 2020-11-10 14:42:00 24.10 kg/m2 MD Phong prieto Body height 2020-08-12 16:56:00 160 cm MD Phong prieto Procedures Procedure Date / Time Performing Clinician Source Performed ENDOSCOPIC RETROGRADE 2020-11-10 15:39:00 MD Michelle Baker CHOLANGIOPANCREATOGRAPHY WITH Jas PLACEMENT OF STENT OF BILE DUCT POC CHEM 8 2020-11-10 15:35:00 MD Gagan Baker [place] ENDOSCOPY FLUOROSCOPY 2020-11-10 15:30:21 MD Gagan Baker ENDOSCOPY NOTE RESULTS 2020-11-10 15:24:23 MD Joseph Baker POC GLUCOSE SCREEN 2020-11-10 14:53:00 MD Phong Baker HC 2019-NCOV COVID-19 2020-11-06 18:57:00 MD Michelle Baker HEMOGLOBIN A1C 2020-10-28 13:10:00 Tyson Yuen MD COMPLETE BLOOD COUNT W/ 2020 18:46:00 Held, Shiela smith DIFFERENTIAL COMPREHENSIVE METABOLIC PANEL 2020 18:46:00 Held, Shiela Farah CANCER ANTIGEN 19-9 2020 18:46:00 Held, Shiela prieto Results CBC 2020 18:46:00 Held, Shiela Farah MANUAL DIFFERENTIAL 2020 18:46:00 Held, Shiela prieto GLUCOSE LEVEL 2020 18:46:00 Held, Shiela Farah BLOOD UREA NITROGEN 2020 18:46:00 Held, Shiela prieto ELECTROLYTE PANEL 2020 18:46:00 Held, Shiela sierra SERUM CREATININE 2020 18:46:00 Held, Shiela Farah .GLOMERULAR FILTRATION RATE 2020 18:46:00 Held, Shiela Farah CALCIUM LEVEL TOTAL 2020 18:46:00 Held, Shiela BURGESS Phong son ALBUMIN LEVEL 2020 18:46:00 Held, Shiela Farah ALKALINE PHOSPHATASE 2020 18:46:00 Held, Shiela mccormackon ALANINE AMINOTRANSFERASE 2020 18:46:00 Held, Shiela Farah ASPARTATE AMINOTRANSFERASE 2020 18:46:00 Held, Shiela Farah TOTAL PROTEIN 2020 18:46:00 Held, Shiela Farah FRACTIONATED BILIRUBIN 2020 18:46:00 Held, Shiela bates COMPLETE BLOOD COUNT W/ 2020-10-06 14:31:00 Held, Shiela smith DIFFERENTIAL COMPREHENSIVE METABOLIC PANEL 2020-10-06 14:31:00 Held, Shiela Farah MAGNESIUM LEVEL 2020-10-06 14:31:00 Held, Shiela Farah PHOSPHORUS LEVEL 2020-10-06 14:31:00 Held, Shiela Farah LACTATE DEHYDROGENASE 2020-10-06 14:31:00 Held, Shiela Mccurdy CANCER ANTIGEN 19-9 2020-10-06 14:31:00 Held, Shiela prieto Results CBC 2020-10-06 14:31:00 Held, Shiela Farah MANUAL DIFFERENTIAL 2020-10-06 14:31:00 Held, Shiela BURGESS Phongfrancisca prieto GLUCOSE LEVEL 2020-10-06 14:31:00 Held, Shiela Farah BLOOD UREA NITROGEN 2020-10-06 14:31:00 Held, Shiela prieto ELECTROLYTE PANEL 2020-10-06 14:31:00 Held, Shiela sierra SERUM CREATININE 2020-10-06 14:31:00 Held, Shiela Farah .GLOMERULAR FILTRATION RATE 2020-10-06 14:31:00 Held, Shiela Farah CALCIUM LEVEL TOTAL 2020-10-06 14:31:00 Held, Shiela BURGESS Phong son ALBUMIN LEVEL 2020-10-06 14:31:00 Held, Shiela Farah ALKALINE PHOSPHATASE 2020-10-06 14:31:00 Held, Shiela mccormackon ALANINE AMINOTRANSFERASE 2020-10-06 14:31:00 Held, Shiela Farah ASPARTATE AMINOTRANSFERASE 2020-10-06 14:31:00 Held, Shiela Farah TOTAL PROTEIN 2020-10-06 14:31:00 Held, Shiela Farah FRACTIONATED BILIRUBIN 2020-10-06 14:31:00 Held, Shiela bates ENDOSCOPY NOTE RESULTS 2020-09-29 16:48:24 Jose M Shen MD ENDOSCOPIC RETROGRADE 2020-09-29 16:32:00 Jose M Shen MD And ers CHOLANGIOPANCREATOGRAPHY WITH PLACEMENT OF STENT OF BILE DUCT POC GLUCOSE SCREEN 2020-09-29 14:42:00 Jose M Shen MD Darius on [place] ENDOSCOPY FLUOROSCOPY 2020-09-29 14:26:32 Crista Fontana MD COMPLETE BLOOD COUNT W/ 2020-09-29 13:22:00 Roman Lin MDrsquintin [facility] COMPREHENSIVE METABOLIC PANEL 2020-09-29 13:22:00 Sergio Lin MD MAGNESIUM LEVEL 2020-09-29 13:22:00 Roman Lin MD PHOSPHORUS LEVEL 2020-09-29 13:22:00 Roman Lin MD LACTATE DEHYDROGENASE 2020-09-29 13:22:00 Roman Lin MD And casey Harris CANCER ANTIGEN 19-9 2020-09-29 13:22:00 Roman Lin MD Results CBC 2020-09-29 13:22:00 Roman Lin MD MANUAL DIFFERENTIAL 2020-09-29 13:22:00 Roman Lin MD GLUCOSE LEVEL 2020-09-29 13:22:00 Roman Lin MD BLOOD UREA NITROGEN 2020-09-29 13:22:00 Roman Lin MD ELECTROLYTE PANEL 2020-09-29 13:22:00 Roman Lin MD SERUM CREATININE 2020-09-29 13:22:00 Roman Lin MD .GLOMERULAR FILTRATION RATE 2020-09-29 13:22:00 Roman Lin MD CALCIUM LEVEL TOTAL 2020-09-29 13:22:00 Roman Lin MD ALBUMIN LEVEL 2020-09-29 13:22:00 Roman Lin MD ALKALINE PHOSPHATASE 2020-09-29 13:22:00 Roman Lin MD ALANINE AMINOTRANSFERASE 2020-09-29 13:22:00 Roman Lin MD ASPARTATE AMINOTRANSFERASE 2020-09-29 13:22:00 Roman Lin TOTAL PROTEIN 2020-09-29 13:22:00 Roman Lin MD FRACTIONATED BILIRUBIN 2020-09-29 13:22:00 Roman Lin MD COVID-19 (SARS-COV-2) 2020-09-26 15:09:00 Ivory Godfrey MD PCR-ASYMPTOMATIC COMPREHENSIVE METABOLIC PANEL 2020-09-23 13:35:00 Sergio Lin MD COMPLETE BLOOD COUNT W/ 2020-09-23 13:35:00 Roman Lin MD ndersquintin Harris CANCER ANTIGEN 19-9 2020-09-23 13:35:00 Roman Lin MD MAGNESIUM LEVEL 2020-09-23 13:35:00 Roman Lin MD GLUCOSE LEVEL 2020-09-23 13:35:00 Roman Lin MD BLOOD UREA NITROGEN 2020-09-23 13:35:00 Roman Lin MD ELECTROLYTE PANEL 2020-09-23 13:35:00 Roman Lin MD SERUM CREATININE 2020-09-23 13:35:00 Roman Lin MD .GLOMERULAR FILTRATION RATE 2020-09-23 13:35:00 Roman Lin MD CALCIUM LEVEL TOTAL 2020-09-23 13:35:00 Roman Lin MD ALBUMIN LEVEL 2020-09-23 13:35:00 Roman Lin MD ALKALINE PHOSPHATASE 2020-09-23 13:35:00 Roman Lin MD ALANINE AMINOTRANSFERASE 2020-09-23 13:35:00 Roman Lin MD ASPARTATE AMINOTRANSFERASE 2020-09-23 13:35:00 Roman Lin Robert TOTAL PROTEIN 2020-09-23 13:35:00 Roman Lin MD FRACTIONATED BILIRUBIN 2020-09-23 13:35:00 Roman Lin MD Robert Results CBC 2020-09-23 13:35:00 Roman Lin MD Robert MANUAL DIFFERENTIAL 2020-09-23 13:35:00 Ethan, Roman BURGESS Phongfrancisca prieto Robert CT CHEST ABDOMEN PELVIS W WO 2020-09-16 17:54:43 Held, Shiela Farah CONTRAST LIVER POC CREATININE 2020-09-16 15:33:00 Held, Shiela Farah TOTAL PROTEIN 2020-09-16 14:30:00 Held, Shiela Farah FRACTIONATED BILIRUBIN 2020-09-16 14:30:00 Held, Shiela bates COMPLETE BLOOD COUNT W/ 2020-09-16 14:30:00 Held, Shiela horowitzon DIFFERENTIAL COMPREHENSIVE METABOLIC PANEL 2020-09-16 14:30:00 Held, Shiela Farah MAGNESIUM LEVEL 2020-09-16 14:30:00 Held, Shiela Farah PHOSPHORUS LEVEL 2020-09-16 14:30:00 Held, Shiela Farah LACTATE DEHYDROGENASE 2020-09-16 14:30:00 Held, Shiela Mccurdy CANCER ANTIGEN 19-9 2020-09-16 14:30:00 Held, Shiela prieto Results CBC 2020-09-16 14:30:00 Held, Shiela Farah MANUAL DIFFERENTIAL 2020-09-16 14:30:00 Held, Shiela prieto GLUCOSE LEVEL 2020-09-16 14:30:00 Held, Shiela Farah BLOOD UREA NITROGEN 2020-09-16 14:30:00 Held, Shiela prieto ELECTROLYTE PANEL 2020-09-16 14:30:00 Held, Shiela sierra SERUM CREATININE 2020-09-16 14:30:00 Held, Shiela Farah .GLOMERULAR FILTRATION RATE 2020-09-16 14:30:00 Held, Shiela Farah CALCIUM LEVEL TOTAL 2020-09-16 14:30:00 Held, Shiela prieto ALBUMIN LEVEL 2020-09-16 14:30:00 Held, Shiela Farah ALKALINE PHOSPHATASE 2020-09-16 14:30:00 Held, Shiela betancur ALANINE AMINOTRANSFERASE 2020-09-16 14:30:00 Held, Shiela Farah ASPARTATE AMINOTRANSFERASE 2020-09-16 14:30:00 Held, Shiela Farah COMPLETE BLOOD COUNT W/ 2020-08-14 19:36:00 Roman Lin MDrsquintin Harris COMPREHENSIVE METABOLIC PANEL 2020-08-14 19:36:00 Sergio Lin MD MAGNESIUM LEVEL 2020-08-14 19:36:00 Roman Lin MD PHOSPHORUS LEVEL 2020-08-14 19:36:00 Roman Lin MD LACTATE DEHYDROGENASE 2020-08-14 19:36:00 Roman Lin CANCER ANTIGEN 19-9 2020-08-14 19:36:00 Roman Lin MD HEMOGLOBIN A1C 2020-08-14 19:36:00 Tyson Yuen MD THYROID STIMULATING HORMONE 2020-08-14 19:36:00 Tyson Yuen MD FREE THYROXINE 2020-08-14 19:36:00 Tyson Yuen MD Results CBC 2020-08-14 19:36:00 Roman Lin MD MANUAL DIFFERENTIAL 2020-08-14 19:36:00 Roman Lin MD GLUCOSE LEVEL 2020-08-14 19:36:00 Roman Lin MD BLOOD UREA NITROGEN 2020-08-14 19:36:00 Roman Lin MD SERUM CREATININE 2020-08-14 19:36:00 Roman Lin MD .GLOMERULAR FILTRATION RATE 2020-08-14 19:36:00 Roman Lin MD CALCIUM LEVEL TOTAL 2020-08-14 19:36:00 Roman Lin MD ALBUMIN LEVEL 2020-08-14 19:36:00 Roman Lin MD ALKALINE PHOSPHATASE 2020-08-14 19:36:00 Roman Lin MD ALANINE AMINOTRANSFERASE 2020-08-14 19:36:00 Roman Lin MD ASPARTATE AMINOTRANSFERASE 2020-08-14 19:36:00 Roman Lin TOTAL PROTEIN 2020-08-14 19:36:00 Roman Lin MD FRACTIONATED BILIRUBIN 2020-08-14 19:36:00 Roman Lin MD ELECTROLYTE PANEL 2020-08-14 19:36:00 Roman Lin MD ENDOSCOPIC RETROGRADE 2020-08-11 14:29:00 MD Michelle Baker CHOLANGIOPANCREATOGRAPHY WITH Jas REMOVAL OF STENT OF BILE DUCT ENDOSCOPIC RETROGRADE 2020-08-11 14:29:00 MD Michelle Baker CHOLANGIOPANCREATOGRAPHY WITH Jas ENDOSCOPIC RETROGRADE REMOVAL OF CALCULUS FROM BILIARY AND PANCREATIC DUCTS RADIOLOGIC SUPERVISION AND 2020-08-11 14:29:00 MD Gagan Baker INTERPRETATION FOR ENDOSCOPIC Jas CATHETERIZATION OF THE BILIARY DUCTAL SYSTEM FL ENDOSCOPY FLUOROSCOPY 2020-08-11 14:28:00 MD Gagan Baker ENDOSCOPY NOTE RESULTS 2020-08-11 14:26:26 MD Joseph Baker POC GLUCOSE SCREEN 2020-08-11 14:04:00 MD Phong Baker 2019-NCOV COVID-19 2020-08-07 19:50:00 Roman Lin SERUM CREATININE 2020-07-17 18:00:00 Roman Lin MD .GLOMERULAR FILTRATION RATE 2020-07-17 18:00:00 Roman Lin MD CALCIUM LEVEL TOTAL 2020-07-17 18:00:00 Roman Lin MD ALBUMIN LEVEL 2020-07-17 18:00:00 Roman Lin MD ALKALINE PHOSPHATASE 2020-07-17 18:00:00 Roman Lin MD ALANINE AMINOTRANSFERASE 2020-07-17 18:00:00 Roman Lin MD ASPARTATE AMINOTRANSFERASE 2020-07-17 18:00:00 Roman Lin TOTAL PROTEIN 2020-07-17 18:00:00 Roman Lin MD FRACTIONATED BILIRUBIN 2020-07-17 18:00:00 Roman Lin MD COMPLETE BLOOD COUNT W/ 2020-07-17 18:00:00 Roman Lin MD Robert COMPREHENSIVE METABOLIC PANEL 2020-07-17 18:00:00 Sergio Lin MD MAGNESIUM LEVEL 2020-07-17 18:00:00 Roman Lin MD Robert PHOSPHORUS LEVEL 2020-07-17 18:00:00 Roman Lin MD LACTATE DEHYDROGENASE 2020-07-17 18:00:00 Roman Lin MD And casey Harris CANCER ANTIGEN 19-9 2020-07-17 18:00:00 Roman Lin MD Results CBC 2020-07-17 18:00:00 Roman Lin MD MANUAL DIFFERENTIAL 2020-07-17 18:00:00 Roman Lin MD GLUCOSE LEVEL 2020-07-17 18:00:00 Roman Lin MD BLOOD UREA NITROGEN 2020-07-17 18:00:00 Roman Lin MD ELECTROLYTE PANEL 2020-07-17 18:00:00 Roman Lin MD POC GLUCOSE SCREEN 2020-06-25 17:45:00 Diana Brown MD POC GLUCOSE SCREEN 2020-06-25 13:35:00 Diana Brown MD COMPLETE BLOOD COUNT W/ 2020-06-25 10:31:00 Jasmin Hart MD DIFFERENTIAL COMPREHENSIVE METABOLIC PANEL 2020-06-25 10:31:00 Brisa Hart ra, MD MAGNESIUM LEVEL 2020-06-25 10:31:00 Jasmin Hart MD PHOSPHORUS LEVEL 2020-06-25 10:31:00 Jasmin Hart MD Results CBC 2020-06-25 10:31:00 Cande Martinez MD MANUAL DIFFERENTIAL 2020-06-25 10:31:00 Cande Martinez MD GLUCOSE LEVEL 2020-06-25 10:31:00 Cande Martinez MD Ammon rson BLOOD UREA NITROGEN 2020-06-25 10:31:00 Cande Martinez MD ELECTROLYTE PANEL 2020-06-25 10:31:00 Cande Martinez MD SERUM CREATININE 2020-06-25 10:31:00 Cande Martinez MD And erson .GLOMERULAR FILTRATION RATE 2020-06-25 10:31:00 Shamika Martinez MD CALCIUM LEVEL TOTAL 2020-06-25 10:31:00 Cande Martinez MD ALBUMIN LEVEL 2020-06-25 10:31:00 Cande Martinez MD Ammon rson ALKALINE PHOSPHATASE 2020-06-25 10:31:00 Cande Martinez MD ALANINE AMINOTRANSFERASE 2020-06-25 10:31:00 Cande Martinez MD ASPARTATE AMINOTRANSFERASE 2020-06-25 10:31:00 Cande Martinez MD TOTAL PROTEIN 2020-06-25 10:31:00 Cande Martinez MD Ammon rson FRACTIONATED BILIRUBIN 2020-06-25 10:31:00 Cande Martinez MD POC GLUCOSE SCREEN 2020-06-25 04:28:00 Diana Brown MD POC GLUCOSE SCREEN 2020-06-24 22:52:00 Diana Brown MD XR CHEST 1 VW PORTABLE 2020-06-24 18:37:16 Fred Pablo MD POC GLUCOSE SCREEN 2020-06-24 18:33:00 Diana Brown MD URINE CULTURE 2020-06-24 18:15:00 Fred Pablo MD BLOODCULTURE 2020-06-24 18:15:00 Diana Brown MD URINALYSIS MICROSCOPIC 2020-06-24 18:15:00 Fred Pablo MD URINALYSIS WITH MICROSCOPIC IF 2020-06-24 18:15:00 Chuck Brown MD Anupama BLOODCULTURE 2020-06-24 17:53:00 Fred Pablo MD POC GLUCOSE SCREEN 2020-06-24 13:13:00 Diana Brown MD COMPLETE BLOOD COUNT W/ 2020-06-24 10:38:00 Jasmin Hart MD DIFFERENTIAL COMPREHENSIVE METABOLIC PANEL 2020-06-24 10:38:00 Brisa Hart ra, MD MAGNESIUM LEVEL 2020-06-24 10:38:00 Jasmin Hart MD PHOSPHORUS LEVEL 2020-06-24 10:38:00 Jasmin Hart MD Anderso n Results CBC 2020-06-24 10:38:00 Cande Martinez MD Ammon rson MANUAL DIFFERENTIAL 2020-06-24 10:38:00 Cande Martinez MD GLUCOSE LEVEL 2020-06-24 10:38:00 Cande Martinez MD Ammon rsquintin BLOOD UREA NITROGEN 2020-06-24 10:38:00 Cande Martinez MD ELECTROLYTE PANEL 2020-06-24 10:38:00 Cande Martinez MDson SERUM CREATININE 2020-06-24 10:38:00 Cande Martinez MD And erson .GLOMERULAR FILTRATION RATE 2020-06-24 10:38:00 Shamika Martinez MD CALCIUM LEVEL TOTAL 2020-06-24 10:38:00 Cande Martinez MD ALBUMIN LEVEL 2020-06-24 10:38:00 Cande Martinez MD Ammon rsquintin ALKALINE PHOSPHATASE 2020-06-24 10:38:00 Cande Martinez MD ALANINE AMINOTRANSFERASE 2020-06-24 10:38:00 Cande Martinez MD ASPARTATE AMINOTRANSFERASE 2020-06-24 10:38:00 Cande Martinez MD TOTAL PROTEIN 2020-06-24 10:38:00 Cande Martinez MD Ammon rson FRACTIONATED BILIRUBIN 2020-06-24 10:38:00 Cande Martinez MD POC GLUCOSE SCREEN 2020-06-24 03:46:00 Diana Brown MD POC GLUCOSE SCREEN 2020-06-23 23:04:00 Diana Brown MD BASIC METABOLIC PANEL, CALCIUM 2020-06-23 21:46:00 Me matilde Hart MD TOTAL GLUCOSE LEVEL 2020-06-23 21:46:00 Diana Brown MD BLOOD UREA NITROGEN 2020-06-23 21:46:00 Diana Brown MD Ammon rsquintin Anupama ELECTROLYTE PANEL 2020-06-23 21:46:00 Diana Brown MD Darius on Anupama SERUM CREATININE 2020-06-23 21:46:00 Diana Brown MD Andchevyo mariela Altman .GLOMERULAR FILTRATION RATE 2020-06-23 21:46:00 Diana Brown MD CALCIUM LEVEL TOTAL 2020-06-23 21:46:00 Diana Brown MD Ammon rsquintin Altman POC GLUCOSE SCREEN 2020-06-23 18:50:00 Diana Brown MD Phongfrancisca Altman POC GLUCOSE SCREEN 2020-06-23 13:40:00 Diana Brown MD Phong son Anupama COMPLETE BLOOD COUNT W/ 2020-06-23 11:19:00 Jasmin Hart MD DIFFERENTIAL COMPREHENSIVE METABOLIC PANEL 2020-06-23 11:19:00 Brisa Hart ra, MD MAGNESIUM LEVEL 2020-06-23 11:19:00 Jasmin Hart MD PHOSPHORUS LEVEL 2020-06-23 11:19:00 Jasmin Hart MD Results CBC 2020-06-23 11:19:00 Cande Martinez MD Ammon rsquintin MANUAL DIFFERENTIAL 2020-06-23 11:19:00 Cande Martinez MD GLUCOSE LEVEL 2020-06-23 11:19:00 Cande Martinez MD Ammonkat betancur BLOOD UREA NITROGEN 2020-06-23 11:19:00 Cande Martinez MD ELECTROLYTE PANEL 2020-06-23 11:19:00 Cande Martinez MD SERUM CREATININE 2020-06-23 11:19:00 Cande Martinez MD And erson .GLOMERULAR FILTRATION RATE 2020-06-23 11:19:00 Shamika Martinez MD CALCIUM LEVEL TOTAL 2020-06-23 11:19:00 Cande Martinez MD ALBUMIN LEVEL 2020-06-23 11:19:00 Cande Martinez MD Ammon rsquintin ALKALINE PHOSPHATASE 2020-06-23 11:19:00 Cande Martinez MD ALANINE AMINOTRANSFERASE 2020-06-23 11:19:00 Cande Martinez MD ASPARTATE AMINOTRANSFERASE 2020-06-23 11:19:00 Cande Martinez MD TOTAL PROTEIN 2020-06-23 11:19:00 Cande Martinez MD Ammon rson FRACTIONATED BILIRUBIN 2020-06-23 11:19:00 Cande Martinez MD POC GLUCOSE SCREEN 2020-06-23 05:21:00 Diana Brown MD POC GLUCOSE SCREEN 2020-06-22 23:53:00 Diana Brown MD OSMOLALITY URINE 2020-06-22 22:06:00 Jasmin Hart MDo n SODIUM URINE 2020-06-22 22:06:00 Jasmin Hart MD OSMOLALITY 2020-06-22 22:06:00 Jasmin Hart MD CREATININE URINE, RANDOM 2020-06-22 22:06:00 Jasmin Hart MD TRANSFUSE RED BLOOD CELLS 2020-06-22 19:12:18 Filipe Martinez MD POC GLUCOSE SCREEN 2020-06-22 18:02:00 Diana Brown MD POC GLUCOSE SCREEN 2020-06-22 13:56:00 Diana Brown MD TYPE AND SCREEN 2020-06-22 11:20:00 Filipe Martinez MD ABORH 2020-06-22 11:20:00 Filipe Martinez MD ANTIBODY SCREEN 2020-06-22 11:20:00 Filipe Martinez MD CLOT EXPIRATION DATE 2020-06-22 11:20:00 Filipe Martinez MD rsquintin TMP INTERPRETATION ANTIBODY SCREEN 2020-06-22 11:20:00 Manny Martinez MD NEGATIVE TMP CROSSMATCH INTERPRETATION 2020-06-22 11:20:00 Filipe Martinez MD PREPARE RBC 2020-06-22 11:04:00 Filipe Martinez MD COMPLETE BLOOD COUNT W/ 2020-06-22 09:04:00 Jasmin Hart MD DIFFERENTIAL COMPREHENSIVE METABOLIC PANEL 2020-06-22 09:04:00 Brisa Hart ra, MD MAGNESIUM LEVEL 2020-06-22 09:04:00 Jasmin Hart MD PHOSPHORUS LEVEL 2020-06-22 09:04:00 Jasmin Hart MD Anderso n Results CBC 2020-06-22 09:04:00 Cande Martinez MD Ammon rsquintin MANUAL DIFFERENTIAL 2020-06-22 09:04:00 Cande Martinez MD GLUCOSE LEVEL 2020-06-22 09:04:00 Cande Martinez MD Ammon rsquintin BLOOD UREA NITROGEN 2020-06-22 09:04:00 Cande Martinez MD ELECTROLYTE PANEL 2020-06-22 09:04:00 Cande Martinez MD derson SERUM CREATININE 2020-06-22 09:04:00 Cande Martinez MD And erson .GLOMERULAR FILTRATION RATE 2020-06-22 09:04:00 Shamika Martinez MD CALCIUM LEVEL TOTAL 2020-06-22 09:04:00 Cande Martinez MD ALBUMIN LEVEL 2020-06-22 09:04:00 Cande Martinez MD Ammon rsquintin ALKALINE PHOSPHATASE 2020-06-22 09:04:00 Cande Martinez MD ALANINE AMINOTRANSFERASE 2020-06-22 09:04:00 Cande Martinez MD ASPARTATE AMINOTRANSFERASE 2020-06-22 09:04:00 Cande Martinez MD TOTAL PROTEIN 2020-06-22 09:04:00 Cande Martinez MD Ammon rsquintin FRACTIONATED BILIRUBIN 2020-06-22 09:04:00 Cande Martinez MD POC GLUCOSE SCREEN 2020-06-22 05:08:00 Cande Martinez MD POC GLUCOSE SCREEN 2020-06-22 01:26:00 Cande Martinez MD BASIC METABOLIC PANEL, CALCIUM 2020-06-22 00:40:00 Nilson Martinez MD TOTAL MAGNESIUM LEVEL 2020-06-22 00:40:00 Cande Martinez MD Ammon rson PHOSPHORUS LEVEL 2020-06-22 00:40:00 Cande Martinez MD And erson GLUCOSE LEVEL 2020-06-22 00:40:00 Cande Martinez MD Ammon rson ELECTROLYTE PANEL 2020-06-22 00:40:00 Cande Martinez MD derson SERUM CREATININE 2020-06-22 00:40:00 Cande Martinez MD And erson .GLOMERULAR FILTRATION RATE 2020-06-22 00:40:00 Shamika Martinez MD CALCIUM LEVEL TOTAL 2020-06-22 00:40:00 Cande Martinez MD BLOOD UREA NITROGEN 2020-06-22 00:40:00 Cande Martinez MD POC GLUCOSE SCREEN 2020-06-21 22:59:00 Cande Martinez MD POC GLUCOSE SCREEN 2020-06-21 17:47:00 Cande Martinez MD POC GLUCOSE SCREEN 2020-06-21 13:57:00 Cande Maritnez MD COMPLETE BLOOD COUNT W/ 2020-06-21 10:54:00 Jasmin Hart MD DIFFERENTIAL COMPREHENSIVE METABOLIC PANEL 2020-06-21 10:54:00 Brisa Hart ra, MD MAGNESIUM LEVEL 2020-06-21 10:54:00 Jasmin Hart MD PHOSPHORUS LEVEL 2020-06-21 10:54:00 Jasmin Hart MD Anderso n OSMOLALITY 2020-06-21 10:54:00 Jasmin Hart MD IRON LEVEL 2020-06-21 10:54:00 Jasmin Hart MD FERRITIN LVL 2020-06-21 10:54:00 Jasmin Hart MD TRANSFERRIN 2020-06-21 10:54:00 Jasmin Hart MD Results CBC 2020-06-21 10:54:00 Cande Martinez MD Ammon pipe MANUAL DIFFERENTIAL 2020-06-21 10:54:00 Cande Martinez MD GLUCOSE LEVEL 2020-06-21 10:54:00 Cande Martinez MD Ammon rsquintin BLOOD UREA NITROGEN 2020-06-21 10:54:00 Cande Martinez MD ELECTROLYTE PANEL 2020-06-21 10:54:00 Cande Martinez MD derson SERUM CREATININE 2020-06-21 10:54:00 Cande Martinez MD And erson .GLOMERULAR FILTRATION RATE 2020-06-21 10:54:00 Shamika Martinez MD CALCIUM LEVEL TOTAL 2020-06-21 10:54:00 Cande Martinez MD ALBUMIN LEVEL 2020-06-21 10:54:00 Cande Martinez MD Ammonkat betancur ALKALINE PHOSPHATASE 2020-06-21 10:54:00 Cande Martinez MD ALANINE AMINOTRANSFERASE 2020-06-21 10:54:00 Cande Martinez MD ASPARTATE AMINOTRANSFERASE 2020-06-21 10:54:00 Cande Martinez MD TOTAL PROTEIN 2020-06-21 10:54:00 Cande Martinez MD Ammon rsquintin FRACTIONATED BILIRUBIN 2020-06-21 10:54:00 Cande Martinez MD OSMOLALITY URINE 2020-06-21 08:00:00 Jasmin Hart MD Anderso n SODIUM URINE 2020-06-21 08:00:00 Jasmin Hart MD POC GLUCOSE SCREEN 2020-06-21 04:31:00 Cande Martinez MD POC GLUCOSE SCREEN 2020-06-20 23:17:00 Cande Martinez MD POC GLUCOSE SCREEN 2020-06-20 17:38:00 Cande Martinez MD POC GLUCOSE SCREEN 2020-06-20 15:02:00 Cande Martinez MD COMPLETE BLOOD COUNT W/ 2020-06-20 11:35:00 Jasmin Hart MD DIFFERENTIAL COMPREHENSIVE METABOLIC PANEL 2020-06-20 11:35:00 Brisa Hart ra, MD MAGNESIUM LEVEL 2020-06-20 11:35:00 Jasmin Hart MD PHOSPHORUS LEVEL 2020-06-20 11:35:00 Jasmin Hart MD Anderso n HEMOGLOBIN A1C 2020-06-20 11:35:00 Jasmin Hart MD Results CBC 2020-06-20 11:35:00 Cande Martinez MD Ammon rson MANUAL DIFFERENTIAL 2020-06-20 11:35:00 Cande Martinez MD GLUCOSE LEVEL 2020-06-20 11:35:00 Cande Martinez MD Ammon rson BLOOD UREA NITROGEN 2020-06-20 11:35:00 Cande Martinez MD ELECTROLYTE PANEL 2020-06-20 11:35:00 Cande Martinez MD derson SERUM CREATININE 2020-06-20 11:35:00 Cande Martinez MD And erson .GLOMERULAR FILTRATION RATE 2020-06-20 11:35:00 Shamika Martinez MD CALCIUM LEVEL TOTAL 2020-06-20 11:35:00 Cande Martinez MD ALBUMIN LEVEL 2020-06-20 11:35:00 Cande Martinez MD Ammon rson ALKALINE PHOSPHATASE 2020-06-20 11:35:00 Cande Martinez MD ALANINE AMINOTRANSFERASE 2020-06-20 11:35:00 Cande Martinez MD ASPARTATE AMINOTRANSFERASE 2020-06-20 11:35:00 Cande Martinez MD TOTAL PROTEIN 2020-06-20 11:35:00 Cande Martinez MD Ammon rson FRACTIONATED BILIRUBIN 2020-06-20 11:35:00 Cande Martinez MD POC GLUCOSE SCREEN 2020-06-20 04:46:00 Cande Martinez MD POC GLUCOSE SCREEN 2020-06-19 23:39:00 Cande Martinez MDrson POC GLUCOSE SCREEN 2020-06-19 19:08:00 Cande Martinez MDrsquintin POC VENOUS BLOOD GAS + LACTATE 2020-06-19 09:19:00 Milly Camacho MD INFLUENZA A/B + COVID-19 2020-06-19 08:32:00 Jose M Camacho MD ASYMPTOMATIC-L URINE CULTURE 2020-06-19 08:12:00 Jose M Camacho MD BLOODCULTURE 2020-06-19 08:12:00 Jose M Camacho MD COMPLETE BLOOD COUNT W/ 2020-06-19 08:12:00 Jose M Camacho MD nderson DIFFERENTIAL COMPREHENSIVE METABOLIC PANEL 2020-06-19 08:12:00 Reginald Camacho MAGNESIUM LEVEL 2020-06-19 08:12:00 Jose M Camacho MD PHOSPHORUS LEVEL 2020-06-19 08:12:00 Jose M Camacho MD LACTATE DEHYDROGENASE 2020-06-19 08:12:00 Jose M Camacho AMYLASE LEVEL 2020-06-19 08:12:00 Jose M Camacho MD LIPASE LEVEL 2020-06-19 08:12:00 Jose M Camacho MD URINALYSIS WITH MICROSCOPIC IF 2020-06-19 08:12:00 Milly Camacho MD INDICATED Results CBC 2020-06-19 08:12:00 Jose M Camacho MD MANUAL DIFFERENTIAL 2020-06-19 08:12:00 Jose M Camacho MD Phongfrancisca prieto GLUCOSE LEVEL 2020-06-19 08:12:00 Jose M Camacho MD BLOOD UREA NITROGEN 2020-06-19 08:12:00 Jose M Camacho MD Phong son ELECTROLYTE PANEL 2020-06-19 08:12:00 Jose M Camacho MDo n SERUM CREATININE 2020-06-19 08:12:00 Jose M Camacho MD .GLOMERULAR FILTRATION RATE 2020-06-19 08:12:00 Jose M Camacho MD CALCIUM LEVEL TOTAL 2020-06-19 08:12:00 Jose M Camacho MD Phong son ALBUMIN LEVEL 2020-06-19 08:12:00 Jose M Camacho MD ALKALINE PHOSPHATASE 2020-06-19 08:12:00 Jose M Camacho MD ALANINE AMINOTRANSFERASE 2020-06-19 08:12:00 Jose M Camacho MD ASPARTATE AMINOTRANSFERASE 2020-06-19 08:12:00 Jose M Camacho TOTAL PROTEIN 2020-06-19 08:12:00 Jose M Camacho MD FRACTIONATED BILIRUBIN 2020-06-19 08:12:00 Jose M Camacho MD URINALYSIS MICROSCOPIC 2020-06-19 08:12:00 Jose M Camacho MD CT CHEST ABDOMEN PELVIS W WO 2020-06-15 21:18:15 Held, Shiela Farah CONTRAST LIVER COMPLETE BLOOD COUNT W/ 2020-06-15 17:46:00 Held, Shiela marrson DIFFERENTIAL COMPREHENSIVE METABOLIC PANEL 2020-06-15 17:46:00 Held, Shiela Farah MAGNESIUM LEVEL 2020-06-15 17:46:00 Held, Shiela Farah PHOSPHORUS LEVEL 2020-06-15 17:46:00 Held, Shiela Farah LACTATE DEHYDROGENASE 2020-06-15 17:46:00 Held, Shiela Mccurdy CANCER ANTIGEN 19-9 2020-06-15 17:46:00 Held, Shiela BURGESS Phong son Results CBC 2020-06-15 17:46:00 Held, Shiela Farah MANUAL DIFFERENTIAL 2020-06-15 17:46:00 Held, Shiela BURGESS Phong son GLUCOSE LEVEL 2020-06-15 17:46:00 Held, Shiela Farah BLOOD UREA NITROGEN 2020-06-15 17:46:00 Held, Shiela BURGESS Phong son ELECTROLYTE PANEL 2020-06-15 17:46:00 Held, Shiela Murry n SERUM CREATININE 2020-06-15 17:46:00 Held, Shiela Farah .GLOMERULAR FILTRATION RATE 2020-06-15 17:46:00 Held, Shiela Farah CALCIUM LEVEL TOTAL 2020-06-15 17:46:00 Held, Shiela BURGESS Phong son ALBUMIN LEVEL 2020-06-15 17:46:00 Held, Shiela Farah ALKALINE PHOSPHATASE 2020-06-15 17:46:00 Held, Shiela betancur ALANINE AMINOTRANSFERASE 2020-06-15 17:46:00 Held, Shiela Farah ASPARTATE AMINOTRANSFERASE 2020-06-15 17:46:00 Held, Shiela Farah TOTAL PROTEIN 2020-06-15 17:46:00 Held, Shiela Farah FRACTIONATED BILIRUBIN 2020-06-15 17:46:00 Held, Shiela bates COMPREHENSIVE METABOLIC PANEL 2020-06-10 13:21:00 Sergio Lin MD COMPLETE BLOOD COUNT W/ 2020-06-10 13:21:00 Roman Lin MD CANCER ANTIGEN 19-9 2020-06-10 13:21:00 Roman Lin MD Phong prieto Robert MAGNESIUM LEVEL 2020-06-10 13:21:00 Roman Lin MD GLUCOSE LEVEL 2020-06-10 13:21:00 Roman Lin MD BLOOD UREA NITROGEN 2020-06-10 13:21:00 Roman Lin MD Phong prieto Robert ELECTROLYTE PANEL 2020-06-10 13:21:00 Roman Lin MD SERUM CREATININE 2020-06-10 13:21:00 Roman Lin MD .GLOMERULAR FILTRATION RATE 2020-06-10 13:21:00 Roman Lin MD CALCIUM LEVEL TOTAL 2020-06-10 13:21:00 Roman Lin MD Phong ida Robert ALBUMIN LEVEL 2020-06-10 13:21:00 Roman Lin MD ALKALINE PHOSPHATASE 2020-06-10 13:21:00 Roman Lin MD ALANINE AMINOTRANSFERASE 2020-06-10 13:21:00 Roman Lin MD ASPARTATE AMINOTRANSFERASE 2020-06-10 13:21:00 Roman Lin TOTAL PROTEIN 2020-06-10 13:21:00 Roman Lin MD FRACTIONATED BILIRUBIN 2020-06-10 13:21:00 Roman Lin MD Results CBC 2020-06-10 13:21:00 Roman Lin MD MANUAL DIFFERENTIAL 2020-06-10 13:21:00 Roman Lin MD ida Robert COMPLETE BLOOD COUNT W/ 2020-05-26 20:22:00 Held, Shiela MURDOCK COMPREHENSIVE METABOLIC PANEL 2020-05-26 20:22:00 Held, Shiela Farah CANCER ANTIGEN 19-9 2020-05-26 20:22:00 Held, [facility] 2020-05-26 20:22:00 Held, Shiela Farah MANUAL DIFFERENTIAL 2020-05-26 20:22:00 Held, Shiela prieto GLUCOSE LEVEL 2020-05-26 20:22:00 Held, Shiela Farah BLOOD UREA NITROGEN 2020-05-26 20:22:00 Held, Shiela BURGESS Phongfrancisca prieto ELECTROLYTE PANEL 2020-05-26 20:22:00 Held, Shiela Mccoyo mariela SERUM CREATININE 2020-05-26 20:22:00 Held, Shiela Farah .GLOMERULAR FILTRATION RATE 2020-05-26 20:22:00 Held, Shiela Farah CALCIUM LEVEL TOTAL 2020-05-26 20:22:00 Held, Shiela prieto ALBUMIN LEVEL 2020-05-26 20:22:00 Held, Shiela Farah ALKALINE PHOSPHATASE 2020-05-26 20:22:00 Held, Shiela betancur ALANINE AMINOTRANSFERASE 2020-05-26 20:22:00 Held, Shiela Farah ASPARTATE AMINOTRANSFERASE 2020-05-26 20:22:00 Held, Shiela Farah TOTAL PROTEIN 2020-05-26 20:22:00 Held, Shiela Farah FRACTIONATED BILIRUBIN 2020-05-26 20:22:00 Held, Shiela bates ENDOSCOPIC RETROGRADE 2020-05-12 20:37:00 MD Michelle Baker CHOLANGIOPANCREATOGRAPHY WITH Jas PLACEMENT OF STENT OF BILE DUCT ENDOSCOPIC RETROGRADE 2020-05-12 20:37:00 MD Michelle Baker CHOLANGIOPANCREATOGRAPHY WITH Jas ENDOSCOPIC RETROGRADE REMOVAL OF CALCULUS FROM BILIARY AND PANCREATIC DUCTS RADIOLOGIC SUPERVISION AND 2020-05-12 20:37:00 MD Gagan Baker INTERPRETATION FOR ENDOSCOPIC Jas CATHETERIZATION OF THE BILIARY DUCTAL SYSTEM ENDOSCOPY NOTE RESULTS 2020-05-12 20:29:22 MD Joseph Baker POC GLUCOSE SCREEN 2020-05-12 19:33:00 MD Phong Baker FL ENDOSCOPY FLUOROSCOPY 2020-05-12 18:36:07 Schuyler Garcia MD COMPREHENSIVE METABOLIC PANEL 2020-05-12 17:35:00 Held, Shiela Farah COMPLETE BLOOD COUNT W/ 2020-05-12 17:35:00 Held, Shiela smith DIFFERENTIAL GLUCOSE LEVEL 2020-05-12 17:35:00 Held, Shiela Farah BLOOD UREA NITROGEN 2020-05-12 17:35:00 Held, Shiela prieto ELECTROLYTE PANEL 2020-05-12 17:35:00 Held, Shiela sierra SERUM CREATININE 2020-05-12 17:35:00 Held, Shiela Farah .GLOMERULAR FILTRATION RATE 2020-05-12 17:35:00 Held, Shiela Farah CALCIUM LEVEL TOTAL 2020-05-12 17:35:00 Held, Shiela prieto ALBUMIN LEVEL 2020-05-12 17:35:00 Held, Shiela Farah ALKALINE PHOSPHATASE 2020-05-12 17:35:00 Held, Shiela betancur ALANINE AMINOTRANSFERASE 2020-05-12 17:35:00 Held, Shiela Farah ASPARTATE AMINOTRANSFERASE 2020-05-12 17:35:00 Held, Shiela Farah TOTAL PROTEIN 2020-05-12 17:35:00 Held, Shiela Farah FRACTIONATED BILIRUBIN 2020-05-12 17:35:00 Held, Shiela bates Results CBC 2020-05-12 17:35:00 Held, Shiela Farah MANUAL DIFFERENTIAL 2020-05-12 17:35:00 Held, Shiela BURGESS Phongfrancisca prieto HC 2019-NCOV COVID-19 2020-05-08 20:36:00 MD Michelle Baker COMPLETE BLOOD COUNT W/ 2020-05-05 20:03:00 Roman Lin MD COMPREHENSIVE METABOLIC PANEL 2020-05-05 20:03:00 Sergio Lin MD MAGNESIUM LEVEL 2020-05-05 20:03:00 Roman Lin MD PHOSPHORUS LEVEL 2020-05-05 20:03:00 Roman Lin MD LACTATE DEHYDROGENASE 2020-05-05 20:03:00 Roman Lin CANCER ANTIGEN 19-9 2020-05-05 20:03:00 Roman Lin MD Results CBC 2020-05-05 20:03:00 Roman Lin MD Robert MANUAL DIFFERENTIAL 2020-05-05 20:03:00 Roman Lin MD GLUCOSE LEVEL 2020-05-05 20:03:00 Roman Lin MD BLOOD UREA NITROGEN 2020-05-05 20:03:00 Roman Lin MD ELECTROLYTE PANEL 2020-05-05 20:03:00 Roman Lin MD SERUM CREATININE 2020-05-05 20:03:00 Roman Lin MD .GLOMERULAR FILTRATION RATE 2020-05-05 20:03:00 Roman Lin MD CALCIUM LEVEL TOTAL 2020-05-05 20:03:00 Roman Lin MD ALBUMIN LEVEL 2020-05-05 20:03:00 Roman Lin MD ALKALINE PHOSPHATASE 2020-05-05 20:03:00 Roman Lin MD ALANINE AMINOTRANSFERASE 2020-05-05 20:03:00 Roman Lin MD ASPARTATE AMINOTRANSFERASE 2020-05-05 20:03:00 Roman Lin TOTAL PROTEIN 2020-05-05 20:03:00 Roman Lin MD FRACTIONATED BILIRUBIN 2020-05-05 20:03:00 Roman Lin MD COMPLETE BLOOD COUNT W/ 2020-04-21 15:02:00 Roman Lin MD ndersquintin Harris COMPREHENSIVE METABOLIC PANEL 2020-04-21 15:02:00 Sergio Lin MD MAGNESIUM LEVEL 2020-04-21 15:02:00 Roman Lin MD PHOSPHORUS LEVEL 2020-04-21 15:02:00 Roman Lin MD LACTATE DEHYDROGENASE 2020-04-21 15:02:00 Roman Lin CANCER ANTIGEN 19-9 2020-04-21 15:02:00 Roman Lin MD Results CBC 2020-04-21 15:02:00 Roman Lin MD MANUAL DIFFERENTIAL 2020-04-21 15:02:00 Roman Lin MD GLUCOSE LEVEL 2020-04-21 15:02:00 Roamn Lin MD BLOOD UREA NITROGEN 2020-04-21 15:02:00 Roman Lin MD ELECTROLYTE PANEL 2020-04-21 15:02:00 Roman Lin MD SERUM CREATININE 2020-04-21 15:02:00 Roman Lin MD .GLOMERULAR FILTRATION RATE 2020-04-21 15:02:00 Roman Lin MD CALCIUM LEVEL TOTAL 2020-04-21 15:02:00 Roman Lin MD ALBUMIN LEVEL 2020-04-21 15:02:00 Roman Lin MD ALKALINE PHOSPHATASE 2020-04-21 15:02:00 Roman Lin MD ALANINE AMINOTRANSFERASE 2020-04-21 15:02:00 Roman Lin MD ASPARTATE AMINOTRANSFERASE 2020-04-21 15:02:00 Roman Lin TOTAL PROTEIN 2020-04-21 15:02:00 Roman Lin MD FRACTIONATED BILIRUBIN 2020-04-21 15:02:[address] CHEST ABDOMEN PELVIS W WO 2020-04-06 20:10:22 Randolph Rodriguez MD CONTRAST LIVER COMPLETE BLOOD COUNT W/ 2020-04-06 17:22:00 Randolph Rodriguez MD DIFFERENTIAL COMPREHENSIVE METABOLIC PANEL 2020-04-06 17:22:00 Randolph Rodriguez MD CANCER ANTIGEN 19-9 2020-04-06 17:22:00 Randolph Rodriguez MD [facility] Results CBC 2020-04-06 17:22:00 Roman Lin MD MANUAL DIFFERENTIAL 2020-04-06 17:22:00 Roman Lin MD GLUCOSE LEVEL 2020-04-06 17:22:00 Roman Lin MD BLOOD UREA NITROGEN 2020-04-06 17:22:00 Roman Lin MD ELECTROLYTE PANEL 2020-04-06 17:22:00 Roman Lin MD SERUM CREATININE 2020-04-06 17:22:00 Roman Lin MD .GLOMERULAR FILTRATION RATE 2020-04-06 17:22:00 Roman Lin MD CALCIUM LEVEL TOTAL 2020-04-06 17:22:00 Roman Lin MD Phong ida Robert ALBUMIN LEVEL 2020-04-06 17:22:00 Roman Lin MD ALKALINE PHOSPHATASE 2020-04-06 17:22:00 Roman Lin MD ALANINE AMINOTRANSFERASE 2020-04-06 17:22:00 Roman Lin MD ASPARTATE AMINOTRANSFERASE 2020-04-06 17:22:00 Roman Lin TOTAL PROTEIN 2020-04-06 17:22:00 Roman Lin MD FRACTIONATED BILIRUBIN 2020-04-06 17:22:00 Roman Lin MD MAGNESIUM LEVEL 2020-03-25 11:37:00 Roman Lin MD COMPREHENSIVE METABOLIC PANEL 2020-03-25 11:37:00 Sergio Lin MD COMPLETE BLOOD COUNT W/ 2020-03-25 11:37:00 Roman Lin MD ndersquintin MURD[place] Robert GLUCOSE LEVEL 2020-03-25 11:37:00 Roman Lin MD BLOOD UREA NITROGEN 2020-03-25 11:37:00 Roman Lin MD ELECTROLYTE PANEL 2020-03-25 11:37:00 Roman Lin MD SERUM CREATININE 2020-03-25 11:37:00 Roman Lin MD .GLOMERULAR FILTRATION RATE 2020-03-25 11:37:00 Roman Lin MD CALCIUM LEVEL TOTAL 2020-03-25 11:37:00 Roman Lin MD ALBUMIN LEVEL 2020-03-25 11:37:00 Roman Lin MD ALKALINE PHOSPHATASE 2020-03-25 11:37:00 Roman Lin MD ALANINE AMINOTRANSFERASE 2020-03-25 11:37:00 Roman Lin MD ASPARTATE AMINOTRANSFERASE 2020-03-25 11:37:00 Roman Lin TOTAL PROTEIN 2020-03-25 11:37:00 Roman Lin MD FRACTIONATED BILIRUBIN 2020-03-25 11:37:00 Roman Lin MD Results CBC 2020-03-25 11:37:00 Roman Lin MD MANUAL DIFFERENTIAL 2020-03-25 11:37:00 Roman Lin MD COMPLETE BLOOD COUNT W/ 2020-03-10 18:51:00 Held, Shiela smith DIFFERENTIAL COMPREHENSIVE METABOLIC PANEL 2020-03-10 18:51:00 Held, Shiela Farah CANCER ANTIGEN 19-9 2020-03-10 18:51:00 Held, Shiela BURGESS Phong son Results CBC 2020-03-10 18:51:00 Held, Shiela Farah MANUAL DIFFERENTIAL 2020-03-10 18:51:00 Held, Shiela BURGESS Phongfrancisca prieto GLUCOSE LEVEL 2020-03-10 18:51:00 Held, Shiela Farah BLOOD UREA NITROGEN 2020-03-10 18:51:00 Held, Shiela BURGESS Phongfrancisca prieto ELECTROLYTE PANEL 2020-03-10 18:51:00 Held, Shiela sierra SERUM CREATININE 2020-03-10 18:51:00 Held, Shiela Farah .GLOMERULAR FILTRATION RATE 2020-03-10 18:51:00 Held, Shiela Farah CALCIUM LEVEL TOTAL 2020-03-10 18:51:00 Held, Shiela BURGESS Phong prieto ALBUMIN LEVEL 2020-03-10 18:51:00 Held, Shiela Farah ALKALINE PHOSPHATASE 2020-03-10 18:51:00 Held, Shiela betancur ALANINE AMINOTRANSFERASE 2020-03-10 18:51:00 Held, Shiela Farah ASPARTATE AMINOTRANSFERASE 2020-03-10 18:51:00 Held, Shiela Farah TOTAL PROTEIN 2020-03-10 18:51:00 Held, Shiela Farah FRACTIONATED BILIRUBIN 2020-03-10 18:51:00 Held, Shiela bates COMPLETE BLOOD COUNT W/ 2020-02-25 17:44:00 Roman Lin MD COMPREHENSIVE METABOLIC PANEL 2020-02-25 17:44:00 Sergio Lin MD Robert MAGNESIUM LEVEL 2020-02-25 17:44:00 Roman Lin MD Robert PHOSPHORUS LEVEL 2020-02-25 17:44:00 Roman Lin MD LACTATE DEHYDROGENASE 2020-02-25 17:44:00 Roman Lin CANCER ANTIGEN 19-9 2020-02-25 17:44:00 Roman Lin MD Phongfrancisca prieto Robert Results CBC 2020-02-25 17:44:00 Roman Lin MD Robert MANUAL DIFFERENTIAL 2020-02-25 17:44:00 Roman Lin MD GLUCOSE LEVEL 2020-02-25 17:44:00 Roman Lin MD BLOOD UREA NITROGEN 2020-02-25 17:44:00 Roman Lin MD ELECTROLYTE PANEL 2020-02-25 17:44:00 Roman Lin MD SERUM CREATININE 2020-02-25 17:44:00 Roman Lin MD .GLOMERULAR FILTRATION RATE 2020-02-25 17:44:00 Roman Lin MD CALCIUM LEVEL TOTAL 2020-02-25 17:44:00 Roman Lin MD ALBUMIN LEVEL 2020-02-25 17:44:00 Roman Lin MD ALKALINE PHOSPHATASE 2020-02-25 17:44:00 Roman Lin MD ALANINE AMINOTRANSFERASE 2020-02-25 17:44:00 Roman Lin MD ASPARTATE AMINOTRANSFERASE 2020-02-25 17:44:00 Roman Lin TOTAL PROTEIN 2020-02-25 17:44:00 Roman Lin MD FRACTIONATED BILIRUBIN 2020-02-25 17:44:00 Roman Lin MD COMPLETE BLOOD COUNT W/ 2020-02-12 12:32:00 Roman Lin MD COMPREHENSIVE METABOLIC PANEL 2020-02-12 12:32:00 Sergio Lin MD LACTATE DEHYDROGENASE 2020-02-12 12:32:00 Roman Lin MAGNESIUM LEVEL 2020-02-12 12:32:00 Roman Lin MD PHOSPHORUS LEVEL 2020-02-12 12:32:00 Roman Lin MD CARCINOEMBRYONIC ANTIGEN 2020-02-12 12:32:00 Roman Lin MD CANCER ANTIGEN 19-9 2020-02-12 12:32:00 Roman Lin MD CANCER ANTIGEN 125 2020-02-12 12:32:00 Roman Lin MD Results CBC 2020-02-12 12:32:00 Roman Lin MD MANUAL DIFFERENTIAL 2020-02-12 12:32:00 Roman Lin MD GLUCOSE LEVEL 2020-02-12 12:32:00 Roman Lin MD BLOOD UREA NITROGEN 2020-02-12 12:32:00 Roman Lin MD ELECTROLYTE PANEL 2020-02-12 12:32:00 Roman Lin MD SERUM CREATININE 2020-02-12 12:32:00 Roman Lin MD .GLOMERULAR FILTRATION RATE 2020-02-12 12:32:00 Roman Lin MD CALCIUM LEVEL TOTAL 2020-02-12 12:32:00 Roman Lin MD ALBUMIN LEVEL 2020-02-12 12:32:00 Roman Lin MD ALKALINE PHOSPHATASE 2020-02-12 12:32:00 Roman Lin MD ALANINE AMINOTRANSFERASE 2020-02-12 12:32:00 Roman Lin MD ASPARTATE AMINOTRANSFERASE 2020-02-12 12:32:00 Roman Lin TOTAL PROTEIN 2020-02-12 12:32:00 Roman Lin MD FRACTIONATED BILIRUBIN 2020-02-12 12:32:[address] CHEST ABDOMEN PELVIS W CONTRAST 2020-02-05 19:13:00 Held, Gosia Farah COMPLETE BLOOD COUNT W/ 2020-02-05 16:38:00 Held, Shiela smith DIFFERENTIAL COMPREHENSIVE METABOLIC PANEL 2020-02-05 16:38:00 Held, Shiela Farah MAGNESIUM LEVEL 2020-02-05 16:38:00 Held, Shiela Farah PHOSPHORUS LEVEL 2020-02-05 16:38:00 Held, Shiela Farah LACTATE DEHYDROGENASE 2020-02-05 16:38:00 Held, Shiela Mccurdy CANCER ANTIGEN 19-9 2020-02-05 16:38:00 Held, Shiela prieto Results CBC 2020-02-05 16:38:00 Held, Shiela Farah MANUAL DIFFERENTIAL 2020-02-05 16:38:00 Held, Shiela prieto GLUCOSE LEVEL 2020-02-05 16:38:00 Held, Shiela Farah BLOOD UREA NITROGEN 2020-02-05 16:38:00 Held, Shiela prieto ELECTROLYTE PANEL 2020-02-05 16:38:00 Held, Shiela sierra SERUM CREATININE 2020-02-05 16:38:00 Held, Shiela Farah .GLOMERULAR FILTRATION RATE 2020-02-05 16:38:00 Held, Shiela Farah CALCIUM LEVEL TOTAL 2020-02-05 16:38:00 Held, Shiela BURGESS Phongfrancisca prieto ALBUMIN LEVEL 2020-02-05 16:38:00 Held, Shiela Farah ALKALINE PHOSPHATASE 2020-02-05 16:38:00 Held, Shiela betancur ALANINE AMINOTRANSFERASE 2020-02-05 16:38:00 Held, Shiela Farah ASPARTATE AMINOTRANSFERASE 2020-02-05 16:38:00 Held, Shiela Farah TOTAL PROTEIN 2020-02-05 16:38:00 Held, Shiela Farah FRACTIONATED BILIRUBIN 2020-02-05 16:38:00 Held, Shiela morseson COMPLETE BLOOD COUNT W/ 2020-01-24 16:39:00 Roman Lin MD ndersquintin DIFFERENTIAL Robert COMPREHENSIVE METABOLIC PANEL 2020-01-24 16:39:00 Sergio Lin MD MAGNESIUM LEVEL 2020-01-24 16:39:00 Roman Lin MD PHOSPHORUS LEVEL 2020-01-24 16:39:00 Roman Lin MD LACTATE DEHYDROGENASE 2020-01-24 16:39:00 Roman Lin CANCER ANTIGEN 19-9 2020-01-24 16:39:00 Roman Lin MD Results CBC 2020-01-24 16:39:00 Roman Lin MD MANUAL DIFFERENTIAL 2020-01-24 16:39:00 Roman Lin MD GLUCOSE LEVEL 2020-01-24 16:39:00 Roman Lin MD BLOOD UREA NITROGEN 2020-01-24 16:39:00 Roman Lin MD ELECTROLYTE PANEL 2020-01-24 16:39:00 Roman Lin MD SERUM CREATININE 2020-01-24 16:39:00 Roman Lin MD .GLOMERULAR FILTRATION RATE 2020-01-24 16:39:00 Roman Lin MD CALCIUM LEVEL TOTAL 2020-01-24 16:39:00 Roman Lin MD ALBUMIN LEVEL 2020-01-24 16:39:00 Roman Lin MD ALKALINE PHOSPHATASE 2020-01-24 16:39:00 Roman Lin MD ALANINE AMINOTRANSFERASE 2020-01-24 16:39:00 Roman Lin MD ASPARTATE AMINOTRANSFERASE 2020-01-24 16:39:00 Roman Lin TOTAL PROTEIN 2020-01-24 16:39:00 Roman Lin MD FRACTIONATED BILIRUBIN 2020-01-24 16:39:00 Roman Lin MD COMPLETE BLOOD COUNT W/ 2019-12-27 17:04:00 Roman Lin MD ndersquintin Harris COMPREHENSIVE METABOLIC PANEL 2019-12-27 17:04:00 Sergio Lin MD MAGNESIUM LEVEL 2019-12-27 17:04:00 Roman Lin MD PHOSPHORUS LEVEL 2019-12-27 17:04:00 Roman Lin MD LACTATE DEHYDROGENASE 2019-12-27 17:04:00 Roman Lin CANCER ANTIGEN 19-9 2019-12-27 17:04:00 Roman Lin MD Results CBC 2019-12-27 17:04:00 Roman Lin MD MANUAL DIFFERENTIAL 2019-12-27 17:04:00 Roman Lin MD GLUCOSE LEVEL 2019-12-27 17:04:00 Roman Lin MD ELECTROLYTE PANEL 2019-12-27 17:04:00 Roman Lin MD SERUM CREATININE 2019-12-27 17:04:00 Roman Lin MD .GLOMERULAR FILTRATION RATE 2019-12-27 17:04:00 Roman Lin MD CALCIUM LEVEL TOTAL 2019-12-27 17:04:00 Roman Lin MD ALBUMIN LEVEL 2019-12-27 17:04:00 Roman Lin MD ALKALINE PHOSPHATASE 2019-12-27 17:04:00 Roman Lin MD ALANINE AMINOTRANSFERASE 2019-12-27 17:04:00 Roman Lin MD ASPARTATE AMINOTRANSFERASE 2019-12-27 17:04:00 Roman Lin TOTAL PROTEIN 2019-12-27 17:04:00 Roman Lin MD Robert FRACTIONATED BILIRUBIN 2019-12-27 17:04:00 Roman Lin MD BLOOD UREA NITROGEN 2019-12-27 17:04:00 Roman Lin MD POC GLUCOSE SCREEN 2019-11-30 16:11:00 Hayden Brown MD on HEMOGLOBIN 2019-11-30 14:24:00 Radha Fontana MD POC GLUCOSE SCREEN 2019-11-30 12:16:00 Hayden Brown MD Darius on BASIC METABOLIC PANEL, CALCIUM 2019-11-30 08:29:00 ThoppiMeenakshi gaffney MD IONIZED CALCIUM LEVEL TOTAL 2019-11-30 08:29:00 ThoppiAmmy gaffney MD Ammon rson COMPLETE BLOOD COUNT W/ 2019-11-30 08:29:00 ThoppiAmmy gaffney MD DIFFERENTIAL MAGNESIUM LEVEL 2019-11-30 08:29:00 Ammy Bejarano MD PHOSPHORUS LEVEL 2019-11-30 08:29:00 ThoppilAmmy MD Andchevyo n LACTIC ACID, VENOUS 2019-11-30 08:29:00 ThoppilAmmy MD Ammon rson GLUCOSE LEVEL 2019-11-30 08:29:00 ThoppiAmym gaffney MD BLOOD UREA NITROGEN 2019-11-30 08:29:00 ThoppilAmmy MD Ammon rson ELECTROLYTE PANEL 2019-11-30 08:29:00 DenyoppiAmmy gaffney MD Darius on SERUM CREATININE 2019-11-30 08:29:00 ThoppilAmmy MD Anderso n .GLOMERULAR FILTRATION RATE 2019-11-30 08:29:00 ThoppilAmmy MD CALCIUM IONIZED, VENOUS 2019-11-30 08:29:00 ThoppiAmmy gaffney MD Results CBC 2019-11-30 08:29:00 Ammy Bejarano MD Gagan MANUAL DIFFERENTIAL 2019-11-30 08:29:00 Ammy Bejarano MD Plan of Care Planned Activity Planned Date Details Comments Source Future Scheduled 2027-09-[address] [facility] colon (procedure) [code = 304348415] Future Scheduled 2020-09-[address] [facility] Test 00:00[facility]00 [facility] breast (procedure) [code = 014700792] Future Scheduled 2020-02-[address] [facility] - Test 00:00:00 (#1) [code = [facility] INFLUENZA VACCINE (#1)] Future Scheduled 2019-06-[address] [facility] - Test 00:00:00 (12+) [code = [facility] DEPRESSION SCREENING (12+)] Encounters Start End Encounter Admission Attending Care Care Encounter Source Date/Time Date/Time Type Type Clinicians Facility Department ID 2020-07-07 Outpatient SYSTEM, MDA MDA [id number] 06:58:04 SWEETIE sierra 2019-12-04 Outpatient CARRASQUILLO, MDA MDA [id number] 11:54:03 ARLENE sierra 2019-11-29 Outpatient MDA MDA [id number] 22:33:50 Jeanmarie sierra 2020-11-10 2020-11-10 Outpatient EL MONTES MDA Loretta/Hep/Nu [id number] 08:10:00 12:43:00 dani TURPIN 2020-11-09 2020-11-09 Outpatient EL SMAGLO, MDA MDA [id number] 06:57:17 06:57:17 ROMAN sierra 2020-11-06 2020-11-06 Outpatient EL SMAGLO, MDA MDA [id number] 13:34:22 14:00:01 ROMAN sierra 2020-11-03 2020-11-03 Outpatient EL SMAGLO, MDA MDA [id number] 11:43:59 12:22:55 ROMAN sierra 2020-11-03 2020-11-03 Outpatient EL SMAGLO, MDA MDA [id number] 11:44:53 11:44:53 ROMAN sierra 2020-10-28 2020-10-29 Outpatient EL YUEN, MDA MDA [id number] 08:14:19 07:28:40 TYSON sierra 2020-10-28 2020-10-28 Outpatient EL YUEN, MDA MDA [id number] MD 07:15:00 23:59:00 TYSON sierra 2020-10-21 2020-10-21 Outpatient EL SMAGLO, MDA MDA [id number] 09:38:34 12:25:43 ROMAN sierra 2020 2020 Outpatient EL SHIELA JALLOH MDA MDA [id number] 13:22:30 23:59:00 Darius sierra 2020 2020 Outpatient EL SMAGLO, MDA MDA [id number] 13:58:32 15:13:36 ROMAN sierra 2020-10-07 2020-10-07 Outpatient EL SMAGLO, MDA MDA [id number] 08:49:27 10:54:06 ROMAN sierra 2020-10-06 2020-10-06 Outpatient EL SHIELA JALLOH MDA MDA [id number] 09:15:00 23:59:00 Darius sierra 2020-10-06 2020-10-06 Outpatient EL SMAGLO, MDA MDA [id number] 12:22:32 13:41:27 ROMAN sierra 2020-09-29 2020-09-29 Outpatient EL SMAGLO, MDA MDA [id number] 13:56:36 14:42:23 ROMAN sierra 2020-09-29 2020-09-29 Outpatient EL AC, MDA Loretta/Hep/Nu [id number] 08:35:00 13:46:00 JOSE M sierra 2020-09-29 2020-09-29 Outpatient EL SMAGLO, MDA MDA [id number] MD 08:01:56 08:34:00 ROMAN sierra 2020-09-28 2020-09-28 Outpatient EL SMAGLO, MDA MDA [id number] MD 07:07:01 07:07:01 ROMAN sierra 2020-09-26 2020-09-26 Outpatient EL SMAGLO, MDA MDA [id number] MD 10:04:22 10:57:24 ROMAN sierra 2020-09-23 2020-09-23 Outpatient EL SMAGLO, MDA MDA [id number] MD 08:37:43 09:53:09 ROMAN Mccoy o mariela 2020-09-23 2020-09-23 Outpatient EL SMAGLO, MDA MDA [id number] MD 08:18:19 08:30:28 ROMAN sierra 2020-09-17 2020-09-17 Outpatient EL YUEN, MDA MDA [id number] MD 10:36:57 23:59:00 TYSON sierra 2020-09-17 2020-09-17 Outpatient EL GLO, MDA MDA [id number] MD 12:50:44 14:36:27 ROMAN sierra 2020-09-16 2020-09-16 Outpatient EL SHIELA JALLOH MDA MDA [id number] 09:12:22 23:59:00 Darius o mariela 2020-09-16 2020-09-16 Outpatient EL SHIELA JALLOH MDA MDA [id number] 09:56:33 09:56:33 Darius o mariela 2020-09-11 2020-09-11 Outpatient EL CELSO, MDA MDA [id number] MD 08:54:30 09:15:53 LAUREN sierra 2020-09-10 2020-09-10 Outpatient EL SHIELA JALLOH MDA MDA [id number] 23:20:21 23:20:21 Darius o mariela 2020-09-04 2020-09-04 Outpatient EL WILFRID, MDA MDA [id number] 09:50:44 23:59:00 TYSON sierra 2020-08-20 2020-08-20 Outpatient EL BRUERA, MDA MDA [id number] MD 13:30:26 14:04:47 DELFINA Mccoy o mariela 2020-08-14 2020-08-14 Outpatient EL GLO, MDA MDA [id number] MD 13:22:37 23:59:00 ROMAN Boyerchevy sierra 2020-08-14 2020-08-14 Outpatient EL SMAGLO, MDA MDA [id number] MD 13:42:03 14:35:02 ROMAN Dariuschevy sierra 2020-08-12 2020-08-12 Outpatient EL YUEN, MDA MDA [id number] MD 10:44:03 12:49:09 TYSON sierra 2020-08-11 2020-08-11 Outpatient EL MONTES MDA Loretta/Hep/Nu [id number] MD 06:59:00 11:09:00 dani TURPIN 2020-08-10 2020-08-10 Outpatient EL SMAGLO, MDA MDA [id number] MD 16:09:16 16:09:16 ROMAN sierra 2020-08-07 2020-08-07 Outpatient EL SMAGLO, MDA MDA [id number] MD 13:35:14 13:55:49 ROMAN sierra 2020-08-01 2020-08-01 Outpatient EL SMAGLO, MDA MDA [id number] MD 11:55:09 15:26:48 ROMAN sierra 2020-07-17 2020-07-17 Outpatient EL SMAGLO, MDA MDA [id number] MD 11:55:09 23:59:00 ROMAN sierra 2020-07-17 2020-07-17 Outpatient EL SMAGLO, MDA MDA [id number] MD 12:39:28 13:43:09 ROMAN sierra 2020-07-13 2020-07-13 Outpatient SMAGLO, MDA MDA [id number] MD 09:56:06 09:56:19 ROMAN sierra 2020-07-11 2020-07-11 Outpatient EL TEREFFE, MDA MDA [id number] 13:46:32 14:06:39 STACY sierra 2020-07-02 2020-07-02 Outpatient EL SMAGLO, MDA MDA [id number] MD 09:46:29 10:21:01 ROMAN sierra 2020-06-19 2020-06-25 Inpatient ER MOHAMMED, MDA GI [id number] 00:52:00 15:10:00 [facility] Phong so n 2020-06-19 2020-06-19 Inpatient ER SIBILLE, MDA MDA [id number] 12:02:43 12:35:46 CANDE Phong so n 2020-06-16 2020-06-16 Outpatient EL SMAGLO, MDA MDA [id number] MD 14:34:39 15:23:11 ROMAN Mccoy o mariela 2020-06-15 2020-06-15 Outpatient EL HELD, SHIELA MDA MDA [id number] 11:46:40 11:46:40 Darius o mariela 2020-06-15 2020-06-15 Outpatient EL HELD, SHIELA MDA MDA [id number] 11:12:01 11:40:30 Darius sierra 2020-06-10 2020-06-10 Outpatient EL HELD, SHIELA MDA MDA [id number] 07:53:16 15:34:23 Darius o mariela 2020-06-10 2020-06-10 Outpatient EL SMAGLO, MDA MDA [id number] MD 07:21:27 07:41:49 ROMAN sierra 2020-06-08 2020-06-08 Outpatient SMAGLO, MDA MDA [id number] MD 11:26:27 11:26:27 ROMAN sierra 2020-05-27 2020-05-27 Outpatient EL SMAGLO, MDA MDA [id number] MD 11:37:15 23:59:00 ROMAN sierra 2020-05-26 2020-05-26 Outpatient EL HELD SHIELA MDA MDA [id number] 14:00:00 23:59:00 Darius sierra 2020-05-26 2020-05-26 Outpatient EL SMAGLO, MDA MDA [id number] MD 14:31:04 16:07:42 ROMAN sierra 2020-05-14 2020-05-14 Outpatient EL SMAGLO, MDA MDA [id number] 08:14:33 16:09:52 ROMAN sierra 2020-05-14 2020-05-14 Outpatient EL SMAGLO, MDA MDA [id number] MD 08:09:18 08:09:18 ROMAN sierra 2020-05-12 2020-05-12 Outpatient EL MONTES MDA Loretta/Hep/Nu [id number] 11:42:00 17:28:00 dani TURPIN 2020-05-12 2020-05-12 Outpatient EL SHIELA JALLOH MDA MDA [id number] 11:24:05 11:41:00 Darius sierra 2020-05-11 2020-05-11 Outpatient EL SMAGLO, MDA MDA [id number] 07:03:28 07:03:28 ROMAN sierra 2020-05-08 2020-05-08 Outpatient EL SMAGLO, MDA MDA [id number] MD 14:16:11 14:37:04 ROMAN sierra 2020-05-05 2020-05-05 Outpatient EL SMAGLO, MDA MDA [id number] MD 13:46:00 23:59:00 ROMAN sierra 2020-05-05 2020-05-05 Outpatient EL SMAGLO, MDA MDA [id number] MD 14:41:39 16:45:33 ROMAN sierra 2020-04-22 2020-04-22 Outpatient EL SMAGLO, MDA MDA [id number] MD 07:50:37 16:16:01 ROMAN sierra 2020-04-21 2020-04-21 Outpatient EL SMAGLO, MDA MDA [id number] MD 08:41:49 23:59:00 ROMAN sierra 2020-04-21 2020-04-21 Outpatient EL SMAGLO, MDA MDA [id number] MD 09:10:17 10:08:50 ROMAN sierra 2020-04-08 2020-04-08 Outpatient EL SMAGLO, MDA MDA [id number] MD 07:56:27 16:24:53 ROMAN sierra 2020-04-07 2020-04-07 Outpatient EL SMAGLO, MDA MDA [id number] MD 10:37:07 10:37:07 ROMAN sierra 2020-04-06 2020-04-06 Outpatient EL SMAGLO, MDA MDA [id number] MD 11:00:00 23:59:00 ROMAN sierra 2020-04-06 2020-04-06 Outpatient EL SMAGLO, MDA MDA [id number] MD 11:30:22 11:30:22 ROMAN sierra 2020-03-25 2020-03-25 Outpatient EL SMAGLO, MDA MDA [id number] MD 06:39:41 06:39:41 ROMAN sierra 2020-03-25 2020-03-25 Outpatient EL SMAGLO, MDA MDA [id number] 06:26:07 06:32:42 ROMAN sierra 2020-03-20 2020-03-20 Office ULI Taylor [id number] 10:16:44 16:23:50 Visit Husam AMBULATOR 350.1.13.21 Perry Y 0.2.7.2.686 [id number] 2020-03-11 2020-03-11 Outpatient EL SMAGLO, MDA MDA [id number] 07:38:07 16:02:44 ROMAN sierra 2020-03-10 2020-03-10 Outpatient EL SHIELA JALLOH MDA MDA [id number] 13:30:00 23:59:00 Darius sierra 2020-03-10 2020-03-10 Outpatient EL SMAGLO, MDA MDA [id number] MD 13:56:34 15:08:47 ROMAN sierra 2020-02-26 2020-02-26 Outpatient EL SMAGLO, MDA MDA [id number] MD 08:17:34 15:44:19 ROMAN sierra 2020-02-25 2020-02-25 Outpatient EL SMAGLO, MDA MDA [id number] 12:22:03 23:59:00 ROMAN sierra 2020-02-25 2020-02-25 Outpatient EL SMAGLO, MDA MDA [id number] 12:50:47 14:09:09 ROMAN sierra 2020-02-25 2020-02-25 Outpatient SMAGLO, MDA MDA [id number] MD 12:48:13 12:48:13 ROMAN sierra 2020-02-13 2020-02-13 Outpatient EL SMAGLO, MDA MDA [id number] MD 09:58:28 10:22:59 ROMAN sierra 2020-02-12 2020-02-12 Outpatient EL SMAGLO, MDA MDA [id number] MD 07:35:48 15:45:53 ROMAN sierra 2020-02-12 2020-02-12 Outpatient EL SMAGLO, MDA MDA [id number] MD 07:06:51 07:27:19 ROMAN sierra 2020-02-07 2020-02-07 Outpatient EL SMAGLO, MDA MDA [id number] 13:14:48 14:23:48 ROMAN sierra 2020-02-05 2020-02-05 Outpatient SHIELA LACEY MDA MDA [id number] 11:42:34 23:59:00 Darius sierra 2020-02-05 2020-02-05 Outpatient EL SHIELA JALLOH MDA MDA [id number] 11:00:00 11:41:00 Darius sierra 2020-01-30 2020-01-30 Outpatient SMAGLO, MDA MDA [id number] MD 11:36:34 11:36:53 ROMAN sierra 2020-01-24 2020-01-24 Outpatient EL SMAGLO, MDA MDA [id number] 11:30:00 23:59:00 ROMAN sierra 2020-01-24 2020-01-24 Outpatient EL SMAGLO, MDA MDA [id number] MD 12:10:26 13:34:17 ROMAN sierra 2019-12-27 2019-12-27 Outpatient EL SMAGLO, MDA MDA [id number] MD 11:53:54 23:59:00 ROMAN sierra 2019-12-27 2019-12-27 Outpatient EL SMAGLO, MDA MDA [id number] MD 12:12:20 13:28:13 ROMAN sierra 2019-12-05 2019-12-05 Outpatient EL SMAGLO, MDA MDA [id number] MD 10:22:22 10:39:54 ROMAN sierra 2019-12-05 2019-12-05 Outpatient EL SMAGLO, MDA MDA [id number] MD 00:00:00 00:00:00 ROMAN sierra 2019-11-28 2019-11-30 Outpatient ER ELSAYEM, MDA Emergency [id number] MD 15:11:26 13:44:00 HAYDEN sierra 2019-11-29 2019-11-29 Outpatient MDA MDA [id number] 19:48:30 19:48:30 Darius haleigh sierra 2019-11-29 2019-11-29 Outpatient GODWIN, MDA MDA [id number] MD 14:00:55 14:03:56 KISHOR Mccoy haleigh sierra 2019-11-29 2019-11-29 Outpatient SMAGLO, MDA MDA [id number] MD 00:00:00 00:00:00 ROMAN Mccoy haleigh sierra 2019-11-28 2019-11-28 Emergency MDA MDA [id number] MD 15:42:39 15:42:39 Darius haleigh sierra 2019-11-28 2019-11-28 Outpatient EL SMAGLO, MDA MDA [id number] MD 13:08:56 15:10:00 ROMAN Mccoy haleigh sierra 2019-11-28 2019-11-28 Outpatient EL SMAGLO, MDA MDA [id number] 00:00:00 00:00:00 ROMAN Mccoy haleigh sierra 2019-09-12 2019-09-12 Outpatient EL SMAGLO, MDA MDA [id number] 12:33:29 13:25:52 ROMAN Mccoy haleigh sierra 2019-09-12 2019-09-12 Outpatient EL MDA MDA [id number] 12:29:49 12:29:59 Darius haleigh sierra 2019-07-10 2019-07-10 Office Tiohaleigh [facility] [id number] 12:35:52 14:00:05 Visit Roman German [id number] Robert 0.2.7.2.686 [id number] 2019-04-10 2019-04-10 Office [place] [facility] [id number] 12:31:31 13:01:31 Visit Roman German 350.1.13.21 Robert 0.2.7.2.686 [id number] 2019-03-06 2019-03-06 [facility] [place] [id number] 13:07:53 14:48:22 Visit Roman Montgomeryr 350.1.13.21 Robert 0.2.7.2.686 [id number] 2019-02-13 2019-02-13 Office VALDEZ Adkins [id number] 15:00:47 15:31:20 Visit Bhanu [employer] 350.1.13.10 Surgical 4.2.7.2.686 Specialti [id number] es Hunter Argueta 2019-02-06 2019-02-06 [facility] [place] 1.2.840.114 [id number] 10:23:28 10:53:28 Visit Roman Monserrat 350.1.13.21 Robert 0.2.7.2.686 [id number] 2019-01-08 2019-01-08 Office ULI Lin [id number] 07:30:59 09:17:39 Visit Roman AMBULATOR 350.1.13.21 Robert Y 0.2.7.2.686 [id number] Results Test Description Test Time Test Comments Results Result Comments Source POC Chem 8 2020-11-10 15:38:35 Test Item Value Reference Range Interpretation Comme nts POC NA (test code = 134 See_Comment L [Automa elidia message] The 66395-1) system which ge nerated this result transmit elidia reference range: 138 - 14 6 mEq/L. The reference range was not used to interpret th is result as normal/abnormal . POC K (test code = 09812-8) 4.3 See_Comment Method description: The i-STAT is an an alyzer used for in vitro qu antification of various anal ytes in whole blood. The krys ce uses a single disposab le cartridge which contains microfabricated sensors, a calibration alondra ution, fluidics system , and a waste chamber. Each t est cartridge contains chemic ally sensitive biose nsors on a silicon chip th at are configured to p erform specific tests. The microfabricated sensors measure analyte concentration b y an electrochemical assay. [Automated mess age] The system which ge nerated this result transmit elidia reference range: 3.5 - 4. 9 mEq/L. The reference range was not used to interpret th is result as normal/abnormal . POC CL (test code = 2069-3) 93 See_Comment L [Automated message] The system which ge nerated this result transmit elidia reference range: 98 - 109 mEq/L. The reference range was not used to interpret th is result as normal/abnormal . POC VTCO2 (test code = 27 See_Comment [Aut omated message] The 2026-06) system which ge nerated this result transmit elidia reference range: 24 - 29 mEq/L. The reference range was not used to interpret th is result as normal/abnormal . POC Anion Gap (test code = 19 mmol/L 10-20 11962) POC BUN (test code = 20 mg/dL 8- 6299-2) POC Crea (test code = 0.8 mg/dL 0.6-1.3 Medica tions, especially 04409-9) hydroxyurea or supplements, such as ascorba te, can interfere with test results causing a false ly and significantly h igher result than expected. If a problem is suspected wi th a patient's resul t, a sample should be sent to the laboratory for confirmatory testing. Method description: The i-STAT is a n analyzer used for in vit ro quantification of various analytes in who le blood. The device uses a s slime disposable cart ridge which contains microf abricated sensors, a deepti bration solution, fluid ics system, and a waste phillip mber. Each test cartridge contains chemically sens itive biosensors on a silicon chip that are config ured to perform specifi c tests. The microfabricated sensors measure analyte concentration b y an electrochemical assay. POC eGFR-AA (test code = 87 See_Comment Nor mal eGFR >= 60 23686-8) mL/min/1.73 m2 The eGFR is calculated usin g the CKD-EPI equation. The e GFR declines with age. eGFR <60 mL/min/1.73 m2 is considered as "decreased" This equation should only be used for patients 18 and older. According to th e [employer] Kidney Disease Outcome Quality Initiative (KDO QI) classification and 2012 Kidney Disease Improving Global Outcomes (KDIGO) Clinical Practi ce Guideline, the stage of CK D should be categorized bas ed on estimated GFR. Stage Description GFR mL/min/1.73 m21 Kidney heidy ge with normal or high GFR >=902 Kidney damage w ith mild decrease in GFR 60-893a Mild to moderat e decrease in GFR 45-593b Moderate to severe decrease in GFR 30-444 Severe d ecrease in GFR 15-295 K idney failure <15 (or brenda lysis) [Automated mess age] The system which ge nerated this result transmit elidia reference range: >=60 mL/ min/1.73 m2. The reference r song was not used to interpr et this result as jose eduardo l/abnormal. POC eGFR-NEISHA (test code = 75 See_Comment No rmal eGFR >= 60 10407-4) mL/min/1.73 m2 The eGFR is calculated usin g the CKD-EPI equation. The e GFR declines with age. eGFR <60 mL/min/1.73 m2 is considered as "decreased" This equation should only be used for patients 18 and older. According to th e [employer] Kidney Disease Outcome Quality Initiative (KDO QI) classification and 2012 Kidney Disease Improving Global Outcomes (KDIGO) Clinical Practi ce Guideline, the stage of CK D should be categorized bas ed on estimated GFR. Stage Description GFR mL/min/1.73 m21 Kidney heidy ge with normal or high GFR >=902 Kidney damage w ith mild decrease in GFR 60-893a Mild to moderat e decrease in GFR 45-593b Moderate to severe decrease in GFR 30-444 Severe d ecrease in GFR 15-295 K idney failure <15 (or brenda lysis) [Automated mess age] The system which Sat[employer] nerated this result transmit elidia reference range: >=60 mL/ min/1.73 m2. The reference r song was not used to interpr et this result as jose eduardo l/abnormal. POC Glucose (test code = 154 mg/dL 70-99 H 77008-2) POC Ion Ca (test code = 1.28 mmol/L 1.12-1.32 57035-9) POC Hct (test code = 24.0 % 38.0-51.0 L 11155-7) POC Hgb (test code = 718-7) 8.2 See_Comment L Hematocrit values from the iSTAT are deter mined conductometrica lly, which may be affected by WBC count, levels o f total protein, lipids , or sodium. The hemoglobin result is calculated base d on the corresponding m easured hematocrit and assumes a normal MCHC. If there is a discrepancy bet ween the results from iS TAT and conventional la boratory method, the res ult from conventional me thod should be considered t he accurate standard. [Aut omated message] The sy stem which generated this result transmitted ref erence range: 12.0 - 17.0 gm/ dL. The reference range was not used to interpret th is result as normal/abnormal . POC Sample Type (test code Venous = 6690) POC Clean Dev (test code = Yes 6672) Performing Lab (test code = [place] [address]) [facility], [address], [place] [address]; Lab Dire ctor: Shasta wilkes MD Lab Interpretation (test Abnormal code = 69550-3) MD FarahFL ENDOSCOPY [id number] 15:30:21This procedure requires no interpretation from the radiologist.MD FarahENDOSCOPY NOTE [id number] 15:24:23CoJas Craft MD - 11/10/2020 10:24 AM CDT Patient Name: Mirian SinghGender: FemaleMRN: [id number]: [id number] Date No Time:11/10/2020Instrument Name: 1825 [id number](s): JAS TURPIN MD, BILLY MONTES MD (Fellow)Procedure Name: ERCPScope In:Scope Out: 11:22:48 AMPatient Profile: This is a 70 year old female with a personal history of cholangiocarcinoma, s/p ERCP with left sided double pigtail stent placement on the 09/29/2020. Here today for stent exchangeIndications: Cholangiocarcinoma, Stent change, Bile Duct ObstructionMedications: TIVA, CO2, Levaquin 500 mg IVProcedure Description: Pre-Anesthesia Assessment: - Prior to the procedure, a History and Physical was performed, and patient medications and allergies were reviewed.The patient's tolerance of previous anesthesia was also reviewed. The risks and benefits of the procedure and the sedation options and risks were discussed with the patient. All questions were answered, and informed consent was obtained. Prior Anticoagulants: The patient has taken no anticoagulant or antiplatelet agents. ASA Grade Assessment: III - A patient with severe systemic disease. After reviewing the risks and benefits, the patient was deemed in satisfactory condition to undergo the procedure. Informed consentwas obtained. Throughout the procedure, the patient's blood pressure, pulse, and oxygen saturations were monitored continuously. The patient was placed in the prone position on the fluoroscopy table. The Olympus [id number]-[id number] ([id number]) sideviewing duodenoscope was introduced through the mouth, and advanced to the duodenum and used to cannulate the bile duct. The ERCP was accomplished without difficulty. The patient tolerated the procedure well.Findings: A biliary stent was visible on the sound effects supervisor film. One plastic stent originating in the biliary tree was emerging from the major papilla. One stent was removed from the biliary tree using a snare. A biliary sphincterotomy had been performed. The sphincterotomy appeared open. A 0.035 inch angled Glidewire was passed into the biliary tree. The 8.5 mm balloon was passed over the guidewire and the bile duct was then deeply cannulated. Contrast was injected. I personally interpreted the bile duct images. Ductal flow of contrast was adequate. Image quality was adequate. The hepatic duct bifurcation, left main hepatic duct contained diffuse stenoses, the right main duct was not opacified after contrast injection. The biliary tree was swept with an 8.5 mm balloon starting at the bifurcation. Sludge was swept from the duct. One 10 Fr by 7 cm Cook double pigtail plastic stent was placed into the left hepatic duct. Bile flowed through the stent. The stent was in good position.Complications: No immediate complications.Estimated Blood Loss: Estimated blood loss was minimal.Post Procedure Diagnosis: - One stent from the biliary tree was seen in the major papilla. Removed - Prior biliary sphincterotomy appeared open. - Diffuse biliary strictures were found in the bifurcation and left main hepatic duct. The right hepatic duct appeared isolated. - The biliarytree was swept and sludge was found. - One 10 Fr by 7 cm Cook double pigtail plastic stent was placed into the left hepatic duct.Recommendation: - The patient will be observed post-procedure, until all discharge criteria are met. - Discharge patient to home (with escort). - Clear liquid diet today. - Continue present medications. - Levaquin (levofloxacin) 500 mg PO daily for 3 days. - Repeat ERCP in 3 months to exchange stent. - Return to referring physician as previously scheduled.Attending Participation: I waspresent and participated during the entire procedure, including non-taylor portions.BEVERLY GONZALEZ, MD11/10/2020 12:38:41 PMThis report has been signed electronically.Number of Addenda: 0MD [facility] Glucose Screen 2020-11-10 15:04:51 Test Item Value Reference Range Interpretation Comments POC Glucose (test 155 mg/dL 70-99 H Capillary blood code = 97131-7) samples, e.g . obtained by fingerstick, ma y have inaccurate resu lts in patients with decreased perip heral blood flow. Met hod description: Al l results are jyothi sured using Electrochemistr y test methodology. Th e glucose in the sample mixes with the reagents on the test strip. The reac tion produces an aleyda ctric current. The am ount of current prod uced is proportional to the glucose concentration i n the blood. PO Sample Type (test Venous code = 9554) Performing Lab (test MDA Main Main Ca mpus code = 45554) [facility] MD Farah Cli nical Lab, [facility] [facility], [place] [address]; Construction Controller: Milena Strange MD Lab Interpretation Abnormal (test code = 47199-5) MD Webster COVID-19 (FAIZA-CoV-2) PCR [id number] 11:20:18 Test Item Value Reference Interpretation Comments Range COVID19 SARS Pre-OR Procedure Indication (test code = 73122) COVID19 SARS Result Not Detected Not Detected (test code = 75518-9) COVID19 SARS SARS-CoV-2 NOT Detected. Interpretation (test Reference Range: Not code = 76296) Detected Methodology: The [employer] RealTime SARS-CoV-2 assay is a qualitative real-time reverse ortho assistant polymerase chain reaction (barge engineer-PCR) test to detect RNA from SARS-CoV-2 in nasal, nasopharyngeal and oropharyngeal swabs from patients with signs and symptoms of infection who are suspected of COVID-19 by their health care provider. The [employer] RealTime SARS-CoV-2 performed on the Xirrus000 System is a dual target assay with [...] CLIA-certified, high-complexity Molecular Diagnostics Laboratory (MDL) at [facility] under the Food and Drug Administration (FDA) s Emergency Use Authorization. Factsheet for patients: https://www.Art of ClickndaaTag.org/ AbbottFactSheetPatientsFact sheet for healthcare providers: https://www.Art of Clicknderson.org/ AbbottFactSheetHCP Test performed by:[facility] [address] [place] [address] MD FarahHemoglobin [id number] 14:12:59 Test Item Value Reference Range Interpretation Comments A1C (test code = 4632) 7.2 % 4.3-5.6 H HbA1c values >=6.5% are diagnostic of diabetes mellitus.Diagno sis should be confi rmed by repeat testing.Therape utic Action suggeste d: >8.0% HbA1c; Go al oftherapy: <7.0 % HbA1c Lab Interpretation (test Abnormal code = 69065-3) MD FarahCA [id number] 19:57:03 Test Item Value Reference Range Interpretation Comments CA 19-9 (test code = 3590.0 U/mL See_Comment H Results greater than 5171) 9500 U/mL may n ot be reliable due to matrix effect w ith extended diluti on as it exceeds the freight delivery driver's recommended simon it. Caution should be exercised when interpreting keane ch values and done in conjunction wit h clinical contex t. [Automated mess age] The system FamilyLeaf generated this result transmit elidia reference range : <=35.0. The reference range was not used to interpret this result as normal/abnormal . Lab Interpretation Abnormal (test code = 97384-4) MD FarahGlucose [id number] 19:33:42 Test Item Value Reference Range Interpretation Comments Glucose Level (test code 531 mg/dL 70-99 A Eff ective 12/30/15, = 5699) the glucose reference inter vals have been updat ed based on Americ an Diabetes Associ ation guidelines (Standards of Medical Care in Diabetes 2016. Diabetes Care 2 016; 39: S13-S22).Fa sting blood glucose:Normal: 70 99 mg/dLImpaire d fasting glucose (increased risk for diabetes or pre-diabetes): 100 125 mg/dLDiabet es mellitus: >/=1 26 mg/dL Random bl ood glucose:Normal: 70 199 mg/dLNote: Random glucose >100 mg/dL is associ ated with increased risk for diabetes Lab Interpretation (test Abnormal code = 28436-3) MD FarahFractionated [id number] 19:31:04 Test Item Value Reference Range Interpretation Comments Bili Total (test code 1.9 mg/dL See_Comment H Indocy anine Green = 5096) (ICG) may cause falsely elevate d bilirubin resul ts. Total and direc t bilirubin must not be measured from s amples containing indo cyanine green. False el evation of total biliru bin can be seen in max ents with IgG concentrations above 28 g/L. [Autom ated message] The sy stem which generated this result transmit elidia reference range : <=1.2. The refe rence range was not u sed to interpret this result as normal/abnor mal. Bili Direct (test code 1.3 mg/dL See_Comment H Indoc yanine Green = 5094) (ICG) may cause falsely elevate d bilirubin resul ts. Total and direc t bilirubin must not be measured from s amples containing indo cyanine green. [Automat ed message] The sy stem which generated this result transmit elidia reference range : <=0.3. The refe rence range was not u sed to interpret this result as normal/abnor mal. Bili Indirect (test 0.6 mg/dL 0.0-0.9 code = 5095) Lab Interpretation Abnormal (test code = 32209-2) MD FarahGlomerular Filtration [id number] 19:31:02 Test Item Value Reference Range Interpretation Comments eGFR-AA (test code 97 See_Comment Normal eG FR: >= 60 = 8062) mL/min/1.73 m2N ote: The eGFR is calculated u sing the CKD-EPI equatio n. The eGFR declines with a ge. eGFR <60 mL/min/1.73 m2 is considered as "decreased". This equation should only be used for patients 18 and older. According to th e National Kidney Foundati on's Kidney Disease Outcome Quality Initiative (KDO QI) classification and 2012 Kidney Disease Improving Global Outcomes (KDIGO) Clinical Practi ce Guideline, the stage of CK D should be categorized bas ed on estimated GFR. Stage Description GFR mL/min/1.73 m21 Normal or high GFR >=902 Mildly decrease d GFR 60-893a M ildly to moderately decr eased GFR 45-593b Moderat jayden to severely decrea sed GFR 30-444 Severely decreased GFR 15-295 Kid reena failure <15 [Automa elidia message] The system FamilyLeaf generated this result tra nsmitted reference range : >=60 mL/min/1.73 sq. m. The reference range was not used to interpret is result as normal/abnormal . eGFR-NEISHA (test code 84 See_Comment Normal e GFR: >= 60 = 8063) mL/min/1.73 m2N ote: The eGFR is calculated u sing the CKD-EPI equatio n. The eGFR declines with a ge. eGFR <60 mL/min/1.73 m2 is considered as "decreased". This equation should only be used for patients 18 and older. According to th e National Kidney Foundati on's Kidney Disease Outcome Quality Initiative (KDO QI) classification and 2012 Kidney Disease Improving Global Outcomes (KDIGO) Clinical Practi ce Guideline, the stage of CK D should be categorized bas ed on estimated GFR. Stage Description GFR mL/min/1.73 m21 Normal or high GFR >=902 Mildly decrease d GFR 60-893a M ildly to moderately decr eased GFR 45-593b Moderat jayden to severely decrea sed GFR 30-444 Severely decreased GFR 15-295 Kid reena failure <15 [Automa elidia message] The system FamilyLeaf generated this result tra nsmitted reference range : >=60 mL/min/1.73 sq. m. The reference range was not used to interpret is result as normal/abnormal . MD Coley [id number] 19:31:01 Test Item Value Reference Range Interpretation Comments Total Protein (test code = 7649) 7.1 g/dL 6.4-8.3 MD FarahAlkaline [id number] 19:31:00 Test Item Value Reference Range Interpretation Comments Alk Phos (test code = 4768) 647 U/L 35-104 H Lab Interpretation (test code = Abnormal 90973-8) MD FarahCalcium [id number] 19:30:59 Test Item Value Reference Range Interpretation Comments Calcium Lvl (test code = 5258) 9.7 mg/dL 8.4-10.2 GaganAlbumin [id number] 19:30:58 Test Item Value Reference Range Interpretation Comments Albumin Lvl (test code = 3.2 See_Comment L [A utomated message] 4714) The system FamilyLeaf generated this result transmitted ref erence range: 3.5 - 5. 2 gm/dL. The refe rence range was not u sed to interpret this result as normal/abnor mal. Lab Interpretation (test Abnormal code = 33455-7) [id number] 19:30:57 Test Item Value Reference Range Interpretation Comments ALT (test code = 4705) 50 U/L See_Comment H [Aut omated message] The system FamilyLeaf generated this result transmitted ref erence range: <=33. Th e reference range was not used to int erpret this result as normal/abnormal . Lab Interpretation (test Abnormal code = 29401-7) MD FarahAspartate [id number] 19:30:56 Test Item Value Reference Range Interpretation Comments AST (test code = 4731) 51 U/L See_Comment H [Aut omated message] The system FamilyLeaf generated this result transmitted ref erence range: <=32. Th e reference range was not used to int erpret this result as normal/abnormal . Lab Interpretation (test Abnormal code = 81961-3) [id number] 19:30:55 Test Item Value Reference Range Interpretation Comments BUN (test code = 5055) 18 mg/dL 6-23 MD FarahElectrolyte [id number] 19:30:54 Test Item Value Reference Range Interpretation Comments Sodium Lvl (test code = 122 See_Comment L [Au tomated message] 7355) The system FamilyLeaf generated this result transmitted ref erence range: 136 - 14 5 mEq/L. The refe rence range was not u sed to interpret this result as normal/abnor mal. Potassium Lvl (test code 4.3 See_Comment [A utomated message] = 8977) The system FamilyLeaf generated this result transmitted ref erence range: 3.5 - 5. 1 mEq/L. The refe rence range was not u sed to interpret this result as normal/abnor mal. Chloride (test code = 87 See_Comment L [Auto mated message] 4478) The system FamilyLeaf generated this result transmitted ref erence range: 98 - 107 mEq/L. The refe rence range was not u sed to interpret this result as normal/abnor mal. CO2 (test code = 5227) 26 See_Comment [Aut omated message] The system FamilyLeaf generated this result transmitted ref erence range: 22 - 29 mEq/L. The reference r song was not used to interpret this result as normal/abnor mal. Anion Gap (test code = 9 See_Comment [Aut omated message] 1086) The system FamilyLeaf generated this result transmitted ref erence range: 4 - 14 m Eq/L. The reference r song was not used to interpret this result as normal/abnor mal. Lab Interpretation (test Abnormal code = 81138-3) MD Farah.Serum [id number] 19:30:52 Test Item Value Reference Range Interpretation Comments Creatinine (test code = 5399) 0.73 mg/dL 0.51-0.95 MD FarahItzqavxyJrwtbuzppxqk8200-01-22 19:17:41 Test Item Value Reference Range Interpretation Comments Neutrophil % (test code = 82.9 % 42.0-66.0 H 6491) Lymphocyte % (test code = 6.2 % 24.0-44.0 L 6194) Monocyte % (test code = 9.0 % 2.0-7.0 H 6422) Eosinophil % (test code = 0.3 % 1.0-4.0 L 5520) Basophil % (test code = 0.1 % 0.0-1.0 5068) IGRE % (test code = 5958) 1.5 % 0.0-0.4 H IG RE % count includes Metamyelocytes, Myelocytes, and Promyelocytes. Neutrophil Abs (test code 5.92 K/uL 1.70-7.30 = 6492) Lymphocyte Abs (test code 0.44 K/uL 1.00-4.80 L = 6195) Monocyte Abs (test code = 0.64 K/uL 0.08-0.70 6423) Eosinophil Abs (test code 0.02 K/uL 0.04-0.40 L = 5521) Basophil Abs (test code = 0.01 K/uL 0.00-0.10 5069) IG Abs (test code = 5954) 0.11 K/uL 0.00-0.04 H Lab Interpretation (test Abnormal code = 49443-2) MD Farah.[id number] 19:17:38 Test Item Value Reference Range Interpretation Comments WBC (test code = 8034) 7.1 K/uL 4.0-11.0 RBC (test code = 6932) 2.70 See_Comment L [Aut omated message] The system FamilyLeaf generated this result transmitted ref erence range: 4.00 - 5 .50 M/uL. The refer ence range was not u sed to interpret this result as normal/abnor mal. Hgb (test code = 5898) 7.4 See_Comment L [Aut omated message] The system FamilyLeaf generated this result transmitted ref erence range: 12.0 - 1 6.0 gm/dL. The refe rence range was not u sed to interpret this result as normal/abnor mal. Hct (test code = 5860) 24.1 % 37.0-47.0 L MCV (test code = 6222) 89 fL 82-98 MCH (test code = 6220) 27.4 pg 27.0-31.0 MCHC (test code = 6221) 30.7 See_Comment L [Au tomated message] The system FamilyLeaf generated this result transmitted ref erence range: 31.0 - 3 6.0 gm/dL. The refe rence range was not u sed to interpret this result as normal/abnor mal. RDW-SD (test code = 60.5 fL 35.1-46.3 H 6972) RDW-CV (test code = 18.9 % 12.0-15.5 H 6971) Platelet count (test 140 K/uL 140-440 code = 6832) MPV (test code = 6282) 12.7 fL 4.0-10.4 H INRBC (test code = 0.0 % See_Comment The INRBC (instrument 5974) NRBC) value ref lects the enumeration of nucleated red b lood cells contained in a 200uL sampleof whole blood analyzed by the instrument. Thi s value maydiffer from the NRBC value repo rted in a manual differential,wh ich is based on a 100 cell differential. [Automated mess age] The system FamilyLeaf generated this result transmitted ref erence range: <=0.0. T he reference range was not used to int erpret this result as normal/abnormal . Lab Interpretation Abnormal (test code = 13112-9) MD FarahPhosphorus [id number] 15:15:37 Test Item Value Reference Range Interpretation Comments Phosphorus (test code = 6817) 3.1 mg/dL 2.5-4.5 MD FarahMagnesium [id number] 15:15:36 Test Item Value Reference Range Interpretation Comments Magnesium (test code = 6359) 1.7 mg/dL 1.6-2.6 MD FarahLjkkztayTUH7601-63-03 15:15:34 Test Item Value Reference Range Interpretation Comments LDH (test code = 6111) 134 U/L 135-214 L Resul ts greater than 1651 U/L may no t be reliable due to matrix effect w ith extended diluti on as it exceeds the freight delivery driver s recommended l imit. Caution should be exercised when interpreting keane ch values and done in conjunction wit h clinical contex t. Lab Interpretation (test Abnormal code = 91568-8) MD FarahENDOSCOPY NOTE [id number] 16:48:24LeeJose M MD - 09/29/2020 11:48 AM CDTFormatting of this note might be different from the orig inal.Patient Name: Mirian SinghGender: FemaleMRN: [id number]: [id number] Date No Time: 09/29/2020Instrument Name: 1826 [id number](s): JOSE M SHEN, [facility]cedure Name: ERCPScope In: 11:56:37 AMScope Out: 12:15:33 PMTotal Procedure Duration Time 0 hours 18 minutes 56 seconds Indications: Cholangiocarcinoma, Stent change, Bile Duct ObstructionMedications: TIVA, CO2, Levaquin 500 mg IVProcedure Description: Pre-Anesthesia Assessment: - Prior to the procedure, a History and Physical was performed, and patient medications and allergies werereviewed. The patient's tolerance of previous anesthesia was also reviewed. The risks and benefits of the procedure and the sedation options and risks were discussed with the patient. All questions were answered, and informed consent was obtained. Prior Anticoagulants: Thepatient has taken no anticoagulant or antiplatelet agents. ASA Grade Assessment: III - A patient with severe systemic disease. After reviewing the risks and benefits, the patient was deemed in satisfactory condition to undergo the procedure. Informed consent was obtained. Throughout the procedure, the patient's blood press ure, pulse, and oxygen saturations were monitored continuously. The patient was placed in the prone position on the fluoroscopy table. The Olympus [id number]-[id number] ([id number]) sideviewing duodenoscope was introduced through the mouth, and advanced to the duodenum and used to inject contrast into the bile duct. The ERCP was accomplished without difficulty. The patient tolerated the procedure well.Findings: A biliary stent was visible on the sound effects supervisor film. One stentoriginating in the left hepatic duct was emerging from the major papilla. One stent was removed from the biliary tree using a snare. A biliary sphincterotomy had been performed. The sphincterotomy appeared open. The major papilla was normal. A 0.035 inch angled Glidewire was passed into the biliary tree. The 8.5 mm balloon was passed over the guidewire and the bile duct was then deeply cannulated. Old bile was aspirated, and then a small amount of contrast was injected. I personally interpreted the bile duct images. Ductal flow of contrast was adequate. Image quality was adequate. The common hepatic duct, bifurcation and left main hepatic duct contained moderate stenoses. The biliary tree was swept with an 8.5 mm balloon starting at the bifurcation. Sludge were swept from the duct. A f ew stones were removed. No stones remained. One 10 Fr by 7 cm double pigtail plastic stent was placed into the left hepatic duct. Bile flowed through the stent. The stent was in good position.Complications: No immediate complications.Estimated Blood Loss: Estimated blood loss was minimal.Post Procedure Diagnosis: - One stent from the left hepatic duct was seen in the major papilla. Removed - Prior biliary sphincterotomy appeared open. - Moderate biliary strictures were found in the common hepatic duct, bifurcation and left main hepatic duct. - The biliary tree was swept, stones and sludge were completely removed - One 10 Fr by 7 cm double pigtail plastic stent was placed into the left hepatic duct.Recommendation: - The patient will be observed post-procedure, until all discharge criteria are met. - Discharge patient to home (with escort). - Clear liquid diet today. - Advance diet as tolerated. - Continue present medications. - Levaquin (levofloxacin) 500 mg PO daily for 3 days. - Repeat ERCP in 3 months to exchange stent. - Return to referring physician as previously scheduled.Attending P articipation: I was present and participated during the entire procedure,including non-taylor portions.JOSE M SHEN MD09/29/2020 1:35:28 PMThis report has been signed electronically.Number of Addenda: 0MD AndersonCOVID-19 (SARS-CoV-2) PCR-Asymptomatic [id number] 01:47:43 Test Item Value Reference Range Interpretation Comments COVID19 (SARS Not Detected Not Detected This test is a CoV-2) Result qualitative (test code = reverse-transcr iptase 53632-4) polymerase claudia n reaction (RT-PC R) developed for t he Elda EMELY 680 0 system and inte nded for the [...] were verified by the Microbiology Laboratory at [facility] [place], CLIA Accreditation # : [id number] and CAP Accreditation # : [id number]. Result s must be interpreted within the context of all relevant clinic al and laboratory find ings and should not form the sole basis for a diagnosis or treatment decis ion. "Presumptive Positive" resul ts are due to partial amplification o f SARS-CoV-2 targ ets and indicates l ow amounts of viru s present in the specimen at or near the limit of detection. Regardless, individuals wit h "Presumptive Positive" resul ts should be manag ed per institutional guidelines as individuals pos itive for SARS-CoV-2 virus, including use o f appropriate inf ection control protoco ls. Internal contro ls are included to ass ess for possible amplification inhibitors. If inhibition is detected, testi ng is repeated and if inhibition is confirmed the specimen is res ulted as "Invalid". W hen an "Invalid" resul t occur, it is recommended to wait 3 days before submitting a ne w specimen for te sting if clinically indicated. COVID19 SARS OUTSOLE TACKER Swab Source (test code = 43268) COVID19 SARS Pre-Out of OR Indication (test Procedure code = 45841) MD FarahCT Chest Abdomen Pelvis with and without Contrast [id number] 18:51:571. Enlarging intrahepatic cholangiocarcinoma and intrahepatic metastasis. The tumor is extending to the fissure, involving the right hepatic duct, extending to the left ,and is involving the gallbladder.2. A common bile stent remains in place with intrahepatic biliary dilatation involving all segments, relatively stable on the left and progressing on the right. Interface, Radiology Results In - 09/17/2020 1:54 PM CDT FULL RESULT:Examination: CT CHEST ABDOMEN PELVIS W WO CONTRAST LIVER, 09/16/2020 12:54 PMClinical History: Cholangiocarcinoma Indication: cholangiocarcinoma restagingComparison: Previous CTs including the most recent exam of 06/15/2020Technique: CT of the abdomen was performed without intravenous contrast followed by CT of thechest, abdomen, and pelvis with intravenous contrast.Findings: Poorly expanded the lungs bilaterallywith no definite evidence of acute parenchymal change or metastasis. No pleural effusions.Mediastinum and hilum of free of lymphadenopathy. Supraclavicular chains are clear bilaterally.The port of a port catheter is noted in the right upper anterior chest wall with the tip at the level of mid superiorvena cava.An internal biliary stent remains in place to the left duct, unchanged in location. Again are noted of a bulky, multi lobulated, cholangiocarcinoma with the epicenter in segments 5 and 4, extending to the hepatic hilum. The tumor is invading the right hepatic duct (image 74 series 4) and extending to the left duct. There are intrahepatic ductal dilatation involving all segments with interval progression on the right. There is no communication between the dilated right and left hepatic ducts. Compared to the prior exam of 06/2020, the dominant mass and metastasis have increased in sizes. The dominant mass now measures approximately 5.6 x 8 cm as opposed to 5.3 x 6.6 cm previously. An approximately 2.5 cm metastasis in the right lobe was approximately 1.7 cm previously.The tumor is involving fundus of the gallbladder with pericystic and subhepatic fat strandings (image 91 series 4, image #29, series 604), focally abutting the hepatic flexor of the right colon. The colon itself is otherwise unremarkable.There is no definite measurable disease in the peritoneum. Periportal lymph nodes areenlarging.The loops of bowel are within normal limits.Nonspecific appearing uterus and expected location. Benign-appearing ovaries and expected locations. Urinary bladder is unremarkable.Visualized bones and soft tissue show no new focal abnormality.IMPRESSION:1. Enlarging intrahepatic cholangiocarcinoma and intrahepatic metastasis. The tumor is extending to the fissure, involving the right hepatic duct, extending to the left ,and is involving the gallbladder.2. A common bile stent remains in place w ith intrahepatic biliary dilatation involving all segments, relatively stable on the left and progressing on the right.[facility] Phvrdftddz2474-79-61 15:39:18 Test Item Value Reference Range Interpretation Comments POC Crea (test 0.9 mg/dL 0.6-1.3 Medications, code = 29723-9) especially hydroxyurea or supplements, keane ch as ascorbate, can interfere with test results causing a falsely and significantly h igher result than exp ected. If a problem is suspected with a patient's resul t, a sample should b e sent to the [facility]ory [facility]. Method descript ion: The i-STAT is a n analyzer used f or in vitro quantific ation of various anal ytes in whole blood. The device uses a s slime disposable cart ridge which contains microfabricated sensors, a calibration alondra iWeeboon, fluidics system , and a waste chamber . Each test cartridge contains chemic ally sensitive biose nsors on a [employer] ip that are config ured to perform spec ific tests. The microfabricated sensors measure analyte concent ration by an electroch emical assay. POC eGFR-AA (test 76 See_Comment Normal eGF R >= 60 code = 26207-6) mL/min/1.73 m2 The eGFR is calcula elidia using the CKD-E PI equation. The e GFR declines with a ge. eGFR <60 mL/min /1.73 m2 is considere d as "decreased" Thi s equation should only be used for pat ients 18 and older. According to th e National Kidney Foundation's dney Disease Outcome Quality Initiat erik (KDOQI) classification and 2012 Kidney Dis ease Improving Globa l Outcomes (KDIGO ) Clinical Practi ce Guideline, the stage of CKD should b e categorized bas ed on estimated GFR. Stage Description GFR mL/min/1.73 m21 Kidney damage w ith normal or high GFR >=902 Kidney d amage with mild decre ase in GFR 60-893a Mild to moderate dec rease in GFR 45-5 93b Moderate to sev ere decrease in GFR 30-444 Severe decrease in GFR 15-295 Kidney f ailure <15 (or brenda lysis) [Automated mes soledad] The system FamilyLeaf generated this result transmitted ref erence range: >=60 mL/min/1.73 m2. The reference range was not used to int erpret this result as normal/abnormal . POC eGFR-NEISHA 66 See_Comment Normal eGFR >= 60 (test code = mL/min/1.73 m2 The 94889-1) eGFR is calcula elidia using the CKD-E PI equation. The e GFR declines with a ge. eGFR <60 mL/min /1.73 m2 is considere d as "decreased" Thi s equation should only be used for pat ients 18 and older. According to th e National Kidney Foundation's dney Disease Outcome Quality Initiat erik (KDOQI) classification and 2012 Kidney Dis ease Improving Globa l Outcomes (KDIGO ) Clinical Practi ce Guideline, the stage of CKD should b e categorized bas ed on estimated GFR. Stage Description GFR mL/min/1.73 m21 Kidney damage w ith normal or high GFR >=902 Kidney d amage with mild decre ase in GFR 60-893a Mild to moderate dec rease in GFR 45-5 93b Moderate to sev ere decrease in GFR 30-444 Severe decrease in GFR 15-295 Kidney f ailure <15 (or brenda lysis) [Automated mes soledad] The system EventBrowsr.comic h generated this result transmitted ref erence range: >=60 mL/min/1.73 m2. The reference range was not used to int erpret this result as normal/abnormal . POC Clean Dev 2 (test code = 6672) Performing Lab Radiology OP CTR Radiology OP CTR (test code = [facility] [place] [address]) MD [facility], [address], [place], [place] [address]; Point of Care L ab Director: MD MD Gagan RiosFrdanya [id number] 20:24:25 Test Item Value Reference Range Interpretation Comments T4 Free (test code = 7502) 1.25 ng/dL 0.93-1.70 MD [id number] 20:24:23 Test Item Value Reference Range Interpretation Comments TSH (test code = 3.86 See_Comment [Automated message] The 7578) system which ge nerated this result transmit elidia reference range : 0.27 - 4.20 mcunit/mL. The reference range was not used to interpr et this result as jose eduardo l/abnormal. MD FarahENDOSCOPY NOTE [id number] 14:26:26CoJas Craft MD - 08/11/2020 8:26 AM CST Patient Name: Mirian SinghGender: FemaleMRN: [id number]: 69Procedure Date No Time:08/11/2020Instrument Name: [id number] - [id number](s): JAS TURPIN MD, JF BETTENCOURT MD (Fellow)Procedure Name: ERCPScope In: 8:47:30 AMScope Out: 9:20:17 AMTotal Procedure Duration Time 0 hours 32 minutes 47 seconds Patient Profile: This is a 69 year old female with cholangiocarcinoma, and history of plastic biliary stent, here for stent exchange.Indications: Cholangiocarcinoma, Stent change, Bile Duct Obstruction, Abnormal abdominal CTMedications: Total IV Anesthesia (TIVA), CO2, Levaquin 500 mg IV, Indomethacin 100 mg PRProcedure Description: Pre-Anesthesia Assessment:- Prior to the procedure, a History and [...] benefits, the patient was deemed in satisfactory cond ition to undergo the procedure. - The patient was placed in the prone position on the fluoroscopy table. Informed consent wasobtained. Throughout the procedure, the patient's blood pressure, pulse, and oxygen saturations were monitored continuously. The Olympus TJF- Q180V ([id number]) sideviewing duodenoscope was introduced through the mouth, and advanced to the duodenum and used to inject contrast into the bile duct. The ERCP was accomplished without difficulty. The patient tolerated the procedure well.Findings: A plastic biliary stent was visible on the sound effects supervisor film. The duodenoscope was advanced to the area of the ampulla. One plastic stent originating in the biliary tree was emerging from the major papilla. This stent was removed from the biliary tree using a snare. A biliary sphincterotomy had been performed. The sphincterotomy appeared open. A 0.025 inch x 270 cm angled Visiglide wire was passed into the biliary tree. The 8.5 mm balloon was passed over the guidewire and the bile duct was then deeply cannulated. The biliary tree was swept with an 8.5 mm balloon starting at the bifurcation. Sludge/clots were swept from the duct. Contrast was injected. I personally interpreted the bile duct images. Ductal flow of contrast was adequate. Image quality was adequate. Contrast extended to the left sided hepatic ducts. The common hepatic duct contained a single localized stenosis 10 mm in length, at the site of the left hepatic takeoff. The right side was neither injected nor accessed.One 10 Fr by 7 cm Cook Solus double pigtail plastic stent was placed into the left hepatic duct. The stent position was adjusted with a rat tooth forceps, and was in good position.Complications: No immediate complications.Estimated Blood Loss: Estimated blood loss was minimal.Post Procedure Diagnosis: - One stent from the biliary tree was seen in the major papilla. Removed. - A single localized mild biliary stricture was found in the common hepatic duct, at the site of the left hepatic takeoff. - The biliary tree was swept and clots/sludge were found. - One 10 Fr by 7 cm Cook Solus double pigtail plastic stent was placed into the left hepatic duct.Recommendation: - Discharge patient to home (with escort). - Clear liquid diet today. - Advance diet as tolerated tomorrow. - Continue present medications. - Levaquin (levofloxacin) 500 mg PO daily for 3 days starting tomorrow, 08/12/2020. Do not take ondansetron with this medication. - Observe patient's clinical course. - Repeat ERCP in 3 months to exchange stent. - Return to referring physician as previously scheduled.Attending Participation: I was present and participated during the entire procedure, including non-taylor portions.JAS TURPIN MD08/11/2020 9:45:33 AMThis report has been signed electronically.Number of Addenda: 0MD AndersonBlood Culture - Peripheral 2020-07-02 21:02:10 Test Item Value Reference Range Interpretation Comments Final Report (test No growth code = 8488) Path Review - Immunity and antibiotic Bottle/Isolator use may render culture (test code = 8499) negative. Ongoing infection requires repeat culture. The results have been reviewed and electronically signed by Pathologist:Holly Leiva MD, PhD #[id number] MD FarahUrine [id number] 20:48:03 Test Item Value Reference Range Interpretation Comments Final Report (test code <10,000 cfu/ml Gram A = 8488) Negative Rods...<10,000 cfu/ml Normal site kathya present. Path Review - Urine The results have been A (test code = 8483) reviewed and electronically signed by Pathologist:JOSE M LEDESMA MD #[id number] Lab Interpretation Abnormal (test code = 48824-0) MD FarahUrinalysis with Mqjfdcnpupm7130-50-63 19:44:42 Test Item Value Reference Interpretation Comments Range UA WBC (test code = 3 See_Comment H [Automa elidia 7904) message] The system which generated this result transmitted reference range : 0 - 2 /HPF. The reference range was not used to interpret this result as normal/abnormal . UA RBC (test code = NOT SEEN See_Comment [Automa elidia 7891) message] The system which generated this result transmitted reference range : 0 - 2 /HPF. The reference range was not used to interpret this result as normal/abnormal . UA Mucous (test code NOT SEEN TRACE /HPF = 7887) UA Bacteria (test NOT SEEN NOT SEEN /HPF code = 7870) UA Squam Epi (test OCC OCC /HPF code = 7896) UA Trans Epi (test OCC NOT SEEN /HPF A code = 7898) HERMILO (test code = Some reporting HERMILO) parameters within the Urinalysis test have changed due to the implementation of new instrumentation in the [facility], allowing greater sensitivity of measurement. Urinalysis results reported by the [facility] using existing instrumentation, as well as Urinalysis testing performed manually or by backup methodology at the [facility] will remain relatively unchanged. New reporting parameters and units will now be reported for all madisones. Some reporting parameters within the Urinalysis test have changed due to the implementation of new instrumentation in the [facility], allowing greater sensitivity of measurement. Urinalysis results reported by the [facility] using existing instrumentation, as well as Urinalysis testing performed manually or by backup methodology at the [facility] will remain relatively unchanged. New reporting parameters and units will now be reported for all madisones. Lab Interpretation Abnormal (test code = 67111-9) MD FarahUrinalysis w/Microscopic if [id number] 19:38:24 Test Item Value Reference Range Interpretation Comments UA Color (test code = 7877) Yellow Yellow UA Appear (test code = 7868) Clear Clear UA Glucose (test code = 7881) >=500 NEG mg/dL A UA Bili (test code = 7871) NEG NEG UA Ketones (test code = 7884) NEG NEG mg/dL UA Spec Grav (test code = 7894) 1.007 1.002-1.035 UA Blood (test code = 7872) NEG NEG UA pH (test code = 7909) 7.0 4.5-8.0 UA Protein (test code = 7890) 30 mg/dL NEG A UA Urobilinogen (test code = 7903) POS NEG A UA Nitrite (test code = 7888) NEG NEG UA Leuk Est (test code = 7886) NEG NEG Lab Interpretation (test code = Abnormal 72989-5) MD FarahX-ray Chest 1 View [id number] 18:47:39FINDINGS and IMPRESSION: 1. Right chest wall port tip overlying SVC. 2. Heart not enlarged. 3. Apical scarring with no pneumothorax. 4. Minimal left basilar opacity, similar to prior radiograph, likely atelectasis/scarring. Interface, Radiology Results In - 06/24/2020 12:49 PM CST FULL RESULT:Examination: XR CHEST 1 VW PORTABLE, 06/24/2020 12:37 PMClinical History: CholangiocarcinomaIndication: FeverComparison: 11/29/2019 radiograph, 06/15/2020 CTTechnique: Single portable anteroposterior radiograph of the chest.IMPRESSION:FINDINGS and IMPRESSION:1. Right chest wall port tip overlying SVC.2. Heart not enlarged.3. Apical scarring withno pneumothorax.4. Minimal left basilar opacity, similar to prior radiograph, likely atelectasis/scarring.MD FarahCreatinine [id number] 23:22:36 Test Item Value Reference Range Interpretation Comments U Creatinine (test 56.3 mg/dL 29.0-226.0 The refer ence range code = 7725) listed is for f irst morning urine collection. MD FarahSodium [id number] 23:21:36 Test Item Value Reference Range Interpretation Comments U Sodium (test code = 40 mEq/L Normal range not available 7809) for collections less than 24 hours in [facility]. MD FarahYsztjaimGbscinydat7112-90-72 23:13:42 Test Item Value Reference Range Interpretation Comments Osmolality (test code = 262 See_Comment L Unit s in mOsm per kg 6571) of water. [Auto mated message] The sy stem which generated this result transmit elidia reference range : 275 - 300 mOsm/kg H 2O. The reference r song was not used to interpret this result as normal/abnor mal. Lab Interpretation (test Abnormal code = 57418-9) MD FarahOsmolality [id number] 23:13:27 Test Item Value Reference Range Interpretation Comments U Osmolality (test code 403 See_Comment Urin nisreen osmolality may = 7785) vary widely, de pending on the state of hydration. [place] om urine osmolality can range from 50 to 1400 mOsm/kg H2O depending o n fluid intake. In zachary viduals on average flui d intake, urine osmolalit y is typically 300-9 00 mOsm/kg H2O.Uni ts of measure: mOsm p er Kg of water. [Automa elidia message] The sy stem which generated this result transmit elidia reference range : 50 - 1,400 mOsm/kg H 2O. The reference range was not used to interpr et this result as normal/abnormal . MD Valderrama Interpretation Antibody Screen [id number] 17:49:41 Test Item Value Reference Range Interpretation Comments TMP Auto Neg At the present ABSC Interp time, patient (test code = plasma shows no ____EMILY FERREIRA MD - 7535) evidence of RBC 80507Ropuftq d by: alloantibodies. EMILY PAREKH MD - [id number] D ate/Time: 06.22.2020 11:4 9 AM AEROSPACE ENGINEER Transcribed Da te/Time: 06.22.2020 11:4 9 AM CSTElectronical ly Signed By: EMILY CHURCHILL MD - [id number] on 06.22 11:49 AM MD Valderrama Interpretation [id number] 17:49:40 Test Item Value Reference Range Interpretation Comments TMP XM Interp RBC units (test code = crossmatched for 7566) transfusion appear CASSANDRA FERREIRA MD acceptable. - [id number] by: EMILY FERREIRA MD - [id number] Date/Time: 06.05 11:49 AM AEROSPACE ENGINEER Transcribed Carlos e/Time: 06.22.2020 11:4 9 AM CSTElectronical ly Signed By: MD Maximilian CAROLINA [id number] on 06.22.2020 11:4 9 AM MD Narayan RBC:g2076, 1 Uahnr3995-07-34 16:17:41 Test Item Value Reference Range Interpretation Comments PRBC Product Ready 1 Red Blood Cells (test code = Available - 97780-3) Order Form 03 when ready for product issue. Unit Number (test [id number] code = 7002) Product Code (test [id number] code = 7003) Unit Expiration (test code = ) Unit Blood Type 8400 (test code = 7004) Product Code Text RBCIRLR CPD AS1 (test code = 500mL ) Crossmatch Expiration Date (test code = ) Unit Irradiated IRRADIATED (test code = 818284) Dispense Status ISSUED (test code = 700) Unit Blood Type AB Positive ____ (test code = 7005) _ ____ AndersonAntibody [id number] 15:11:54 Test Item Value Reference Range Interpretation Comments ABSC. (test code = 890-4) Negative ABSC MD FarahWshaihikCGQEw8089-15-07 15:11:53 Test Item Value Reference Range Interpretation Comments ABORh. (test code = 882-1) AB POS MD FarahClot Expiration [id number] 15:11:52 Test Item Value Reference Range Interpretation Comments T & S Expiration (test code = 06/25/2020 5318) MD FarahConfirm [id number] 14:20:28 Test Item Value Reference Range Interpretation Comments ABORh Confirm. (test code = 882-1) AB POS MD FarahFerritin [id number] 12:05:48 Test Item Value Reference Range Interpretation Comments Ferritin Lvl (test code = 5608) 626 ng/mL 13-150 H Lab Interpretation (test code = Abnormal 35876-9) MD FarahTransferrin with [id number] 12:01:19 Test Item Value Reference Range Interpretation Comments Transferrin (test code = 155 mg/dL 200-360 L 7653) TIBC (test code = 7532) 217 See_Comment L [Au tomated message] The system whic h generated this result transmit elidia reference range : 250 - 450 mcg/dL. T he reference range was not used to interpret this result as normal/abnormal . Lab Interpretation (test Abnormal code = 96098-7) MD Peterson [id number] 12:01:18 Test Item Value Reference Range Interpretation Comments Iron (test code = 6066) 15 See_Comment L [Au tomated message] The system FamilyLeaf generated this result transmitted ref erence range: 37 - 145 mcg/dL. The ref erence range was not u sed to interpret this result as normal/abnor mal. Lab Interpretation (test Abnormal code = 24180-5) MD FarahInfluenza A/B + COVID-19 Asymptomatic- [id number] 09:44:36 Test Item Value Reference Range Interpretation Comments Influenza A (test Not Detected Not Detected code = 80922-2) Influenza B (test Not Detected Not Detected code = 88229-4) COVID19 Not Detected Not Detected (SARS-CoV-2) (test code = 17951-0) COVID19 SARS Inpatient Indication (test Admission code = 01907) Inf AB+Cov19 See Note The emely SARS- CoV-2 Comment (test & Influenza A/ B code = 59671) nucleic acid t est for use on the kaushik s Lucia System is a [employer] real-time RT-PC R assay intended for the simultaneou s, qualitative det ection and differentia l of SARS-CoV-2 (COVID-19), inf luenza A, and influenz a B viral RNA in nasopharyngeal swabs in transport me brenda from patients suspected of frye ving a respiratory inf ection with one of the se viruses or poss ibly exposure to COV ID-19 by a healthcare provider. Resul ts must be interpr eted within the cont ext of all relevant cl inical and laboratory findings and sh ould not form the so le basis for a brenda gnosis or treatment decision. A fac t sheet for patie nts provided by the freight delivery driver ([employer]) can be rev iewed at: https://www.fda .gov/m edia/172731/tessa nloadA fact sheet for Health Care providers is provided by the freight delivery driver ([employer]) and can be reviewed at: https://www.fda .gov/m edia/428816/tessa nload Influenza A and Influenza B neg ative results should be considered presumptive in samples that frye ve a positive SARS-C oV-2 result. If co-infection wi th influenza A or influenza B vir us is suspected in sa mples with a positive SARS-CoV-2 resu lts, the sample israel ld be re-tested with another approve d influenza test. This assay has been authorized by t FDA for use only un lito Emergency Use Authorization ( EUA) in laboratories that have been CLIA-certified to perform moderate-comple xity and high-comple xity tests. The Microbiology Laboratory at [facility], CLIA Accreditation #[id number] and CAP Accreditation #[id number], verif ied the performance characteristics of this assay. Int ernal controls are us ed to monitor all sta ges of the test proces s. [facility] VBG+[id number] 09:23:46 Test Item Value Reference Range Interpretation Comments POC VB pH (test code 7.41 7.31-7.41 = 6719) POC VB pCO2 (test 42 See_Comment [Automate d message] code = 6718) The system EventBrowsr[employer]comic h generated this result transmitted ref erence range: 41 - 51 mmHg. The reference r song was not used to interpret this result as normal/abnor mal. POC VB pO2 (test code 35 mmHg = 6720) POC VB TCO2 (test 28 See_Comment [Automate d message] code = 2026-) The system ich generated this result transmitted ref erence range: 24 - 29 mEq/L. The reference r song was not used to interpret this result as normal/abnor mal. POC VB Bicarb (test 27 mmol/L - code = 16460-5) POC VB Base Ex (test 2 mmol/L -2-3 code = 1927-3) POC VB O2 Sat (test 68 % code = 6716) POC VB LAC (test code 0.8 mmol/L 0.9-1.7 L Method description: = 2519-7) The i-STAT is a n analyzer used f or in vitro quantific ation of various anal ytes in whole blood. e device uses a s slime disposable cart ridge which contains microfabricated sensors, a deepti bration solution, fluid ics system, and a w aste chamber. Each t est cartridge conta ins chemically sens itive biosensors on a silicon chip [facility] are configured to p erform specific tests. The microfabricated sensors measure analyte concent ration by an electroch emical assay. POC Sample Type (test Venous code = 6690) POC Clean Dev (test Yes code = 6672) Lab Interpretation Abnormal (test code = 31018-4) MD FarahJullqzbtRhdiig5688-83-10 09:00:36 Test Item Value Reference Range Interpretation Comments Lipase Lvl (test code = 6165) 23 U/L 13-60 MD FarahNfrhoskcNdvymek9681-19-52 09:00:35 Test Item Value Reference Range Interpretation Comments Amylase Lvl (test code = 4806) 62 U/L 28-100 MD FarahENDOSCOPY NOTE [id number] 20:29:22CoJas Craft MD - 05/12/2020 2:29 PM CST Patient Name: Mirian SinghGender: FemaleMRN: [id number]: [birth year]Procedure Date No Time:05/12/2020Instrument Name: 79110 - [id number]-[id number](s): JAS TURPIN MD, JF BETTENCOURT MD (Fellow)Procedure Name: ERCPScope In: 2:59:32 PMScope Out: 4:05:25 PMTotal Procedure Duration Time 1 hour 5 minutes 53 seconds Patient Profile: This is a 69 year old female with cholangiocarcinoma, history of biliary stents, now without any indwelling stents but recent history of intermittently elevated bilirubin.Indications: Abnormal liver function test, CholangiocarcinomaMedications: Total IV Anesthesia (TIVA), Indomethacin 100 mg IN, Levaquin 500 mg IV, CO2, 2L Lactated [...] patient. All questions were answered, and informed consentwas obtained. Prior Anticoagulants: The patient has taken no previous anticoagulant or antiplatelet agents. ASA Grade Assessment: II - A patient with mild systemic disease. After reviewing the risksand benefits, the patient was deemed in satisfactory condition to undergo the procedure. - The patient was placed in the prone position on the fluoroscopy table. Informed consent was obtained. Throughout the procedure, the patient's blood pressure, pulse, and oxygen saturations were monitored continuously. The Olympus TJF-Q180V ([id number]) sideviewing duodenoscope was introduced through the mouth, and advanced to the duodenum and used to inject contrast into the bile duct. The ERCP was accomplished without difficulty. Th e patient tolerated the procedure well.Findings: The scoutfilm was normal. A biliary sphincterotomy had been [...] a stone and sludge. The biliary tree wasswept numerous times with an 8.5 mm balloon [...] as tolerated. - Continue present medications. - Observepatient's clinical course. - Repeat ERCP in 2-3 months to exchange stent. - Levaquin (levofloxacin) 500 mg PO daily for 3 days starting tomorrow, 05/13/2020. (Do not take ondansetron at the same time as levofloxacin). - Primary team (Dr. Lin) to check CBC later this weekAttending Participation: I was present and participated during the entire procedure, including non-taylor portions.JAS TURPIN MD05/12/2020 4:32:10 PMThis report has been signed electronically.Number of Addenda: 0MD AndersonCT CAP W [id number] 16:12:23 Progression in the primary tumor centered over segment 4 and 5 extending to the hilum of the liver.New nodules in segment 8 may represent early metastases. Intrahepatic biliary dilation with exclusion of all segmental ducts and evidence of an intraductal component in the right hepatic duct and the co mmon hepatic duct. Bile duct to segment 3 [...] Radiology Results In - 02/06/2020 11:14 AM CDT FULL RESULT:Examination: CT CHEST ABDOMEN PELVIS W CONTRAST, [...] series 16 image 74 is stable from previousexams, indeterminate but likely benign. A subpleural nodule in the left lower lobe measuring 0.4 cm,series 16 image 100 is stable. There are scattered areas of atelectasis. There is biapical scarring.No suspicious lung nodule or mass. No pleural effusions.No significant mediastinal, axillary, or hilar lymphadenopathy. The tip of the right internal jugular chest port projects in the distal SVC.CT ABDOMEN/PELVIS:When compared to November 27 there is progression in the primary tumor involving segment 4 and segment 5. The AP diameter of the tumor in segment 5 is 5.4 cm compared to 4.5 cm. Thyroid nodule bridging segment 4 and segment 5 measures 3.1 cm compared to 2.1 cm, image 65 series 9This tumor is infiltrating the hilum of the liver with obstruction of the hilar bifurcation. The obstruction affectssegmental ducts with exclusion of anterior and posterior sector of the right liver. Segment 4 is replaced by tumor. Segment 2 and segment 3 bile ducts are within normal range. Surprisingly the degree of biliary dilation [...] cyst in the lateral left liver. There emily satellite nodule in segment 5, image 8 [...] relatively unchanged when measured in a similar m rick previously. Some stranding surrounding the celiac axis is again noted. There are subcentimeterperiaortic and pericaval lymph nodes which are stable.The previous stranding adjacent to the liver has decreased. Previous pelvic free fluid has decreased.Gallbladder is packed with stones. No CT findings of cholecystitis. No significant extrahepatic bile duct dilatation.A subcentimeter hypodensity inthe spleen, series 14 image 361 is stable. Pancreas appears unremarkable. Bilateral adrenal gland nodularity/hyperplasia is stable. Kidneys are normal.There is colonic diverticulosis without findings of diverticulitis. Otherwise small bowel and colon appear unremarkable.No significant ascites in the abdomen and pelvis. Aorta and IVC are normal in caliber.Uterus appears unremarkable. No suspicious adnexal masses. Bladder is unremarkable. No suspicious osseous lytic or blastic lesions.IMPRESSION:Progression in the primary tumor centered over segment 4 and 5 extending to the hilum of the liver. New nodules in segment 8 may represent early metastases.Intrahepatic biliary dilation with exclusion of allsegmental ducts and evidence of an intraductal component [...] present, and agree with the final report.MD [id number] 14:47:57 Test Item Value Reference Range Interpretation Comments Hgb (test code = 718-7) 10.5 See_Comment L [Au tomated message] The system [employer] generated this result transmitted ref erence range: 12.0 - 1 6.0 gm/dL. The refe rence range was not u sed to interpret this result as normal/abnor mal. Lab Interpretation (test Abnormal code = 98920-3) MD FarahLactic Acid, [id number] 08:36:00 Test Item Value Reference Range Interpretation Comments V Lactate (test code = 2519-7) 0.8 mmol/L 0.5-1.6 MD FarahCalcium Ionized, [id number] 08:35:37 Test Item Value Reference Range Interpretation Comments V Ion Ca (test code = 09320-5) 1.20 mmol/L 1.15-1.29 MD FarahCT, CHEST, WITH IV [id number] 16:53:00FINAL REPORT CT of the chest, abdomen and pelvis, with contrast Clinical Hist ory: Cholangiocarcinoma Technique: CT of the chest, abdomen [...] the thorax. Cholelithiasis. Colonic diverticulosis. Signed: [facility] Verified Date/Time: 07/05/2019 16:53:41 Reading Location: [address] Consult Reading Room CT, ABDOMEN 2019-07-05 16:53:00FINAL [...] MDReport Verified Date/Time: 07/05/2019 16:53:41 Reading Location: [facility] C013X [facility] Consult Reading Room POCT-CREATININE 2019-07-05 11:08:00 Test Item Value Reference Range Interpretation Comments POC-CREATININE 1.2 mg/dL 0.6-1.3 TESTED AT [place] [id number] ([facility]) (test EMMA BLD G A code = 1859) [facility] 7703 0 POC-EGFR 45 mL/min/1.73M2 (SULMA) (test code = 1860) CT, [id number] 16:05:00Reassess cholangiocarcinomaReason for Exam:->CholangiocarcinomaFINAL REPORT CT of [...] MDReport Verified Date/Time: 04/05/2019 16:05:11 Reading Location: [facility] C013X Ortho Consult Reading Room CT, CHEST, WITH IV [id number] 16:05:00Reason for Exam:->c22.1, c78.7FINAL REPORT CT of [...] Robles Verified Date/Time: 04/05/2019 16:05:11 Reading Location: [facility] B1 C013X Ortho Consult Reading Room [id number] 11:08:00 Test Item Value Reference Range Interpretation Comments POC-CREATININE 1.0 mg/dL 0.6-1.3 TESTED AT [facility] ([facility]) (test EMMA BLD G A code = 1859) [facility] 7703 0 POC-EGFR 55 mL/min/1.73M2 (BEAKER) (test code = 1860) CT, [id number] 13:55:00FINAL REPORT CT of the abdomen with [...] MDReport Verified Date/Time: 01/31/2019 13:55:28 Reading Location: [address] Ortho Consult Reading Room CT, CHEST, WITH IV [id number] 13:55:00FINAL REPORT CT of the abdomen with [...] MDReport Verified Date/Time: 01/31/2019 13:55:28 Reading Location: [facility] C013X Ortho Consult Reading Room POCT-CREATININE 2019-01-31 10:51:00 Test Item Value Reference Range Interpretation Comments POC-CREATININE 1.1 mg/dL 0.6-1.3 TESTED AT [facility] ([facility]) (test EMMA BLD G A code = 1859) [facility] 7703 0 POC-EGFR 50 mL/min/1.73M2 ([facility]) (test code = 1860) CT, ABDOMEN, WITH IV [id number] 18:22:00Reason for Exam:->cholangiocarcinomaFINAL REPORT EXAMINATION: CT of [...] Calix Verified Date/Time: 12/04/2018 18:22:25 Reading Location: [facility] Reading Room [address] [place] [address] CT, PELVIS, WITH IV [id number] 18:22:00FINAL REPORT EXAMINATION: CT of the chest, [...] MDReport Verified Date/Time: 12/04/2018 18:22:25 Reading Location: [facility] Reading Room [address] [place] [address] CT, CHEST, WITH IV [id number] 18:22:00FINAL REPORT EXAMINATION: CT of the chest, [...] MDReport Verified Date/Time: 12/04/2018 18:22:25 Reading Location: [facility] Reading Room [address] [place] [address] -[id number] 12:59:00 Test Item Value Reference Range Interpretation Comments POC-CREATININE 1.3 mg/dL 0.6-1.3 TESTED AT [facility] ([facility]) (test EMMA BLD G A code = 1859) [facility] 7703 0 POC-EGFR 41 mL/min/1.73M2 ([facility]) (test code = 1860) CT, CHEST, WITH IV [id number] 16:38:00FINAL REPORT CT chest, abdomen and pelvis [...] in the inferior aspect of segment 6 jyothi sures 4.0 x 5.8 x 5.8 cm (AP, [...] No cortical mass. No hydronephrosis. Left: Normal enhance ment. Upper pole cyst is stable. No hydronephrosis. [...] cholangiocarcinoma in the right lobe is stable in size. No change in associated biliary ductal dilatation [...] Fontana MDReport Verified Date/Time: 10/10/2018 16:38:32 CT, ABDOMEN 2018-10-10 16:38:00FINAL REPORT CT chest, abdomen and [...] Josh Fontana MDReport Verified Date/Time: 10/10/2018 16:38:32 [id number] 11:29:00 Test Item Value Reference Range Interpretation Comments POC-CREATININE 1.2 mg/dL 0.6-1.3 TESTED AT [facility] ([employer]) (test EMMA BLD G A code = 1859) [facility] 7703 0 POC-EGFR 45 mL/min/1.73M2 (BEAKER) (test code = 1860) CT, CHEST, WITH IV [id number] 18:26:00FINAL REPORT INDICATION:Cancer of upper GI origin, on treatment. COMPARISON: N ov2017 [facility] chest abdomen pelvis CT (report not available).October 08, 2017 [facility] abdomen pelvis CT. TECHNIQUE: CT of the [...] Verified Date/Time: 07/04/2018 18 :26:12 Reading Location: [address] Body Reading Room CT, ABDOMEN, WITHOUT / WITH IV [id number] 18:26:00FINAL REPORT INDICATION:Cancer of upper GI origin, on treatment. COMPARISON: May 03, 2018 [facility] chest abdomen pelvis CT (report not available).October 08, 2017 [facility] abdomen pelvis CT. TECHNIQUE: CT of the [...] Signed: Oanh Lo MDReport Verified Date/Time: 07/04/2018 18:26:12 Reading Location: [facility] C013Y CT Body Reading Room CT, PELVIS, WITH IV [id number] 18:26:00FINAL REPORT INDICATION:Cancer of upper GI origin, on treatment. COMPARISON: N ovember 2017 [facility] chest abdomen pelvis CT (report not available).October 08, 2017 [facility] abdomen pelvis CT. TECHNIQUE: CT of the [...] Verified Date/Time: 07/04/2018 18 :26:12 Reading Location: [facility] B[address] C013[address] CT Body Reading Room [id number] 11:29:00 Test Item Value Reference Range Interpretation Comments POC-CREATININE 1.0 mg/dL 0.6-1.3 TESTED AT [facility] (BEAKER) (test EMMA BLD G A code = 1859) [facility] 7703 0 POC-EGFR 55 mL/min/1.73M2 (BEAKER) (test code = 1860) [place], [id number] 15:09:00INTRA OP IMAGINGReason for exam:->cholangiocarcinomaFINAL REPORT ERCP 24 views 12/18/2017 3:09 PM CLINICAL HISTORY: Instrument localization COMPARISON: None available IMPRESSION: Please correlate imaging report findings with the pro cedure note prepared by Dr. Roman, as an intra-procedure imaging consultation was not requested. Reported fluoroscopy time: 4 minutes, 35 seconds. Signed: Alberta Nina Verified Date/Time: 12/18/2017 15:09:38 Reading Location: [facility] C013V Neuro Reading Room ANG, CV ACCESS, [id number] 15:16:00 Reason for Exam:->c22.1FINAL REPORT Chest herlinda [...] was advanced centrally. A 20 cm 7 [place] [employer] catheter was advanced with its distal [...] MDReport Verified Date/Time: 11/08/2017 15:16:03 Reading Location: [place] [address] Angio Body Reading Room [id number] 06:55:00 Test Item Value Reference Range Interpretation [...] 2.5-3.5 for patients with mechanical heart valves.PLATELET [id number] 06:49:00 Test Item Value Reference Range Interpretation Comments PLATELET COUNT (BEAKER) (test 149 K/CU MM 150-450 L code = 756) CBC W/PLT COUNT & AUTO [id number] 07:22:00 Test Item Value Reference Range Interpretation [...] (BEAKER) (test code = 413) COMPREHENSIVE METABOLIC [id number] 06:35:00 Test Item Value Reference Range Interpretation [...] 347) EGFR (BEAKER) (test 91 mL/min/1.73 ESTIMA ELIDIA GFR IS code = 1092) sq m NOT ACCURATE CREATININE CLEARANCE IN PREDICTING GLOMERULAR FILTRATION RATE . ESTIMATED GFR I S NOT APPLICABLE FOR DIALYSIS PATIEN TS. BLOOD [id number] 18:00:00 Test Item Value Reference Range Interpretation Comments CULTURE (BEAKER) (test No growth in 5 days code = 1095) CBC W/PLT COUNT & AUTO [id number] 13:50:00 Test Item Value Reference Range Interpretation [...] (BEAKER) (test code = 413) COMPREHENSIVE METABOLIC [id number] 13:07:00 Test Item Value Reference Range Interpretation [...] 347) EGFR (BEAKER) (test 81 mL/min/1.73 ESTIMA ELIDIA GFR IS code = 1092) sq m NOT ACCURATE CREATININE CLEARANCE IN PREDICTING GLOMERULAR FILTRATION RATE . ESTIMATED GFR I S NOT APPLICABLE FOR DIALYSIS PATIEN TS. COMPREHENSIVE METABOLIC [id number] 06:14:00 Test Item Value Reference Range Interpretation [...] 0-0 (BEAKER) (test code = 413) CT, [id number] 15:26:00FINAL REPORT TECHNIQUE: CT of the abdomen [...] MDReport Verified Date/Time: 10/08/2017 15:26:34 Reading Location: [facility] Q025DXT Body Reading Room HEMOGLOBIN [id number] 14:08:00 Test Item Value Reference Range Interpretation Comments HEMOGLOBIN A1C (BEAKER) (test code = 5.1 % 4.3-6.1 368) COMPREHENSIVE METABOLIC [id number] 05:11:00 Test Item Value Reference Range Interpretation [...] 347) EGFR (BEAKER) (test 97 mL/min/1.73 ESTIMA ELIDIA GFR IS code = 1092) sq m NOT ACCURATE CREATININE CLEARANCE IN PREDICTING GLOMERULAR FILTRATION RATE . ESTIMATED GFR I S NOT APPLICABLE FOR DIALYSIS PATIEN TS. Specimen slightly [id number] 05:11:00 Test Item Value Reference Range Interpretation [...] (BEAKER) (test code = 413) COMPREHENSIVE METABOLIC [id number] 06:49:00 Test Item Value Reference Range Interpretation [...] 347) EGFR (BEAKER) (test 93 mL/min/1.73 ESTIMA ELIDIA GFR IS code = 1092) sq m [...] WBC 0-0 (BEAKER) (test code = 413) [id number] 07:13:00 Test Item Value Reference Range Interpretation Comments LIPASE (BEAKER) (test code = 749) 104 U/L 8-78 H Specimen slightly ictericCOMPREHENSIVE METABOLIC [id number] 07:13:00 Test Item Value Reference Range Interpretation [...] (BEAKER) (test code = 413) URINALYSIS W/ [id number] 14:03:00 Test Item Value Reference Range Interpretation [...] 514) SOURCE(BEAKER) (test code = Urine, Voided 2545) COMPREHENSIVE METABOLIC [id number] 06:46:00 Test Item Value Reference Range Interpretation [...] APPLICABLE FOR DIALYSIS PATIEN TS. Specimen slightly [id number] 06:41:00 Test Item Value Reference Range Interpretation [...] WBC 0-0 (BEAKER) (test code = 413) [id number] 07:26:00 Test Item Value Reference Range Interpretation Comments LIPASE (BEAKER) (test code = 749) > U/L 8-78 H Specimen moderately ictericCOMPREHENSIVE METABOLIC [id number] 06:34:00 Test Item Value Reference Range Interpretation [...] (BEAKER) (test code = 413) COMPREHENSIVE METABOLIC [id number] 12:54:00 Test Item Value Reference Range Interpretation [...] 347) EGFR (BEAKER) (test 74 mL/min/1.73 ESTIMA ELIDIA GFR IS code = 1092) sq m NOT ACCURATE CREATININE CLEARANCE IN PREDICTING GLOMERULAR FILTRATION RATE . ESTIMATED GFR I S NOT APPLICABLE FOR DIALYSIS PATIEN TS. Specimen moderately ictericFL, [id number] 16:19:00INTRA OP IMAGINGReason for exam:->CHOLANGIOCARCINOMAFINAL REPORT History: [...] extending into the intrahepatic ducts. Signed: Jaron Lee MDReport Verified Date/Time: 10/02/2017 16:19:35 Reading Location: [address] Radiology Reading Room TISSUE EXAM 2017-09-22 18:58:00Surgical Pathology Report Case: [id number] Authorizing Provider: Soha Blank MD Collected: 09/14/20172224 Ordering Location: [facility] 6 OP Received: 09/14/2017 223 Pathologist: Evan Ho MD Specimen: Biopsy, Liver, [...] of MMR proteins: Tumor is pMMR (MMR proficient)37831, 49371 x3 Addendum electronically signed by Evan Ho MD on 09/22/2017 at 6:58 PMThe addendum is being issued to report the results of immunostains for ER, mammoglobin and WT 1 The diagnosis is unchanged.RESULTSImmunostains for ER, mammoglobin and WT 1 are negative in [id number] electronically signed by Evan Ho MD on 09/20/2017 at 7:12 PMLIVER, ULTRASOUND GUIDED NEEDLE CORE BIOPSY:- ADENOCARCINOMA, MODERATELY DIFFERENTIATED- BACKGROUND LIVER WITH MINIMAL STEATOSIS AND FEATURES OF MASS EFFECT- SEE COMMENT Signing Pathologist Direct Phone Line: [phone] signed by Evan Ho MD on 09/18/2017 at 2:01 PMThe liver biopsy shows a moderately differentiated adenocarcinoma with an immunoprofile of CK7+/CK19+. The immunoprofile is nonspecific. The possibilities include intrahepatic cholangiocarcinoma, pancreato-biliary primary or upper gastrointestinal primary. Clinical correlation is suggested. 34020, 29622, 79846 m5Xfvtf liver massLiver lesionReceived in formalin labeled with [...] and GATA3. (Appropriate controls were used).U/S, BIOPSY, [id number] 16:51:00Reason for Exam:->LIVER MASS [R16.0][facility] Ultrasound-guided core biopsy of [...] Bowling Verified Date/Time: 09/14/2017 16:51:22 Reading Location: [facility] P006J Ultrasound Reading Room REHENSIVE METABOLIC [id number] 13:24:00 Test Item Value Reference Range Interpretation [...] 347) EGFR (BEAKER) (test 71 mL/min/1.73 ESTIMA ELIDIA GFR IS code = 1092) sq m NOT ACCURATE CREATININE CLEARANCE IN PREDICTING GLOMERULAR FILTRATION RATE . ESTIMATED GFR I S NOT APPLICABLE FOR DIALYSIS PATIEN TS. Specimen slightly ictericPROTHROMBIN TIME/[id number] 13:03:00 Test Item Value Reference Range Interpretation [...] % 0-1 PERCENT (BEAKER) (test code = 4104)
[2020-11-29 21:53] LABS: Absolute Lymphocytes (CBC) 0.4 K/uL (0.7-4.9); Basophils % 0.2 % (0-1.3); Hematocrit 23.2 % (36.0-45.0); Lymphocytes % 5.9 % (15.3-44.8); RBC Red Blood Cell Count 2.84 M/uL (3.86-4.86)
[2020-11-29 21:56] LABS: Potassium 4.1 mmol/L (3.5-5.1)
[2020-11-29 21:59] LABS: Protime INR 1.29
[2020-11-29] MEDS ORDERED: NA CHLORIDE 0.9% 1,000 ML ONE (22:55)
--- NOTE | 2020-11-29 23:03 | ER ---
Nurse's Notes [facility] Name: Danny Babcock Age: 70 yrs Sex: Female : 1950 Arrival Date: 11/29/2020 Time: 21:08 Bed 3 Private MD: Diagnosis: Speech disturbances, not elsewhere classified;Hyponatremia Presentation: 11/29 21:10 Chief complaint: Patient's son or daughter states: pt took a nap at 1530 today and when bb she woke up at 1915 she was unable to finish her sentences. Family states pt would try to talk and was not able to complete her sentence and then would stare off into space. These symptoms lasted about an hour. They decided to go eat first as they thought it may be related to her blood glucose they called MD Farah after that and were told to go to the ED. Pt's symptoms have fully resolved on arrival to ED. Coronavirus screen: At this time, the client does not indicate any symptoms associated with coronavirus-19. Ebola Screen: No symptoms or risks identified at this time. 21:10 Method Of Arrival: Ambulatory bb 21:15 No acute neurological deficit is noted. Initial Sepsis Screen: Does the patient meet bb any 2 criteria? No. Patient's initial sepsis screen is negative. Does the patient have a suspected source of infection? No. Patient's initial sepsis screen is negative. Onset of symptoms was November 29, 2020 at 19:15. 21:15 Acuity: MARISSA 2 bb 21:15 Risk Assessment: Do you want to hurt yourself or someone else? Patient reports no rr5 desire to harm self or others. Triage Assessment: 21:30 The onset of the patients symptoms was November 29, 2020 at 19:15. General: Appears in no bb apparent distress. Behavior is calm, cooperative. Pain: Denies pain. Neuro: Level of Consciousness is awake, alert, obeys commands, Oriented to person, place, time, situation, Speech is normal, Reports pt reports all symptoms have resolved. Stroke Activation: Physician: Stroke Attending; Name: ; Notified At: ; Arrived At: Physician: Chief Stroke Resident; Name: ; Notified At: ; Arrived At: Physician: Stroke Resident; Name: ; Notified At: ; Arrived At: Physician: ED Attending; Name: ; Notified At: ; Arrived At: Physician: ED Resident; Name: ; Notified At: ; Arrived At: 21:15 code stroke was not initiated bb Historical: - Allergies: 21:30 Sulfa (Sulfonamide Antibiotics); bb - PMHx: 21:30 Aneurysm; Cancer; Hypertension; bb - PSHx: 21:30 brain aneurysm; bb - Immunization history:: Adult Immunizations up to date. - Social history:: Smoking status: unknown. Screenin:33 Abuse screen: Denies threats or abuse. Denies injuries from another. Nutritional rr5 screening: No deficits noted. Tuberculosis screening: No symptoms or risk factors identified. VAN Screening: Arm Drift: Patient shows no arm weakness. Patient is VAN negative. Visual Disturbance: No visual disturbance noted. Aphasia: No aphasia noted. Neglect: No neglect noted. Fall Risk IV access (20 points). Total Carter Fall Scale indicates No Risk (0-24 pts). 21:50 Patient has been NPO before screening. The patient is alert, able to follow commands. rr5 The patient does not exhibit slurred or garbled speech The patient is not exhibiting difficulty speaking. The patient does not exhibit difficulty understanding words. The patient is able to swallow own secretions with no drooling or need for suction. Patient tolerated one teaspoon of water. No drooling, immediate coughing, gurgling, or clearing of the throat was noted. The patient tolerated 90mL of water. No drooling, immediate coughing, gurgling, or clearing of the throat was noted. The patient passed the bedside swallow screening. Oral medications may be given as ordered. Contact Physician for further diet orders. Provider notified of bedside swallow screening results: Louie Lundberg MD. Assessment: 21:32 VAN Scoring: Arm Drift: Patients demonstrates NO arm weakness. Patient is VAN Negative. rr5 Visual Disturbance: No visual disturbance noted. Aphasia: No aphasia noted. Neglect: No neglect noted. General: Appears in no apparent distress. comfortable, Behavior is calm, cooperative, appropriate for age. Pain: Denies pain. Neuro: Level of Consciousness is awake, alert, obeys commands, Oriented to person, place, time. Cardiovascular: Capillary refill < 3 seconds Patient's skin is warm and dry. Respiratory: Airway is patent Respiratory effort is even, unlabored, Respiratory pattern is regular, symmetrical. GI: Abdomen is distended. : No signs and/or symptoms were reported regarding the genitourinary system. EENT: No signs and/or symptoms were reported regarding the EENT system. Derm: Skin is intact, is healthy with good turgor, Skin temperature is warm. Musculoskeletal: Capillary refill < 3 seconds. 21:50 Patient has been NPO before screening. The patient is alert, and able to follow rr5 commands. The patient does not exhibit slurred or garbled speech. The patient is not exhibiting difficulty speaking. The patient does not exhibit difficulty understanding words. The patient is able to swallow own secretions with no drooling or need for suction. Patient tolerated one teaspoon of water. No drooling, immediate coughing, gurgling, or clearing of the throat was noted. The patient tolerated 90mL of water. No drooling, immediate coughing, gurgling, or clearing of the throat was noted. The patient passed the bedside swallow screening. Oral medications may be given as ordered. Contact Physician for further diet orders. Provider notified of bedside swallow screening results: Louie Lundberg MD. 22:24 Reassessment: Patient appears in no apparent distress at this time. Patient is alert, rr5 oriented x 3, equal unlabored respirations, skin warm/dry/pink. 23:35 Reassessment: Patient appears in no apparent distress at this time. Patient is alert, rr5 oriented x 3, equal unlabored respirations, skin warm/dry/pink. no complaints made. Vital Signs: 21:15 BP 116 / 73; Pulse 98; Resp 16 S; Temp 98.8(O); Pulse Ox 100% on R/A; Weight 52.62 kg bb (R); Height 5 ft. 6 in. (167.64 cm) (R); Pain 0/10; 22:15 BP 126 / 85; Pulse 85; Resp 19; Pulse Ox 97% ; rr5 23:31 BP 106 / 64; Pulse 87; Resp 15; Pulse Ox 99% ; rr5 21:15 Body Mass Index 18.72 (52.62 kg, 167.64 cm) bb NIH Stroke Scale Scores: 21:32 NIHSS Score: 0 rr5 21:33 NIHSS Score: 0 rr5 22:32 NIHSS Score: 0 mh7 ED Course: 21:08 Patient arrived in ED. es 21:10 Arm band placed on Patient placed in an exam room, on a stretcher, on patient monitor, bb on pulse oximetry. Family accompanied patient. 21:15 EKG completed in triage. Results shown to MD. bb 21:22 Inserted saline lock: 20 gauge in left antecubital area, using aseptic technique. [id number] 21:22 Patient has correct armband on for positive identification. Placed in gown. Bed in low rr5 position. Call light in reach. Side rails up X2. cafeteria monitor on. Pulse ox on. NIBP on. 21:23 Louie Lundberg MD is Attending Physician. 7 21:23 EKG done, by ED staff, reviewed by Louie Lundberg MD. rr5 21:29 Triage completed. bb 21:32 Elroy Lopez, MARCELINO is Primary Nurse. rr5 21:37 CT Stroke Brain w/o Contrast In Process Unspecified. EDMS 22:31 Stroke CXR 1 View In Process Unspecified. EDMS 23:00 Urine collected: clean catch specimen, clear. rr5 23:02 James Martínez MD is Hospitalizing Provider. [facility] 23:33 No provider procedures requiring assistance completed. Patient admitted, IV remains in rr5 place. intact, No redness/swelling at site. Administered Medications: 23:16 Discontinued: NS 0.9% 1000 ml IV at 1000 ml once rr5 22:38 Drug: NS 0.9% 1000 ml Route: IV; Rate: 1000 ml; Site: left antecubital; rr5 23:16 Follow up: Response: No adverse reaction; IV Status: Order to discontinue infusion; IV rr5 Intake: 500ml 23:16 Drug: NS 0.9% 1000 ml Route: IV; Rate: 75 ml/hr; Site: left antecubital; rr5 23:26 Follow up: Response: No adverse reaction; IV Status: Infusion continued upon admission rr5 Point of Care Testing: Blood Glucose: 21:15 Blood Glucose: 181 mg/dL; bb Ranges: Intake: 23:16 IV: 500ml; Total: 500ml. rr5 Outcome: 23:03 Decision to Hospitalize by Provider. 7 23:33 Admitted to Med/surg accompanied by tech, via stretcher, room 208, with chart, Report rr5 called to linda 23:33 Condition: stable 23:33 Instructed on the need for admit. 23:48 Patient left the ED. bb NIH Stroke Scale - NIH Stroke Score Date: 11/29/2020 Time: 21:32 Total Score = 0 1a. Level of Consciousness (LOC) - 0(Alert) 1b. Level of Consciousness (LOC) (Month \T\ Age) - 0(Both) 1c. LOC Commands (Open \T\ Closes Eyes/Strike Out Machine Operator) - 0(Both) 2. Best Gaze (Lateral Gaze Paresis) - 0(Normal) 3. Visual Field Loss - 0(No visual loss) 4. Facial Palsy - 0(Normal) 5a. Left Arm: Motor (10-second hold) - 0(No drift) 5b. Right Arm: Motor (10-second hold) - 0(No drift) 6a. Left Leg: Motor (5-second hold - always test supine) - 0(No drift) 6b. Right Leg: Motor (5-second hold - always test supine) - 0(No drift) 7. Limb Ataxia (finger/nose \T\ heel/gaxiola - test with eyes open) - 0(Absent) 8. Sensory Loss (pinprick arms/legs/face) - 0(Normal) 9. Best Language: Aphasia (description/naming/reading) - 0(No aphasia) 10. Dysarthria (speech clarity - read or repeat words) - 0(Normal) 11. Extinction and Inattention (visual/tactile/auditory/spatial/personal) - 0(No abnormality) Initials: rr5 NIH Stroke Scale - NIH Stroke Score Date: 11/29/2020 Time: 21:33 Total Score = 0 1a. Level of Consciousness (LOC) - 0(Alert) 1b. Level of Consciousness (LOC) (Month \T\ Age) - 0(Both) 1c. LOC Commands (Open \T\ Closes Eyes/Strike Out Machine Operator) - 0(Both) 2. Best Gaze (Lateral Gaze Paresis) - 0(Normal) 3. Visual Field Loss - 0(No visual loss) 4. Facial Palsy - 0(Normal) 5a. Left Arm: Motor (10-second hold) - 0(No drift) 5b. Right Arm: Motor (10-second hold) - 0(No drift) 6a. Left Leg: Motor (5-second hold - always test supine) - 0(No drift) 6b. Right Leg: Motor (5-second hold - always test supine) - 0(No drift) 7. Limb Ataxia (finger/nose \T\ heel/gaxiola - test with eyes open) - 0(Absent) 8. Sensory Loss (pinprick arms/legs/face) - 0(Normal) 9. Best Language: Aphasia (description/naming/reading) - 0(No aphasia) 10. Dysarthria (speech clarity - read or repeat words) - 0(Normal) 11. Extinction and Inattention (visual/tactile/auditory/spatial/personal) - 0(No abnormality) Initials: rr5 NIH Stroke Scale - NIH Stroke Score Date: 11/29/2020 Time: 22:32 Total Score = 0 1a. Level of Consciousness (LOC) - 0(Alert) 1b. Level of Consciousness (LOC) (Month \T\ Age) - 0(Both) 1c. LOC Commands (Open \T\ Closes Eyes/Strike Out Machine Operator) - 0(Both) 2. Best Gaze (Lateral Gaze Paresis) - 0(Normal) 3. Visual Field Loss - 0(No visual loss) 4. Facial Palsy - 0(Normal) 5a. Left Arm: Motor (10-second hold) - 0(No drift) 5b. Right Arm: Motor (10-second hold) - 0(No drift) 6a. Left Leg: Motor (5-second hold - always test supine) - 0(No drift) 6b. Right Leg: Motor (5-second hold - always test supine) - 0(No drift) 7. Limb Ataxia (finger/nose \T\ heel/gaxiola - test with eyes open) - 0(Absent) 8. Sensory Loss (pinprick arms/legs/face) - 0(Normal) 9. Best Language: Aphasia (description/naming/reading) - 0(No aphasia) 10. Dysarthria (speech clarity - read or repeat words) - 0(Normal) 11. Extinction and Inattention (visual/tactile/auditory/spatial/personal) - 0(No abnormality) Initials: 7 Signatures: Dispatcher [employer] Stefani Burnette Brenda, RN RN bb Elroy Lopez, MARCELINO RN rr5 Louie Lundberg MD MD 7 Jenaro Santamaria RN RN [id number]
--- NOTE | 2020-11-29 23:03 | EDPHYS ---
Physician Documentation [facility] Name: Danny Babcock Age: 70 yrs Sex: Female : 1950 Arrival Date: 11/29/2020 Time: 21:08 Bed 3 Private MD: ED Physician Louie Lundberg HPI: 11/29 22:26 This 70 yrs old Female presents to ER via Ambulatory with complaints of S/S mh7 of Possible Stroke. 22:26 The patient's problem is reported as dysphasia, expressive aphasia. Onset: The mh7 symptoms/episode began/occurred today, at an unknown time. Duration: This was a single incident. Context: the episode(s) was witnessed, by family, daughter, symptoms became apparent upon waking. The symptoms are alleviated by nothing. The symptoms are aggravated by nothing. Associated signs and symptoms: Pertinent negatives: abdominal pain, agitation, ataxia, blurred vision, chest pain, combativeness, confusion, diaphoresis, diarrhea, dizziness, headache, lightheadedness, nausea, numbness, palpitations, seizure, shortness of breath, tingling, vertigo, vomiting, weakness. Severity of symptoms: At their worst the symptoms were mild today, in the emergency department the symptoms have resolved and did so just prior to arrival. Patient's baseline: Neuro: alert and fully oriented, Motor: no deficits, Ambulation: walks without assistance, Speech: normal. Historical: - Allergies: 21:30 Sulfa (Sulfonamide Antibiotics); bb - PMHx: 21:30 Aneurysm; Cancer; Hypertension; bb - PSHx: 21:30 brain aneurysm; bb - Immunization history:: Adult Immunizations up to date. - Social history:: Smoking status: unknown. ROS: 22:32 Constitutional: Negative for fever, chills, and weight loss, Eyes: Negative for injury, mh7 pain, redness, and discharge, ENT: Negative for injury, pain, and discharge, Neck: Negative for injury, pain, and swelling, Cardiovascular: Negative for chest pain, palpitations, and edema, Respiratory: Negative for shortness of breath, cough, wheezing, and pleuritic chest pain, Abdomen/GI: Negative for abdominal pain, nausea, vomiting, diarrhea, and constipation, Back: Negative for injury and pain, : Negative for injury, bleeding, discharge, and swelling, MS/Extremity: Negative for injury and deformity, Skin: Negative for injury, rash, and discoloration, Neuro: Negative for headache, weakness, numbness, tingling, and seizure, Psych: Negative for depression, anxiety, suicide ideation, homicidal ideation, and hallucinations, Allergy/Immunology: Negative for hives, rash, and allergies, Endocrine: Negative for neck swelling, polydipsia, polyuria, polyphagia, and marked weight changes, Hematologic/Lymphatic: Negative for swollen nodes, abnormal bleeding, and unusual bruising. Exam: 22:32 Constitutional: This is a well developed, well nourished patient who is awake, alert, mh7 and in no acute distress. Head/Face: Normocephalic, atraumatic. Eyes: Pupils equal round and reactive to light, extra-ocular motions intact. Lids and lashes normal. Conjunctiva and sclera are non-icteric and not injected. Cornea within normal limits. Periorbital areas with no swelling, redness, or edema. Neck: Trachea midline, no thyromegaly or masses palpated, and no cervical lymphadenopathy. Supple, full range of motion without nuchal rigidity, or vertebral point tenderness. No Meningismus. Chest/axilla: Normal chest wall appearance and motion. Nontender with no deformity. No lesions are appreciated. Cardiovascular: Regular rate and rhythm with a normal S1 and S2. No gallops, murmurs, or rubs. Normal PMI, no JVD. No pulse deficits. Respiratory: Lungs have equal breath sounds bilaterally, clear to auscultation and percussion. No rales, rhonchi or wheezes noted. No increased work of breathing, no retractions or nasal flaring. Abdomen/GI: Soft, non-tender, with normal bowel sounds. No distension or tympany. No guarding or rebound. No evidence of tenderness throughout. Back: No spinal tenderness. No costovertebral tenderness. Full range of motion. Skin: Warm, dry with normal turgor. Normal color with no rashes, no lesions, and no evidence of cellulitis. MS/ Extremity: Pulses equal, no cyanosis. Neurovascular intact. Full, normal range of motion. Neuro: Awake and alert, GCS 15, oriented to person, place, time, and situation. Cranial nerves II-XII grossly intact. Motor strength 5/5 in all extremities. Sensory grossly intact. Cerebellar exam normal. Normal gait. Psych: Awake, alert, with orientation to person, place and time. Behavior, mood, and affect are within normal limits. 23:03 Radiologist reports: No acute findings [facility] Vital Signs: 21:15 BP 116 / 73; Pulse 98; Resp 16 S; Temp 98.8(O); Pulse Ox 100% on R/A; Weight 52.62 kg bb (R); Height 5 ft. 6 in. (167.64 cm) (R); Pain 0/10; 22:15 BP 126 / 85; Pulse 85; Resp 19; Pulse Ox 97% ; rr5 23:31 BP 106 / 64; Pulse 87; Resp 15; Pulse Ox 99% ; rr5 21:15 Body Mass Index 18.72 (52.62 kg, 167.64 cm) NIH Stroke Scale Scores: 21:32 NIHSS Score: 0 rr5 21:33 NIHSS Score: 0 rr5 22:32 NIHSS Score: 0 [facility] MDM: 22:59 Differential diagnosis: CVA, TIA, Parkinson disease, drug effects, Seizure, [facility] Pseudosezure. Data reviewed: vital signs, nurses notes, lab test result(s), cardiac enzymes, CBC, electrolytes, EKG, radiologic studies, CT scan. Data interpreted: Pulse oximetry: on room air is 100 %. Interpretation: normal. Counseling: I had a detailed discussion with the patient and/or guardian regarding: the historical points, exam findings, and any diagnostic results supporting the discharge/admit diagnosis, lab results, radiology results, the need for further work-up and treatment in the hospital. Response to treatment: the patient's symptoms have resolved after treatment, the patient's blood pressure is in an acceptable range, mental status has returned to baseline, the patient no longer shows bradycardia, the patient is not short of breath, the patient is not tachycardic, the patient's pain is gone. Physician consultation: Imer Nuñez MD regarding patient's condition, and will see patient in inpatient room. 23:03 Patient medically screened. [facility] 11/29 21:19 Order name: Basic Metabolic Panel; Complete Time: 22:29 [facility] 11/29 21:19 Order name: CBC with Diff; Complete Time: 22:29 [facility] 11/29 21:19 Order name: Protime (+inr); Complete Time: 22:29 [facility] 11/29 21:19 Order name: Ptt, Activated; Complete Time: 22:29 [facility] 11/29 21:28 Order name: Glucose, Ancillary Testing; Complete Time: 21:42 [facility] 11/29 21:42 Order name: Troponin (emerg Dept Use Only) [facility] 11/29 22:56 Order name: Osmolality, Serum 11/29 22:56 Order name: Urine Osmolality 11/29 22:56 Order name: Urine Sodium Random 11/29 22:58 Order name: LFT's 11/29 22:58 Order name: TIBC 11/29 22:58 Order name: Iron Level 11/29 22:58 Order name: Liver (Hepatic) Function [facility] 11/29 21:19 Order name: CT Stroke Brain w/o Contrast [facility] 11/29 21:19 Order name: Stroke CXR 1 View [facility] 11/29 21:19 Order name: EKG; Complete Time: 21:20 [facility] 11/29 21:19 Order name: Accucheck; Complete Time: 21:19 [facility] 11/29 21:19 Order name: Cardiac monitoring; Complete Time: 21:20 [facility] 11/29 21:19 Order name: EKG - Nurse/Tech; Complete Time: 21:19 [facility] 11/29 21:19 Order name: IV Saline Lock; Complete Time: 21:19 [facility] 11/29 21:19 Order name: Labs collected and sent; Complete Time: 21:20 [facility] 11/29 21:19 Order name: NPO; Complete Time: 21:20 [facility] 11/29 21:19 Order name: O2 Per Protocol; Complete Time: 21:20 [facility] 11/29 22:59 Order name: Transferrin Sat/Iron Binding [facility] 11/29 22:59 Order name: Ferritin [facility] 11/29 23:10 Order name: Urine Dipstick-Ancillary [facility] 11/29 23:48 Order name: Troponin (Emerg Dept Use Only) [facility] 11/29 21:19 Order name: O2 Sat Monitoring; Complete Time: 21:20 [facility] 11/29 21:19 Order name: Stroke Swallow Screen; Complete Time: 23:29 [facility] 11/29 21:42 Order name: Urine Dipstick-Ancillary (obtain specimen); Complete Time: 23:26 mh7 Administered Medications: 23:16 Discontinued: NS 0.9% 1000 ml IV at 1000 ml once rr5 22:38 Drug: NS 0.9% 1000 ml Route: IV; Rate: 1000 ml; Site: left antecubital; rr5 23:16 Follow up: Response: No adverse reaction; IV Status: Order to discontinue infusion; IV rr5 Intake: 500ml 23:16 Drug: NS 0.9% 1000 ml Route: IV; Rate: 75 ml/hr; Site: left antecubital; rr5 23:26 Follow up: Response: No adverse reaction; IV Status: Infusion continued upon admission rr5 Point of Care Testing: Blood Glucose: 21:15 Blood Glucose: 181 mg/dL; bb Ranges: Critical Glucose Levels:Adult <50 mg/dl or >400 mg/dl <40 mg/dl or >180 mg/dl Disposition: 11/29/20 23:03 Hospitalization ordered by James Martínez for Inpatient Admission. Diagnosis are Speech disturbances, not elsewhere classified, Hyponatremia. - Bed requested for Telemetry/MedSurg (Inpatient). - Status is Inpatient Admission. bb - Condition is Stable. - Problem is new. - Symptoms have improved. NIH Stroke Scale - NIH Stroke Score Date: 11/29/2020 Time: 21:32 Total Score = 0 1a. Level of Consciousness (LOC) - 0(Alert) 1b. Level of Consciousness (LOC) (Month \T\ Age) - 0(Both) 1c. LOC Commands (Open \T\ Closes Eyes/Binman) - 0(Both) 2. Best Gaze (Lateral Gaze Paresis) - 0(Normal) 3. Visual Field Loss - 0(No visual loss) 4. Facial Palsy - 0(Normal) 5a. Left Arm: Motor (10-second hold) - 0(No drift) 5b. Right Arm: Motor (10-second hold) - 0(No drift) 6a. Left Leg: Motor (5-second hold - always test supine) - 0(No drift) 6b. Right Leg: Motor (5-second hold - always test supine) - 0(No drift) 7. Limb Ataxia (finger/nose \T\ heel/gaxiola - test with eyes open) - 0(Absent) 8. Sensory Loss (pinprick arms/legs/face) - 0(Normal) 9. Best Language: Aphasia (description/naming/reading) - 0(No aphasia) 10. Dysarthria (speech clarity - read or repeat words) - 0(Normal) 11. Extinction and Inattention (visual/tactile/auditory/spatial/personal) - 0(No abnormality) Initials: rr5 NIH Stroke Scale - NIH Stroke Score Date: 11/29/2020 Time: 21:33 Total Score = 0 1a. Level of Consciousness (LOC) - 0(Alert) 1b. Level of Consciousness (LOC) (Month \T\ Age) - 0(Both) 1c. LOC Commands (Open \T\ Closes Eyes/Binman) - 0(Both) 2. Best Gaze (Lateral Gaze Paresis) - 0(Normal) 3. Visual Field Loss - 0(No visual loss) 4. Facial Palsy - 0(Normal) 5a. Left Arm: Motor (10-second hold) - 0(No drift) 5b. Right Arm: Motor (10-second hold) - 0(No drift) 6a. Left Leg: Motor (5-second hold - always test supine) - 0(No drift) 6b. Right Leg: Motor (5-second hold - always test supine) - 0(No drift) 7. Limb Ataxia (finger/nose \T\ heel/gaxiola - test with eyes open) - 0(Absent) 8. Sensory Loss (pinprick arms/legs/face) - 0(Normal) 9. Best Language: Aphasia (description/naming/reading) - 0(No aphasia) 10. Dysarthria (speech clarity - read or repeat words) - 0(Normal) 11. Extinction and Inattention (visual/tactile/auditory/spatial/personal) - 0(No abnormality) Initials: rr5 NIH Stroke Scale - NIH Stroke Score Date: 11/29/2020 Time: 22:32 Total Score = 0 1a. Level of Consciousness (LOC) - 0(Alert) 1b. Level of Consciousness (LOC) (Month \T\ Age) - 0(Both) 1c. LOC Commands (Open \T\ Closes Eyes/Binman) - 0(Both) 2. Best Gaze (Lateral Gaze Paresis) - 0(Normal) 3. Visual Field Loss - 0(No visual loss) 4. Facial Palsy - 0(Normal) 5a. Left Arm: Motor (10-second hold) - 0(No drift) 5b. Right Arm: Motor (10-second hold) - 0(No drift) 6a. Left Leg: Motor (5-second hold - always test supine) - 0(No drift) 6b. Right Leg: Motor (5-second hold - always test supine) - 0(No drift) 7. Limb Ataxia (finger/nose \T\ heel/gaxiola - test with eyes open) - 0(Absent) 8. Sensory Loss (pinprick arms/legs/face) - 0(Normal) 9. Best Language: Aphasia (description/naming/reading) - 0(No aphasia) 10. Dysarthria (speech clarity - read or repeat words) - 0(Normal) 11. Extinction and Inattention (visual/tactile/auditory/spatial/personal) - 0(No abnormality) Initials: 7 Signatures: Dispatcher [employer] EDWA Ana Mazariegos, RN RN Devora Deluca, RN RN Alicia Zhao, RN RN Elroy Raman RN RN rr5 Louie Lundberg MD MD [facility] Corrections: (The following items were deleted from the chart) 22:59 22:59 FERRITIN+C.LAB.BRZ ordered. [facility] 23:24 23:03 Hospitalization Ordered by James Martínez MD for Inpatient Admission. Preliminary diagnosis is Speech disturbances, not elsewhere classified; Hyponatremia. Bed requested for Telemetry/MedSurg (Inpatient). Status is Inpatient Admission. Condition is Stable. Problem is new. Symptoms have improved. [facility] 23:48 23:24 11/29/2020 23:03 Hospitalization Ordered by James Martínez MD for bb Inpatient Admission. Preliminary diagnosis is Speech disturbances, not elsewhere classified; Hyponatremia. Bed requested for Telemetry/MedSurg (Inpatient). Status is Inpatient Admission. Condition is Stable. Problem is new. Symptoms have improved. dw
[2020-11-29 23:11] LABS: Urine Blood Negative (Negative); Urine Glucose Negative (Negative); Urine Protein 1+ (Negative); Urine Specific Gravity 1.015 (1.005-1.030); Urine pH 5.5 (5.0-7.0)
[2020-11-29 23:48] LABS: ALT/SGPT 39 U/L (12-78); AST/SGOT 55 U/L (15-37); Albumin 2.5 g/dL (3.4-5.0); Alkaline Phosphatase 604 U/L (45-117); Bilirubin Direct 1.1 mg/dL (0-0.2); Bilirubin Total 1.4 mg/dL (0.2-1.0); Ferritin 367.2 ng/mL (8-388); Protein, Total 7.4 g/dL (6.4-8.2); Transferrin 142 mg/dL (200-360); Troponin (Emerg Dept Use Only) < 0.02 ng/mL (0.0-0.045)
[2020-11-29 23:59] VITALS: O2SAT 99
--- NOTE | 2020-11-30 00:06 | P.HP ---
Certification for Inpatient Patient admitted to: Observation With expected LOS: <2 Midnights Patient will require the following post-hospital care: None Practitioner: I am a practitioner with admitting privileges, knowledge of patient current condition, hospital course, and medical plan of care. Services: Services provided to patient in accordance with Admission requirements found in Title 42 Section 412.3 of the Code of Federal Regulations <Ac Rausch - Last Filed: 11/29/20 23:56> Patient History Date of Service: 11/29/20 Primary Care Provider: Out of town Reason for admission: Confusion, dysphasia, hyponatremia History of Present Illness: 70 year old female with history of cholangiocarcinoma, hypertension, iron deficiency anemia, aneurysm status post clipping in 2005 presents emergency department for dysphasia, confusion. Daughter reports that patient took a nap around 15 30 today and when she woke up she is having difficulty with her speech, speech was clear but patient stops them over since and was confused, not making any sense. Patient then when out to eat with daughter as she thought maybe her blood sugar was low, symptoms resolved and daughter brought patient in to the emergency department for further evaluation. Patient evaluated in the emergency department, labs significant for sodium 126 hemoglobin 7.7. Case discussed with neurology who wishes for observation admit with EEG. Patient currently alert, oriented x3 NIH 0. - Past Medical/Surgical History -: Cholangiocarcinoma -: Hypertension -: Brain aneurysm status post clipping 2005 -: Diabetes mellitus type 2 -: Iron deficiency anemia -: Brain aneurysm clipping 2005 Psychosocial/ Personal History: Retired, lives with family - Family History Mother -: Diabetes - Social History Smoking Status: Never smoker Alcohol use: No CD- Drugs: No Caffeine use: Yes Place of Residence: Home <Ac Rausch - Last Filed: 11/29/20 23:56> Date of Service: 11/30/20 <James Martínez - Last Filed: 12/07/20 02:39> Allergies SULFA (SULFONAMIDES) Allergy (Uncoded 05/28/15 12:39) Unknown Review of Systems Unremarkable <Ac Rausch - Last Filed: 11/29/20 23:56> Physical Examination - Vital Signs Temperature: 98.8 F Blood Pressure: 116/73 Pulse: 98 Respirations: 16 - Physical Exam General: Alert, In no apparent distress, Oriented x3 HEENT: Atraumatic, PERRLA, Other (Mucous membranes dry) Neck: Supple, 2+ carotid pulse no bruit, No LAD Respiratory: Clear to auscultation bilaterally, Normal air movement Cardiovascular: Regular rate/rhythm, Normal S1 S2 Gastrointestinal: Normal bowel sounds, No tenderness Musculoskeletal: No tenderness Integumentary: No rashes Neurological: Normal speech, Normal strength at 5/5 x4 extr, Normal tone, Normal affect - Studies Laboratory Data (last 24 hrs) 11/29/20 21:22: PT 14.9 H, INR 1.29, APTT 28.8 11/29/20 21:22: WBC 7.10, Hgb 7.7 L, Hct 23.2 L, Plt Count 161 11/29/20 21:22: Sodium 126 L, Potassium 4.1, BUN 13, Creatinine 0.97, Glucose 183 H <Ac Rausch - Last Filed: 11/29/20 23:56> Assessment and Plan - Plan Assessment Confusion,dysphasia-resolved Hyponatremia Iron-deficiency anemia Hypertension Cholangiocarcinoma History of brain aneurysm status post clip 2005 Plan Confusion,dysphasia-resolved: Case was discussed with neurology, neurology has been consulted. EEG ordered. Will monitor with neuro checks, currently NIH 0 A&O x3. CT brain without any acute findings. DVT prophylaxis Lovenox 40 mg subcutaneous daily. Hyponatremia: Urine osmolality, sodium ordered, serum osmolality order. Patient reports she has been told she had hyponatremia in the past, likely chronic in nature. Will continue with normal saline at 75 cc/hour and recheck chemistry with morning labs. Patient reports that she does have good diet. Will need to review labs. Iron-deficiency anemia: Likely also anemia of chronic disease/related to chemotherapy. Last chemotherapy and october. Patient denies any bright red blood per rectum, melena, coffee-ground emesis. Has been on iron in the past but not currently taking. Hemoglobin currently 7.7 will recheck morning labs, transfuse to maintain hemoglobin greater than 7. Hypertension: Obtain and continue home medications Cholangiocarcinoma: Patient previously on chemotherapy, last infusion was in October. Family reports the doctor told him that the chemo is too hard on her body and that they were going to hold off on doing at this time. History of brain aneurysm status post clip 2005: Stable. Discharge Plan: Home Plan to discharge in: 24 Hours - Advance Directives Does patient have a Living Will: No Does patient have a Durable POA for Healthcare: No - Code Status/Comfort Care Code Status Assessed: Yes (Full code) Critical Care: No Time Spent Managing Pts Care (In Minutes): 55 <Ac Rausch - Last Filed: 11/29/20 23:56> Date of Service: 11/30/20 Subjective: Agree with plan of care as mentioned above. Will monitor patient neurologic status closely. Physical Examination Vitals: Afebrile vital signs are stable Physical exam: Cardiovascular: Regular rate rhythm no murmur Lungs: Clear bilaterally Neuro: No focal deficits Diagnostic data has been reviewed ASST: 1. Altered mental status 2. Hypoglycemia 3. History of seizure disorder PLAN: 1. Continue with current plan of care as mentioned above 2. Monitor blood sugars closely 3. Monitor neuro status and will do with EEG 4. Anticipate discharge home today <James Martínez - Last Filed: 12/07/20 02:39>
[2020-11-30] MEDS ORDERED: ONDANSETRON 4 MG/2 ML VIAL IV PRN (00:10)
[2020-11-30 00:30] VITALS: BMI 22.5
[2020-11-30] MEDS: NA CHLORIDE 0.9% 1,000 ML IV SCH ×3 (00:56→14:54)
[2020-11-30] MEDS: OXYCODONE HCL 5 MG TAB PO PRN ×3 (01:28→15:24)
[2020-11-30 06:16] LABS: Absolute Lymphocytes (CBC) 0.5 K/uL (0.7-4.9); Basophils % 0.4 % (0-1.3); MPV 9.1 fL (7.6-11.3); RBC Red Blood Cell Count 2.87 M/uL (3.86-4.86)
[2020-11-30 06:32] LABS: Albumin 2.3 g/dL (3.4-5.0); Bilirubin Total 1.9 mg/dL (0.2-1.0); Magnesium 1.5 mg/dL (1.8-2.4); Potassium 3.9 mmol/L (3.5-5.1); Protein, Total 7.3 g/dL (6.4-8.2); Thyroid Stimulating Hormone 2.99 uIU/mL (0.360-3.740)
[2020-11-30] MEDS: INSULIN -REGULAR HUMAN 50 UNIT/0.5 ML ML SQ SCH ×3 (07:30→16:30)
--- NOTE | 2020-11-30 08:53 | RAD REPORT ---
EXAM DESCRIPTION: RAD - Chest Single View - 11/29/2020 10:31 pm CLINICAL HISTORY: TIA Chest pain. COMPARISON: Abdomen Pelvis W Contrast dated 06/18/2020 FINDINGS: Portable technique limits examination quality. The lungs are grossly clear. The heart is normal in size. No displaced fractures.Right-sided port cat heter its tip in the SVC. IMPRESSION: No acute intrathoracic process suspected.
[2020-11-30] MEDS ORDERED: POTASSIUM CL SA 10 MEQ TAB PO ONE (09:00)
[2020-11-30] MEDS ORDERED: ENOXAPARIN 40 MG/0.4 ML SQ SCH (09:00)
[2020-11-30] MEDS ORDERED: Magnesium Sulfate 2gm IVPB 2 G/50 ML BAG IV ONE (09:00)
--- NOTE | 2020-11-30 13:53 | RAD REPORT ---
EXAM DESCRIPTION: Ct Stroke Brain Wo Cont 11/29/2020 9:40 PM CDT CLINICAL HISTORY: 70 years, Female, TIA COMPARISON: 02/01/2013. FINDINGS: Multiple transaxial tomograms of the brain were obtained from the base of the skull to the vertex without contrast. 2-D multiplanar reformats and the coronal and sagittal plane were performed and reviewed. This exam was performed according to our departmental dose-optimization protocol, which includes auto mated exposure control, adjustment of the mA and/or kV according to patient size and/or use of iterat erik reconstruction technique. Brain parenchyma demonstrate mild prominence of the sulci and gyri are corresponding to mild cerebral and cerebellar atrophy. There is very minimal periventricular white matter changes of microvascular ischemia. Again there is noted the presence of lytic the left frontal temporal craniotomy with streak artifact along the left cavernous sinus with the presence of aneurysm clip within the region of the left internal carotid artery. There is no midline shift and/or mass effect. There is no evidence for acute intracranial hemorrhage. Lateral ventricles and cisterns displace normal appearance. No int ra or extra axial fluid collections were seen. Otherwise the calvarium is intact with no evidence for fracture. The visualized portions of the paranasal sinuses and orbits demonstrate to be clear. IMPRESSION: No evidence for acute intracranial hemorrhage. Stable left frontal temporal craniotomy and aneurysm clip within the region of the left internal armstrong tid artery. Mild brain atrophy with very minimal periventricular white matter changes of microvascular ischemia. Electronically signed by: Guillaume Atkinson MD 11/29/2020 9:43 PM CDT Due to temporary technical issues with the PACS/Fluency reporting system, reports are being signed by the in house radiologist without review as a courtesy to ensure prompt reporting. The interpreting r adiologist is fully responsible for the content of the report.
[2020-11-30 15:20] LABS: Folic Acid, (Folate) > 20.0 ng/mL (3.1-17.5)
--- NOTE | 2020-11-30 15:49 | EKG ---
Test Date: 2020-11-29 Test Time: 21:16:32 Planner: RR MEASUREMENT RESULTS: Intervals: Rate: 98 NV: 138 QRSD: 74 QT: 330 QTc: 421 [place]: P: 67 NV: 138 QRS: 62 T: 56 INTERPRETIVE STATEMENTS: Normal sinus rhythm Normal ECG Compared to ECG 05/28/2015 11:44:15 No significant changes Electronically Signed On 11-30-20 15:47:03 CDT by Grady Aguila
[2020-11-30] MEDS ORDERED: SOD FERRIC GLUC COMPLX/SUCROSE 125 MG in NA CHLORIDE 0.9% 100 ML IV SCH (16:00)
[2020-11-30 17:55] VITALS: BP 119/69; TEMP 100.4
[2020-12-01] MEDS ORDERED: SOD FERRIC GLUC COMPLX/SUCROSE 125 MG in NA CHLORIDE 0.9% 100 ML IV SCH (09:00)
--- NOTE | 2020-12-01 09:44 | EEG ---
CHART: [id number] TEST ID#: [id number] DATE OF STUDY: 11/30/2020 THE EEG WAS RECORDED PORTABLE IN THE PATIENT'S ROOM ON A 17 CHANNEL MACHINE. ELECTRODES WERE APPLIED IN THE USUAL MANNER USING THE INTERNATIONAL 10-20 SYSTEM. THE WAKING BACKGROUND RHYTHM IN THIS RECORD CONSISTS OF FAIRLY WELL DEVELOPED AND FAIRLY WELL ORGANIZED WAVES OF 8 HZ., MAXIMAL IN THE POSTERIOR HEAD REGIONS WHICH ATTENUATE NORMALLY WITH EYE OPENING. LOW-VOLTAGE 15-18 HZ ACTIVITY IS EXPRESSED IN THE FRONTAL REGIONS. MODERATE VOLTAGE 1.5 TO 3 HZ ACTIVITY IS EXPRESSED INTERMITTENTLY. THERE ARE NO FOCAL OR LATERALIZING FEATURES. NO EPILEPTIFORM ACTIVITY APPEARS. SLEEP OCCURRED NATURALLY. HYPERVENTILATION WAS NOT PERFORMED. PHOTIC STIMULATION PRODUCED NO DRIVING BILATERALLY. IMPRESSION: THIS IS A MILDLY ABNORMAL EEG DUE TO A MILDLY SLOW BACKGROUND. THIS IS A NON-SPECIFIC FINDING INDICATING THE PRESENCE OF A MILD DIFFUSE DISTURBANCE IN CEREBRAL FUNCTION.
--- NOTE | 2020-12-07 02:37 | P.DS ---
Discharge Date: 11/30/20 Primary Care Provider: Out of town Disposition: ROUTINE DISCHARGE Discharge Condition: GOOD Reason for Admission: Confusion, dysphasia, hyponatremia Brief History of Present Illness: 70 year old female with history of cholangiocarcinoma, hypertension, iron deficiency anemia, aneurysm status post clipping in 2005 presents emergency department for dysphasia, confusion. Daughter reports that patient took a nap around 15 30 today and when she woke up she is having difficulty with her speech, speech was clear but patient stops them over since and was confused, not making any sense. Patient then when out to eat with daughter as she thought maybe her blood sugar was low, symptoms resolved and daughter brought patient in to the emergency department for further evaluation. Patient evaluated in the emergency department, labs significant for sodium 126 hemoglobin 7.7. Case discussed with neurology who wishes for observation admit with EEG. Patient currently alert, oriented x3 NIH 0. Hospital Course: Patient is clinically doing well. Blood sugars are stable. Vital Signs/Physical Exam: Temp Pulse Resp BP Pulse Ox 100.4 F 102 H 19 119/69 96 11/30/20 16:00 11/30/20 16:00 11/30/20 16:24 11/30/20 16:00 11/30/20 16:24 General: Alert, In no apparent distress, Oriented x3 Laboratory Data at Discharge: WBC 5.30 K/uL (4.3-10.9) D 11/30/20 05:28 Hgb 7.8 g/dL (12.0-15.0) L 11/30/20 05:28 Hct 24.0 % (36.0-45.0) L 11/30/20 05:28 Plt Count 152 K/uL (152-406) 11/30/20 05:28 PT 14.9 SECONDS (9.5-12.5) H 11/29/20 21:22 INR 1.29 11/29/20 21:22 APTT 28.8 SECONDS (24.3-36.9) 11/29/20 21:22 Sodium 132 mmol/L (136-145) L 11/30/20 05:28 Potassium 3.9 mmol/L (3.5-5.1) 11/30/20 05:28 BUN 12 mg/dL (7-18) 11/30/20 05:28 Creatinine 0.78 mg/dL (0.55-1.3) 11/30/20 05:28 Glucose 143 mg/dL (74-106) H 11/30/20 05:28 Magnesium 1.8 mg/dL (1.8-2.4) 11/30/20 15:57 Total Bilirubin 1.9 mg/dL (0.2-1.0) H 11/30/20 05:28 AST 65 U/L (15-37) H 11/30/20 05:28 ALT 39 U/L (12-78) 11/30/20 05:28 Alkaline Phosphatase 578 U/L (45-117) H 11/30/20 05:28 Triglycerides 123 mg/dL (<150) 11/30/20 05:28 Cholesterol 99 mg/dL (<200) 11/30/20 05:28 HDL Cholesterol 12 mg/dL (40-60) L 11/30/20 05:28 Cholesterol/HDL Ratio 8.25 11/30/20 05:28 Home Medications: Cholecalciferol (Vitamin D3) [Vitamin D3] 2,000 unit PO DAILY 11/30/20 Cyanocobalamin (Vitamin B-12) [Vitamin B-12] 2,000 mcg PO DAILY 11/30/20 Escitalopram Oxalate [Lexapro] 20 mg PO BEDTIME 11/30/20 Metformin ER [Glucophage ER] 2,000 mg PO DAILY 11/30/20 Multivitamin 1 each PO DAILY 11/30/20 Ondansetron [Ondansetron Odt] 8 mg PO DIRECTED PRN 11/30/20 Oxycodone HCl [Oxycodone HCl ER] 10 mg PO Q4HR PRN 11/30/20 Prochlorperazine [Compazine] 5 mg PO DIRECTED PRN 11/30/20 Sennosides/Docusate Sodium [Senna Plus 8.6-50 mg Tablet] 1 each PO DIRECTED 11/30/20 Physician Discharge Instructions: OK to DC IV and DC home after iron infusion Follow-up with Neurology for further work-up May need further imaging including MRI of the brain. Return to the ER if symptoms worsens Follow-up with PCP in 1-[address] Martínez at [phone] if any questions regarding hospital stay Diet: AHA Activity: Fall precautions Time spent managing pt's care (in minutes): 35
== END 2020-11-30 18:20 | disposition home or self-care (01) ==
LOC: ER 21:06 → ERHOLD 23:11 → 2ND 23:37
PROVIDERS: ADMIT Hospitalist; ATTEND Hospitalist
DX: R41.0 Disorientation, unspecified (principal); E87.1 Hypo-osmolality and hyponatremia; R47.02 Dysphasia; I10 Essential (primary) hypertension; D50.9 Iron deficiency anemia, unspecified; C22.1 Intrahepatic bile duct carcinoma; E16.2 Hypoglycemia, unspecified; G40.909 Epilepsy, unspecified, not intractable, without status epilepticus
CPT/HCPCS: 95816; 93005; 85025 ×2; 80048; 36415; 82140; 83735 ×2; 85610; 84300; 80061; 82947 ×4; 80076; 85730; 84443; 81003; 83036; 84484; 84439; 82728; 82746; 82607; 83540; 80053; 84466; 70450; 71045; 96360; 99285; J1650; J3475; J2916; J7030 ×3; J2405; G0378 ×2